=== PATIENT | female | born 1950 | race Caucasian/White ===

== ENCOUNTER 2019-11-23 17:08 | Outpatient (REF) | payer MEDICARE, OTHER, SELFPAY | END 2019-11-23 17:09 | disposition home or self-care (01) | LOC: HO.LAB 17:08 | PROVIDERS: PCP Internal Medicine; Visit Provider Internal Medicine | DX: Z20.828 Contact with and (suspected) exposure to other viral communicable diseases (principal) | CPT/HCPCS: 36415; 87635 ==

== ENCOUNTER 2019-11-26 14:35 | Outpatient (REF) | payer MEDICARE, OTHER, SELFPAY ==
--- NOTE | 2019-11-26 14:42 | XR_ITS ---
EXAMINATION: XR CHEST CLINICAL INFORMATION: Chest pain. COMPARISON: Chest radiograph from 11/26/2019. TECHNIQUE: Chest radiograph from 06/18/2019. FINDINGS: The lungs are well expanded. Chronically increased irregular reticular markings. No new focal consolidative process. Chronic moderate peribronchial wall thickening. No evidence of pleural effusion, pulmonary edema, or pneumothorax. The cardiomediastinal silhouette is within normal limits. No acute osseous abnormalities. IMPRESSION: 1. No acute pulmonary abnormalities. No focal dense lobar consolidation. 2. Chronically increased pulmonary markings and peribronchial wall thickening suggestive of small airways inflammation.
== END 2019-11-26 14:36 | disposition home or self-care (01) ==
LOC: HO.HMGCX 14:35
PROVIDERS: PCP Internal Medicine; Visit Provider Internal Medicine
DX: R07.89 Other chest pain (principal); R05 Cough
CPT/HCPCS: 71046

== ENCOUNTER 2019-12-02 10:59 | Outpatient (REF) | payer MEDICARE, OTHER, SELFPAY ==
--- NOTE | 2019-12-02 10:56 | CT_ITS ---
EXAMINATION: CT HEAD WITHOUT CONTRAST CLINICAL INFORMATION: Headache. Head injury. COMPARISON: None available. TECHNIQUE: Contiguous axial imaging was performed from the skull base to vertex without intravenous administration of contrast. This CT examination was performed using dose optimization techniques as appropriate, variously including the following: *Automated exposure control *Adjustment of mA and/or kV according to patient size (this includes techniques or standardized protocols for targeted exams where dose is matched to indication/reason for exam; i.e. extremities or head) *Use of iterative reconstruction technique FINDINGS: There is no intracranial hemorrhage, hydrocephalus, extra-axial surface collection, midline shift, or other herniation pattern. Trejo to white matter differentiation is diffusely maintained without evidence of an evolved acute territorial infarct. The basilar cisterns are preserved. No significant soft tissue abnormality. No acute osseous abnormality. The paranasal sinuses and the mastoid air cells are well aerated. IMPRESSION: No acute intracranial abnormality.
== END 2019-12-02 11:00 | disposition home or self-care (01) ==
LOC: HO.CT 10:59
PROVIDERS: PCP Internal Medicine; Visit Provider Psychiatry & Neurology Neurology
DX: R51.9 Headache, unspecified (principal); S09.90XA Unspecified injury of head, initial encounter
CPT/HCPCS: 70450

== ENCOUNTER 2019-12-24 11:31 | Outpatient (REF) | payer MEDICARE, OTHER, SELFPAY ==
--- NOTE | 2019-12-24 11:34 | US_ITS ---
EXAMINATION: US RETROPERITONEAL LIMITED (RENAL ONLY) CLINICAL INFORMATION: Disorder of kidney and ureter, unspecified. COMPARISON: None TECHNIQUE: Real-time imaging of the kidneys. FINDINGS: RIGHT KIDNEY: 12.5 x 5.5 x 5.1 cm (SAG x AP x TRV). The kidney is normal in size, contour, and echogenicity. Renal cortical thickness is normal. No renal calculi or hydronephrosis. There is an anechoic cyst partially exophytic in upper pole measuring 0.9 x 1.0 x 1.0 cm. LEFT KIDNEY: 12.7 x 5.5 x 5.6 cm (SAG x AP x TRV). The kidney is normal in size, contour, and echogenicity. Renal cortical thickness is normal. No calculi or focal parenchymal lesions. No hydronephrosis. US/US renal BI IMPRESSION: 1. Partially exophytic cyst midpole right kidney. 2. There are no echogenic stones or hydronephrosis seen.
== END 2019-12-24 11:32 | disposition home or self-care (01) ==
LOC: HO.HMGCX 11:31
PROVIDERS: PCP Internal Medicine; Visit Provider Internal Medicine
DX: N28.9 Disorder of kidney and ureter, unspecified (principal)
CPT/HCPCS: 76775

== ENCOUNTER → 2020-01-21 11:01 | Outpatient (BNVA) | payer MEDICARE, OTHER, SELFPAY | PROVIDERS: PCP Internal Medicine; Visit Provider Internal Medicine Pulmonary Disease | DX: J43.9 Emphysema, unspecified (principal); R91.8 Other nonspecific abnormal finding of lung field | CPT/HCPCS: 99202 ==

== ENCOUNTER 2020-01-29 11:00 | Outpatient (REF) | payer MEDICARE, OTHER, SELFPAY ==
--- NOTE | 2020-01-29 11:03 | CT_ITS ---
EXAMINATION: CT CHEST WITHOUT CONTRAST CLINICAL INFORMATION: Other nonspecific abnormal finding on lung field COMPARISON: Previous chest x-rays most recent 11/26/2019 TECHNIQUE: Multidetector volumetric CT imaging of the chest was done. Axial MIP volume rendering provided. Sagittal and coronal reformatted images were obtained. This CT examination was performed using dose optimization techniques as appropriate, variously including the following: *Automated exposure control *Adjustment of mA and/or kV according to patient size (this includes techniques or standardized protocols for targeted exams where dose is matched to indication/reason for exam; i.e. 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 The lungs are otherwise clear. No bronchial wall thickening or bronchiectasis or endobronchial lesion is seen. No evidence of emphysema or interstitial lung disease is seen. MEDIASTINUM: The mediastinum is normal. PLEURA: There is no pleural effusion. No pleural mass or thickening. AXILLA: No lymphadenopathy. UPPER ABDOMEN: The gallbladder has been removed. OSSEOUS STRUCTURES: There are degenerative changes of the spine and mild scoliosis. CT/CT chest wo con IMPRESSION: Probable compressive atelectasis in the peripheral paravertebral right lower lobe adjacent to bony osteophyte. Otherwise unremarkable exam. No evidence of airways disease.
== END 2020-01-29 11:01 | disposition home or self-care (01) ==
LOC: HO.CT 11:00
PROVIDERS: PCP Internal Medicine; Visit Provider Internal Medicine Pulmonary Disease
DX: R91.8 Other nonspecific abnormal finding of lung field (principal)
CPT/HCPCS: 71250

== ENCOUNTER → 2020-02-09 11:45 | Outpatient (BNVA) | payer MEDICARE, OTHER, SELFPAY | PROVIDERS: PCP Internal Medicine; Visit Provider Internal Medicine Pulmonary Disease | DX: R93.89 Abnormal findings on diagnostic imaging of other specified body structures (principal); I10 Essential (primary) hypertension; R05 Cough; K21.9 Gastro-esophageal reflux disease without esophagitis; J43.9 Emphysema, unspecified; Z87.891 Personal history of nicotine dependence | CPT/HCPCS: 99212 ==

== ENCOUNTER 2020-02-26 | Outpatient (REF) | payer MEDICARE, OTHER, SELFPAY ==
[2020-02-26 14:28] LABS: Glucose Urine UA NEG (NEG); Leukocyte Esterase Urine NEG (NEG); Nitrite Urine NEG (NEG); PH 5.5 (5.0-8.0); Specific Gravity - Urine >= 1.030 (1.005-1.025); Urine Blood NEG (NEG); Urine Ketones NEG (NEG); Urine Protein NEG (NEG-TRACE)
[2020-02-26 14:30] LABS: Appearance Urine HAZY; Color Urine YELLOW
== END 2020-02-26 00:01 | disposition home or self-care (01) ==
LOC: HO.HMGCLNP
PROVIDERS: Visit Provider Internal Medicine Cardiovascular Disease
DX: E78.9 Disorder of lipoprotein metabolism, unspecified (principal); I10 Essential (primary) hypertension; N28.9 Disorder of kidney and ureter, unspecified
CPT/HCPCS: 81003

== ENCOUNTER → 2020-03-09 11:45 | Outpatient (BNVA) | payer MEDICARE, OTHER, SELFPAY | PROVIDERS: PCP Internal Medicine; Visit Provider Internal Medicine Pulmonary Disease | DX: R05 Cough (principal); R91.8 Other nonspecific abnormal finding of lung field | CPT/HCPCS: 99212 ==

== ENCOUNTER → 2020-03-24 11:24 | Outpatient (BNVA) | payer MEDICARE, OTHER, SELFPAY | PROVIDERS: PCP Internal Medicine; Visit Provider Internal Medicine Pulmonary Disease | DX: Z13.89 Encounter for screening for other disorder (principal) | CPT/HCPCS: Q3014 ==

== ENCOUNTER → 2020-04-12 13:44 | Outpatient (BNVA) | payer MEDICARE, OTHER, SELFPAY | PROVIDERS: PCP Internal Medicine; Visit Provider Internal Medicine Pulmonary Disease | DX: Z76.89 Persons encountering health services in other specified circumstances (principal) | CPT/HCPCS: Q3014 ==

== ENCOUNTER 2020-04-22 17:03 | Outpatient (REF) | payer MEDICARE, OTHER, SELFPAY ==
[2020-04-22 17:41] LABS: MANUAL DIFF FLAG NO
[2020-04-22 17:54] LABS: Basophils Percent Auto 0.5 % (0-2); Eosinophils Absolute Auto 0.1 X10*3/uL (0.0-0.4); Eosinophils Percent Auto 1.7 % (0-4); Hematocrit 42.7 % (37-47); Hemoglobin 14.2 g/dl (12.0-16.0); Imm Gran Abs Auto 0.04 X10*3/uL (0.00-0.03); Imm Gran Pct Auto 0.5 % (0.0-0.4); Lymphocytes Absolute Auto 2.2 X10*3/uL (1.2-4.9); Lymphocytes Percent Auto 29.6 % (20-40); Mean Corpuscular HGB Conc 33.3 g/dl (31.0-35.0); Mean Corpuscular Hemoglobin 29.2 pg (27.0-33.0); Mean Corpuscular Volume 87.7 fL (80-98); Mean Platelet Volume 9.7 fL (9.4-12.3); Monocytes Absolute Auto 0.6 X10*3/uL (0.1-1.2); Monocytes Percent Auto 7.6 % (2-11); Neutrophils Absolute Auto 4.5 X10*3/uL (2.0-8.3); Neutrophils Percent Auto 60.1 % (45-73); Platelet Count 272 X10*3/uL (160-400); Red Blood Count 4.87 X10*6/uL (4.20-5.50); Red Cell Distribution Width 12.6 % (11.0-16.0); White Blood Count 7.5 X10*3/uL (4.8-10.8)
[2020-04-22 18:22] LABS: Anion Gap 13 (12-20); Carbon Dioxide 27 mmol/L (22-29); Chloride 105 mmol/L (96-108); Potassium 4.6 mmol/L (3.3-5.1); Sodium 140 mmol/L (135-145)
[2020-04-22 18:24] LABS: Alanine Aminotransferase 27 U/L (0-31); Albumin Level 4.3 g/dL (3.5-5.0); Alkaline Phosphatase 134 U/L (39-117); Aspartate Amino Transferase 19 U/L (5-31); Bilirubin Direct 0.2 mg/dL (0.0-0.5); Bilirubin Total 0.5 mg/dL (0.0-1.0); Blood Urea Nitrogen 14 mg/dL (9-16); Calcium 9.2 mg/dL (8.4-10.2); Cholesterol 292 mg/dL; Estimated Glomerular Filt Rate 53; Glucose Fasting 115 mg/dL (60-99); HDL Cholesterol 55 mg/dL; Total Protein 7.4 g/dL (6.5-8.0); Triglycerides 490 mg/dL
== END 2020-04-22 17:04 | disposition home or self-care (01) ==
LOC: HO.LAB 17:03
PROVIDERS: PCP Internal Medicine; Visit Provider Internal Medicine Pulmonary Disease
DX: E78.9 Disorder of lipoprotein metabolism, unspecified (principal); I10 Essential (primary) hypertension; N28.9 Disorder of kidney and ureter, unspecified; Z91.09 Other allergy status, other than to drugs and biological substances
CPT/HCPCS: 36415; 80048; 80061; 80076; 82785; 85025; 86003

== ENCOUNTER → 2020-05-26 14:51 | Outpatient (BNVA) | payer MEDICARE, OTHER, SELFPAY | PROVIDERS: PCP Internal Medicine; Visit Provider Internal Medicine Pulmonary Disease | DX: J45.909 Unspecified asthma, uncomplicated (principal); Z91.09 Other allergy status, other than to drugs and biological substances | CPT/HCPCS: 99212 ==

== ENCOUNTER 2020-07-07 13:46 | Outpatient (REF) | payer MEDICARE, OTHER, SELFPAY ==
--- NOTE | ~2020-07-07 | CT_ITS ---
EXAMINATION: CT SOFT TISSUE NECK WITHOUT CONTRAST CLINICAL INFORMATION: Cough. COMPARISON: CT scan of the sinuses 05/23/2018. TECHNIQUE: Helical imaging was performed in the axial plane with generation of coronal and sagittal reformatted images. Evaluation is slightly limited by lack of intravenous contrast. This CT examination was performed using dose optimization techniques as appropriate, variously including the following: *Automated exposure control *Adjustment of mA and/or kV according to patient size (this includes techniques or standardized protocols for targeted exams where dose is matched to indication/reason for exam; i.e. extremities or head) *Use of iterative reconstruction technique DLP: 436 mGy-cm FINDINGS: No cervical adenopathy is identified. The parotid glands are homogeneous in attenuation. The submandibular glands are normal. No contour abnormality or pathologic enhancement is seen within the oral cavity or pharyngeal mucosal space. The laryngeal structures are normal. The parapharyngeal fat is preserved. There is no cervical lymphadenopathy. There are small lymph nodes at multiple levels in the neck bilaterally. There are mild atheromatous calcifications of the aortic arch and right subclavian artery. No extra mucosal soft tissue mass or fluid collection is seen. No retropharyngeal fluid collection is seen. The thyroid gland is normal. The superior mediastinum is unremarkable. The lung apices and visualized airways are clear. The mastoid air cells and visualized portions of the paranasal sinuses are well-aerated. There are mild degenerative changes of the right temporomandibular joint. No periapical disease is identified. No osseous abnormalities are seen. The imaged portions of the brain parenchyma are unremarkable. CT/CT soft tissue neck wo con IMPRESSION: 1. There are no cervical masses and there is no cervical lymphadenopathy. The visualized lung peace and airways appear well-aerated.
== END 2020-07-07 13:47 | disposition home or self-care (01) ==
LOC: HO.CT 13:46
PROVIDERS: PCP Internal Medicine; Visit Provider Internal Medicine Pulmonary Disease
DX: R05 Cough (principal); J39.8 Other specified diseases of upper respiratory tract
CPT/HCPCS: 70490

== ENCOUNTER 2020-07-20 11:13 | Outpatient (REF) | payer MEDICARE, OTHER, SELFPAY | END 2020-07-20 11:14 | disposition home or self-care (01) | LOC: HO.MDS 11:13 | PROVIDERS: PCP Internal Medicine; Visit Provider Internal Medicine Pulmonary Disease | DX: J45.50 Severe persistent asthma, uncomplicated (principal) | CPT/HCPCS: 96372; J2357 ==

== ENCOUNTER → 2020-07-27 09:48 | Outpatient (BNVA) | payer MEDICARE, OTHER, SELFPAY | PROVIDERS: PCP Internal Medicine; Visit Provider Internal Medicine Pulmonary Disease | DX: J45.909 Unspecified asthma, uncomplicated (principal); Z91.09 Other allergy status, other than to drugs and biological substances | CPT/HCPCS: 99212 ==

== ENCOUNTER 2020-08-03 11:57 | Outpatient (REF) | payer MEDICARE, OTHER, SELFPAY | END 2020-08-03 11:58 | disposition home or self-care (01) | LOC: HO.MDS 11:57 | PROVIDERS: PCP Internal Medicine; Visit Provider Internal Medicine Pulmonary Disease | DX: J45.50 Severe persistent asthma, uncomplicated (principal) | CPT/HCPCS: 96372; J2357 ==

== ENCOUNTER 2020-08-17 10:06 | Outpatient (REF) | payer MEDICARE, OTHER, SELFPAY | END 2020-08-17 10:07 | disposition home or self-care (01) | LOC: HO.MDS 10:06 | PROVIDERS: PCP Internal Medicine; Visit Provider Internal Medicine Pulmonary Disease | DX: J45.50 Severe persistent asthma, uncomplicated (principal) | CPT/HCPCS: 96372; J2357 ==

== ENCOUNTER 2020-08-31 10:54 | Outpatient (REF) | payer MEDICARE, OTHER, SELFPAY | END 2020-08-31 10:55 | disposition home or self-care (01) | LOC: HO.MDS 10:54 | PROVIDERS: PCP Internal Medicine; Visit Provider Internal Medicine Pulmonary Disease | DX: J45.50 Severe persistent asthma, uncomplicated (principal) | CPT/HCPCS: 96372; J2357 ==

== ENCOUNTER 2020-09-14 11:06 | Outpatient (REF) | payer MEDICARE, OTHER, SELFPAY | END 2020-09-14 11:07 | disposition home or self-care (01) | LOC: HO.MDS 11:06 | PROVIDERS: PCP Internal Medicine; Visit Provider Internal Medicine Pulmonary Disease | DX: J45.50 Severe persistent asthma, uncomplicated (principal) | CPT/HCPCS: 96372; J2357 ==

== ENCOUNTER 2020-09-28 11:23 | Outpatient (REF) | payer MEDICARE, OTHER, SELFPAY | END 2020-09-28 11:24 | disposition home or self-care (01) | LOC: HO.MDS 11:23 | PROVIDERS: PCP Internal Medicine; Visit Provider Internal Medicine Pulmonary Disease | DX: J45.50 Severe persistent asthma, uncomplicated (principal) | CPT/HCPCS: 96372; J2357 ==

== ENCOUNTER 2020-10-12 10:29 | Outpatient (REF) | payer MEDICARE, OTHER, SELFPAY | END 2020-10-12 10:30 | disposition home or self-care (01) | LOC: HO.MDS 10:29 | PROVIDERS: PCP Internal Medicine; Visit Provider Internal Medicine Pulmonary Disease | DX: J45.50 Severe persistent asthma, uncomplicated (principal) | CPT/HCPCS: 96372; J2357 ==

== ENCOUNTER 2020-10-26 14:52 | Outpatient (REF) | payer MEDICARE, OTHER, SELFPAY | END 2020-10-26 14:53 | disposition home or self-care (01) | LOC: HO.MDS 14:52 | PROVIDERS: PCP Internal Medicine; Visit Provider Internal Medicine Pulmonary Disease | DX: J45.50 Severe persistent asthma, uncomplicated (principal) | CPT/HCPCS: 96372; J2357 ==

== ENCOUNTER → 2020-10-27 11:27 | Outpatient (BNVA) | payer MEDICARE, OTHER, SELFPAY | PROVIDERS: PCP Internal Medicine; Visit Provider Internal Medicine Pulmonary Disease | DX: J45.909 Unspecified asthma, uncomplicated (principal); Z91.09 Other allergy status, other than to drugs and biological substances | CPT/HCPCS: 99212 ==

== ENCOUNTER 2020-11-09 11:53 | Outpatient (REF) | payer MEDICARE, OTHER, SELFPAY | END 2020-11-09 11:54 | disposition home or self-care (01) | LOC: HO.MDS 11:53 | PROVIDERS: PCP Internal Medicine; Visit Provider Internal Medicine Pulmonary Disease | DX: J45.50 Severe persistent asthma, uncomplicated (principal) | CPT/HCPCS: 96372; J2357 ==

== ENCOUNTER 2020-11-23 11:14 | Outpatient (REF) | payer MEDICARE, OTHER, SELFPAY | END 2020-11-23 11:15 | disposition home or self-care (01) | LOC: HO.MDS 11:14 | PROVIDERS: PCP Internal Medicine; Visit Provider Internal Medicine Pulmonary Disease | DX: J45.50 Severe persistent asthma, uncomplicated (principal) | CPT/HCPCS: 96372; J2357 ==

== ENCOUNTER 2020-12-07 11:04 | Outpatient (REF) | payer MEDICARE, OTHER, SELFPAY | END 2020-12-07 11:05 | disposition home or self-care (01) | LOC: HO.MDS 11:04 | PROVIDERS: PCP Internal Medicine; Visit Provider Internal Medicine Pulmonary Disease | DX: J45.50 Severe persistent asthma, uncomplicated (principal) | CPT/HCPCS: 96372; J2357 ==

== ENCOUNTER 2020-12-21 10:50 | Outpatient (REF) | payer MEDICARE, OTHER, SELFPAY | END 2020-12-21 10:51 | disposition home or self-care (01) | LOC: HO.MDS 10:50 | PROVIDERS: PCP Internal Medicine; Visit Provider Internal Medicine Pulmonary Disease | DX: J45.50 Severe persistent asthma, uncomplicated (principal) | CPT/HCPCS: 96372; J2357 ==

== ENCOUNTER 2020-12-21 15:16 | Outpatient (REF) | payer MEDICARE, OTHER, SELFPAY ==
--- NOTE | ~2020-12-21 | XR_ITS ---
EXAMINATION: XR CHEST CLINICAL INFORMATION: Chest pain COMPARISON: Previous chest x-ray November [address] January 2020 TECHNIQUE: 2 views of the chest were obtained. FINDINGS: The cardiac and mediastinal contours are stable. There is a 4 x 5 cm density in the left upper lobe. Differential would include pneumonia and mass. The lungs are otherwise clear. There is no pleural effusion or pneumothorax. There are degenerative changes of the spine. XR/XR chest 2V IMPRESSION: New 4 x 5 cm density in the left upper lobe. Differential would include pneumonia and mass. If there is clinical suspicion of pneumonia, short-term follow-up chest x-ray following treatment would be recommended. If there are no symptoms to suggest infection or chest x-ray finding does not resolve, chest CT scan with IV contrast would be recommended.
[2020-12-21 15:56] LABS: MANUAL DIFF FLAG NO
[2020-12-21 16:04] LABS: Basophils Percent Auto 0.2 % (0-2); Eosinophils Percent Auto 0.1 % (0-4); Hematocrit 39.4 % (37.0-47.0); Hemoglobin 13.6 g/dl (12.0-16.0); Imm Gran Abs Auto 0.15 X10*3/uL (0.00-0.03); Imm Gran Pct Auto 0.9 % (0.0-0.4); Lymphocytes Absolute Auto 1.6 X10*3/uL (1.2-4.9); Lymphocytes Percent Auto 9.5 % (20-40); Mean Corpuscular HGB Conc 34.5 g/dl (31.0-35.0); Mean Platelet Volume 9.3 fL (9.4-12.3); Monocytes Absolute Auto 1.3 X10*3/uL (0.1-1.2); Monocytes Percent Auto 7.8 % (2-11); Neutrophils Absolute Auto 13.54 x10*3/uL (2.0-8.3); Neutrophils Percent Auto 81.5 % (45-73); Platelet Count 236 X10*3/uL (160-400); Red Blood Count 4.53 X10*6/uL (4.20-5.50); Red Cell Distribution Width 12.4 % (11.0-16.0); White Blood Count 16.6 X10*3/uL (4.8-10.8)
[2020-12-21 16:17] LABS: D Dimer 424 NG/ML
[2020-12-21 16:29] LABS: Anion Gap 15 (12-20); Blood Urea Nitrogen 12 mg/dL (9-16); Calcium 9.5 mg/dL (8.4-10.2); Carbon Dioxide 25 mmol/L (22-29); Chloride 102 mmol/L (96-108); Estimated Glomerular Filt Rate 58; Glucose Random 122 mg/dL (60-115); Potassium 4.3 mmol/L (3.3-5.1); Sodium 138 mmol/L (135-145)
[2020-12-21 16:36] LABS: B Type Natriuretic Peptide 104 pg/mL (<100)
== END 2020-12-21 15:17 | disposition home or self-care (01) ==
LOC: HO.XRAY 15:16
PROVIDERS: PCP Internal Medicine; Visit Provider Nurse Practitioner Family
DX: R07.9 Chest pain, unspecified (principal); E78.5 Hyperlipidemia, unspecified
CPT/HCPCS: 36415; 71046; 80048; 83880; 85025; 85379

== ENCOUNTER 2020-12-23 16:00 | Outpatient (REF) | payer MEDICARE, OTHER, SELFPAY ==
--- NOTE | ~2020-12-23 | CT_ITS ---
EXAMINATION: CT CHEST WITH CONTRAST CLINICAL INFORMATION: Normal finding of the lungs. COMPARISON: Chest radiograph 12/21/2020. CT 01/29/2020. TECHNIQUE: Multidetector volumetric CT imaging of the chest was obtained after the administration of 65 mL of Omnipaque 350 intravenous contrast without immediate adverse reactions. Axial MIP volume rendering provided. Sagittal and coronal reformatted images were obtained. This CT examination was performed using dose optimization techniques as appropriate, variously including the following: *Automated exposure control *Adjustment of mA and/or kV according to patient size (this includes techniques or standardized protocols for targeted exams where dose is matched to indication/reason for exam; i.e. 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 LUNGS: The central airways are patent. There is a dense consolidation of the left upper lobe peripherally extending into the lingula with air bronchograms. This most likely has the appearance of pneumonia. No additional consolidation. No pulmonary nodule. No pneumothorax. MEDIASTINUM: Normal heart size. No pericardial effusion. No mediastinal lymphadenopathy. PLEURA: There is no pleural effusion. No pleural mass or thickening. AXILLA: No lymphadenopathy. UPPER ABDOMEN: Cholecystectomy. No acute abnormality in the visualized upper abdomen. OSSEOUS STRUCTURES: No acute or suspicious osseous abnormality. Degenerative changes throughout the spine. Scoliotic curvature. CT/CT chest w con IMPRESSION: Left upper lobe consolidation with air bronchograms most consistent with pneumonia. Follow-up to resolution.
[2020-12-23] MEDS: iohexoL 350 MG/ML 100 ML INFUS..BTL IV (16:33)
== END 2020-12-23 16:01 | disposition home or self-care (01) ==
LOC: HO.CT 16:00
PROVIDERS: PCP Internal Medicine; Visit Provider Internal Medicine
DX: R91.8 Other nonspecific abnormal finding of lung field (principal)
CPT/HCPCS: 71260; Q9967

== ENCOUNTER → 2020-12-28 11:26 | Outpatient (BNVA) | payer MEDICARE, OTHER, SELFPAY | PROVIDERS: PCP Internal Medicine; Visit Provider Internal Medicine Pulmonary Disease | DX: J45.909 Unspecified asthma, uncomplicated (principal); J18.9 Pneumonia, unspecified organism | CPT/HCPCS: 99212 ==

== ENCOUNTER 2021-02-14 11:04 | Outpatient (REF) | payer MEDICARE, OTHER, SELFPAY ==
--- NOTE | ~2021-02-14 | XR_ITS ---
EXAMINATION: XR CHEST CLINICAL INFORMATION: Follow up pneumonia. COMPARISON: CT chest dated from 12/23/2020. Chest radiograph dated from 12/21/2020. TECHNIQUE: 2 views of the chest were obtained. FINDINGS: Normal appearance of the cardiomediastinal silhouette. Very minimal residual ill-defined haziness in the area of the previously seen large consolidation within the left upper lobe. Otherwise, clear lungs. No pleural effusions or pneumothorax. No acute osseous abnormalities. XR/XR chest 2V IMPRESSION: Nearly entirely resolved left upper lobe consolidation with very minimal residual haziness of the lung parenchyma. An additional follow-up examination could be obtained to ensure complete resolution of these findings.
[2021-02-14 13:49] LABS: MANUAL DIFF FLAG NO
[2021-02-14 14:02] LABS: Basophils Absolute Auto 0.1 X10*3/uL (0.0-0.2); Basophils Percent Auto 0.8 % (0-2); Eosinophils Absolute Auto 0.2 X10*3/uL (0.0-0.4); Eosinophils Percent Auto 2.5 % (0-4); Hematocrit 45.6 % (37.0-47.0); Hemoglobin 14.9 g/dl (12.0-16.0); Imm Gran Abs Auto 0.02 X10*3/uL (0.00-0.03); Imm Gran Pct Auto 0.3 % (0.0-0.4); Lymphocytes Absolute Auto 2.2 X10*3/uL (1.2-4.9); Lymphocytes Percent Auto 33.6 % (20-40); Mean Corpuscular HGB Conc 32.7 g/dl (31.0-35.0); Mean Corpuscular Volume 88.9 fL (80.0-98.0); Mean Platelet Volume 9.7 fL (9.4-12.3); Monocytes Absolute Auto 0.4 X10*3/uL (0.1-1.2); Monocytes Percent Auto 6.4 % (2-11); Neutrophils Absolute Auto 3.6 x10*3/uL (2.0-8.3); Neutrophils Percent Auto 56.4 % (45-73); Platelet Count 280 X10*3/uL (160-400); Red Blood Count 5.13 X10*6/uL (4.20-5.50); Red Cell Distribution Width 12.7 % (11.0-16.0); White Blood Count 6.4 X10*3/uL (4.8-10.8)
[2021-02-14 14:13] LABS: Alanine Aminotransferase 28 U/L (0-31); Albumin Level 4.3 g/dL (3.5-5.0); Alkaline Phosphatase 111 U/L (39-117); Anion Gap 11 (12-20); Aspartate Amino Transferase 24 U/L (5-31); Bilirubin Total 0.9 mg/dL (0.0-1.0); Blood Urea Nitrogen 16 mg/dL (9-16); Calcium 9.7 mg/dL (8.4-10.2); Carbon Dioxide 30 mmol/L (22-29); Chloride 106 mmol/L (96-108); Estimated Glomerular Filt Rate 54; Glucose Random 112 mg/dL (60-115); Potassium 4.7 mmol/L (3.3-5.1); Sodium 142 mmol/L (135-145); Total Protein 7.2 g/dL (6.5-8.0)
[2021-02-14 14:37] LABS: TSH reflex Free T4 3.26 uIU/mL (0.32-4.0)
[2021-02-15 19:27] LABS: LDL Cholesterol Direct 217 mg/dL (<100)
== END 2021-02-14 11:05 | disposition home or self-care (01) ==
LOC: HO.HMGCLDS 11:04
PROVIDERS: PCP Internal Medicine; Visit Provider Internal Medicine
DX: J18.9 Pneumonia, unspecified organism (principal); E03.8 Other specified hypothyroidism; E78.9 Disorder of lipoprotein metabolism, unspecified; I10 Essential (primary) hypertension; N28.9 Disorder of kidney and ureter, unspecified
CPT/HCPCS: 36415; 71046; 80053; 83721; 84443; 85025

== ENCOUNTER → 2021-05-05 14:59 | Outpatient (BNVA) | payer MEDICARE, OTHER, SELFPAY | PROVIDERS: PCP Internal Medicine; Visit Provider Internal Medicine Pulmonary Disease | DX: J45.909 Unspecified asthma, uncomplicated (principal); Z91.09 Other allergy status, other than to drugs and biological substances | CPT/HCPCS: 99212 ==

== ENCOUNTER 2021-05-12 16:50 | Outpatient (REF) | payer MEDICARE, OTHER, SELFPAY ==
--- NOTE | ~2021-05-12 | XR_ITS ---
EXAMINATION: XR LUMBOSACRAL SPINE CLINICAL INFORMATION: Low back pain. COMPARISON: None TECHNIQUE: Three views of the lumbosacral spine. FINDINGS: There is mild dextroscoliosis of the lumbar spine. Lumbar lordosis is maintained normal. There is grade 1 anterolisthesis of L4 over L5. The rest of the vertebral alignment is normal. The vertebral heights and alignment are normal. No acute fracture or lytic process seen. The paravertebral soft tissues are normal. XR/XR lumbar spine 2-3V IMPRESSION: Grade 1 anterolisthesis of L4 over L5 with degenerative disc changes of the L4-L5 and L5-S1 disc levels. No visible acute fracture or dislocation seen.
== END 2021-05-12 16:51 | disposition home or self-care (01) ==
LOC: HO.HMGCX 16:50
PROVIDERS: PCP Internal Medicine; Visit Provider Internal Medicine
DX: M54.50 Low back pain, unspecified (principal)
CPT/HCPCS: 72100

== ENCOUNTER → 2021-05-16 10:08 | Outpatient (BNVA) | payer MEDICARE, OTHER, SELFPAY | PROVIDERS: PCP Internal Medicine; Visit Provider Internal Medicine Pulmonary Disease | DX: J45.909 Unspecified asthma, uncomplicated (principal); Z91.09 Other allergy status, other than to drugs and biological substances; Z87.891 Personal history of nicotine dependence | CPT/HCPCS: 94640; 99212 ==

== ENCOUNTER → 2021-06-06 13:46 | Outpatient (BNVA) | payer MEDICARE, OTHER, SELFPAY | PROVIDERS: PCP Internal Medicine; Visit Provider Internal Medicine Pulmonary Disease | DX: J45.909 Unspecified asthma, uncomplicated (principal); Z91.09 Other allergy status, other than to drugs and biological substances | CPT/HCPCS: 99212 ==

== ENCOUNTER → 2021-07-07 13:52 | Outpatient (BNVA) | payer MEDICARE, OTHER, SELFPAY | PROVIDERS: PCP Internal Medicine; Visit Provider Internal Medicine Pulmonary Disease | DX: J45.909 Unspecified asthma, uncomplicated (principal); R06.00 Dyspnea, unspecified; Z91.09 Other allergy status, other than to drugs and biological substances | CPT/HCPCS: 99212 ==

== ENCOUNTER → 2021-07-11 07:41 | Outpatient (REF) | payer MEDICARE, OTHER, SELFPAY ==
--- NOTE | ~2021-07-11 | NM_ITS ---
EXAMINATION: AL LUNG IMAGE PERFUSION CLINICAL INFORMATION: Dyspnea. History of lung cancer. COMPARISON: Chest x-ray 05/11/2021 TECHNIQUE: Following intravenous administration of 4 mCi of 90 9M technetium MAA, imaging of both lungs were obtained multiple projections. Ventilation imaging was not performed. FINDINGS: On perfusion scan there is normal flow seen to all segments of the lungs without any subsegmental or segmental defect. No ventilation study was performed. NM/AL pul perfusion IMPRESSION: Normal perfusion scan. No perfusion defects seen.
--- NOTE | ~2021-07-11 | XR_ITS ---
EXAMINATION: XR CHEST CLINICAL INFORMATION: R06.00 - Dyspnea, unspecified COMPARISON: Chest radiographs 02/14/2021, 12/21/2020, 11/26/2019 TECHNIQUE: 2 views of the chest were obtained. FINDINGS: There is mild underpenetration x-ray beam, possibly related to body habitus. Heart size normal. Vascularity normal. There is no residual airspace opacity or groundglass opacity. Compared with prior exams. Left upper lobe infiltrate has resolved. There is no pleural reaction or effusion. The hilar and mediastinal contours and bony structures are stable. XR/XR chest 2V IMPRESSION: Lungs clear. No residual airspace opacity left upper lobe. No effusion.
== END ==
LOC: HO.NUCMED 07:41
PROVIDERS: PCP Internal Medicine; Visit Provider Internal Medicine Pulmonary Disease
DX: R06.00 Dyspnea, unspecified (principal)
CPT/HCPCS: 71046; 78580; A9540

== ENCOUNTER → 2021-07-19 13:57 | Outpatient (BNVA) | payer MEDICARE, OTHER, SELFPAY | PROVIDERS: PCP Internal Medicine; Visit Provider Internal Medicine Pulmonary Disease | DX: G47.33 Obstructive sleep apnea (adult) (pediatric) (principal); R06.00 Dyspnea, unspecified | CPT/HCPCS: 99212 ==

== ENCOUNTER → 2021-08-07 13:54 | Outpatient (REF) | payer MEDICARE, OTHER, SELFPAY | LOC: HO.SL 13:54 | PROVIDERS: PCP Internal Medicine; Visit Provider Internal Medicine Pulmonary Disease | DX: G47.33 Obstructive sleep apnea (adult) (pediatric) (principal) | CPT/HCPCS: 95806 ==

== ENCOUNTER 2021-08-12 11:36 | Outpatient (REF) | payer MEDICARE, OTHER, SELFPAY ==
--- NOTE | ~2021-08-12 | XR_ITS ---
EXAMINATION: XR CHEST CLINICAL INFORMATION: Pneumonia COMPARISON: 07/11/2021 TECHNIQUE: 2 views of the chest were obtained. FINDINGS: Lungs are clear. No focal consolidation or mass. Normal pulmonary vascularity. No pleural effusion or pneumothorax. Normal heart size. Mild convex left lumbar scoliosis and multilevel degenerative changes. XR/XR chest 2V IMPRESSION: No acute pulmonary disease. No significant change.
== END 2021-08-12 11:37 | disposition home or self-care (01) ==
LOC: HO.HMGCX 11:36
PROVIDERS: PCP Internal Medicine; Visit Provider Internal Medicine
DX: J18.9 Pneumonia, unspecified organism (principal)
CPT/HCPCS: 71046

== ENCOUNTER 2021-08-14 11:24 | Outpatient (REF) | payer MEDICARE, OTHER, SELFPAY ==
[2021-08-14 15:45] LABS: Alanine Aminotransferase 26 U/L (0-31); Albumin Level 4.2 g/dL (3.5-5.0); Alkaline Phosphatase 96 U/L (39-117); Anion Gap 14 (12-20); Aspartate Amino Transferase 22 U/L (5-31); Bilirubin Total 0.9 mg/dL (0.0-1.0); Blood Urea Nitrogen 17 mg/dL (9-16); Calcium 9.3 mg/dL (8.4-10.2); Carbon Dioxide 23 mmol/L (22-29); Chloride 110 mmol/L (96-108); Cholesterol 127 mg/dL; Estimated Glomerular Filt Rate 58; Glucose Fasting 102 mg/dL (60-99); HDL Cholesterol 52 mg/dL; LDL Cholesterol Calculated 53 mg/dl; Potassium 4.3 mmol/L (3.3-5.1); Sodium 143 mmol/L (135-145); Total Protein 6.9 g/dL (6.5-8.0); Triglycerides 111 mg/dL
== END 2021-08-14 11:25 | disposition home or self-care (01) ==
LOC: HO.HMGCLDS 11:24
PROVIDERS: PCP Internal Medicine; Visit Provider Internal Medicine
DX: Z13.89 Encounter for screening for other disorder (principal)
CPT/HCPCS: 36415; 80053; 80061; 84443

== ENCOUNTER 2021-08-14 20:19 | Emergency (ER) | payer MEDICARE, OTHER, SELFPAY ==
[2021-08-14 21:10] VITALS: BP 141/93; PULSE 80; RESP 16; TEMP 36.4; O2SAT 96; BMI 43.8
--- NOTE | 2021-08-14 21:26 | ED.EAR ---
HPI - Ear Problem General Chief complaint: Ear Problems Stated complaint: left Ear infection Source: patient Mode of arrival: ambulatory Limitations: no limitations History of Present Illness HPI Narrative: 71-year-old female presents with left ear pain that radiates to her forehead left eye and left cheek bone and down her neck. States that she was treated for an ear infection at urgent care yesterday and given ciprofloxacin drops and prednisone. She reports that she has been cleaning her ears for months with a pair of scissors. she does not recall cutting open her ear or any prior bleeding from the site. She did not report any decreased hearing or drainage from the auditory canal MD Complaint: ear pain Location: left ear Duration: constant Severity: severe Relieving factors: nothing Exacerbating factors: chewing, position of head and palpation Context: trauma Discharge from ear: no Associated symptoms ear: headache and ear swelling Treatment prior to arrival: eardrops and other (Prednisone) Related Data Home Medications Medication Instructions Recorded Confirmed sertraline 100 mg tablet 25 mg PO DAILY 07/19/21 07/19/21 Previous Rx's Medication Instructions Recorded lisinopril 30 mg tablet 30 mg PO DAILY 90 days #90 tabs 12/23/20 levothyroxine 125 mcg tablet 125 mcg PO QAM #90 tabs 05/16/21 (Levoxyl) amoxicillin 875 mg-potassium 1 tab PO Q12H 7 days #14 tabs 08/14/21 clavulanate 125 mg tablet Allergies Allergy/AdvReac Type Severity Reaction Status Date / Time heparin [HEPARIN] Allergy Unknown ITCH Verified 07/19/21 14:00 Tetanus Vaccines and Toxoid Allergy Unknown SWELLING Verified 07/19/21 14:00 [TETANUS VACCINES AND TOXOID] SOB Review of Systems Review of Systems: Constitutional: No Fever, No Chills ENT/Mouth: Positive left Ear Pain and swelling, No sore throat Eyes: No Eye Pain, No Swelling, No Redness, No Foreign Body Cardiovascular: No Chest Pain, No SOB Respiratory: No Cough, No Dyspnea Gastrointestinal: No Nausea, No Vomiting, No Diarrhea, No abdominal Pain Genitourinary: No Dysuria, No Hematuria Musculoskeletal: no joint pain, No Myalgias, No Joint Swelling Skin: No Skin lacerations, No rash Neuro: No Weakness, No Numbness, No Paresthesias, No Loss of Consciousness, No Dizziness, No Headache Psych: No Anxiety/Panic, No Depression Heme/Lymph: no easy bruising, no Lymphadenopathy Endocrine: No Polyuria, No Polydipsia Yes all other systems are reviewed and are negative [facility] Past Medical History Attestation statement: The following information was validated with the patient. Source: old records reviewed Medical History Other specified hypothyroidism Surgical History H/O oophorectomy History of appendectomy History of hysterectomy Hx of cholecystectomy Family History Family History Father HTN (hypertension) Lung cancer Myocardial infarction Mother HTN (hypertension) Brother No problems noted. Social History Social History Housing: House Patient Tobacco Use Status: Former Tobacco user Years Smoked: 30 yrs e-Cigarette/Vaping Use: Never Used Advance Directives: Yes Advance Directives on File: Yes Advance Directives Date on File: 12/02/19 service: Yes (retired) Current occupational status: retired Current occupational exposures/hazards: No Cognitive needs: No Hearing needs: No Vision needs: No Physical Exam Vital Signs: Vital Signs: Last Vital Signs Temp 97.5 F 08/14/21 21:10 Pulse 80 08/14/21 21:10 Resp 16 08/14/21 21:10 BP 141/93 H 08/14/21 21:10 Pulse Ox 96 08/14/21 21:10 O2 Del Method 08/14/21 21:10 BMI result Body Mass Index 43.8 Appearance: Alert. Oriented X3. No acute distress. Eyes: Pupils equal, round and reactive to light. ENT: Pharynx normal. Bilateral tympanic membranes intact. Auditory canals intact. Left otitis externa. No mastoid tenderness. Neck: Normal inspection. Neck supple. CVS: Normal heart rate and rhythm. Pulses normal. Respiratory: No respiratory distress. Breath sounds normal. Abdomen: Soft and nontender. Skin: Skin warm and dry. Normal skin color. Normal skin turgor. Extremities: No lower extremity edema. Gait well balanced with chordee. Neuro: No motor deficit. No sensory deficit. Cranial nerves 2-12 intact. Course Course Course Narrative: 71-year-old female presents with left otitis externa. Was treated at Urgent Care with Cipro drops and prednisone. States that the pain and swelling has increased. She does report using a pair of scissors to remove earwax and clean her ears. She does not report any recent cuts lacerations or decrease in hearing. She is allergic to Tdap vaccine. She does describe pain consistent with trigeminal neurology most likely due to the otitis externa. No tragus pain to palpation. Has full range of motion to her neck, no nuchal rigidity. No vertebral tenderness or step-offs. No cervical lymphadenopathy Will treat with Augmentin 875 mg b.i.d. for the next 7 days. Resource utilize up-to-date. Patient verbalized understanding of and agrees plan of care discharge home. Verbalized understanding of signs and symptoms indicating need for emergent intervention. I did discuss proper ear cleaning technique with her. MDM - Ear Differential Diagnosis Differential diagnosis: Likely otitis externa, otitis media, foreign body in ear and ruptured TM Medical Records Attestation: I reviewed the patient's medical records. Discharge Plan Discharge Clinical Impression: Otitis externa Patient Disposition: Home, Self-Care Instructions: Otitis Externa (ED) Additional Instructions: You were evaluated for left outer ear swelling consistent with otitis externa. Please stop using the ear drops. Please take Augmentin 875 mg every 12 hours for the next 7 days. Continue to use the prednisone. Please stop using metal objects to clean your ears. Follow-up with primary care physician. Alternate Tylenol 650 mg every 6 hours and Motrin 600 mg every 6 hours as needed for pain management Thank you for choosing this emergency department for evaluation. Please follow-up with primary care physician as needed. Return to the emergency department for any new, concerning, or worsening symptoms. Prescriptions: New amoxicillin-pot clavulanate 875-125 mg tablet 1 tab PO Q12H 7 Days Qty: 14 0RF No Action levothyroxine [Levoxyl] 125 mcg tablet 125 mcg PO QAM Qty: 90 3RF lisinopril 30 mg tablet 30 mg PO DAILY 90 Days Qty: 90 0RF sertraline 100 mg tablet 25 mg PO DAILY Referrals: Max Mercedes MD [Primary Care Provider] -
[2021-08-14] MEDS: Amoxicillin/Potassium Clav 875 MG TABLET PO (22:08)
== END 2021-08-14 23:00 | disposition home or self-care (01) ==
PROVIDERS: Emergency Provider Internal Medicine; PCP Internal Medicine
DX: H60.502 Unspecified acute noninfective otitis externa, left ear (principal); H92.02 Otalgia, left ear; Z79.899 Other long term (current) drug therapy; Z87.891 Personal history of nicotine dependence
CPT/HCPCS: 36415; 80053; 80061; 84443; 99283

== ENCOUNTER → 2021-08-17 10:18 | Outpatient (BNVA) | payer MEDICARE, OTHER, SELFPAY | PROVIDERS: PCP Internal Medicine; Visit Provider Internal Medicine Pulmonary Disease | DX: G47.33 Obstructive sleep apnea (adult) (pediatric) (principal); R06.00 Dyspnea, unspecified | CPT/HCPCS: Q3014 ==

== ENCOUNTER 2021-08-24 08:34 | Outpatient (REF) | payer MEDICARE, OTHER, SELFPAY ==
[2021-08-24 11:27] LABS: MANUAL DIFF FLAG NO
[2021-08-24 11:29] LABS: Basophils Absolute Auto 0.1 X10*3/uL (0.0-0.2); Basophils Percent Auto 0.6 % (0-2); Eosinophils Absolute Auto 0.2 X10*3/uL (0.0-0.4); Eosinophils Percent Auto 2.5 % (0-4); Hematocrit 44.8 % (37.0-47.0); Hemoglobin 15.1 g/dl (12.0-16.0); Imm Gran Abs Auto 0.04 X10*3/uL (0.00-0.03); Imm Gran Pct Auto 0.5 % (0.0-0.4); Lymphocytes Absolute Auto 2.8 X10*3/uL (1.2-4.9); Lymphocytes Percent Auto 35.8 % (20-40); Mean Corpuscular HGB Conc 33.7 g/dl (31.0-35.0); Mean Corpuscular Volume 88.9 fL (80.0-98.0); Mean Platelet Volume 10.5 fL (9.4-12.3); Monocytes Absolute Auto 0.7 X10*3/uL (0.1-1.2); Monocytes Percent Auto 8.7 % (2-11); Neutrophils Absolute Auto 4.1 x10*3/uL (2.0-8.3); Neutrophils Percent Auto 51.9 % (45-73); Platelet Count 247 X10*3/uL (160-400); Red Blood Count 5.04 X10*6/uL (4.20-5.50); Red Cell Distribution Width 12.5 % (11.0-16.0); White Blood Count 7.9 X10*3/uL (4.8-10.8)
== END 2021-08-24 08:35 | disposition home or self-care (01) ==
LOC: HO.HMGCLDS 08:34
PROVIDERS: Visit Provider Internal Medicine
DX: R06.02 Shortness of breath (principal)
CPT/HCPCS: 36415; 85025

== ENCOUNTER → 2021-09-21 10:22 | Outpatient (BNVA) | payer MEDICARE, OTHER, SELFPAY | PROVIDERS: PCP Internal Medicine; Visit Provider Internal Medicine Pulmonary Disease | DX: R06.00 Dyspnea, unspecified (principal); G47.33 Obstructive sleep apnea (adult) (pediatric) | CPT/HCPCS: 99212 ==

== ENCOUNTER → 2022-05-17 09:36 | Outpatient (BNVA) | payer MEDICARE, OTHER, SELFPAY | PROVIDERS: PCP Internal Medicine; Visit Provider Internal Medicine Pulmonary Disease | DX: G47.33 Obstructive sleep apnea (adult) (pediatric) (principal); R06.00 Dyspnea, unspecified | CPT/HCPCS: 99212 ==

== ENCOUNTER 2022-05-24 10:44 | Outpatient (REF) | payer MEDICARE, OTHER, SELFPAY ==
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
[2022-05-24 14:34] LABS: Estimated Average Glucose 103 mg/dL; Hemoglobin A1c % 5.2 %
[2022-05-24 14:50] LABS: Alanine Aminotransferase 16 U/L (0-31); Albumin Level 4.1 g/dL (3.5-5.0); Alkaline Phosphatase 110 U/L (39-117); Anion Gap 14 (12-20); Aspartate Amino Transferase 17 U/L (5-31); Blood Urea Nitrogen 18 mg/dL (9-16); Calcium 9.2 mg/dL (8.4-10.2); Carbon Dioxide 26 mmol/L (22-29); Chloride 109 mmol/L (96-108); Estimated Glomerular Filt Rate > 60; Glucose Random 102 mg/dL (60-115); Potassium 4.9 mmol/L (3.3-5.1); Sodium 144 mmol/L (135-145); Total Protein 6.7 g/dL (6.5-8.0)
[2022-05-24 15:08] LABS: TSH reflex Free T4 3.18 uIU/mL (0.32-4.0)
[2022-05-26 08:18] LABS: LDL Cholesterol Direct 74 mg/dL (<100)
== END 2022-05-24 10:45 | disposition home or self-care (01) ==
LOC: HO.HMGCX 10:44
PROVIDERS: PCP Internal Medicine; Visit Provider Internal Medicine
DX: M54.2 Cervicalgia (principal); M25.512 Pain in left shoulder; S29.9XXA Unspecified injury of thorax, initial encounter; E03.8 Other specified hypothyroidism; E66.01 Morbid (severe) obesity due to excess calories; E78.9 Disorder of lipoprotein metabolism, unspecified; F33.9 Major depressive disorder, recurrent, unspecified; I10 Essential (primary) hypertension; L30.9 Dermatitis, unspecified; R73.01 Impaired fasting glucose; Z91.09 Other allergy status, other than to drugs and biological substances; V89.2XXA Person injured in unspecified motor-vehicle accident, traffic, initial encounter
CPT/HCPCS: 36415; 71046; 71100; 72040; 73030; 80053; 83036; 83721; 84443

== ENCOUNTER 2022-06-12 11:17 | Outpatient (REF) | payer MEDICARE, OTHER, SELFPAY ==
[2022-06-12 13:56] LABS: MANUAL DIFF FLAG NO
[2022-06-12 14:06] LABS: Basophils Percent Auto 0.7 % (0-2); Eosinophils Absolute Auto 0.1 X10*3/uL (0.0-0.4); Eosinophils Percent Auto 2.2 % (0-4); Hematocrit 41.2 % (37.0-47.0); Hemoglobin 13.6 g/dl (12.0-16.0); Imm Gran Abs Auto 0.02 X10*3/uL (0.00-0.03); Imm Gran Pct Auto 0.3 % (0.0-0.4); Lymphocytes Absolute Auto 1.5 X10*3/uL (1.2-4.9); Lymphocytes Percent Auto 25.3 % (20-40); Mean Corpuscular Hemoglobin 29.4 pg (27.0-33.0); Mean Corpuscular Volume 89.2 fL (80.0-98.0); Monocytes Absolute Auto 0.3 X10*3/uL (0.1-1.2); Monocytes Percent Auto 5.3 % (2-11); Neutrophils Absolute Auto 3.9 x10*3/uL (2.0-8.3); Neutrophils Percent Auto 66.2 % (45-73); Platelet Count 223 X10*3/uL (160-400); Red Blood Count 4.62 X10*6/uL (4.20-5.50); Red Cell Distribution Width 12.9 % (11.0-16.0); White Blood Count 5.9 X10*3/uL (4.8-10.8)
[2022-06-12 14:17] LABS: Alanine Aminotransferase 21 U/L (0-31); Albumin Level 4.2 g/dL (3.5-5.0); Alkaline Phosphatase 117 U/L (39-117); Aspartate Amino Transferase 19 U/L (5-31); Bilirubin Direct 0.3 mg/dL (0.0-0.5); Bilirubin Total 1.6 mg/dL (0.0-1.0); Cholesterol 194 mg/dL; HDL Cholesterol 56 mg/dL; LDL Cholesterol Calculated 108 mg/dl; Total Protein 6.7 g/dL (6.5-8.0); Triglycerides 151 mg/dL
[2022-06-13 04:08] LABS: HBsAGNum1 0.46 S/CO (0.00-0.99); Hepatitis B Surface Antigen Negative (Negative); ~HepC Num1 0.09 S/CO (0.00-0.79); ~Hepatitis C Antibody Nonreactive (Nonreactive)
[2022-06-14 05:53] LABS: LDL Cholesterol Direct 101 mg/dL (<100)
[2022-06-14 20:43] LABS: TS Negative Control Passed; TS Panel A 1; TS Panel B 1; TS Positive Control Passed; TSpotTB Negative (Negative)
== END 2022-06-12 11:18 | disposition home or self-care (01) ==
LOC: HO.HMGCLDS 11:17
PROVIDERS: PCP Internal Medicine; Visit Provider Dermatology
DX: L30.9 Dermatitis, unspecified (principal)
CPT/HCPCS: 36415; 80061; 80076; 83721; 85025; 86481; 86803; 87340

== ENCOUNTER → 2022-07-20 14:40 | Outpatient (BNVA) | payer MEDICARE, OTHER, SELFPAY | PROVIDERS: PCP Internal Medicine; Visit Provider Internal Medicine Pulmonary Disease | DX: G47.33 Obstructive sleep apnea (adult) (pediatric) (principal); R06.00 Dyspnea, unspecified | CPT/HCPCS: 99212 ==

== ENCOUNTER 2022-11-28 12:09 | Outpatient (AMB) | payer MEDICARE, OTHER, SELFPAY ==
--- NOTE | 2022-11-28 12:13 | A.OFFVIS_ITS ---
Intake Vital Signs 11/28/22 12:17 Height 5 ft 2 in Weight 276 lb 2 oz BMI 50.5 BP 126/78 Blood Pressure Location Rt brachial Position Sitting Pulse 67 Pulse Source Pulse Oximeter Pulse Oximetry (%) 97 Intake Visit Reasons: SWV [id number] Allergies heparin [HEPARIN] Allergy (Unknown, Verified 11/28/22 12:18) ITCH Tetanus Vaccines and Toxoid [TETANUS VACCINES AND TOXOID] Allergy (Unknown, Junior ified 11/28/22 12:18) SWELLING SOB Medication List - Last Reconciled 11/28/22 by Max Mercedes MD levothyroxine (Levoxyl) 125 mcg PO QAM lisinopril 30 mg PO DAILY 30 days [Non-childproof prescription bottles Please send all existing and future m edications in bottles that are not childproof and without safety locking tops.] rosuvastatin 5 mg PO BEDTIME sertraline 25 mg PO DAILY 90 days HPI SWV [id number] HPI Details Patient is 72-year-old female came in today for her regular follow-up appointment at Medicare wellness visit Due for labs She is taking levothyroxine 125 mcg TSH is within normal limit Blood pressure is stable with lisinopril 30 mg once a day patient is tolerating medication Patient is also on rosuvastatin 5 mg LDL is well controlled. Anxiety stable with sertraline 25 mg. Depression is stable Breathing has improved, she is still seeing Dr Edmondson administrative specialist and was diagnosed with allergic asthma BMI is elevated at 50.5 patient is having difficulty losing weight She offers no new complaints today. Follow-up 4 months HPI Comments History of Present Illness Details AWV Medical/social history reviewed Past medical history reviewed Anderson of care / care team list updated Surgical/ hospitalization history reviewed Current medications including OTC and supplements reviewed Family history reviewed Tobacco controlled form updated Alcohol use form updated Illicit drug use in social history reviewed Current diagnosis of depression ?screening updated Appropriate PHQ 2/PHQ-9 completed . Vital signs reviewed Alcohol tobacco drug use reviewed and discussed . MMSE completed . ? Fall risk: ?Assessed Fall history: ?None Have you had any falls with injury in the past year?? No Have you had 2 or more falls in the past year?? No Fall risk assessment completed Home safety discussed with the patient Functional ability assessed and discussed and documented Activities of daily living reviewed and appropriate actions taken . HRA filled out by the patient and reviewed by provider and scanned . Appropriate written screening schedule established . Any health advise needed provided . Advance care planning discussed with the patient , necessary paperwork filled Examination IPPE/AWE: Balance intact Romberg intact Tandem walk intact walk-in turn intact rise from sit to stand intact . ?Hearing ?whisper test pass . Medication list reviewed, patient is stable on medications All other providers patient is seeing discussed and noted . [facility] Medical History Other specified hypothyroidism Ex-smoker Small airways disease Hypertension, essential Nephropathy Surgical History H/O oophorectomy Hx of cholecystectomy History of appendectomy History of hysterectomy Family History Father HTN (hypertension) Lung cancer Myocardial infarction Mother HTN (hypertension) Brother No problems noted. Social History Housing: House Patient Tobacco Use Status: Former Tobacco user Years Smoked: 30 yrs e-Cigarette/Vaping Use: Never Used Advance Directives Date on File: 12/02/19 service: Yes (retired) Current occupational status: retired Current occupational exposures/hazards: No Cognitive needs: No Hearing needs: No Vision needs: No Questionnaire Medicare Wellness Checkup [age] What gender do you identify with?: female During the past 4 weeks, how much have you been bothered by emotional problems such as feeling anxious, depressed, irritable, sad or downhearted, and blue?: slightly During the past 4 weeks, has your physical & emotional health limited your social activities with family, friends, neighbors, or groups?: not at all During the past 4 weeks, how much bodily pain have you generally had?: moderate pain During the past 4 weeks, was someone available to help you if you needed & wanted help?: no, not at all During the past 4 weeks, what was the hardest physical activity you could do for at least 2 minutes?: moderate Can you get to places out of walking distance without help? (For eg., can you travel alone on buses, taxis or drive your car?): Yes Can you go shopping for groceries or clothes without someone's help?: Yes Can you prepare your own meals?: Yes Can you do your housework without help?: Yes Because of any health problems, do you need the help of another person with your personal care needs such as eating, bathing, dressing or getting around the house?: No Can you handle your own money without help?: Yes During the past 4 weeks, how would you rate your health in general?: fair During the past 4 weeks how have things been going for you?: pretty well Are you having difficulties driving your car?: no Do you always fasten your seat belt when you are in a car?: yes, usually During past 4 weeks, have you been bothered by the following: never: Falling or dizzy when standing up, Sexual problems?, Teeth or denture problems?, Problems using the telephone? and Tiredness or fatigue? and seldom: Trouble eating well? Have you fallen 2 or more times in the past year?: No Are you afraid of falling?: Yes Are you a smoker?: no During the past 4 weeks, how many drinks of wine, beer, or other alcoholic beverages did you have?: no alcohol at all Do you exercise for about 20 minutes 3 or more times a week?: no, I usually do not exercise this much Have you been given information to help with the following?: no: Hazards in your house that might hurt you? and no: Keeping track of your medications? How often do you have trouble taking medicines the way you have been told to take them?: I always take medicine as prescribed How confident are you that you can control & manage most of your health problems?: very confident What is your race?: White Mini Mental State Exam (MMSE) Orientation What is the (year) (season) (date) (day) (month)?: year, season, date, day and month Where are we (state) (county) (town or city) (hospital) (floor)?: state, county, town or city, hospital/clinic and floor Score Score: 10 Activity of Daily Living Bathing - sponge bath, tub bath or shower: receives no assistance (gets in/out by self, if usual bathing means Dressing - getting clothes from closets & drawers, including inner/outer gar ments & fasteners.: gets clothes & gets completely dressed without help Toileting - going to the 'toilet room' for urine/bowel elimination & cleaning self/arranging clothes: goes to toilet room, cleans self, arranges clothes without help Transfer: moves in & out of bed and chair without help (may use support object) Continence: controls urination/bowel movements completely by self Feeding: feeds self without help Total Score: 0 Information obtained from: patient Using telephone: independent Traveling: independent Shopping: independent Preparing meals: independent Housework: independent Taking medicine: independent Managing money: independent PHQ-9 Over the last 2 weeks, how often have you been bothered by any of the following problems? 1. Little interest or pleasure in doing things: not at all 2. Feeling down, depressed, or hopeless: not at all 3. Trouble falling or staying asleep, or sleeping too much: not at all 4. Feeling tired or having little energy: not at all 5. Poor appetite or overeating: several days 6. Feeling bad about yourself - or that you are a failure or have let yourself or your family down: not at all 7. Trouble concentrating on things, such as reading the newspaper or watching television: not at all 8. Moving or speaking so slowly that other people could have noticed. Or the opposite - being so fidgety or restless that you have been moving around a lot more than usual: not at all 9. Thoughts that you would be better off or of hurting yourself in some way: not at all Total score: 1 Depression Screening Interpretation: Negative Depression Screening Done: Yes 81864 - PHQ-9 Billing: Yes Source: Developed by Drs. Erik Jara, Kinjal Shipman, Addy Rodgers and colleagues, with an educational elva from [employer]. Review of Systems Const Denies chills and Denies fever(s) ENT Denies epistaxis and Denies nasal discharge Card Denies chest pain Resp Denies chest congestion, Denies cough and Denies hemoptysis GI Denies diarrhea and Denies nausea Skin/Breast Denies rash Neuro Reports no additional complaints Psych Reports no additional complaints Endo Reports no additional complaints Physical Exam Vital Signs: Last Vital Signs Pulse 67 11/28/22 12:17 BP 126/78 11/28/22 12:17 Pulse Ox 97 11/28/22 12:17 BMI result Body Mass Index 50.5 Const General: cooperative, comfortable and no acute distress Orientation/consciousness: patient oriented x3 HEENT Head: Yes normocephalic Eyes General: appearance normal, both eyes and all related structures Neck Other: Supple Neck: Yes supple Resp Effort & Inspection: normal respiratory effort, no cough and no stridor Cardio Rhythm: regular rhythm Heart sounds: S1 normal heart sound present and S2 normal heart sound present Skin General skin exam: turgor normal Neuro Other: Motor sensory intact General: patient oriented x3, tone normal and moves all extremities Extrem Other: No lower extremity swelling. Right lower extremity: no edema Left lower extremity: no edema Psych Other: Normal effect, speech clear Assessment & Plan Assessment & Plan (1) Medicare annual wellness visit, subsequent: Code(s): Z00.00 - Encounter for general adult medical examination without abnormal findings (2) Hypertension, essential: Code(s): I10 - Essential (primary) hypertension (3) Pulmonary emphysema: Code(s): J43.9 - Emphysema, unspecified Qualifiers: Emphysema type: unspecified (4) Environmental allergies: Code(s): Z91.09 - Other allergy status, other than to drugs and biological substances (5) Lipid disorder: Code(s): E78.9 - Disorder of lipoprotein metabolism, unspecified (6) Major depression, recurrent: Code(s): F33.9 - Major depressive disorder, recurrent, unspecified Qualifiers: Active/Remission status: in full remission (7) Morbid obesity due to excess calories: Code(s): E66.01 - Morbid (severe) obesity due to excess calories (8) Colon cancer screening: Code(s): Z12.11 - Encounter for screening for malignant neoplasm of colon Plan Patient is 72-year-old female came in today for her regular follow-up appointment at Medicare wellness visit Due for labs She is taking levothyroxine 125 mcg TSH is within normal limit Blood pressure is stable with lisinopril 30 mg once a day patient is tolerating medication Patient is also on rosuvastatin 5 mg LDL is well controlled. Anxiety stable with sertraline 25 mg. Depression is stable Breathing has improved, she is still seeing Dr Edmondson administrative specialist and was diagnosed with allergic asthma BMI is elevated at 50.5 patient is having difficulty losing weight She offers no new complaints today. Follow-up 4 months Orders: Orders Comprehensive Met. Panel Today E66.01 - Morbid (severe) obesity due to excess calories, E78.9 - Disorder of lipoprotein metabolism, unspecified, F33.9 - Major depressive disorder, recurrent, unspecified, I10 - Essential (primary) hypertension, J43.9 - Emphysema, unspecified, Z91.09 - Other allergy status, other than to drugs and biological substances Complete Blood Count Auto Diff Today E66.01 - Morbid (severe) obesity due to excess calories, E78.9 - Disorder of lipoprotein metabolism, unspecified, F33.9 - Major depressive disorder, recurrent, unspecified, I10 - Essential (primary) hypertension, J43.9 - Emphysema, unspecified, Z91.09 - Other allergy status, other than to drugs and biological substances TSH reflex Free T4 Today E66.01 - Morbid (severe) obesity due to excess calories, E78.9 - Disorder of lipoprotein metabolism, unspecified, F33.9 - Major depressive disorder, recurrent, unspecified, I10 - Essential (primary) hypertension, J43.9 - Emphysema, unspecified, Z91.09 - Other allergy status, other than to drugs and biological substances LDL Cholesterol Direct Today E66.01 - Morbid (severe) obesity due to excess calories, E78.9 - Disorder of lipoprotein metabolism, unspecified, F33.9 - Major depressive disorder, recurrent, unspecified, I10 - Essential (primary) hypertension, J43.9 - Emphysema, unspecified, Z91.09 - Other allergy status, other than to drugs and biological substances Referrals Gastroenterology Referral Z12.11 - Encounter for screening for malignant neoplasm of colon Quality Reporting (2019) Depression/Bipolar (159/160/161/177) PHQ-9: Total score: 1 Coding Level of Care Code Medicare Subsequent (G0439) Est Pt Level 4 (60450) Diagnoses Medicare annual wellness visit, subsequent Z00.00 Hypertension, essential I10 Pulmonary emphysema J43.9 Emphysema type: unspecified Environmental allergies Z91.09 Lipid disorder E78.9 Major depression, recurrent F33.9 Active/Remission status: in full remission Morbid obesity due to excess calories E66.01 Colon cancer screening Z12.11
[2022-11-28 12:17] VITALS: BP 126/78; PULSE 67; O2SAT 97; BMI 50.5
== END 2022-11-28 12:38 | disposition home or self-care (01) ==
PROVIDERS: PCP Internal Medicine; Visit Provider Internal Medicine
DX: Z00.00 Encounter for general adult medical examination without abnormal findings (principal); J43.9 Emphysema, unspecified; E66.01 Morbid (severe) obesity due to excess calories; Z68.43 Body mass index [BMI] 50.0-59.9, adult; F33.9 Major depressive disorder, recurrent, unspecified; I10 Essential (primary) hypertension; Z91.09 Other allergy status, other than to drugs and biological substances; E78.9 Disorder of lipoprotein metabolism, unspecified
CPT/HCPCS: G0439

== ENCOUNTER 2022-11-28 12:41 | Outpatient (REF) | payer MEDICARE, OTHER, SELFPAY ==
[2022-11-28 15:59] LABS: MANUAL DIFF FLAG NO
[2022-11-28 16:15] LABS: Basophils Percent Auto 0.5 % (0-2); Eosinophils Absolute Auto 0.1 X10*3/uL (0.0-0.4); Eosinophils Percent Auto 1.9 % (0-4); Hematocrit 42.4 % (37.0-47.0); Imm Gran Abs Auto 0.02 X10*3/uL (0.00-0.03); Imm Gran Pct Auto 0.3 % (0.0-0.4); Lymphocytes Absolute Auto 1.8 X10*3/uL (1.2-4.9); Lymphocytes Percent Auto 24.3 % (20-40); Mean Corpuscular Hemoglobin 29.7 pg (27.0-33.0); Mean Platelet Volume 10.8 fL (9.4-12.3); Monocytes Absolute Auto 0.5 X10*3/uL (0.1-1.2); Monocytes Percent Auto 7.3 % (2-11); Neutrophils Absolute Auto 4.8 x10*3/uL (2.0-8.3); Neutrophils Percent Auto 65.7 % (45-73); Platelet Count 218 X10*3/uL (160-400); Red Blood Count 4.71 X10*6/uL (4.20-5.50); Red Cell Distribution Width 12.6 % (11.0-16.0); White Blood Count 7.4 X10*3/uL (4.8-10.8)
[2022-11-28 17:35] LABS: Alanine Aminotransferase 18 U/L (0-31); Albumin Level 4.1 g/dL (3.5-5.0); Alkaline Phosphatase 92 U/L (39-117); Anion Gap 15 (12-20); Aspartate Amino Transferase 23 U/L (5-31); Bilirubin Total 1.1 mg/dL (0.0-1.0); Blood Urea Nitrogen 20 mg/dL (9-16); Calcium 9.7 mg/dL (8.4-10.2); Carbon Dioxide 22 mmol/L (22-29); Chloride 109 mmol/L (96-108); Estimated Glomerular Filt Rate > 60; Glucose Random 93 mg/dL (60-115); Potassium 4.4 mmol/L (3.3-5.1); Sodium 142 mmol/L (135-145); Total Protein 7.2 g/dL (6.5-8.0)
[2022-11-28 17:37] LABS: TSH reflex Free T4 1.22 uIU/mL (0.32-4.0)
[2022-11-29 18:18] LABS: LDL Cholesterol Direct 88 mg/dL (<100)
== END 2022-11-28 12:42 | disposition home or self-care (01) ==
LOC: HO.HMGCLDS 12:41
PROVIDERS: PCP Internal Medicine; Visit Provider Internal Medicine
DX: I10 Essential (primary) hypertension (principal); J43.9 Emphysema, unspecified; E78.9 Disorder of lipoprotein metabolism, unspecified; F33.9 Major depressive disorder, recurrent, unspecified; E66.01 Morbid (severe) obesity due to excess calories; Z91.09 Other allergy status, other than to drugs and biological substances
CPT/HCPCS: 36415; 80053; 83721; 84443; 85025

== ENCOUNTER 2023-03-08 10:52 | Outpatient (AMB) | payer MEDICARE, OTHER, SELFPAY ==
[2023-03-08 10:56] VITALS: BP 122/74; PULSE 72; O2SAT 97; BMI 48.6
--- NOTE | 2023-03-08 10:56 | MHC.PC.OV ---
Vital Signs 03/08/23 10:56 Height 5 ft 2 in Weight 266 lb BMI 48.6 BP 122/74 Blood Pressure Location Rt brachial Position Sitting Pulse 72 Pulse Source Pulse Oximeter Pulse Oximetry (%) 97 Oxygen Delivery Method Room Air Intake Visit Reasons: Medication follow up/right side pain Allergies heparin [HEPARIN] Allergy (Unknown, Verified 03/08/23 10:56) ITCH Tetanus Vaccines and Toxoid [TETANUS VACCINES AND TOXOID] Allergy (Unknown, Verified 03/08/23 10:56) SWELLING SOB Medication List - Last Reconciled 03/08/23 by Max Mercedes MD dupilumab (Dupixent) mg subcut levothyroxine (Levoxyl) 125 mcg PO QAM lisinopril 40 mg PO DAILY [Non-childproof prescription bottles Please send all existing and future medications in bottles that are not childproof and without safety locking tops.] rosuvastatin 5 mg PO BEDTIME sertraline 50 mg PO DAILY Tobacco use date assessed: 03/08/23 Fall risk assessment: No Falls in past year Last assessed Fall Risk: 03/08/23 Dental Screening Dental Screen Date: 03/08/23 Did you have a dental visit in the last 12 months?: Yes Did you have a dental problem in the last 6 months where you did not have access to dental care?: No Was dental information given to patient?: Patient has dentist HPI Medication follow up/right side pain HPI Details Patient is 72-year-old female with a history of hypertension, hypothyroidism, major depression, environmental allergies, lipid disorder, impaired fasting sugar, morbid obesity, obstructive sleep apnea, chronic GERD, pulmonary emphysema, Patient says that February 22 she was in [facility] emergency room when she presented with right-sided chest pain Patient says that she was evaluated and then discharged with a diagnosis of stress 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 Follow-up May Medical History Other specified hypothyroidism Ex-smoker Small airways disease Hypertension, essential Nephropathy Surgical History H/O oophorectomy Hx of cholecystectomy History of appendectomy History of hysterectomy Family History Father HTN (hypertension) Lung cancer Myocardial infarction Mother HTN (hypertension) Brother No problems noted. Social History Housing: House Patient Tobacco Use Status: Former Tobacco user Years Smoked: 30 yrs e-Cigarette/Vaping Use: Never Used Advance Directives Date on File: 12/02/19 service: Yes (retired) Current occupational status: retired Current occupational exposures/hazards: No Cognitive needs: No Hearing needs: No Vision needs: No Questionnaire PHQ-9 Over the last 2 weeks, how often have you been bothered by any of the following problems? 1. Little interest or pleasure in doing things: several days 2. Feeling down, depressed, or hopeless: several days 3. Trouble falling or staying asleep, or sleeping too much: nearly every day 4. Feeling tired or having little energy: not at all 5. Poor appetite or overeating: not at all 6. Feeling bad about yourself - or that you are a failure or have let yourself or your family down: not at all 7. Trouble concentrating on things, such as reading the newspaper or watching television: not at all 8. Moving or speaking so slowly that other people could have noticed. Or the opposite - being so fidgety or restless that you have been moving around a lot more than usual: not at all 9. Thoughts that you would be better off or of hurting yourself in some way: not at all Total score: 5 Depression Screening Interpretation: Negative Depression Screening Done: Yes 41351 - PHQ-9 Billing: Yes Source: Developed by Drs. Erik Jara, Kinjal Shipman, Addy Rodgers and colleagues, with an educational elva from [employer]. Thrive Questionnaire Date Thrive assessed: 03/08/23 I am a: Patient What is your living situation today?: I have a steady place to live Within the past 12 months, did the food you bought not last and you didn't have the money to get more?: Never true Within the past 12 months, did you worry whether your food would run out before you got money to buy more?: Never true Do you have trouble paying for medicines?: No Do you have trouble getting transportation to medical appointments?: No Do you have trouble paying your heating and electricity bill?: No Do you have trouble taking care of your child, family member or friend?: No Do you have trouble with day-to-day activities such as bathing, preparing meals, shopping, managing finances, etc.?: No Are you currently unemployed and looking for a job?: No Are you interested in more education?: No Please select the resources that you would like help with: None Currently or been in a relationship where the following occur: no concerns reported THRIVE Score: 0 TALON-7 AMB Questionnaire TALON-7 Date TALON - 7 assessed: 03/08/23 Feeling nervous, anxious, or on edge: 1 = Several days Not being able to stop or control worryin = Not at all Worrying too much about different things: 1 = Several days Trouble relaxin = Not at all Being so restless that it is hard to sit still: 0 = Not at all Becoming easily annoyed or irritable: 0 = Not at all Feeling afraid as if something awful might happen: 0 = Not at all Total TALON-7 score (0-4 normal; 5-9 mild; 10-14 moderate; 15-21 severe): 2 Source: Developed by Drs. Erik Jara, Kinjal Shipman, Addy Rodgers and colleagues, with an educational elva from [employer]. TALON-7 Assessment Billing TALON-7 Assessment Tool: TALON-7 Assessment 90533 Review of Systems Const Denies chills and Denies fever(s) ENT Denies epistaxis and Denies nasal discharge Card Denies chest pain Resp Denies chest congestion, Denies cough and Denies hemoptysis GI Denies diarrhea and Denies nausea Skin/Breast Denies rash Neuro Reports no additional complaints Psych Reports no additional complaints Endo Reports no additional complaints Physical exam (Primary Care) Vital Signs: Last Vital Signs Pulse 72 03/08/23 10:56 BP 122/74 03/08/23 10:56 Pulse Ox 97 03/08/23 10:56 Oxygen Delivery Method Room Air 03/08/23 10:56 BMI result Body Mass Index 48.6 Tobacco/Smoking Status: Tobacco use Status Tobacco use date assessed 03/08/23 03/08/23 10:59 Patient Tobacco Use Status Former Tobacco user 03/08/23 10:59 e-Cigarette/Vaping Use Never Used 03/08/23 10:59 PHQ-9: PHQ-9 Score PHQ-9: Total score 5 03/08/23 11:37 Depression Screening Interpretation: Negative Thrive Assessment: Date of Thrive Assessment Date Thrive assessed 03/08/23 03/08/23 11:37 Currently or been in a relationship where the following occur: no concerns reported Const General: cooperative, comfortable and no acute distress Orientation/consciousness: patient oriented x3 HENMT Head: Yes normocephalic Eyes General: appearance normal, both eyes and all related structures Neck Neck: Yes supple Resp Effort & Inspection: normal respiratory effort, no cough and no stridor Cardio Rhythm: regular rhythm Heart sounds: S1 normal heart sound present and S2 normal heart sound present Skin General skin exam: turgor normal Neuro General: patient oriented x3, tone normal and moves all extremities Extrem Right lower extremity: no edema Left lower extremity: no edema Assessment and Plan Assessment & Plan (1) Hypertension, essential: Code(s): I10 - Essential (primary) hypertension (2) Other specified hypothyroidism: Code(s): E03.8 - Other specified hypothyroidism (3) Major depression, recurrent: Code(s): F33.9 - Major depressive disorder, recurrent, unspecified Qualifiers: Active/Remission status: in full remission Qualified Code(s): F33.42 - Major depressive disorder, recurrent, in full remission (4) Environmental allergies: Code(s): Z91.09 - Other allergy status, other than to drugs and biological substances (5) Lipid disorder: Code(s): E78.9 - Disorder of lipoprotein metabolism, unspecified (6) Impaired fasting blood sugar: Code(s): R73.01 - Impaired fasting glucose (7) Morbid obesity due to excess calories: Code(s): E66.01 - Morbid (severe) obesity due to excess calories (8) CORTEZ (obstructive sleep apnea): Code(s): G47.33 - Obstructive sleep apnea (adult) (pediatric) (9) GERD (gastroesophageal reflux disease): Code(s): K21.9 - Gastro-esophageal reflux disease without esophagitis Qualifiers: Esophagitis presence: without esophagitis Qualified Code(s): K21.9 - Gastro-esophageal reflux disease without esophagitis (10) Pulmonary emphysema: Code(s): J43.9 - Emphysema, unspecified Qualifiers: Emphysema type: unspecified Qualified Code(s): J43.9 - Emphysema, unspecified Plan Patient says that February 22 she was in [facility] emergency room when she presented with right-sided chest pain Patient says that she was evaluated and then discharged with a diagnosis of stress 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, 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 scheduled next She will also have a cardiac CTA in May Obstructive sleep apnea and pulmonary emphysema treated by respiratory specialist Patient says that that was because of holiday stress that she felt like that she is aware of that She has increased her sertraline 25 mg to 50 mg and she would like to go up to 75 mg She had labs done on in emergency room recently, we will have another set of lab May before her next visit She is on Dupixent for eczema now by dermatology talked to [facility] She is taking it every other month Lipid disorder: Continue rosuvastatin 5 mg Patient is trying to lose weight BMI is elevated. Follow-up May Orders: Orders LDL Cholesterol Direct Today E03.8 - Other specified hypothyroidism, E66.01 - Morbid (severe) obesity due to excess calories, E78.9 - Disorder of lipoprotein metabolism, unspecified, F33.9 - Major depressive disorder, recurrent, unspecified, I10 - Essential (primary) hypertension, R73.01 - Impaired fasting glucose TSH reflex Free T4 Today E03.8 - Other specified hypothyroidism, E66.01 - Morbid (severe) obesity due to excess calories, E78.9 - Disorder of lipoprotein metabolism, unspecified, F33.9 - Major depressive disorder, recurrent, unspecified, I10 - Essential (primary) hypertension, R73.01 - Impaired fasting glucose Complete Blood Count Auto Diff Today E03.8 - Other specified hypothyroidism, E66.01 - Morbid (severe) obesity due to excess calories, E78.9 - Disorder of lipoprotein metabolism, unspecified, F33.9 - Major depressive disorder, recurrent, unspecified, I10 - Essential (primary) hypertension, R73.01 - Impaired fasting glucose Comprehensive Met. Panel Today E03.8 - Other specified hypothyroidism, E66.01 - Morbid (severe) obesity due to excess calories, E78.9 - Disorder of lipoprotein metabolism, unspecified, F33.9 - Major depressive disorder, recurrent, unspecified, I10 - Essential (primary) hypertension, R73.01 - Impaired fasting glucose Hemoglobin A1c Today E03.8 - Other specified hypothyroidism, E66.01 - Morbid (severe) obesity due to excess calories, E78.9 - Disorder of lipoprotein metabolism, unspecified, F33.9 - Major depressive disorder, recurrent, unspecified, I10 - Essential (primary) hypertension, R73.01 - Impaired fasting glucose Medications: Changed From sertraline 50 mg PO DAILY To sertraline 75 mg (1.5 x 50 mg) PO DAILY 135 tabs 0RF 90 days Refilled rosuvastatin 5 mg PO BEDTIME 90 tabs 1RF Coding Level of Care Code Est Pt Level 4 (00326) Diagnoses Hypertension, essential I10 Other specified hypothyroidism E03.8 Recurrent major depressive disorder, in full remission F33.42 Active/Remission status: in full remission Environmental allergies Z91.09 Lipid disorder E78.9 Impaired fasting blood sugar R73.01 Morbid obesity due to excess calories E66.01 CORTEZ (obstructive sleep apnea) G47.33 Gastroesophageal reflux disease without esophagitis K21.9 Esophagitis presence: without esophagitis Pulmonary emphysema, unspecified emphysema type J43.9 Emphysema type: unspecified Additional Codes TALON-7 Assessment Billing - TALON-7 Assessment Tool: TALON-7 Assessment [id number] ([id number])
== END 2023-03-08 11:37 | disposition home or self-care (01) ==
PROVIDERS: PCP Internal Medicine; Visit Provider Internal Medicine
DX: J43.9 Emphysema, unspecified (principal); F33.42 Major depressive disorder, recurrent, in full remission; E66.01 Morbid (severe) obesity due to excess calories; Z68.42 Body mass index [BMI] 45.0-49.9, adult; I10 Essential (primary) hypertension; E03.8 Other specified hypothyroidism; Z91.09 Other allergy status, other than to drugs and biological substances; E78.9 Disorder of lipoprotein metabolism, unspecified; R73.01 Impaired fasting glucose; G47.33 Obstructive sleep apnea (adult) (pediatric); K21.9 Gastro-esophageal reflux disease without esophagitis
CPT/HCPCS: 99214

== ENCOUNTER 2023-03-25 14:00 | Outpatient (AMB) | payer MEDICARE, OTHER, SELFPAY ==
--- NOTE | 2023-03-25 14:02 | AM.OFFWIN_ITS ---
Intake Vital Signs 03/25/23 14:03 Height 5 ft 2 in Weight 122.924 kg BMI 49.6 BP 170/90 H Blood Pressure Location Lt brachial Position Sitting Pulse 81 Pulse Source Pulse Oximeter Temp 97.1 F Temp Source Temporal Artery Scan Pulse Oximetry (%) 96 Oxygen Delivery Method Room Air Intake Visit Reasons: EP RT Hip/shoulder pain after fall Intake Note: pt is here today for hip shoulder pain after fall started yesterday Patient Tobacco Use Status: Former Tobacco user Allergies heparin [HEPARIN] Allergy (Unknown, Verified 03/25/23 14:03) ITCH Tetanus Vaccines and Toxoid [TETANUS VACCINES AND TOXOID] Allergy (Unknown, Verified 03/25/23 14:03) SWELLING SOB Do you need a note to return to daycare/school/sports/work: No HPI HPI Comments History of Present Illness Details 72-year-old female presents with complai nts of right-sided hip pain and right shoulder pain status post slip and fall on ice yesterday while walking her dog. Patient reports she fell right onto her right hip. She reports she has a bruise to the right hip region. Her hip is bothering her more than her shoulder. Patient reports she is able to move her arm without difficulty however some discomfort. Patient reports intermittent tingling down right lower extremity. Not on blood thinners. Did not her head or lose consciousness. Denies chest pain, shortness of breath, nausea, vomiting, abdominal pain, headache, vision changes, dizziness and weakness. No head strike or loss of consciousness On exam there is ecchymosis overlying the lateral aspect of right buttocks. No step-offs or deformities. Patient ambulatory without difficulty. 2+ popliteal pulses equal and bilateral. Bilateral shoulders with full range of motion slight discomfort with range of motion of right upper extremity/shoulder. 2+ radial pulses. Normal sensation distally to bilateral upper and lower extremities. Normal capillary refill to bilateral upper extremities, no wrist drop. No foot drop. History and physical exam concerning for contusion of right hip region. Unlikely fracture dislocation. Also right shoulder contusion. Unlikely fracture, dislocation, neurovascular compromise, threat to limb. No signs of traumatic injury to head, neck, chest, abdomen or pelvis. Plan imaging. [facility] Medical History Other specified hypothyroidism Ex-smoker Small airways disease Hypertension, essential Nephropathy Surgical History H/O oophorectomy Hx of cholecystectomy History of appendectomy History of hysterectomy Family History Father HTN (hypertension) Lung cancer Myocardial infarction Mother HTN (hypertension) Brother No problems noted. Social History Housing: House Patient Tobacco Use Status: Former Tobacco user Years Smoked: 30 yrs e-Cigarette/Vaping Use: Never Used Advance Directives Date on File: 12/02/19 service: Yes (retired) Current occupational status: retired Current occupational exposures/hazards: No Cognitive needs: No Hearing needs: No Vision needs: No Review of Systems Const All systems reviewed & are unremarkable except as noted in HPI and below Physical Exam Vital Signs: Last Vital Signs Temp 97.1 F 03/25/23 14:03 Pulse 81 03/25/23 14:03 BP 170/90 H 03/25/23 14:03 Pulse Ox 96 03/25/23 14:03 Oxygen Delivery Method Room Air 03/25/23 14:03 BMI result Body Mass Index 49.6 vss Appearance: Alert.? Oriented X3.? No acute distress.? Head: Normocephalic, atraumatic, no step-offs or deformities Eyes: Pupils equal, round and reactive to light.? CVS: Normal heart rate and rhythm.? Pulses normal.? Respiratory: No respiratory distress.? Breath sounds normal.? Abdomen: Soft and nontender.? Skin: Skin warm and dry.? Normal skin color.? Normal skin turgor.? Extremities: No lower extremity edema.? No calf ttp. 5/5 strength to bilateral upper and lower extremities ecchymosis overlying the lateral aspect of right buttocks. No step-offs or deformities. Patient ambulatory without difficulty. 2+ popliteal pulses equal and bilateral. Bilateral shoulders with full range of motion slight discomfort with range of motion of right upper extremity/shoulder. 2+ radial pulses. Normal sensation distally to bilateral upper and lower extremities. Normal capillary refill to bilateral upper extremities, no wrist drop. No foot drop. Back: No midline tenderness, no C-spine tenderness, full range of motion, no CVA tenderness bilaterally Neuro: Oriented X 3.? No motor deficit.? No sensory deficit. CN 2-12 intact Assessment & Plan Assessment & Plan (1) Right hip pain: Code(s): M25.551 - Pain in right hip (2) Right shoulder pain: Code(s): M25.511 - Pain in right shoulder (3) Fall due to ice or snow: Code(s): W00.9XXA - Unspecified fall due to ice and snow, initial encounter Plan Take your medications as prescribed. If you were prescribed antibiotics today, it is important that you take your medication to their entirety, do not skip any doses, do not finish them early. Follow-up with your primary care provider this week. Return to the emergency department with new or worsening symptoms. Such as fevers, chills, chest pain, shortness of breath, nausea, vomiting, dizziness, headache, vision changes, lethargy In case of emergency call 911 Orders: Orders XR shoulder RT min 2V Today M25.511 - Pain in right shoulder XR pelvis min 3V Today M25.551 - Pain in right hip Coding Level of Care Code Est Pt Level 3 (36263) Diagnoses Right hip pain M25.551 Right shoulder pain M25.511 Fall due to ice or snow W00.9XXA
[2023-03-25 14:03] VITALS: BP 170/90; PULSE 81; TEMP 36.2; O2SAT 96; BMI 49.6
== END 2023-03-25 15:14 | disposition home or self-care (01) ==
PROVIDERS: PCP Internal Medicine; Visit Provider Physician Assistant
DX: M25.551 Pain in right hip (principal); M25.511 Pain in right shoulder; W00.9XXA Unspecified fall due to ice and snow, initial encounter
CPT/HCPCS: 99213

== ENCOUNTER 2023-03-25 14:31 | Outpatient (REF) | payer MEDICARE, OTHER, SELFPAY ==
--- NOTE | ~2023-03-25 | XR_ITS ---
EXAMINATION: XR SHOULDER, RIGHT CLINICAL INFORMATION: Pain. COMPARISON: None available. TECHNIQUE: AP neutral, scapular Y, and axillary views of the right shoulder are similar. FINDINGS: Bony alignment and mineralization are normal. The glenohumeral joint is intact. There is marked osteoarthritic change of the glenohumeral joint. The acromioclavicular and coracoclavicular intervals are normal. There is marked osteoarthritic change of the right acromioclavicular joint. There is a distal acromial undersurface osteophyte. There is cortical irregularity of the greater tuberosity of the proximal right humerus. There is mild calcific tendinitis of the rotator cuff insertion. No fracture or dislocation is seen. No foreign body is seen. There is no right pneumothorax. XR/XR shoulder RT min 2V IMPRESSION: 1. There is marked osteoarthritic change of the right glenohumeral and acromioclavicular joints. 2. There is mild calcific tendinitis of the right rotator cuff insertion.
--- NOTE | ~2023-03-25 | XR_ITS ---
EXAMINATION: XR HIP, RIGHT CLINICAL INFORMATION: Pain. COMPARISON: None available. TECHNIQUE: AP and frog-leg lateral views of the right hip are submitted, together with a frontal view of the pelvis. FINDINGS: Bony alignment and mineralization are normal. The right glenohumeral joint is intact. There is very mild subchondral sclerosis of the right acetabular roof. There is mild cortical thickening of the femoral neck. The right femoral head is smooth. No fracture or dislocation is seen. There is no foreign body. There are pelvic surgical jens. XR/XR hip RT w [id number] IMPRESSION: Very mild osteoarthritic change is seen of the right hip. No fracture or dislocation is seen.
== END 2023-03-25 14:32 | disposition home or self-care (01) ==
LOC: HO.HMGCX 14:31
PROVIDERS: PCP Internal Medicine; Visit Provider Physician Assistant
DX: M25.551 Pain in right hip (principal)
CPT/HCPCS: 73030; 73502

== ENCOUNTER 2023-05-29 13:45 | Outpatient (AMB) | payer MEDICARE, OTHER, SELFPAY ==
[2023-05-29 13:46] VITALS: BP 168/92; PULSE 83; O2SAT 93; BMI 47.5
--- NOTE | 2023-05-29 13:46 | A.OFFPC_ITS ---
Vital Signs 05/29/23 13:46 Height 5 ft 2 in Weight 259 lb 8 oz BMI 47.5 BP 168/92 H Blood Pressure Location Rt brachial Position Sitting Pulse 83 Pulse Source Pulse Oximeter Pulse Oximetry (%) 93 Oxygen Delivery Method Room Air Intake Visit Reasons: Medication follow up/right side pain Allergies heparin [HEPARIN] Allergy (Unknown, Verified 05/29/23 13:47) ITCH Tetanus Vaccines and Toxoid [TETANUS VACCINES AND TOXOID] Allergy (Unknown, Verified 05/29/23 13:47) SWELLING SOB Medication List - Last Reconciled 05/29/23 by Max Mercedes MD dupilumab (Dupixent) mg subcut levothyroxine (Levoxyl) 125 mcg PO QAM lisinopril 40 mg PO DAILY [Non-childproof prescription bottles Please send all existing and future medications in bottles that are not childproof and without safety locking tops.] rosuvastatin 5 mg PO BEDTIME sertraline 75 mg (1.5 x 50 mg) PO DAILY 90 days Tobacco use date assessed: 05/29/23 Fall risk assessment: No Falls in past year Last assessed Fall Risk: 05/29/23 Dental Screening Dental Screen Date: 05/29/23 Did you have a dental visit in the last 12 months?: Yes Did you have a dental problem in the last 6 months where you did not have access to dental care?: No Was dental information given to patient?: Patient has dentist HPI Medication follow up/right side pain HPI Details Patient is 72-year-old female came in today for her follow-up appointment She had labs done at [facility] laboratory I do not have the report we will call Her blood pressure is 168/92, currently she is on lisinopril 40 mg, I am adding atenolol 25 mg as well She will book appointment with her slag dumper and discuss it further. Meanwhile she is to monitor her blood pressure at home Patient will return in a week for blood pressure check by nurse in our office Obstructive sleep apnea and pulmonary emphysema treated by respiratory specialist Depression anxiety stable with sertraline 75 mg She is on Dupixent for eczema now by dermatology talked to [place] She is taking it every other month Lipid disorder: Continue rosuvastatin 5 mg Patient is trying to lose weight BMI is elevated. Hypothyroidism: Continue levothyroxine 125 mcg Patient says she is thinking of starting swimming at the [employer] to lose some weight Follow-up 4 months [facility] Medical History Other specified hypothyroidism Ex-smoker Small airways disease Hypertension, essential Nephropathy Surgical History H/O oophorectomy Hx of cholecystectomy History of appendectomy History of hysterectomy Family History Father HTN (hypertension) Lung cancer Myocardial infarction Mother HTN (hypertension) Brother No problems noted. Social History Housing: House Patient Tobacco Use Status: Former Tobacco user Years Smoked: 30 yrs e-Cigarette/Vaping Use: Never Used Advance Directives Date on File: 12/02/19 service: Yes (retired) Current occupational status: retired Current occupational exposures/hazards: No Cognitive needs: No Hearing needs: No Vision needs: No Questionnaire PHQ-9 Over the last 2 weeks, how often have you been bothered by any of the following problems? 1. Little interest or pleasure in doing things: several days 2. Feeling down, depressed, or hopeless: several days 3. Trouble falling or staying asleep, or sleeping too much: several days 4. Feeling tired or having little energy: not at all 5. Poor appetite or overeating: not at all 6. Feeling bad about yourself - or that you are a failure or have let yourself or your family down: not at all 7. Trouble concentrating on things, such as reading the newspaper or watching television: not at all 8. Moving or speaking so slowly that other people could have noticed. Or the opposite - being so fidgety or restless that you have been moving around a lot more than usual: not at all 9. Thoughts that you would be better off or of hurting yourself in some way: not at all Total score: 3 Depression Screening Interpretation: Negative Depression Screening Done: Yes 85394 - PHQ-9 Billing: Yes Source: Developed by Drs. Erik Jara, Kinjal Shipman, Addy Rodgers and colleagues, with an educational elva from [employer]. Thrive Questionnaire Date Thrive assessed: 05/29/23 I am a: Patient What is your living situation today?: I have a steady place to live Within the past 12 months, did the food you bought not last and you didn't have the money to get more?: Never true Within the past 12 months, did you worry whether your food would run out before you got money to buy more?: Never true Do you have trouble paying for medicines?: No Do you have trouble getting transportation to medical appointments?: No Do you have trouble paying your heating and electricity bill?: No Do you have trouble taking care of your child, family member or friend?: No Do you have trouble with day-to-day activities such as bathing, preparing meals, shopping, managing finances, etc.?: No Are you currently unemployed and looking for a job?: No Are you interested in more education?: No Please select the resources that you would like help with: None Currently or been in a relationship where the following occur: no concerns reported THRIVE Score: 0 AUDIT C Alcohol Use Questionnaire (AUDIT-C) 1. How often do you have a drink containing alcohol?: Never 3. How often do you have six or more drinks on one occasion?: Never Total Score: 0 Score Reviewed/Action Taken: Yes TALON-7 AMB Questionnaire TALON-7 Date TALON - 7 assessed: 05/29/23 Feeling nervous, anxious, or on edge: 1 = Several days Not being able to stop or control worryin = Not at all Worrying too much about different things: 1 = Several days Trouble relaxin = Not at all Being so restless that it is hard to sit still: 0 = Not at all Becoming easily annoyed or irritable: 0 = Not at all Feeling afraid as if something awful might happen: 0 = Not at all Total TALON-7 score (0-4 normal; 5-9 mild; 10-14 moderate; 15-21 severe): 2 Source: Developed by Drs. Erik Jara, Kinjal Shipman, Addy Rodgers and colleagues, with an educational elva from [employer]. TALON-7 Assessment Billing TALON-7 Assessment Tool: TALON-7 Assessment 21684 Review of Systems Const Denies chills and Denies fever(s) ENT Denies epistaxis and Denies nasal discharge Card Denies chest pain Resp Denies chest congestion, Denies cough and Denies hemoptysis GI Denies diarrhea and Denies nausea Skin/Breast Denies rash Neuro Reports no additional complaints Psych Reports no additional complaints Endo Reports no additional complaints Physical exam (Primary Care) Vital Signs: Last Vital Signs Pulse 83 05/29/23 13:46 BP 168/92 H 05/29/23 13:46 Pulse Ox 93 05/29/23 13:46 Oxygen Delivery Method Room Air 05/29/23 13:46 BMI result Body Mass Index 47.5 Tobacco/Smoking Status: Tobacco use Status Tobacco use date assessed 05/29/23 05/29/23 13:52 Patient Tobacco Use Status Former Tobacco user 05/29/23 13:46 e-Cigarette/Vaping Use Never Used 05/29/23 13:46 PHQ-9: PHQ-9 Score PHQ-9: Total score 3 05/29/23 14:37 Depression Screening Interpretation: Negative Thrive Assessment: Date of Thrive Assessment Date Thrive assessed 05/29/23 05/29/23 14:37 Currently or been in a relationship where the following occur: no concerns reported Const General: cooperative, comfortable and no acute distress Orientation/consciousness: patient oriented x3 HENMT Head: Yes normocephalic Eyes General: appearance normal, both eyes and all related structures Neck Neck: Yes supple Resp Effort & Inspection: normal respiratory effort, no cough and no stridor Cardio Rhythm: regular rhythm Heart sounds: S1 normal heart sound present and S2 normal heart sound present Skin General skin exam: turgor normal Neuro General: patient oriented x3, tone normal and moves all extremities Extrem Right lower extremity: no edema Left lower extremity: no edema Assessment and Plan Assessment & Plan (1) Hypertension, essential: Code(s): I10 - Essential (primary) hypertension (2) Other specified hypothyroidism: Code(s): E03.8 - Other specified hypothyroidism (3) Major depression, recurrent: Code(s): F33.9 - Major depressive disorder, recurrent, unspecified Qualifiers: Active/Remission status: in full remission Qualified Code(s): F33.42 - Major depressive disorder, recurrent, in full remission (4) Environmental allergies: Code(s): Z91.09 - Other allergy status, other than to drugs and biological substances (5) Lipid disorder: Code(s): E78.9 - Disorder of lipoprotein metabolism, unspecified (6) Impaired fasting blood sugar: Code(s): R73.01 - Impaired fasting glucose (7) Morbid obesity due to excess calories: Code(s): E66.01 - Morbid (severe) obesity due to excess calories (8) CORTEZ (obstructive sleep apnea): Code(s): G47.33 - Obstructive sleep apnea (adult) (pediatric) (9) GERD (gastroesophageal reflux disease): Code(s): K21.9 - Gastro-esophageal reflux disease without esophagitis Qualifiers: Esophagitis presence: without esophagitis Qualified Code(s): K21.9 - Gastro-esophageal reflux disease without esophagitis (10) Pulmonary emphysema: Code(s): J43.9 - Emphysema, unspecified Qualifiers: Emphysema type: unspecified Qualified Code(s): J43.9 - Emphysema, unspecified Plan Patient is 72-year-old female came in today for her follow-up appointment She had labs done at [facility] laboratory I do not have the report we will call Her blood pressure is 168/92, currently she is on lisinopril 40 mg, I am adding atenolol 25 mg as well She will book appointment with her slag dumper and discuss it further. Meanwhile she is to monitor her blood pressure at home Patient will return in a week for blood pressure check by nurse in our office Obstructive sleep apnea and pulmonary emphysema treated by respiratory specialist Depression anxiety stable with sertraline 75 mg She is on Dupixent for eczema now by dermatology talked to [facility] She is taking it every other month Lipid disorder: Continue rosuvastatin 5 mg Patient is trying to lose weight BMI is elevated. Hypothyroidism: Continue levothyroxine 125 mcg Impaired fasting sugar: Controlled diet Patient says she is thinking of starting swimming at the [employer] to lose some weight Follow-up 4 months Medications: New atenolol 25 mg PO DAILY 30 tabs 0RF Coding Level of Care Code Est Pt Level 4 (48929) Diagnoses Hypertension, essential I10 Other specified hypothyroidism E03.8 Recurrent major depressive disorder, in full remission F33.42 Active/Remission status: in full remission Environmental allergies Z91.09 Lipid disorder E78.9 Impaired fasting blood sugar R73.01 Morbid obesity due to excess calories E66.01 CORTEZ (obstructive sleep apnea) G47.33 Gastroesophageal reflux disease without esophagitis K21.9 Esophagitis presence: without esophagitis Pulmonary emphysema, unspecified emphysema type J43.9 Emphysema type: unspecified Additional Codes TALON-7 Assessment Billing - TALON-7 Assessment Tool: TALON-7 Assessment 49141 ([id number])
== END 2023-05-29 14:12 | disposition home or self-care (01) ==
PROVIDERS: PCP Internal Medicine; Visit Provider Internal Medicine
DX: J43.9 Emphysema, unspecified (principal); F33.42 Major depressive disorder, recurrent, in full remission; E66.01 Morbid (severe) obesity due to excess calories; Z68.42 Body mass index [BMI] 45.0-49.9, adult; I10 Essential (primary) hypertension; E03.8 Other specified hypothyroidism; Z91.09 Other allergy status, other than to drugs and biological substances; E78.9 Disorder of lipoprotein metabolism, unspecified; R73.01 Impaired fasting glucose; G47.33 Obstructive sleep apnea (adult) (pediatric); K21.9 Gastro-esophageal reflux disease without esophagitis
CPT/HCPCS: 99214

== ENCOUNTER 2023-10-25 08:51 | Outpatient (AMB) | payer MEDICARE, OTHER, SELFPAY ==
--- NOTE | 2023-10-25 09:06 | MHC.OFFWIV ---
Intake Vital Signs 10/25/23 09:10 Height 5 ft 2 in Weight 288 lb BMI 52.7 BP 132/88 Blood Pressure Location Rt radial Position Sitting Pulse 67 Pulse Source Pulse Oximeter Temp 98.6 F Temp Source Oral Pulse Oximetry (%) 96 Oxygen Delivery Method Room Air Intake Visit Reasons: EP headaches (bubba) Intake Note: pt c/o headaches. Started a few months ago. Patient Tobacco Use Status: Former Tobacco user Allergies heparin [HEPARIN] Allergy (Unknown, Verified 10/25/23 09:10) ITCH Tetanus Vaccines and Toxoid [TETANUS VACCINES AND TOXOID] Allergy (Unknown, Verified 10/25/23 09:10) SWELLING SOB Do you need a note to return to daycare/school/sports/work: No HPI EP headaches (bubba) HPI Details Alessia is a 73-year-old female patient who presents to the walk-in clinic today with a recent onset of mild headaches over the last 2-3 months. She reports that these are mild in nature, however are occurring almost daily, in different locations in her head. She denies any inciting event or trauma to head. Denies any new medications. Of note, she does spend a significant amount of time on her laptop playing games, about 2-3 hours per night. She does notice that this causes her eyes to hurt, which may exacerbate headache. She otherwise denies any exacerbating or alleviating factors to these headaches. She has been without proper eyeglasses for several weeks (awaiting trifocal rx from road freight conductor), and has instead just been wearing reading glasses. She also notes an increase in stress over the last year, and worsening dietary habits. She denies any associated: Vision changes, aura, nausea or vomiting, photophobia, illnesses, fevers, temporal artery tenderness, neurological symptoms or weakness. She has not taken any medication for these headaches. [facility] Medical History Other specified hypothyroidism Ex-smoker Small airways disease Hypertension, essential Nephropathy Surgical History H/O oophorectomy Hx of cholecystectomy History of appendectomy History of hysterectomy Family History Father HTN (hypertension) Lung cancer Myocardial infarction Mother HTN (hypertension) Brother No problems noted. Social History Housing: House Patient Tobacco Use Status: Former Tobacco user Years Smoked: 30 yrs e-Cigarette/Vaping Use: Never Used Advance Directives Date on File: 12/02/19 service: Yes (retired) Current occupational status: retired Current occupational exposures/hazards: No Cognitive needs: No Hearing needs: No Vision needs: No Review of Systems Const All systems reviewed & are unremarkable except as noted in HPI and below Physical Exam Vital Signs: Last Vital Signs Temp 98.6 F 10/25/23 09:10 Pulse 67 10/25/23 09:10 BP 132/88 10/25/23 09:10 Pulse Ox 96 10/25/23 09:10 Oxygen Delivery Method Room Air 10/25/23 09:10 BMI result Body Mass Index 52.7 Const General: cooperative and no acute distress Nutritional Appearance: obese Orientation/consciousness: patient oriented x3 HEENT Other: No temporal artery tenderness Head: Yes normal to inspection, Yes normocephalic and Yes atraumatic Ears: hearing grossly normal bilaterally, external ears normal and TM's normal bilaterally General nose exam: Normal external nose present Face and sinus: Yes normal facial exam, Yes sinuses nontender and Yes face symmetric Mouth: Normal oral and palatal mucosa present Eyes General: appearance normal, both eyes and all related structures Alignment and Position: alignment normal Periorbital: periorbital findings normal Eyelids: Yes eyelids normal Conjunctivae: conjunctivae normal Sclerae: sclerae normal Pupils: Equal, round and reactive pupils present and Pupil accommodation reflex normal EOM: EOMs intact bilaterally Direct Ophthalmoscopy: normal light reflex and no photophobia Neck Neck: Yes no lymphadenopathy Resp Effort & Inspection: normal respiratory effort Skin General skin exam: no rashes or lesions noted Neuro General: patient oriented x3, gait normal, tone normal and moves all extremities Cranial nerves: Yes Equal, round and reactive pupils present, Yes Normal accommodation reflex present and Yes Nystagmus not present Cognition (Neuro): normal cognition Motor exam (neuro): 5/5 motor strength present throughout Extrem General: Yes no clubbing, cyanosis or edema Psych Appearance: grossly normal Mental Status: mental status grossly normal Speech and movement: Normal speech and movement present Assessment & Plan Assessment & Plan (1) Daily headache: Code(s): R51.9 - Headache, unspecified Plan: Alessia has had mild daily headaches over the last 2-3 months. On history and exam, there are no red flag symptoms present and no neurological changes or abnormal findings. Possible contributing factors would include excessive screentime, lack of proper eyeglasses rx, poor diet/hydration. We discussed some conservative measures at this time for her headaches, and starting a log of headaches for more accurate tracking, including onset, location, exacerbating/alleviating factors, any possible associated symptoms etc. She is going to do this and will also try some Tylenol at the onset of a headache. She is going to cut down on screentime for several days and also call her road freight conductor to see if her new eyeglasses have come in. We discussed healthy food/vitamin/water intake. I will have her see PCP Dr. Mercedes to follow up on this. We reviewed red flag symptoms for more prompt evaluation, which patient verbalizes understanding of. All questions were answered and patient agrees with plan discussed today. Coding Level of Care Code Est Pt Level 4 (72009) Diagnoses Daily headache R51.9
[2023-10-25 09:10] VITALS: BP 132/88; PULSE 67; TEMP 37; O2SAT 96; BMI 52.7
== END 2023-10-25 09:55 | disposition home or self-care (01) ==
PROVIDERS: PCP Internal Medicine; Visit Provider Nurse Practitioner Family
DX: R51.9 Headache, unspecified (principal)
CPT/HCPCS: 99214

== ENCOUNTER 2023-11-13 09:49 | Outpatient (AMB) | payer MEDICARE, OTHER, SELFPAY ==
--- NOTE | 2023-11-13 09:53 | A.OFFPC_ITS ---
Vital Signs 11/13/23 09:56 Height 5 ft 2 in Weight 279 lb BMI 51.0 BP 122/74 Blood Pressure Location Lt brachial Position Sitting Pulse 66 Pulse Oximetry (%) 94 Oxygen Delivery Method Room Air Intake Visit Reasons: appt 10/25/23 Allergies heparin [HEPARIN] Allergy (Unknown, Verified 11/13/23 09:58) ITCH Tetanus Vaccines and Toxoid [TETANUS VACCINES AND TOXOID] Allergy (Unknown, Verified 11/13/23 09:58) SWELLING SOB Medication List - Last Reconciled 11/13/23 by Max Mercedes MD atenolol 25 mg PO DAILY dupilumab (Dupixent) mg subcut Q8W levothyroxine (Levoxyl) 125 mcg PO QAM lisinopril 40 mg PO DAILY [Non-childproof prescription bottles Please send all existing and future medications in bottles that are not childproof and without safety locking tops.] rosuvastatin 5 mg PO BEDTIME sertraline 75 mg (1.5 x 50 mg) PO DAILY 90 days Tobacco use date assessed: 11/13/23 Fall risk assessment: No Falls in past year Last assessed Fall Risk: 11/13/23 Dental Screening Dental Screen Date: 11/13/23 Did you have a dental visit in the last 12 months?: Yes Did you have a dental problem in the last 6 months where you did not have access to dental care?: No Was dental information given to patient?: Patient has dentist HPI appt 10/25/23 HPI Details Patient is a 73-year-old female came in today to talk about depression and PTSD Patient has been seeing therapist for the past few months And is taking sertraline 75 mg daily Patient says that her therapist has ask her to see a psychiatrist As she feels patient is going through a PTSD I have placed a referral for her to see our Psychiatric Clinic Meanwhile I am increasing her sertraline to 100 mg She is also due for labs, reminded to do that today. [facility] Medical History Other specified hypothyroidism Ex-smoker Small airways disease Hypertension, essential Nephropathy Surgical History H/O oophorectomy Hx of cholecystectomy History of appendectomy History of hysterectomy Family History Father HTN (hypertension) Lung cancer Myocardial infarction Mother HTN (hypertension) Brother No problems noted. Social History Housing: House Patient Tobacco Use Status: Former Tobacco user Years Smoked: 30 yrs e-Cigarette/Vaping Use: Never Used Advance Directives Date on File: 12/02/19 service: Yes (retired) Current occupational status: retired Current occupational exposures/hazards: No Cognitive needs: No Hearing needs: No Vision needs: No Questionnaire PHQ-9 Over the last 2 weeks, how often have you been bothered by any of the following problems? 1. Little interest or pleasure in doing things: nearly every day 2. Feeling down, depressed, or hopeless: nearly every day 3. Trouble falling or staying asleep, or sleeping too much: nearly every day 4. Feeling tired or having little energy: more than half the days 5. Poor appetite or overeating: not at all 6. Feeling bad about yourself - or that you are a failure or have let yourself or your family down: more than half the days 7. Trouble concentrating on things, such as reading the newspaper or watching television: not at all 8. Moving or speaking so slowly that other people could have noticed. Or the opposite - being so fidgety or restless that you have been moving around a lot more than usual: not at all 9. Thoughts that you would be better off or of hurting yourself in some way: not at all Total score: 13 Depression Screening Interpretation: Positive Depression Screening Follow-up: Existing condition and In treatment Depression Screening Done: Yes 89578 - PHQ-9 Billing: Yes Source: Developed by Drs. Erik Jara, Kinjal Shipman, Addy Rodgers and colleagues, with an educational elva from [employer]. Thrive Questionnaire Date Thrive assessed: 11/13/23 I am a: Patient What is your living situation today?: I have a steady place to live Within the past 12 months, did the food you bought not last and you didn't have the money to get more?: Never true Within the past 12 months, did you worry whether your food would run out before you got money to buy more?: Never true Do you have trouble paying for medicines?: No Do you have trouble getting transportation to medical appointments?: No Do you have trouble paying your heating and electricity bill?: No Do you have trouble taking care of your child, family member or friend?: No Do you have trouble with day-to-day activities such as bathing, preparing meals, shopping, managing finances, etc.?: No Are you currently unemployed and looking for a job?: No Are you interested in more education?: No Please select the resources that you would like help with: None Currently or been in a relationship where the following occur: No concerns reported THRIVE Score: 0 AUDIT C Alcohol Use Questionnaire (AUDIT-C) 1. How often do you have a drink containing alcohol?: Never 3. How often do you have six or more drinks on one occasion?: Never Total Score: 0 Score Reviewed/Action Taken: Yes TALON-7 AMB Questionnaire TALON-7 Date TALON - 7 assessed: 11/13/23 Feeling nervous, anxious, or on edge: 2 = More than half the days Not being able to stop or control worryin = More than half the days Worrying too much about different things: 1 = Several days Trouble relaxin = Not at all Being so restless that it is hard to sit still: 0 = Not at all Becoming easily annoyed or irritable: 0 = Not at all Feeling afraid as if something awful might happen: 0 = Not at all Total TALON-7 score (0-4 normal; 5-9 mild; 10-14 moderate; 15-21 severe): 5 Source: Developed by Drs. Erik Jara, Kinjal Shipman, Addy Rodgers and colleagues, with an educational elva from [employer]. TALON-7 Assessment Billing TALON-7 Assessment Tool: TALON-7 Assessment 15010 Review of Systems Const Denies chills and Denies fever(s) ENT Denies epistaxis and Denies nasal discharge Card Denies chest pain Resp Denies chest congestion, Denies cough and Denies hemoptysis GI Denies diarrhea and Denies nausea Skin/Breast Denies rash Neuro Reports no additional complaints Psych Reports no additional complaints Endo Reports no additional complaints Physical exam (Primary Care) Vital Signs: Last Vital Signs Pulse 66 11/13/23 09:56 BP 122/74 11/13/23 09:56 Pulse Ox 94 11/13/23 09:56 Oxygen Delivery Method Room Air 11/13/23 09:56 BMI result Body Mass Index 51.0 Tobacco/Smoking Status: Tobacco use Status Tobacco use date assessed 11/13/23 11/13/23 09:59 Patient Tobacco Use Status Former Tobacco user 11/13/23 09:53 e-Cigarette/Vaping Use Never Used 11/13/23 09:53 PHQ-9: PHQ-9 Score PHQ-9: Total score 13 11/13/23 10:19 Depression Screening Interpretation: Positive Depression Screening Follow-up: Existing condition and In treatment Thrive Assessment: Date of Thrive Assessment Date Thrive assessed 11/13/23 11/13/23 10:00 Currently or been in a relationship where the following occur: No concerns reported Const General: cooperative, comfortable and no acute distress Orientation/consciousness: patient oriented x3 HENMT Head: Yes normocephalic Eyes General: appearance normal, both eyes and all related structures Neck Neck: Yes supple Resp Effort & Inspection: normal respiratory effort, no cough and no stridor Cardio Rhythm: regular rhythm Heart sounds: S1 normal heart sound present and S2 normal heart sound present Skin General skin exam: turgor normal Neuro General: patient oriented x3, tone normal and moves all extremities Extrem Right lower extremity: no edema Left lower extremity: no edema Assessment and Plan Assessment & Plan (1) Major depression, recurrent: Code(s): F33.9 - Major depressive disorder, recurrent, unspecified Qualifiers: Active/Remission status: in full remission Qualified Code(s): F33.42 - Major depressive disorder, recurrent, in full remission Plan Patient is a 73-year-old female came in today to talk about depression and PTSD Patient has been seeing therapist for the past few months And is taking sertraline 75 mg daily Patient says that her therapist has ask her to see a psychiatrist As she feels patient is going through a PTSD I have placed a referral for her to see our Psychiatric Clinic Meanwhile I am increasing her sertraline to 100 mg She is also due for labs, reminded to do that today. Orders: Referrals Psychiatry Referral F33.42 - Major depressive disorder, recurrent, in full remission, F43.10 - Post-traumatic stress disorder, unspecified Medications: Changed From sertraline 75 mg (1.5 x 50 mg) PO DAILY 90 days 135 tabs 0RF To sertraline 100 mg PO DAILY 90 days 90 tabs 0RF Coding Level of Care Code Est Pt Level 3 (26588) Diagnoses Recurrent major depressive disorder, in full remission F33.42 Active/Remission status: in full remission Additional Codes TALON-7 Assessment Billing - TALON-7 Assessment Tool: TALON-7 Assessment 13692 ([id number])
[2023-11-13 09:56] VITALS: BP 122/74; PULSE 66; O2SAT 94; BMI 51.0
== END 2023-11-13 11:02 | disposition home or self-care (01) ==
PROVIDERS: PCP Internal Medicine; Visit Provider Internal Medicine
DX: F33.42 Major depressive disorder, recurrent, in full remission (principal)

== ENCOUNTER → 2023-11-13 09:49 | Outpatient (BNVA) | payer MEDICARE, OTHER, SELFPAY | PROVIDERS: PCP Internal Medicine; Visit Provider Internal Medicine ==

== ENCOUNTER 2023-11-13 10:24 | Outpatient (REF) | payer MEDICARE, OTHER, SELFPAY ==
[2023-11-13 13:37] LABS: MANUAL DIFF FLAG NO
[2023-11-13 13:43] LABS: Basophils Percent Auto 0.5 % (0-2); Eosinophils Absolute Auto 0.1 X10*3/uL (0.0-0.4); Eosinophils Percent Auto 1.6 % (0-4); Hemoglobin 15.4 g/dl (12.0-16.0); Imm Gran Abs Auto 0.02 X10*3/uL (0.00-0.03); Imm Gran Pct Auto 0.3 % (0.0-0.4); Lymphocytes Absolute Auto 2.4 X10*3/uL (1.2-4.9); Lymphocytes Percent Auto 32.6 % (20-40); Mean Corpuscular HGB Conc 33.5 g/dl (31.0-35.0); Mean Corpuscular Hemoglobin 29.8 pg (27.0-33.0); Mean Corpuscular Volume 89.1 fL (80.0-98.0); Monocytes Absolute Auto 0.5 X10*3/uL (0.1-1.2); Monocytes Percent Auto 6.7 % (2-11); Neutrophils Absolute Auto 4.3 x10*3/uL (2.0-8.3); Neutrophils Percent Auto 58.3 % (45-73); Platelet Count 299 X10*3/uL (160-400); Red Blood Count 5.16 X10*6/uL (4.20-5.50); Red Cell Distribution Width 12.9 % (11.0-16.0); White Blood Count 7.3 X10*3/uL (4.8-10.8)
[2023-11-13 14:21] LABS: Alanine Aminotransferase 22 U/L (0-31); Albumin Level 4.5 g/dL (3.5-5.0); Alkaline Phosphatase 78 U/L (39-117); Anion Gap 18 (12-20); Aspartate Amino Transferase 24 U/L (5-31); Bilirubin Total 1.1 mg/dL (0.0-1.0); Blood Urea Nitrogen 18 mg/dL (9-16); Calcium 10.3 mg/dL (8.4-10.2); Carbon Dioxide 27 mmol/L (22-29); Chloride 106 mmol/L (96-108); Estimated Glomerular Filt Rate 43; Glucose Random 103 mg/dL (60-115); Potassium 4.6 mmol/L (3.3-5.1); Sodium 146 mmol/L (135-145); TSH reflex Free T4 2.36 uIU/mL (0.32-4.0); Total Protein 7.5 g/dL (6.5-8.0)
[2023-11-13 15:40] LABS: Estimated Average Glucose 108 mg/dL; Hemoglobin A1c % 5.4 % (<6.0)
[2023-11-14 17:08] LABS: LDL Cholesterol Direct 51 mg/dL (<100)
== END 2023-11-13 10:25 | disposition home or self-care (01) ==
LOC: HO.HMGCLDS 10:24
PROVIDERS: PCP Internal Medicine; Visit Provider Internal Medicine
DX: F33.42 Major depressive disorder, recurrent, in full remission (principal); F43.10 Post-traumatic stress disorder, unspecified; Z79.899 Other long term (current) drug therapy; I10 Essential (primary) hypertension; E03.8 Other specified hypothyroidism; E66.01 Morbid (severe) obesity due to excess calories; E78.9 Disorder of lipoprotein metabolism, unspecified; R73.01 Impaired fasting glucose
CPT/HCPCS: 36415; 80053; 83036; 83721; 84443; 85025; 96127; 99212

== ENCOUNTER 2023-12-25 15:14 | Outpatient (AMB) | payer MEDICARE, OTHER, SELFPAY ==
[2023-12-25 15:20] VITALS: BP 136/86; PULSE 57; O2SAT 95; BMI 49.8
--- NOTE | 2023-12-25 15:20 | A.OFFPC_ITS ---
Vital Signs 12/25/23 15:20 Height 5 ft 2 in Weight 272 lb 3 oz BMI 49.8 BP 136/86 Blood Pressure Location Rt brachial Position Sitting Pulse 57 Pulse Source Pulse Oximeter Pulse Oximetry (%) 95 Oxygen Delivery Method Room Air Intake Visit Reasons: Dizziness Allergies heparin [HEPARIN] Allergy (Unknown, Verified 11/13/23 09:58) ITCH Tetanus Vaccines and Toxoid [TETANUS VACCINES AND TOXOID] Allergy (Unknown, Verified 11/13/23 09:58) SWELLING SOB Medication List - Last Reconciled 12/25/23 by Max Mercedes MD atenolol 25 mg PO DAILY dupilumab (Dupixent) mg subcut Q8W levothyroxine (Levoxyl) 125 mcg PO QAM lisinopril 40 mg PO DAILY [Non-childproof prescription bottles Please send all existing and future medications in bottles that are not childproof and without safety locking tops.] rosuvastatin 5 mg PO BEDTIME sertraline 100 mg PO DAILY 90 days Tobacco use date assessed: 11/13/23 Dental Screening Dental Screen Date: 11/13/23 HPI Dizziness HPI Details Patient is 73-year-old female came in today to talk about dizziness Labs done few weeks ago reviewed with the patient Patient was seen in October secondary to severe depression and PTSD She was referred to psychiatrist Patient have allergies however she is not taking any medication for that Tells me that her right ear feels as if there is fluid in it I would recommend to start taking the allergy medication daily I am prescribing meclizine for the patient she may take that every 8 hour as needed for couple of weeks Still having dizziness we will order vestibular physical therapy Obstructive sleep apnea and pulmonary emphysema treated by respiratory specialist Depression anxiety stable with sertraline 75 mg She is on Dupixent for eczema now by dermatology talked to Lucero She is taking it every other month Lipid disorder: Continue rosuvastatin 5 mg Patient is trying to lose weight BMI is elevated. Hypothyroidism: Continue levothyroxine 125 mcg PFSH Medical History Other specified hypothyroidism Ex-smoker Small airways disease Hypertension, essential Nephropathy Surgical History H/O oophorectomy Hx of cholecystectomy History of appendectomy History of hysterectomy Family History Father HTN (hypertension) Lung cancer Myocardial infarction Mother HTN (hypertension) Brother No problems noted. Social History Housing: House Patient Tobacco Use Status: Former Tobacco user Years Smoked: 30 yrs e-Cigarette/Vaping Use: Never Used Advance Directives Date on File: 12/02/19 service: Yes (retired) Current occupational status: retired Current occupational exposures/hazards: No Cognitive needs: No Hearing needs: No Vision needs: No Questionnaire Thrive Questionnaire Date Thrive assessed: 11/13/23 I am a: Patient What is your living situation today?: I have a steady place to live Within the past 12 months, did the food you bought not last and you didn't have the money to get more?: Never true Within the past 12 months, did you worry whether your food would run out before you got money to buy more?: Never true Do you have trouble paying for medicines?: No Do you have trouble getting transportation to medical appointments?: No Do you have trouble paying your heating and electricity bill?: No Do you have trouble taking care of your child, family member or friend?: No Do you have trouble with day-to-day activities such as bathing, preparing meals, shopping, managing finances, etc.?: No Are you currently unemployed and looking for a job?: No Are you interested in more education?: No Please select the resources that you would like help with: None Currently or been in a relationship where the following occur: No concerns reported THRIVE Score: 0 TALON-7 AMB Questionnaire TALON-7 Date TALON - 7 assessed: 11/13/23 Source: Developed by Drs. Erik Jara, Kinjal Shipman, Addy Rodgers and colleagues, with an educational elva from [employer]. Review of Systems Const Denies chills and Denies fever(s) ENT Denies epistaxis and Denies nasal discharge Card Denies chest pain Resp Denies chest congestion, Denies cough and Denies hemoptysis GI Denies diarrhea and Denies nausea Skin/Breast Denies rash Neuro Reports no additional complaints Psych Reports no additional complaints Endo Reports no additional complaints Physical exam (Primary Care) Vital Signs: Last Vital Signs Pulse 57 12/25/23 15:20 BP 136/86 12/25/23 15:20 Pulse Ox 95 12/25/23 15:20 Oxygen Delivery Method Room Air 12/25/23 15:20 BMI result Body Mass Index 49.8 Tobacco/Smoking Status: Tobacco use Status Tobacco use date assessed 11/13/23 12/25/23 15:24 Patient Tobacco Use Status Former Tobacco user 12/25/23 15:24 e-Cigarette/Vaping Use Never Used 12/25/23 15:24 Thrive Assessment: Date of Thrive Assessment Date Thrive assessed 11/13/23 12/25/23 15:24 Currently or been in a relationship where the following occur: No concerns reported Const General: cooperative, comfortable and no acute distress Orientation/consciousness: patient oriented x3 HENMT Head: Yes normocephalic Eyes General: appearance normal, both eyes and all related structures Neck Neck: Yes supple Resp Effort & Inspection: normal respiratory effort, no cough and no stridor Cardio Rhythm: regular rhythm Heart sounds: S1 normal heart sound present and S2 normal heart sound present Skin General skin exam: turgor normal Neuro General: patient oriented x3, tone normal and moves all extremities Extrem Right lower extremity: no edema Left lower extremity: no edema Coding Level of Care Code Est Pt Level 4 (08203) Complex EM visit Add On G2211 Diagnoses Benign paroxysmal positional vertigo, unspecified laterality H81.10 Laterality: unspecified laterality Hypertension, essential I10 Lipid disorder E78.9 Gastroesophageal reflux disease without esophagitis K21.9 Esophagitis presence: without esophagitis Environmental allergies Z91.09 Morbid obesity due to excess calories E66.01 Other specified hypothyroidism E03.8 CORTEZ (obstructive sleep apnea) G47.33 Impaired fasting blood sugar R73.01 PTSD (post-traumatic stress disorder) F43.10 Assessment & Plan Assessment & Plan (1) Benign positional vertigo: Code(s): H81.10 - Benign paroxysmal vertigo, unspecified ear Category: Medical Qualifiers: Laterality: unspecified laterality Qualified Code(s): H81.10 - Benign paroxysmal vertigo, unspecified ear (2) Hypertension, essential: Code(s): I10 - Essential (primary) hypertension Category: Medical (3) Lipid disorder: Code(s): E78.9 - Disorder of lipoprotein metabolism, unspecified Category: Medical (4) GERD (gastroesophageal reflux disease): Code(s): K21.9 - Gastro-esophageal reflux disease without esophagitis Category: Medical Qualifiers: Esophagitis presence: without esophagitis Qualified Code(s): K21.9 - Gastro-esophageal reflux disease without esophagitis (5) Environmental allergies: Code(s): Z91.09 - Other allergy status, other than to drugs and biological substances Category: Medical (6) Morbid obesity due to excess calories: Code(s): E66.01 - Morbid (severe) obesity due to excess calories Category: Medical (7) Other specified hypothyroidism: Code(s): E03.8 - Other specified hypothyroidism Category: Medical (8) CORTEZ (obstructive sleep apnea): Code(s): G47.33 - Obstructive sleep apnea (adult) (pediatric) Category: Medical (9) Impaired fasting blood sugar: Code(s): R73.01 - Impaired fasting glucose Category: Medical (10) PTSD (post-traumatic stress disorder): Code(s): F43.10 - Post-traumatic stress disorder, unspecified Category: Medical Plan Patient is 73-year-old female came in today to talk about dizziness She has a history of obstructive sleep apnea, hypothyroidism, lipid disorder, hypertension, impaired fasting sugar, depression, anxiety, PTSD Labs done few weeks ago reviewed with the patient Patient was seen in October secondary to severe depression and PTSD She was referred to psychiatrist Patient have allergies however she is not taking any medication for that Tells me that her right ear feels as if there is fluid in it I would recommend to start taking the allergy medication daily I am prescribing meclizine for the patient she may take that every 8 hour as needed for couple of weeks Still having dizziness we will order vestibular physical therapy Obstructive sleep apnea and pulmonary emphysema treated by respiratory specialist Depression anxiety stable with sertraline 75 mg She is on Dupixent for eczema now by dermatology talked to Lucero She is taking it every other month Lipid disorder: Continue rosuvastatin 5 mg Patient is trying to lose weight BMI is elevated. Hypothyroidism: Continue levothyroxine 125 mcg Medications: New meclizine (Antivert) 25 mg PO TID 15 days PRN 45 tabs 0RF dizziness
== END 2023-12-25 15:56 | disposition home or self-care (01) ==
LOC: HO.HMCC 15:15
PROVIDERS: PCP Internal Medicine; Visit Provider Internal Medicine
DX: H81.11 Benign paroxysmal vertigo, right ear (principal); I10 Essential (primary) hypertension; E66.01 Morbid (severe) obesity due to excess calories; Z68.42 Body mass index [BMI] 45.0-49.9, adult; E78.9 Disorder of lipoprotein metabolism, unspecified; K21.9 Gastro-esophageal reflux disease without esophagitis; Z91.09 Other allergy status, other than to drugs and biological substances; E03.8 Other specified hypothyroidism; G47.33 Obstructive sleep apnea (adult) (pediatric); R73.01 Impaired fasting glucose; F43.10 Post-traumatic stress disorder, unspecified

== ENCOUNTER → 2023-12-25 15:14 | Outpatient (BNVA) | payer MEDICARE, OTHER, SELFPAY | PROVIDERS: PCP Internal Medicine; Visit Provider Internal Medicine | DX: H81.10 Benign paroxysmal vertigo, unspecified ear (principal); I10 Essential (primary) hypertension; E78.9 Disorder of lipoprotein metabolism, unspecified; K21.9 Gastro-esophageal reflux disease without esophagitis; E66.01 Morbid (severe) obesity due to excess calories; E03.8 Other specified hypothyroidism; G47.33 Obstructive sleep apnea (adult) (pediatric); R73.01 Impaired fasting glucose; F43.10 Post-traumatic stress disorder, unspecified; Z91.09 Other allergy status, other than to drugs and biological substances | CPT/HCPCS: 99212 ==

== ENCOUNTER 2024-01-31 14:34 | Outpatient (AMB) | payer MEDICARE, OTHER, SELFPAY ==
[2024-01-31 14:37] VITALS: BP 142/82; PULSE 69; O2SAT 95; BMI 49.4
--- NOTE | 2024-01-31 14:37 | MHC.OFFVIS ---
Vital Signs 01/31/24 14:37 Height 5 ft 2 in Weight 270 lb BMI 49.4 BP 142/82 H Blood Pressure Location Rt brachial Position Sitting Pulse 69 Pulse Source Doppler Pulse Oximetry (%) 95 Oxygen Delivery Method Room Air Intake Visit Reasons: Dr. Aneesh FLORES MD, DOS 02/10/24 Allergies heparin [HEPARIN] Allergy (Unknown, Verified 01/31/24 14:41) ITCH Tetanus Vaccines and Toxoid [TETANUS VACCINES AND TOXOID] Allergy (Unknown, Verified 01/31/24 14:41) SWELLING SOB HPI HPI Dr. Aneesh FLORES MD, DOS 02/10/24: Details: 73-year-old lady, former 30 pack-year smoker, quit over 20 years prior, previously followed for cough/GERD, CORTEZ, and mild asymptomatic emphysema.? Patient has intermittent dyspnea symptoms that are not consistent. [facility] Medical History Other specified hypothyroidism Ex-smoker Small airways disease Hypertension, essential Nephropathy Surgical History H/O oophorectomy Hx of cholecystectomy History of appendectomy History of hysterectomy Family History Father HTN (hypertension) Lung cancer Myocardial infarction Mother HTN (hypertension) Brother No problems noted. Social History Housing: House Patient Tobacco Use Status: Former Tobacco user Years Smoked: 30 yrs e-Cigarette/Vaping Use: Never Used Advance Directives Date on File: 12/02/19 service: Yes (retired) Current occupational status: retired Current occupational exposures/hazards: No Cognitive needs: No Hearing needs: No Vision needs: No Review of Systems Const Denies daytime sleepiness, Denies excessive sweating, Denies fatigue, Denies fever(s), Denies lethargy, Denies malaise, Denies night sweats, Denies snoring and Denies weight loss Eyes Denies blurry vision and Denies itchy eyes ENT Denies nasal congestion, Denies post nasal drip, Denies sinus pain, Denies sinus pressure and Denies other ( Thrush) Card Denies chest pain, Denies pedal edema, Denies dyspnea, Denies orthopnea and Denies paroxysmal nocturnal dyspnea Resp Denies cough, Denies hemoptysis, Denies excessive phlegm production, Denies dyspnea, Denies snoring and Denies wheezing GI Denies abdominal pain and Denies heartburn Musc Denies myalgias, Denies arthralgias and Denies joint swelling Skin/Breast Denies rash Neuro Denies memory loss and Denies seizure-like activity Psych Denies abnormal sleep pattern, Denies anxiety and Denies memory loss Endo Denies excessive sweating, Denies fatigue and Denies heat intolerance Anatoly/Lymph Denies easy bruising Aller/Immun Denies itchy eyes, Denies seasonal rhinorrhea and Denies wheezing Physical Exam Vital Signs: Last Vital Signs Pulse 69 01/31/24 14:37 BP 142/82 H 01/31/24 14:37 Pulse Ox 95 01/31/24 14:37 Oxygen Delivery Method Room Air 01/31/24 14:37 BMI result Body Mass Index 49.4 Const General: no acute distress and alert Nutritional Appearance: obese Orientation/consciousness: Other orientation findings ( oriented) HEENT Head: Yes atraumatic Eyes General: appearance normal, both eyes and all related structures Sclerae: sclerae normal EOM: EOMs intact bilaterally Neck Neck: Yes supple Lymphatic: no lymphadenopathy noted Resp Effort & Inspection: normal respiratory effort and no use of accessory muscles Auscultation: clear to auscultation bilaterally Cardio Rate: regular rate Rhythm: regular rhythm Heart sounds: no gallops, no murmurs and no rubs Skin General skin exam: other ( warm) Extrem General: No clubbing, No cyanosis and No edema Assessment & Plan Assessment & Plan (1) CORTEZ (obstructive sleep apnea): Code(s): G47.33 - Obstructive sleep apnea (adult) (pediatric) Category: Medical Plan: Unable to tolerate CPAP or jaw advancement device. (2) Pulmonary emphysema: Code(s): J43.9 - Emphysema, unspecified Category: Medical Qualifiers: Emphysema type: unspecified Qualified Code(s): J43.9 - Emphysema, unspecified Plan: Essentially asymptomatic. (3) Preop pulmonary/respiratory exam: Code(s): Z01.811 - Encounter for preprocedural respiratory examination Category: Medical Plan: At this time patient is at low risk for pulmonary perioperative complications for the proposed total knee replacement under general anesthesia. She does have underlying obstructive sleep apnea, consider possible extubation to BiPAP. Coding Level of Care Code Est Pt Level 4 (32194) Diagnoses CORTEZ (obstructive sleep apnea) G47.33 Pulmonary emphysema, unspecified emphysema type J43.9 Emphysema type: unspecified Preop pulmonary/respiratory exam Z01.811
--- OUTSIDE RECORDS SUMMARY | 2024-01-31 14:37 | XMS_ITS ---
Author Name [facility] Organization Unknown Results Test Name/Text Value Interpretation Date Range Source AST SerPl-cCnc 22unit/L Normal [id number] 5 - 40 [facility] ALT SerPl-cCnc 20unit/L Normal [id number] 7 - 52 [facility] Creat SerPl-mCnc 1mg/dL Normal [id number] 0.5 - 1 [facility] CO2 SerPl-sCnc 29mmol/L Normal [id number] 24 - 32 [facility] eGFRcr SerPlBld CKD-EPI 2020 60mL/min/1.7 3m2 Normal [id number] - [facility] Potassium SerPl-sCnc 4.6mmol/L Normal [id number] 3.5 - 5.1 [facility] Bilirub SerPl-mCnc 1.2mg/dL Above high normal [id number] 0.3 - 1 [facility] Calcium SerPl-mCnc 9.6mg/dL Normal [id number] 8.4 - 10 [address] [facility] BUN SerPl-mCnc 14mg/dL Normal [id number] 7 - 17 [facility] ALP SerPl-cCnc 87unit/L Normal [id number] 34 - 104 [facility] Chloride SerPl-sCnc 106mmol/L Normal [id number] 98 - 10 7 [facility] BUN/Creat SerPl 14 Normal [id number] 12 - 20 C [facility] Albumin SerPl-mCnc 4.3g/dL Normal [id number] 3.5 - 5 [facility] Prot SerPl-mCnc 6.9g/dL Normal [id number] 6.4 - 8.5 C [facility] Sodium SerPl-sCnc 143mmol/L Normal [id number] 135 - 145 [facility] Anion Gap SerPl-sCnc 8 Normal [id number] 5 - 14 [facility] Glucose SerPl-mCnc 102mg/dL Above high normal [id number] 70 - 99 [facility] Prealb SerPl-mCnc 31mg/dL Normal [id number] 17 - 34 [facility] Monocytes # Bld Auto 0.4K/mcL Normal [id number] 0 - 0.8 [facility] Neutrophils # Bld Auto 3.6K/mcL Normal [id number] 1.8 - 7.8 [facility] Eosinophil # Bld Auto 0.1K/mcL Normal [id number] 0 - 0.5 [facility] MCHC RBC Auto-mCnc 33.9g/dL Normal [id number] 32 - 36 [facility] Monocytes/leuk NFr Bld Auto 7.6% Normal [id number] 2 - 12 [facility] Basophils # Bld Auto 0K/mcL Normal [id number] 0 - 0.2 [facility] WBC # Bld Auto 5.9K/mcL Normal [id number] 4 - 10.5 CT [facility] Hct VFr Bld Auto 43% Normal [id number] 37 - 47 [facility] RDW RBC Auto-Rto 13.6% Normal [id number] 12.1 - 16. 2 [facility] PMV Bld Auto 8.7FL Normal [id number] 7.4 - 11.4 [facility] Eosinophil/leuk NFr Bld Auto 2.5% Normal [id number] 0 - 6 [facility] MCH RBC Qn Auto 30.2pcg Normal [id number] 25 - 33 C [facility] Basophils/leuk NFr Bld Auto 0.8% Normal [id number] 0 - 2 [facility] Lymphocytes # Bld Auto 1.6K/mcL Normal [id number] 1 - 3.2 [facility] RBC # Bld Auto 4.83M/mcL Normal [id number] 4.2 - 5.4 CT [facility] Neutrophils/leuk NFr Bld Auto 62% Normal 44 - 74 [facility] Platelet # Bld Auto 223K/mcL Normal [id number] 150 - 4 50 [facility] MCV RBC Auto 89.2FL Normal [id number] 78 - 100 [facility] Lymphocytes/leuk NFr Bld Auto 27.1% Normal [id number] 20 - 48 [facility] Hgb Bld-mCnc 14.6g/dL Normal 12.5 - 16 [facility] History of Medication Use Medication Directions Dispensed Refills Start Date End Date [facility] fluocinonide 0.05 % topical solution APPLY 1-2 TIMES DAILY TO EARS TWICE DAILY FOR UP TO 2 WEEKS NEEDED FOR FLAKING 11/07/2023 completed Dupixent 300 mg/2 mL subcutaneous pen injector INJECT 1 PEN UNDER THE SKIN EVERY OTHER WEEK 11/07/2023 completed doxycycline hyclate 100 mg capsule 11/07/2023 completed sertraline 25 mg tablet 11/07/2023 active rosuvastatin 5 mg tablet 11/07/2023 active levothyroxine 125 mcg tablet 11/07/2023 active sertraline 50 mg tablet TAKE 1 AND 1/2 TABLETS BY MOUTH DAILY 11/07/2023 active lisinopril 30 mg tablet TAKE 1 TABLET BY MOUTH DAILY 11/07/2023 active atenolol 25 mg tablet TAKE 1 TABLET BY MOUTH DAILY 11/07/2023 active lisinopril 40 mg tablet 11/07/2023 active GaviLyte-G 236 gram-22.74 gram-6.74 gram-5.86 gram oral solution MIX AND DRINK DIRECTED 11/07/2023 completed lisinopril 40 mg tablet 10/27/2023 active GaviLyte-G 236 gram-22.74 gram-6.74 gram-5.86 gram oral solution MIX AND DRINK DIRECTED 10/27/2023 active levothyroxine 125 mcg tablet 10/27/2023 active fluocinonide 0.05 % topical solution APPLY 1-2 TIMES DAILY TO EARS TWICE DAILY FOR UP TO 2 WEEKS NEEDED FOR FLAKING 10/27/2023 active lisinopril 30 mg tablet TAKE 1 TABLET BY MOUTH DAILY 10/27/2023 active doxycycline hyclate 100 mg capsule 10/27/2023 active Dupixent 300 mg/2 mL subcutaneous pen injector INJECT 1 PEN UNDER THE SKIN EVERY OTHER WEEK 10/27/2023 active sertraline 50 mg tablet TAKE 1 AND 1/2 TABLETS BY MOUTH DAILY 10/27/2023 active atenolol 25 mg tablet TAKE 1 TABLET BY MOUTH DAILY 10/27/2023 active rosuvastatin 5 mg tablet 10/27/2023 active sertraline 25 mg tablet 10/27/2023 active No known medications No known medications 08/15/2023 active Allergies Allergen Reaction Severity Comment Documented Date Source Statu s TETANUS VACCINES AND TOXOID [facility] HEPARIN [facility] Problems Problem Status Onset Date Problem Type Date of Resolution Source Degeneration of lumbar intervertebral disc active 2023-11-04 ProblemAct [facility] Osteoarthritis of right knee joint active 2023-10-25 ProblemAct [facility] Chronic low back pain active 2023-11-04 ProblemAct [facility] Arthritis of knee active 2023-10-25 ProblemAct [facility] Lumbar spondylosis active 2023-11-04 ProblemAct [facility] Bilateral primary osteoarthritis of knee [facility]
--- OUTSIDE RECORDS SUMMARY | 2024-01-31 14:37 | XMS_ITS | Continuity of Care Document ---
Author Organization [place] [facility] Jeronimo Huerta [place] Address [address] [facility] [address] [place] [phone] Assessment Encounter Date Assessment Date Assessment LastModified by Organization Details LastModified Time 11/04/2023 11/04/2023 HPI 73-year-old female presents to the office today for evaluation of chronic low back pain. She reports insidious onset a couple of years ago but has noticed worsening over the last 3 to 4 months. She also notices worsening of her bad knees and is considering knee replacements. Her biggest complaint is that she cannot walk for more than a couple of minutes at a time without increased low back pain. She denies leg pain or radicular symptoms. She reports she goes to her local [employer] and floats and does exercises in the pool which provides great relief of both her back and knee pain. Other treatment to date includes Tylenol and lidocaine patches. Radiographs of the lumbar spine obtained 06/18/2023 revealed multilevel degenerative changes. Diffuse facet arthrosis, loss of disc height L2-S1, most significant L4-S1. Well-maintained vertebral body height. Slight anterolisthesis L4-L5. EXAM Constitutional: appears well developed, in no acute distress. BMI 43 Respiratory: no respiratory distress Cardiovascular: Palpable pedal pulses bilaterally. Musculoskeletal: Normal gait Back: Inspection of the thoracolumbar spine is unremarkable. No deformity noted. Nontender to palpation over midline thoracolumbar spine or paraspinal musculature. Nontender to palpation over b/l SI joints. Neurologic: Sensation grossly intact to light touch in bilateral lower extremities. 5/5 strength with hip flexion, knee flexion/extension, dorsi/plantar flexion, and EHL bilaterally. Non-tender, no palpable masses bilaterally. Negative straight leg raise bilaterally. Able to toe raise and heel walk bilaterally. Normal tone in all 4 extremities. Negative Soler? s bilaterally. Negative Clonus bilaterally. Skin: skin intact PLAN 73-year-old female with chronic low back pain without radiculopathy. She has moderate to advanced degenerative changes of the lumbar spine.I reviewed the natural history of this with her. We discussed the treatment options at length including continued conservative care, injection therapy and surgical intervention. Currently, given her elevated BMI and centralized obesity she is not an ideal surgical candidate. She is referred to physical therapy. She would like to consider injections. Aware will likely need to order MRI prior to this, she will call the office to let us know if she would like to proceed. We discussed the importance of avoiding noxious spine activities, avoiding repetitive bending, lifting, twisting. The patient may use thermal modalities as needed. Patient was seen and evaluated by Ac Woo PA-C in indirect conjunction with Documenting Provider: Franklyn Moffett MD He/She agrees with history, physical examination, tests/diagnostic imaging, and treatment plan. [email or web address] Not available 11/04/2023 16:07:24 Plan of Treatment Reminders Order Date Submit Date Provider Last Modified By Organization Details Last Modified Time Details Appointments [facility] 2023 01:15P M LIGIA MCCARTNEY PA-C Not available Not available Not available SURGERY 120 2023 07:00A M Aneesh Taylor MD Not available Not available Not available [facility] 2024 11:00A M LIGIA MCCARTNEY PA-C Not available Not available Not available Lab None recorded . Referral orthoped ic physical therapis t referral - Addition al Comments : Chronic low back pain without radiculo veronika 2023 024 [email or web address] Not available 11/04/2023 16:36:24 Procedures None recorded . Surgeries None recorded . Imaging None recorded . Medication Orders None recorded . Patient TargetsNo targets recorded. Patient InstructionsNo instructions recorded. Reason for Referral Additional Comments: Chronic low back pain without radiculopathy Referring Physician: Ac Woo, Orthopedic Surgery, Encounter Date: 11/04/2023 Results Created Date Observation Date Name Description Value Unit Range Abnormal Flag Note LastModifiedBy Organization Detail LastModifiedTime 10/31/19 24 imagi ng/di daros tic resul t No observ ation record ed. [email or web address] Not Available 10/30 09:17:08 11/04/19 24 imagi ng/di agnos tic resul t No observ ation record ed. [email or web address] Not Available 11/03 15:00:33 Result Notes None recorded. Problems Name Problem SNOMED Code Status Onset Date Resolution Date Notes Provider Name and Address Organization Details Recorded Time Osteoarthri tis of right knee joint 7661114958980 00 Active 2023 Aneesh Taylor MD [address], [place], [address], [place] [facility] [place] 4 15:35:53 Arthritis of knee 214394392 Active 2023 Aneesh Taylor MD [address], [place], [address], [place] [facility], [facility] 4 15:36:00 Degeneratio n of lumbar interverteb ral disc 85445860 Active 2023 AC WOO PA-C [address], [place], [address], [place] [facility], [facility] 4 15:36:32 Low back pain 058168883 Active 2023 AC WOO PA-C [address], [place], [address], [place] [facility], P 4 15:36:43 Chronic low back pain 635579825 Active 2023 AC WOO PA-C [address], [place], [address], [place] [facility], [facility] 4 16:02:05 Lumbar spondylosis 151328605 Active 2023 AC WOO PA-C [address], [place], [address], [place] [facility], [facility] 4 16:02:11 Problem Notes None recorded. Procedures Surgical History Date Name Laterality Status Provider Name and Address Organization Details Recorded Time 02/18/19 03 cholecystectomy completed Rema Mack [facility] 10/25/2023 15:46:59 02/18/19 02 hysterectomy completed Rema Mack [facility], P 10/25/2023 15:47:13 02/18/18 57 Appendectomy completed Rema Mack [facility], P 10/25/2023 15:46:42 Imaging Results None recorded. Procedure Notes None recorded. Medical Equipment None Reported. Allergies Allergen ID Allergen Name Allergen Category Reaction Reaction Severity Criticality Documentation Date Start Date Code Code System Note Provider Name and Address Organization Details Recorded Time 95189 heparin medicatio n Not available Not available Not available 10/25/2023 5224 RxNorm Rema Mack [facility], [facility], P 15:48:10 63843 Vaccine product containin g only Clostridi um tetani antigen (medicina l product) medicatio n Not available Not available Not available 10/25/2023 21274 2002 SNOMED Rema Mack [facility], [facility], P 15:48:30 Medications Name Sig Start Date Stop Date Status Note LastModified by Organization Details LastModified Time doxycycline hyclate 100 mg capsule 10/24 completed Not Available Not Available Not Available atenolol 25 mg tablet TAKE 1 TABLET BY MOUTH DAILY active Not Available Not Available No t Available levothyroxi ne 125 mcg tablet active Not Available Not Available Not Available lisinopril 30 mg tablet TAKE 1 TABLET BY MOUTH DAILY active Not Available Not Available No t Available sertraline 25 mg tablet active Not Available Not Available Not Available fluocinonid e 0.05 % topical solution APPLY 1-2 TIMES DAILY TO EARS TWICE DAILY FOR UP TO 2 WEEKS NEEDED FOR FLAKING 10/24 completed Not Available Not Available Not Available lisinopril 40 mg tablet active Not Available Not Available Not Available sertraline 50 mg tablet TAKE 1 AND 1/2 TABLETS BY MOUTH DAILY active Not Available Not Available No t Available rosuvastati n 5 mg tablet active Not Available Not Available Not Available GaviLyte-G 236 gram-22.74 gram-6.74 gram-5.86 gram oral solution MIX AND DRINK DIRECTED 10/24 completed Not Available Not Available Not Available Dupixent 300 mg/2 mL subcutaneou s pen injector INJECT 1 PEN UNDER THE SKIN EVERY OTHER WEEK 10/24 completed Not Available Not Available Not Available Vitals Date Recorded Body weight Provider Name an d Address Organization Details Last Updated DateTime 11/04/2023 797674.94 g Hanane Bailey [facility] 11/04/2023 15:26:00 Date Recorded Body mass index (BMI) Body height Provider Name and Address Organization Details Last Updated DateTime 11/04/2023 43.6 kg/m2 167.64 cm AC WOO PA-C [address], [place], [address], [facility], P 11/04/2023 16:04:58 Social History Question Answer Notes LastModified by Organizat ion Details LastModified Time Tobacco Smoking Status Former Smoker Rema cifuentes, [facility] 10/25/2023 15:56:25 What Is Your Level Of Alcohol Consumption? None [email or web address] Information not available 10/25/2023 When Did You Quit Smoking? 18+yearssin celastcigar ette 25 Yrs Ago [email or web address] Information not available 10/25/2023 How Much Tobacco Do You Smoke? 1 PPD [email or web address] Information not available 10/25/2023 How Many Years Have You Smoked Tobacco? 30 [email or web address] Information not available 10/25/2023 Do You Or Have You Ever Used Any Other Forms Of Tobacco Or Nicotine? No [email or web address] Information not available 10/25/2023 Sex: Unknown Functional Status None recorded. Mental Status None recorded. Family History Nothing Reported. Medical History Condition Response Hypertension Y Hypothyroidism Y Gynecological HistoryNo gynecological history recorded. Obstetrics History GPAL:G 0 P 0 0 0 0 Past Encounters Encounter ID Performer Location Encounter Start Date Encounter Closed Date Diagnosis/Indication Diagnosis SNOMED-CT Code Diagnosis ICD10 Code [id number] MD [place]ABELLA [place] [address] [place] [address] 10/25/2023 14:53:34 10/25/2023 15:44:57 Pain of right knee region 8138523237 06921 M25.561 Osteoarthr itis of right knee joint 1897268396 26524 M17.11 Arthritis of knee 730550 002 M13.869 [id number] Franklyn Moffett MD [facility] [address] [facility] [address] [place] [address] 11/04/2023 14:54:10 11/04/2023 16:36:24 Low back pain 750142974 M54.50 Chronic low back pain 27 9566877 M54.50 G89.29 Lumbar spondylosis 60737 0009 M47.816 Body mass index 40+ - severely obese 436707893 Z68.41 Health Concerns Section Related Observation LastModified by Organization Detai ls LastModified Time None Recorded Concern Status LastModified by Organization Details LastModified Time None Recorded Payers Encounter Date Sequence Insurance Name Policy Number Policy Villarreal Covered Member ID Villarreal Member ID Guarantor Name 11/04/2023 2 [employer] - FOR LIFE (MEDICARE SUPPLEMENT) Alessia Decker [id number] Alessia Decker 11/04/2023 1 MEDICARE B-CT: NGS Alessia Decker [id number] Alessia Decker OBGyn Episode No OBEpisode recorded.
--- OUTSIDE RECORDS SUMMARY | 2024-01-31 14:37 | XMS_ITS | Data Portability ---
Author Organization [place] [facility]on[facility] Hu[facility] [place] [place] Address [address] [place] [phone] Assessment Encounter Date Assessment Date Assessment LastModified by Organization Details LastModified Time 10/25/2023 10/25/2023 HPI : ? Thank you for the pleasure of requesting a consultation on this patient. Patient comes in complaining of right knee pain. She has bilateral knee pain, but she states the right knee pain is the original knee pain and more worse than the left knee. She has been dealing with the pain for years. She has done all treatments including physical therapy and cortisone injections. This patient is experiencing right knee pain for a period lasting greater than the last three months, which is severe (VAS score greater than or equal to 6 on a 0-10 scale) in intensity and the restriction of function (appropriate for a patient of this age) are intolerable. The pain substantially limits activities of daily living. In particular, walking tolerance and ability to stair climb is reduced. Conservative management such as non-steroidal anti-inflammatory medications available by prescription, physician directed therapy, ice and/or heat and activity modification have been minimally effective or deemed insufficient by the patient for a period lasting greater than 3-6 months in duration. Assistive devices and external support were not deemed by the patient to be helpful in improving their function. The patient is unable to tolerate further conservative measures, including physical therapy, due to the severity of arthritis and level of pain. Review of systems is negative for rapidly progressive neurological disorder, chest pain, shortness of breath, fevers, chills, or any signs of active or persistent local or systemic infection. Physical Exam : Patient is well nourished, well-developed, in no acute distress, with appropriate mood and affect. The patient is oriented to time, place, and person. Respirations are even and unlabored. Gait evaluation does reveal a limp. There is no inguinal adenopathy. Examination of the left knee shows pain with range of motion. Medial joint line tenderness. The affected right limb is well-perfused, without skin lesions, shows a grossly normal motor and sensory examination. Right knee motion is significantly reduced and does cause significant pain. The knee moves from 5-115 degrees. The knee is stable within that [id number] to AP and ML stress. The alignment of the knee is varus. Muscle strength is normal. Pedal pulses are palpable. Hip examination, including flexion and internal rotation, was negative in that groin pain was not produced. Assessment/Plan : The patient is an appropriate candidate for consideration of right total knee replacement. An extensive discussion was conducted of the natural history of the disease and the variety of surgical and non-surgical treatment options available to the patient. A risk/benefit analysis was discussed with the patient reviewing the advantages and disadvantages of surgical intervention at this time. A full explanation was given of the nature and the purpose of the procedure and anesthesia, its benefits, possible alternative methods of diagnosis of treatment, the risks involved, the possibility of complications, the foreseeable consequences of the procedure and the possible results of the non-treatment. No guarantee or assurance was made as to the results that may be obtained. Specifically, the risks were identified to include, but are not limited, to the following: Infection, phlebitis, pulmonary embolism, , paralysis, dislocation, pain, stiffness, instability, limp, weakness, breakage, leg-length inequality, uncontrolled bleeding, nerve injury, blood vessel injury, pressure sores, anesthetic risks, delayed healing of wound and bone, and wear and loosening. Additional risks of robotic knee replacement were discussed (if used) including but not limited to pin site infection, draining, longer incision, longer OR time, and fracture near the pin sites. Further discussion was undertaken with the patient about the details of surgical preparation, treatment and postoperative rehabilitation including medical clearance, autotransfusion, the hospital course and the postoperative rehabilitation involved. As a part of routine preoperative counseling, if the patient is a smoker, the patient recognizes the increased risk of complications in patients who utilize tobacco products. The patient has also been counseled regarding the elevated risk of surgical complications in patients with an elevated BMI. The patient demonstrates understanding of the increased risk in such patients. The patient was encouraged to participate in physical activity and diet modification under the direction of their primary care physician. We will plan on proceeding with right total knee arthroplasty using the [place] total knee replacement system. However, it is possible during the preoperative planning process or due to intraoperative findings that a different implant system may be utilized in order to optimize the patient's outcome. We had a discussion regarding implant and bearing options. We had a detailed discussion of the advantages and limitations of the specific implant designs, materials and bearing surfaces. All questions were answered to the patient's satisfaction, and the patient was asked to call the office with any further concerns. All in all, I feel that this patient is a good candidate for surgical reconstruction.? An in-depth discussion of the risks and benefits of surgery as noted above were had with patient, including any reasonable alternatives and the risks and benefits of the alternatives. The patient was given time to understand and ask questions, and the surgical consent was signed and dated today. If surgery is >1 month from today, this discussion will be repeated on the day of surgery, prior to anesthesia administration. The patient is also aware that questions can be asked at any time before the surgical date to me or my team. She is going to see our spine team for her back issues. She would like to see them first before deciding on a surgical date for her knee replacement. Plan will be for right total knee replacement, robotic assisted, at [facility]. Not available 10/25/2023 15:38:41 11/04/2023 11/04/2023 HPI 73-year-old female presents to [...] She reports she goes to her local [place] and floats and does exercises in the [...] Organization Details Last Modified Time Details Appointments [facility] 2023 01:15P M LIGIA MCCARTNEY PA-C [...] 11/04/2023 16:36:24 Procedures None recorded . Surgeries total knee arthropl asty (SURG) 2023 024 [id number] [facility] [address], [place], [address], 01/20/2024 15:36:28 Imaging XR, knee, 1 or 2 view 2023 024 [id number] [facility], [address], [facility], [place], [address], 10/25/2023 15:44:57 Medication Orders None recorded . Patient TargetsNo targets recorded. Patient Instructions Encounter Date Encounter Id Patient Instructions Last Modified By Organization Details Last Modified Time 10/25/2023 [id number] Larson and patellar views of the bilateral knees taken today along with prior AP and lateral views, for the right knee show degenerative joint disease with joint space narrowing, osteophyte formation, and subchondral sclerosis. There is [id number]-im-[id number] articulation in the medial compartment. For the left knee demonstrate joint space narrowing, osteophyte formation, and subchondral sclerosis. There is bvyt-py-wawm articulation in the medial compartment. Not available 10/25/2023 15:37:26 Reason for Referral Additional Comments: Chronic low back pain without radiculopathy Referring Physician: Ac Woo, Orthopedic Surgery, Encounter Date: 11/04/2023 Results Created Date Observation Date Name Description Value Unit Range Abnormal Flag Note LastModifiedBy Organization Detail LastModifiedTime 10/31/19 24 imagi ng/di agnos tic resul t [...] Time Osteoarthri tis of right knee joint 1957661742657 00 Active 2023 Aneesh Taylor MD [address] [facility],[address], [place], [place], [address], [place] [facility], P 4 15:35:53 Arthritis of knee 286909945 Active 2023 Aneesh Taylor MD [address] [facility],[address], [place], [place], [address], [place] [facility], P 4 15:36:00 Degeneratio n of lumbar interverteb ral disc 65672381 Active 2023 AC WOO PA-C [address], [place], [address], [place] [facility], P 4 15:36:32 Low back pain 456516680 Active 2023 AC WOO PA-C [address], [place], [address], [place] [facility], P 4 15:36:43 Chronic low back pain 372046394 Active 2023 AC WOO PA-C [address], [place], [address], [place] [facility], P 4 16:02:05 Lumbar spondylosis 657198572 Active 2023 AC WOO PA-C [address], [place], [address], [place] [facility], P 4 16:02:11 Problem Notes None recorded. Procedures Surgical History Date Name Laterality Status Provider Name and Address Organization Details Recorded Time 02/18/19 03 cholecystectomy completed Rema Mack [facility] - [facility], P 10/25/2023 15:46:59 02/18/19 02 hysterectomy completed Rema Mack [facility] - [facility], P 10/25/2023 15:47:13 02/18/18 57 Appendectomy completed Rema Mack [facility], P 10/25/2023 15:46:42 Imaging Results Imaging Date Name Status LastModified by Organiz ation Details LastModified Time 10/31/2023 imaging/diag nostic result completed Information not available 10/31/2023 09:17:08 11/04/2023 imaging/diag nostic result completed Information not available 11/04/2023 15:00:33 Procedure Notes None recorded. Medical Equipment None Reported. Allergies Allergen ID Allergen Name Allergen Category Reaction Reaction Severity Criticality Documentation Date Start Date Code Code System Note Provider Name and Address Organization Details Recorded Time 72336 heparin medicatio n Not available Not available Not available 10/25/2023 5224 RxNorm Rema Frederick cifuentes, [facility], P 4 15:48:10 65907 Vaccine product containin g only Clostridi um tetani antigen (medicina l product) medicatio n Not available Not available Not available 10/25/2023 [id number] 2002 SNOMED Remamarlen Mack [facility], [facility], P 4 15:48:30 Medications Name Sig Start Date Stop [...] d Address Organization Details Last Updated DateTime 10/25/2023 265185.94 g Elaina Conde [facility] 10/25/2023 15:06:54 Date Recorded Body weight Provider Name an d Address Organization Details Last Updated DateTime 11/04/2023 608724.94 g Hanane Bailey [facility] P 11/04/2023 15:26:00 Date Recorded Body mass index (BMI) Body height Provider Name and Address Organization Details Last Updated DateTime 11/04/2023 43.6 kg/m2 167.64 cm AC WOO PA-C [address], [place], [address], [facility], P 11/04/2023 16:04:58 Social History Question Answer Notes LastModified by Organizat ion Details LastModified Time Tobacco Smoking Status Former Smoker Rema cifuentes, [facility], [facility] 10/25/2023 15:56:25 What Is Your Level Of Alcohol Consumption? None [email or web address] Information not available 10/25/2023 When Did You Quit Smoking? 16+yearssin celastcigar ette 25 Yrs Ago Information not available 10/25/2023 How Much Tobacco Do You Smoke? 1 PPD [email or web address] Information not available 10/25/2023 How Many Years Have You Smoked Tobacco? 30 [email or web address] Information not available 10/25/2023 Do You Or Have You Ever Used Any Other Forms Of Tobacco Or Nicotine? No Information not available 10/25/2023 Sex: Unknown Functional Status None recorded. Mental Status None recorded. Family History Nothing Reported. Medical History Condition Response Hypertension Y Hypothyroidism Y Gynecological HistoryNo gynecological history recorded. Obstetrics History GPAL:G 0 P 0 0 0 0 Past Encounters Encounter ID Performer Location Encounter Start Date Encounter Closed Date Diagnosis/Indication Diagnosis SNOMED-CT Code Diagnosis ICD10 Code [id number] MD ARABELLA Baltazar ld [address] [facility] [address] [place] [address] 10/25/2023 14:53:34 10/25/2023 15:44:57 Pain of right knee region 4339623330 72478 M25.561 Osteoarthr itis of right knee joint 2067167412 60594 M17.11 Arthritis of knee 062219 002 M13.869 [id number] MD ARABELLA [place] [address] [facility] [address] [place] [address] 11/04/2023 14:54:10 11/04/2023 16:36:24 Low back pain 218948037 M54.50 Chronic low back pain 27 2563167 M54.50 G89.29 Lumbar spondylosis 80553 0009 M47.816 Body mass index 40+ - severely obese 657277503 Z68.41 Health Concerns Section Related Observation LastModified by Organization Detai ls LastModified Time None Recorded Concern Status LastModified by Organization Details LastModified Time None Recorded Advance Directives Directive None Recorded Payers Encounter Date Sequence Insurance Name Policy Number Policy Villarreal Covered Member ID Villarreal Member ID Guarantor Name 10/25/2023 1 MEDICARE B-[place]: [employer] Alessia Mozgala [id number] Alessia Mozgala 10/25/2023 2 WPS - FOR LIFE (MEDICARE SUPPLEMENT) Alessia Mozgala [id number] Alessia Mozgala 11/04/2023 2 WPS - FOR LIFE (MEDICARE SUPPLEMENT) Alessia Mozgala [id number] Alessia Mozgala 11/04/2023 1 MEDICARE B-CT: NGS Alessia Mozgala [id number] Alessia Mozgala OBGyn Episode No OBEpisode recorded.
== END 2024-01-31 14:48 | disposition home or self-care (01) ==
PROVIDERS: PCP Internal Medicine; Visit Provider Internal Medicine Pulmonary Disease
DX: G47.33 Obstructive sleep apnea (adult) (pediatric) (principal); J43.9 Emphysema, unspecified; Z01.811 Encounter for preprocedural respiratory examination
CPT/HCPCS: 99214

== ENCOUNTER → 2024-01-31 14:34 | Outpatient (BNVA) | payer MEDICARE, OTHER, SELFPAY | PROVIDERS: PCP Internal Medicine; Visit Provider Internal Medicine Pulmonary Disease | DX: Z01.811 Encounter for preprocedural respiratory examination (principal); G47.33 Obstructive sleep apnea (adult) (pediatric); J43.9 Emphysema, unspecified | CPT/HCPCS: 99212 ==

== ENCOUNTER 2024-03-10 10:03 | Outpatient (REF) | payer MEDICARE, OTHER, SELFPAY ==
--- NOTE | ~2024-03-10 | XR_ITS ---
CLINICAL HISTORY: Upper back pain. 2 views thoracic spine Comparison: None Findings: Mild left-sided curvature of the mid/lower thoracic spine. Normal alignment without acute fracture. Multilevel ossification of the anterior longitudinal ligament may be seen with diffuse idiopathic skeletal hyperostosis. Right upper quadrant surgical clips. IMPRESSION: No acute findings. This document has been electronically signed by: Yessenia Guerra MD on 03/11/2024 09:53:58
--- OUTSIDE RECORDS SUMMARY | 2024-03-10 11:44 | XMS_ITS | Clinical Summary ---
Author Organization [facility] Address [address] [place] [address] Phone Care Team Providers Care Interactive Project Manager Name Role Phone Max Mercedes MD Primary Care Provider [phone] Allergies Active Allergy Reactions Criticality Noted Date Comments Heparin Shortness of breath,Swelling High 01/09/2024 Other Medium 01/09/2024 ENVIRONMENTAL-MULES, CATS TREES,WEEDS,GRASS,MO LD, MICE Tetanus Vaccines And Toxoid Medium 01/09/2024 Swelling at site;high fevers and chills Medications Medication Sig Dispensed Refills Start Date End Date Status atenoloL (TENORMIN) 25 mg tablet Take by mouth 1 (one) time each day. Active levothyroxine (SYNTHROID, LEVOTHROID) 125 mcg tablet Take by mouth 1 (one) time each day before breakfast. Active lisinopril (PRINIVIL,ZESTRIL ) 40 mg tablet Take 1 tablet (40 mg total) by mouth 1 (one) time each day. Active rosuvastatin (CRESTOR) 5 mg tablet Take 1 tablet (5 mg total) by mouth 1 (one) time each day. Active sertraline (ZOLOFT) 100 mg tablet Take by mouth 1 (one) time each day. Active MULTIVITAMIN ORAL Take by mouth. Act henrique UNABLE TO FIND Take 1 tablet by mouth 1 (one) time each day. Med Name: VEGGIE AND FRUITS balance of Nature Active acetaminophen (TYLENOL) 500 mg tabletIndications :arthritic pain Take 1 tablet (500 mg total) by mouth every 6 (six) hours if needed for mild pain (using infrequently). Active Dupixent Pen 300 mg/2 mL pen Inject 2 mL (300 mg total) under the skin every 14 (fourteen) days. Patient takes for eczema on hands every 2 months last dose 06/18/2023 Active diclofenac (VOLTAREN) 1 % topical gelIndications:os teoarthritis of the knee Apply 2 g topically 2 (two) times a day. Active lidocaine (LIDODERM) 5 % patch Apply 1 patch topically 1 (one) time each day. Remove & discard patch within 12 hours or as directed by MD. Active multivitamin with minerals liquid Take 30 mL by mouth 1 (one) time each day. 02/10/2024 Discontinued (Entered in Error) Active Problems Problem Noted Date Diagnosed Date CKD (chronic kidney disease) 02/19/2020 Overview (02/10/2024): Noted in chart; has seen Nephrology. PT does not recall. Assessment & Plan (02/17/2024 4:25 PM EST): eGFR=60. Suggest careful attention to fluid status during perioperative course. Avoid NSAIDs. Continue outpatient follow up and management. Hypertension Assessment & Plan (02/17/2024 12:50 PM EST): BP in office 152/80, currently managed with lisinopril and atenolol and clinically appears stable. Continue current treatment and outpatient management. Hold lisinopril 24 hours prior to surgery. Assessment & Plan (01/13/2024 4:23 PM EST): Blood pressure in clinic today is 157/69; managed on lisinopril and atenolol. Continue outpatient management Hyperlipidemia Assessment & Plan (02/17/2024 12:19 PM EST): Treated with rosuvastatin, low-cholesterol diet and lifestyle modification. Suggest continued outpatient follow up. Assessment & Plan (01/11/2024 8:06 PM EST): Patient compliant with rosuvastatin; continue outpatient management Sleep apnea Overview (01/09/2024): was told mild and has no machine Assessment & Plan (02/17/2024 12:50 PM EST): Stop Bang score= 5, with known CORTEZ; NOT USING CPAP. Sleep apnea is associated with increase in postoperative adverse events, thus it is suggested that the patient be monitored postoperatively with continuous pulse oximetry. In addition, the patient would benefit from further follow-up and outpatient evaluation postop. Assessment & Plan (02/04/2024 10:10 AM EST): Known hx/o mild CORTEZ, not on CPAP. Sleep apnea is associated with increase in postoperative adverse events, thus it is suggested that the patient be monitored postoperatively with continuous pulse oximetry. Hypothyroidism Assessment & Plan (02/17/2024 12:50 PM EST): Taking levothyroxine. No signs or symptoms of thyroid dysfunction. Normal exam, appears euthyroid. Continue current treatment and outpatient follow up. Assessment & Plan (01/11/2024 8:06 PM EST): Patient is euthyroid on levothyroxine. Continue outpatient management. Anxiety Assessment & Plan (01/13/2024 4:23 PM EST): Seeing behavioral health therapist; recently increased dose of sertraline. Continue outpatient management. Very anxious regarding anesthesia concerns. Depression Assessment & Plan (02/17/2024 12:50 PM EST): Stable on sertraline 100 mg daily. Patient does carry diagnosis of PTSD associated with previous anesthesia experience. Advise anesthesia consult. Adverse effect of anesthesia Overview (02/10/2024): Concernes over anesthesia has troble waking up with hysterectomy an ended up in ICU x 24 hours. Had issues with her wrist surgery and is very nervous about it. Encounters Date Type Department Care Team Description 02/17/2024 11:30 AM EST Consult Periop Testing - [facility] [address] [place] [address] Adore Blanco PA Preoperative examination (Primary Dx); Primary osteoarthritis of right knee; Primary hypertension; Hyperlipidemia, unspecified hyperlipidemia type; Hypothyroidism, unspecified type; Obstructive sleep apnea syndrome; Depression with anxiety; Stage 1 chronic kidney disease; Class 3 severe obesity due to excess calories with serious comorbidity and body mass index (BMI) of 40.0 to 44.9 in adult ([facility]) 01/13/2024 1:00 PM EST Consult Periop Testing - [facility] [address] [place] [address] Adore Blanco PA Preoperative examination (Primary Dx); Primary osteoarthritis of right knee; Primary hypertension; Chronic kidney disease (CKD), stage II (mild); Hyperlipidemia, unspecified hyperlipidemia type; Hypothyroidism, unspecified type; Anxiety with depression; Class 2 severe obesity due to excess calories with serious comorbidity and body mass index (BMI) of 38.0 to 38.9 in adult ([facility]); Obstructive sleep apnea syndrome; Serum total bilirubin elevated from Last 3 Months Surgical History Surgery Date Site/Laterality Comments APPENDECTOMY HYSTERECTOMY COLONOSCOPY BREAST BIOPSY cyst removed non cancerous per patinet CHOLECYSTECTOMY ORIF WRIST FRACTURE 2 plates FRACTURE SURGERY 2021 Medical History Medical History Date Comments Adverse effect of anesthesia Con cernes over anesthesia has troble waking up with hysterectomy an ended up in ICU x 24 hours. Had issues with her wrist surgery and is very nervous about it. Hypertension Hyperlipidemia Sleep apnea was told mild an d has no machine Hypothyroidism Anxiety Depression Arthritis Delayed emergence from general anesthesia 2001 In ICU for 24 hrs CKD (chronic kidney disease) 2020 Not ed in chart; has seen Nephrology. PT does not recall. Ankylosing spondylitis lumba r region ([facility]) Family History Medical History Relation Name Comments Autoimmune disease Brother ANCA Arthritis Father Teofil Mozgala CHF Cancer Father Teofil Mozgala CHF Heart disease Father Teofil Mozgala CHF Heart failure Father Teofil Mozgala CHF Lung cancer Father Teofil Mozgala CHF Rheum arthritis Father Teofil Mozgala CHF Anesthesia problems Mother Nicky Decker Arthritis Mother Nicky Decker Cancer Mother Nicky Decker Hypertension Mother Nicky Decker Liver cancer Mother Nicky Decker Osteoarthritis Mother Nicky Decker Relation Name Status Comments Brother Alive Father Teofil Mozgala CHF Mother Nicky Decker Social History Tobacco Use Types Packs/Day Years Used Date Smoking Tobacco: Former Cigarettes 1 30 0 07/19/1964 - 07/19/1994 Smokeless Tobacco: Never Tobacco Cessation:Counseling Given: Not Answered Alcohol Use Standard Drinks/Week Comments Not Currently 0 (1 standard drink = 0.6 oz pur e alcohol) rarely Sex and Gender Information Value Date Recorded Sex Assigned at Not on file Gender Identity Not on file Sexual Orientation Not on file Job Start Date Occupation Industry Not on file Not on file Not on file Obstetrics History Last Filed Vital Signs Vital Sign Reading Time Taken Comments Blood Pressure 152/80 02/17/2024 11:50 AM EST Pulse 70 02/17/2024 11:50 AM EST Temperature 36.3 ??C (97.3 ??F) 02/17/2024 11:[address] Respiratory Rate 18 02/17/2024 11:50 AM EST Oxygen Saturation 96% 02/17/2024 11:50 AM EST Inhaled Oxygen Concentration - - Weight 122 kg (268 lb) 02/17/2024 11:50 AM EST Height 166 cm (5' 5.35 ) 02/17/2024 11:50 AM EST Body Mass Index 44.12 02/17/2024 11:50 AM EST Plan of Treatment Health Maintenance Due Date Last Done Comments Breast Cancer Screening 1950 COVID-19 Vaccine (#1) 1957 DTaP,Tdap,and Td Vaccines (1 - Tdap) 06/27/1971 Zoster Vaccines (1 of 2) 2002 RSV Immunization Patients 60 + Years Old (1 - Risk 60-74 years 1-dose series) 2012 Pneumococcal Vaccine: 65+ Years (1 of 1 - PCV) 2017 Influenza Vaccine (#1) 2023 Cholesterol Screening (Lipid Panel) 12/31/2023 Colorectal Cancer Screening: Colonoscopy 12/31/2023 Depression Screening 12/31/2023 Falls Risk Assessment 12/31/2023 Hepatitis C Screening 12/31/2023 Medicare Annual Wellness Visit 12/31/2023 Osteoporosis Screening (Bone Density Screening) 12/31/2023 Social Influencers of Health Screening 12/31/2023 Hypertension/CHF/CAD Annual BMP Blood Test 02/16/2025 02/17/2024, 01/13/2024 HIB Vaccines Aged Out No longer eligi ble based on patient's age to complete this topic HPV Vaccines Aged Out No longer eligi ble based on patient's age to complete this topic Hepatitis A Vaccines Aged Out No long er eligible based on patient's age to complete this topic Hepatitis B Vaccines Aged Out No long er eligible based on patient's age to complete this topic IPV Vaccines Aged Out No longer eligi ble based on patient's age to complete this topic MMR Vaccines Aged Out No longer eligi ble based on patient's age to complete this topic Meningococcal ACWY Vaccine Aged Out N o longer eligible based on patient's age to complete this topic RSV Immunization Patients Under 20 months Aged Out No longer eligible b ased on patient's age to complete this topic Varicella Vaccines Aged Out No longer eligible based on patient's age to complete this topic Procedures Procedure Name Priority Date/Time Associated Diagnosis Comments CBC WITH AUTO DIFFERENTIAL Routine 02/17/2024 10:51 AM EST Preoperative examination Primary osteoarthritis of left knee Primary hypertension Hyperlipidemia, unspecified hyperlipidemia type Hypothyroidism, unspecified type Stage 1 chronic kidney disease Depression, unspecified depression type Obstructive sleep apnea syndrome COMPREHENSIVE METABOLIC PANEL Routine 02/17/2024 10:51 AM EST Preoperative examination Primary osteoarthritis of left knee Primary hypertension Hyperlipidemia, unspecified hyperlipidemia type Hypothyroidism, unspecified type Stage 1 chronic kidney disease Depression, unspecified depression type Obstructive sleep apnea syndrome CBC AND DIFFERENTIAL Routine 02/17/2024 10:51 AM EST Preoperative examination Primary osteoarthritis of left knee Primary hypertension Hyperlipidemia, unspecified hyperlipidemia type Hypothyroidism, unspecified type Stage 1 chronic kidney disease Depression, unspecified depression type Obstructive sleep apnea syndrome CBC WITH AUTO DIFFERENTIAL Routine 01/13/2024 10:59 AM EST Preoperative examination CBC AND DIFFERENTIAL Routine 01/13/2024 10:59 AM EST Preoperative examination COMPREHENSIVE METABOLIC PANEL Routine 01/13/2024 10:59 AM EST Preoperative examination PREALBUMIN Routine 01/13/2024 10:59 AM EST Preoperative examination from Last 3 Months Results * CBC auto differential (02/17/2024 10:51 AM EST) Only the most recent of2 resultswithin the time period is included. [facility] Signature WBC 6.5 4.0 - 10.5 K/mcL LAB HEMETOLOGY METHOD 02/17/2024 12:21 PM [facility] RBC 4.75 4.20 - 5.40 M/mcL LAB HEMETOLOGY METHOD 02/17/2024 12:21 PM [facility] Hemoglobin 14.5 12.5 - 16.0 g/dL LAB HEMETOLOGY METHOD 02/17/2024 12:21 PM [facility] Hematocrit 41.8 37.0 - 47.0 % LAB HEMETOLOGY METHOD 02/17/2024 12:21 PM [facility] MCV 87.9 78.0 - 100.0 FL LAB HEMETOLOGY METHOD 02/17/2024 12:21 PM [facility] MCH 30.5 25.0 - 33.0 pcg LAB HEMETOLOGY METHOD 02/17/2024 12:21 PM [facility] MCHC 34.7 32.0 - 36.0 g/dL LAB HEMETOLOGY METHOD 02/17/2024 12:21 PM [facility] RDW 12.9 12.1 - 16.2 % LAB HEMETOLOGY METHOD 02/17/2024 12:21 PM [facility] Platelets 215 150 - 450 K/mcL LAB HEMETOLOGY METHOD 02/17/2024 12:21 PM [facility] MPV 7.9 7.4 - 11.4 FL LAB HEMETOLOGY METHOD 02/17/2024 12:21 PM [facility] Neutrophils Relative 66.8 44.0 - 74.0 % LAB HEMETOLOGY METHOD 02/17/2024 12:21 PM [facility] Lymphocytes Relative 22.1 20.0 - 48.0 % LAB HEMETOLOGY METHOD 02/17/2024 12:21 PM [facility] Monocytes Relative 8.0 2.0 - 12.0 % LAB HEMETOLOGY METHOD 02/17/2024 12:21 PM EST [facility] Eosinophils Relative 2.1 0.0 - 6.0 % LAB HEMETOLOGY METHOD 02/17/2024 12:21 PM EST [facility] Basophils Relative 1.0 0.0 - 2.0 % LAB HEMETOLOGY METHOD 02/17/2024 12:21 PM EST [facility] Neutrophils Absolute 4.40 1.80 - 7.80 K/mcL LAB HEMETOLOGY METHOD 02/17/2024 12:21 PM EST [facility] Lymphocytes Absolute 1.40 1.00 - 3.20 K/mcL LAB HEMETOLOGY METHOD 02/17/2024 12:21 PM EST [facility] Monocytes Absolute 0.50 0.00 - 0.80 K/mcL LAB HEMETOLOGY METHOD 02/17/2024 12:21 PM EST [facility] Eosinophils Absolute 0.10 0.00 - 0.50 K/mcL LAB HEMETOLOGY METHOD 02/17/2024 12:21 PM EST [facility] Basophils Absolute 0.10 0.00 - 0.20 K/mcL LAB HEMETOLOGY METHOD 02/17/2024 12:21 PM EST [facility] Blood Venous blood specimen / Unknown Venipuncture / Unknown 02/17/2024 10:51 AM EST 02/17/2024 12:09 PM EST [facility] BLOOD ORDERABLE S [facility] [address] [place] [address], * (ABNORMAL) Comprehensive metabolic panel (02/17/2024 10:51 AM EST) Only the most recent of2 resultswithin the time period is included. Sodium 144 135 - 145 mmol/L LAB CHEMISTRY METHOD 02/17/2024 4:10 PM [facility] Potassium 4.5 3.5 - 5.1 mmol/L LAB CHEMISTRY METHOD 02/17/2024 4:10 PM [facility] Chloride 105 98 - 107 mmol/L LAB CHEMISTRY METHOD 02/17/2024 4:10 PM [facility] CO2 28 24 - 32 mmol/L LAB CHEMISTRY METHOD 02/17/2024 4:10 PM [facility] Anion Gap 11 5 - 14 LAB CHEMISTRY METHOD 02/17/2024 4:10 PM [facility] Glucose 102(H) 70 - 99 mg/dL LAB CHEMISTRY METHOD 02/17/2024 4:10 PM [facility] BUN 18(H) 7 - 17 mg/dL LAB CHEMISTRY METHOD 02/17/2024 4:10 PM [facility] Creatinine 1.00 0.50 - 1.00 mg/dL LAB CHEMISTRY METHOD 02/17/2024 4:10 PM [facility] eGFR 60 >=60 mL/min/1. 73m2 LAB CHEMISTRY METHOD 02/17/2024 4:10 PM [facility] Comment:Calculation based on the??Chronic Kidney Disease Epidemiology Collaboration (CKD-EPI) equation refit??without adjustment for race. BUN/Creatinine Ratio 18.0 12.0 - 20.0 LAB CHEMISTRY METHOD 02/17/2024 4:10 PM [facility] Calcium 8.7 8.4 - 10.2 mg/dL LAB CHEMISTRY METHOD 02/17/2024 4:10 PM [facility] AST (SGOT) 28 5 - 40 unit/L LAB CHEMISTRY METHOD 02/17/2024 4:10 PM [facility] ALT (SGPT) 23 7 - 52 unit/L LAB CHEMISTRY METHOD 02/17/2024 4:10 PM [facility] Alkaline Phosphatase 97 34 - 104 unit/L LAB CHEMISTRY METHOD 02/17/2024 4:10 PM EST [facility] Total Protein 6.4 6.4 - 8.5 g/dL LAB CHEMISTRY METHOD 02/17/2024 4:10 PM EST [facility] Albumin 4.3 3.5 - 5.0 g/dL LAB CHEMISTRY METHOD 02/17/2024 4:10 PM EST [facility] Total Bilirubin 1.2(H) 0.3 - 1.0 mg/dL LAB CHEMISTRY METHOD 02/17/2024 4:10 PM EST [facility] Blood Venous blood specimen / Unknown Venipuncture / Unknown 02/17/2024 10:51 AM EST 02/17/2024 3:41 PM EST [facility] RODRIGE[facility] LAB BLOOD ORDERABLE S [facility] [address] [place] [address], [place] [phone] * Prealbumin (01/13/2024 10:59 AM EST) Prealbumin 31 17 - 34 mg/dL LAB CHEMISTRY METHOD 01/13/2024 12:30 PM EST [facility] Blood Venous blood specimen / Unknown Venipuncture / Unknown 01/13/2024 10:59 AM EST 01/13/2024 11:53 AM EST [facility] RODRIGEZ LAB BLOOD ORDERABLE S [facility] [address] [place] [address], [place] [phone] from Last 3 Months Care Teams Interactive Project Manager Relationship Specialty Start Date End Date Max Mercedes MD [address] [place] [id number] PCP - General Internal Medicine 01/08/24
--- OUTSIDE RECORDS SUMMARY | 2024-03-10 11:44 | XMS_ITS | Clinical Summary ---
Author Organization [facility] Address [address] [place] [address] Care Team Providers Care Box Gluer Name Role Phone Max Mercedes MD Primary Care Provider Medications No known medications Active Problems No known active problems Social History Tobacco Use Types Packs/Day Years Used Date Smoking Tobacco: Never Assessed Sex and Gender Information Value Date Recorded Sex Assigned at Female 08/13/2023 10:41 AM EDT Gender Identity Female 08/13/2023 10:41 AM EDT Sexual Orientation Choose not to disclose 2023 10:41 AM EDT Plan of Treatment Health Maintenance Due Date Last Done Comments Hepatitis C Virus Screening 1950 DTaP/Tdap/Td Vaccines (1 - Tdap) 06/27/1971 Mammogram 1992 Colonoscopy 1997 Pneumococcal Vaccines 50+ (1 of 1 - PCV) 2002 Zoster (Shingles) Vaccine (1 of 2) 2002 DXA Bone Density (Females,Ag es 65 and older) 2017 Influenza Vaccine 09/19/2023 COVID-19 Vaccine ( - 2023-2 5 season) 2023 RSV Vaccine 60 years and old er and Patients (1 - 1-dose 75+ series) 06/27/2027 Hepatitis B Vaccines Aged Out No long er eligible based on patient's age to complete this topic Care Teams Box Gluer Relationship Specialty Start Date End Date Max Mercedes MD 1959 [facility] [place] [id number] PCP - General Internal Medicine 08/13/23
--- OUTSIDE RECORDS SUMMARY | 2024-03-10 11:44 | XMS_ITS | Clinical Summary ---
Author Organization [facility], Address [address] [place] [address] [place] [address] Phone Care Team Providers Care Frame Operator Name Role Phone Max Mercedes MD Primary Care Provider [phone] Allergies Active Allergy Reactions Criticality Noted Date Comments Heparin 01/08/2020 Tetanus Toxoids 01/08/2020 Medications rosuvastatin (CRESTOR) 10 MG tablet 12/10/2019 Active lisinopril (PRINIVIL,ZESTRIL) 20 MG tablet 12/10/2019 Active Active Problems Problem Noted Date Diagnosed Date Stage 3a chronic kidney disease 01/08/2020 Overview (02/22/2020): Update for Diagnosis Load Hypertension 01/08/2020 Social History Tobacco Use Types Packs/Day Years Used Date Smoking Tobacco: Former Comments Unknown Sex and Gender Information Value Date Recorded Sex Assigned at Not on file Legal Sex Female 9:22 AM EST Gender Identity Not on file Sexual Orientation Not on file Plan of Treatment Health Maintenance Due Date Last Done Comments Breast Cancer Screening 1950 Pneumococcal Vaccine: 65+ Ye ars (1 of 2 - PCV) 1958 Colorectal Cancer Screening: Annual FOBT 2001 Colorectal Cancer Screening: Colonoscopy 2001 Colorectal Cancer Screening: Sigmoidoscopy 2001 Influenza Vaccine (#1) 2023 Hepatitis B Vaccine Aged Out No longe r eligible based on patient's age to complete this topic Insurance MEDICARE [facility] Care Teams Frame Operator Relationship Specialty Start Date End Date Max Mercedes MD 1959 [place], [place] [phone] PCP - General Internal Medicine 12/23/19
--- OUTSIDE RECORDS SUMMARY | 2024-03-10 11:44 | XMS_ITS | Encounter Summary ---
Author Organization [facility] Address [address] [place] [address] Care Team Providers Care Biology Specimen Technician Name Role Phone Max Mercedes MD Primary Care Provider [phone] Reason for Visit * Reason Comments Pre-op Exam Left total knee arth roplasty Encounter Details Date Type Department Care Team (Late st Contact Info) Description 02/17/2024 11:30 AM EST Consult Periop Testing - [facility] [address] [place] [address] Adore Blanco PA [address] [place], [place] [id number] Preoperative examination (Primary Dx); Primary osteoarthritis of right knee; Primary hypertension; Hyperlipidemia, unspecified hyperlipidemia type; Hypothyroidism, unspecified type; Obstructive sleep apnea syndrome; Depression with anxiety; Stage 1 chronic kidney disease; Class 3 severe obesity due to excess calories with serious comorbidity and body mass index (BMI) of 40.0 to 44.9 in adult (CMS/HCC) Social History Tobacco Use Types Packs/Day Years Used Date Smoking Tobacco: Former Cigarettes 1 30 0 07/19/1964 - 07/19/1994 Smokeless Tobacco: Never Alcohol Use Standard Drinks/Week Comments Not Currently 0 (1 standard drink = 0.6 oz pur e alcohol) rarely Sex and Gender Information Value Date Recorded Sex Assigned at Not on file Gender Identity Not on file Sexual Orientation Not on file Job Start Date Occupation Industry Not on file Not on file Not on file documented as of this encounter Last Filed Vital Signs Vital Sign Reading [...] Mass Index 44.12 02/17/2024 11:50 AM EST documented in this encounter Progress Notes * ELIA Canada - 02/17/2024 11:30 AM ESTAssociated Problem(s): Hyperlipidemia Treated with rosuvastatin, low-cholesterol diet and lifestyle modification. Suggest continued outpatient follow up. * ELIA Canada - 02/17/2024 11:30 AM ESTAssociated Problem(s): Hypertension BP in office 152/80, currently managed with lisinopril and atenolol and clinically appears stable. Continue current treatment and outpatient management. Hold lisinopril 24 hours prior to surgery. * ELIA Canada - 02/17/2024 11:30 AM ESTAssociated Problem(s): Hypothyroidism Taking levothyroxine. No signs or symptoms of thyroid dysfunction. Normal exam, appears euthyroid. Continue current treatment and outpatient follow up. * ELIA Canada - 02/17/2024 11:30 AM ESTAssociated Problem(s): Sleep apnea Stop Bang score= 5, with known CORTEZ; NOT USING CPAP. Sleep apnea is associated with increase in postoperative adverse events, thus it is suggested that the patient be monitored postoperatively with continuous pulse oximetry. In addition, the patient would benefit from further follow-up and outpatient evaluation postop. * ELIA Canada - 02/17/2024 11:30 AM ESTAssociated Problem(s): Depression Stable on sertraline 100 mg daily. Patient does carry diagnosis of PTSD associated with previous anesthesia experience. Advise anesthesia consult. * ELIA Canada - 02/17/2024 11:30 AM ESTAssociated Problem(s): CKD (chronic kidney disease) eGFR=60. Suggest careful attention to fluid status during perioperative course. Avoid NSAIDs. Continue outpatient follow up and management. * ELIA Canada - 02/17/2024 11:30 AM EST You saw Nai Blanco PA-C for your preoperative medical evaluation at the [facility] ([facility] at [facility] today. Important Phone Numbers: [facility] [phone]; Nai Blanco PA-C extension [phone]. MEDICATION INSTRUCTIONS: You have been instructed about which medications to take on the day of surgery and which medications to hold, if any, as directed by me today and listed below. If you have any questions, please call the [facility] at [phone]. If there any changes to the medications instructions listed below, between now and your surgical date, you will be contacted with additional recommendations. Medications to take on the day of surgery: Atenolol Levothyroxine Sertraline Special medication instructions: HOLD LISINOPRIL 24 hours before surgery: LAST DOSE February 29, 2024. STOP 7 days before surgery: Ibuprofen, Advil, Aleve, Naproxen, Motrin, Diclofenac, and all vitaminsand supplements. If you are taking Celebrex or Meloxicam, these medications DO NOT need to stop before surgery. You may continue them through the day before surgery, but not on the day of surgery. Tylenol (acetaminophen) is acceptable to continue for pain up until surgery but not on the day of surgery. The dose is two 500mg tablets (2 tablets) up to three times per day. EATING AND DRINKING POLICY: NIGHT BEFORE SURGERY - eat a regular diet and stay hydrated AFTER MIDNIGHT going into the surgery day - No solid foods, dairy products or pulp based juices (like orange or grapefruit juice). No tea. No alcohol. Patients may drink 10 ounces of APPROVED FLUIDS prior to leaving home consumed no later than three hours before your surgery. Examples include water, Gatorade or other clear sports drinks, apple or cranberry juice. ONE cup of black coffee is acceptable WITHOUT milk, cream or dairy substitute. NO tea. Once you get in the car to come to the hospital, there is no more fluid intake. Alcohol is not considered an approved fluid. Fluids other than those noted above are not acceptable and will result in the surgery being CANCELED. No gum or hard candy on the morning of surgery. You will receive a call the day before surgery between 10am-2pm regarding the time to come in for surgery. If the surgery is Saturday, you will be called on the Saturday before. If you do not receive a call about your surgery time by 2pm call [phone]. PARKING OPTIONS ON THE DAY OF SURGERY: Parking Garage: There are two entrances to the parking garage. Patients and visitors should enter at [address] [place] [address], the hospital???s Main Entrance, and follow the signs to the garage entrance. There is also an entrance to the garage at [address] [place] [address]. Mobile Mechanic Parking: is available at the Main Entrance from 5:00AM to 7:30PM, seven days a week. Mobile Mechanic parking tickets are validated on the day of surgery and the day of discharge. Patient drop-off and pick-up, including admissions and discharges, is on the first floor of the [facility] Parking Garage. Enter the building and tell the staff that you need to go to the [facility] ([facility]), and they can contact a minicab to drive you there. [facility] is on the 4th floor, using theRED elevator. Other: No dentist for routine cleanings for 3 months after surgery. If you have a dental emergency, pleasego to the dentist but notify your orthopedic surgeon. If you come down with a sore throat, cough, fever, chills, open sores on skin, vomiting, or any other changes in your health, between today and the day of your surgery, please call the [facility] immediately at [phone]. We are here in the office Saturday - Saturday 7am-5pm. If you get a voicemail, please leave a message and we will return your call as soon as possible. Please call with any questions! GOOD LUCK WITH YOUR SURGERY! * ELIA Canada - 02/17/2024 11:30 AM EST Images from the original note were not included. Chief Complaint: RIGHT KNEE PAIN HPI Alessia Decker is a 73 y.o. female who was evaluated at the perioperative medicine clinic at the request of Dr. Taylor. The patient has failed conservative management for osteoarthritis right knee (NSAIDS, tylenol, Physical therapy, Assistive device use, Activity modification, Corticosteroid injection, Hyaluronic acid injection & PRP injection) and was scheduled to undergo a right total knee arthroplasty on February 10, 2024 at the [facility]. However, she developed an upper respiratory illness the week of her planned surgery, which was therefore postponed. Surgery is now scheduled for March 02, 2024. Returns today for an updated history, physical and labs. Past medical history is significant for hypertension, CKD Class IIIa, hyperlipidemia, hypothyroidism, anxiety with depression, class III obesity, ankylosing spondylitis lumbar spine, and obstructive sleep apnea (but not using CPAP). The patient has been experiencing progressively worsening intermittent aching pain to right knee for 10 years. Pain escalates to 8/10. Physical activity, prolonged standing, climbing stairs, makes itworse. Rest helps with pain, along with taking acetaminophen, & Voltaren gel or lidocaine patches occasionally. Ambulates with a cane occasionally. Lives alone. Leans heavily on shopping cart at the grocery store. Estimates being sedentary approximately 75% of the day. Physical activity previously included walking the dog. (Dog .) Has not been able to go for walk due to knee pain. Able to perform own ADLs, housework and shopping. Able to walk two city blocks and climb a flight of stairs without HALL. Denies chest pain, palpitations, dizziness, lightheadedness or near syncope. Continues to have some shortness of breath, attributed to mild emphysema. No orthopnea, PND or lower extremity edema. No recent hospitalizations. Recent URI with scratchy throat, nasal congestion and cough lasting just a few days. Symptoms resolved by [place] (February 11). Did not require a visit to Urgent Care. No prior joint replacements. No prior postoperative complications or delayed wound healing. Delayed emergence with anesthesia 30 years ago during hysterectomy. Patient expresses extreme anxiety regarding anesthesia for this procedure. [facility] Patient Care Team: Max Mercedes MD as PCP - General (Internal Medicine) Darrel Nieves NP as Referring Physician (Family Medicine) Андрей Edmondson MD as Referring Physician (Internal Medicine) Insole Buffer: Darrel Paula NP [[place] [facility] Spiral Winding Machine Helper: Андрей Edmondson MD ([place]) Dentist: November cleaning & x-rays. No bridges or implants. Has another appointment 02/18/2024 for possible filling. REVIEW OF SYSTEMS: Review of Systems Constitutional: Positive for activity change (Pain in both knees, R>L. Sedentary 75% of the day.). Negative for appetite change, chills, diaphoresis and fever. HENT: Negative for congestion, dental problem, ear pain and hearing loss (Normal hearing bilaterally.). Eyes: Positive for visual disturbance (wears corrective lenses). Respiratory: Positive for apnea (Not using CPAP. Saw Spiral Winding Machine Helper 01/31/2024) and shortness of breath (intermittent-per patient seems allergy related.). Negative for cough and wheezing. Upper respiratory illness completely resolved x 1 week. Cardiovascular: Negative for chest pain, palpitations and leg swelling. Gastrointestinal: Positive for constipation (Reports bowel movements only every few days. Denies constipation.). Negative for abdominal distention, abdominal pain, blood in stool, diarrhea and nausea. Endocrine: Negative for cold intolerance, heat intolerance, polydipsia, polyphagia and polyuria. Genitourinary: Negative for difficulty urinating, dysuria, frequency, hematuria and urgency. Recent urge incontinence-waiting too long-some leaking. No incontinence with cough or sneeze. Musculoskeletal: Positive for arthralgias and gait problem. Does have a history of chronic low backpain with lumbar spondylosis. Allergic/Immunologic: Positive for environmental allergies (Trees, grass, mold, mice, cats and mules.). Negative for food allergies and immunocompromised state. Neurological: Negative for dizziness, tremors, seizures, syncope, speech difficulty, weakness, light-headedness and headaches. Hematological: Does not bruise/bleed easily. Psychiatric/Behavioral: Negative for agitation, behavioral problems, confusion and dysphoric mood. The patient is less nervous/anxious today as compared to last visit. Patient acknowledges she was not in a good place at her last visit and was feeling overwhelmed. Feels she is in a much better place at this time and better prepared for surgery. (Patient has longstanding anxiety. Recently exacerbated by life events. Seeing a therapist. Recently given working diagnosis of PTSD. Sertraline dose increased at that time.) PAST MEDICAL HISTORY: Past Medical History: Diagnosis Date Adverse effect of anesthesia Concernes over anesthesia has troble waking up with hysterectomy an ended up in ICU x 24 hours. Hadissues with her wrist surgery and is very nervous about it. Ankylosing spondylitis lumbar region ([facility]/HCC) Anxiety Arthritis CKD (chronic kidney disease) 2020 Noted in chart; has seen Nephrology. PT does not recall. Delayed emergence from general anesthesia 2001 In ICU for 24 hrs Depression Hyperlipidemia Hypertension Hypothyroidism Sleep apnea was told mild and has no machine SURGICAL HISTORY: Past Surgical History: Procedure Laterality Date APPENDECTOMY BREAST BIOPSY cyst removed non cancerous per patinet CHOLECYSTECTOMY COLONOSCOPY FRACTURE SURGERY 2021 HYSTERECTOMY ORIF WRIST FRACTURE 2 plates SOCIAL HISTORY: Social History Tobacco Use Smoking status: Former Current packs/day: 0.00 Average packs/day: 1 pack/day for 30.0 years (30.0 ttl pk-yrs) Types: Cigarettes Start date: 07/19/1964 Quit date: 07/19/1994 Years since quittin.6 Smokeless tobacco: Never Substance Use Topics Alcohol use: Not Currently Comment: rarely FAMILY HISTORY: Family History Problem Relation Name Age of Onset Anesthesia problems Mother Nicky Decker Osteoarthritis Mother Nicky Decker Liver cancer Mother Nicky Decker Arthritis Mother Nicky Decker Cancer Mother Nicky Decker Hypertension Mother Nicky Decker Heart disease Father Petty Decker CHF Heart failure Father Petty Decker CHF Rheum arthritis Father Petty Decker CHF Lung cancer Father Petty Broussarda CHF Arthritis Father Petty Broussarda CHF Cancer Father Petty Decker CHF Autoimmune disease Brother ANCA CURRENT MEDICATIONS: Current Outpatient Medications Medication Sig Dispense Refill acetaminophen (TYLENOL) 500 mg tablet Take 1 tablet (500 mg total) by mouth every 6 (six) hours if needed for mild pain (using infrequently). atenoloL (TENORMIN) 25 mg tablet Take by mouth 1 (one) time each day. Dupixent Pen 300 mg/2 mL pen Inject 2 mL (300 mg total) under the skin every 14 (fourteen) days. Patient takes for eczema on hands every 2 months last dose levothyroxine (SYNTHROID, LEVOTHROID) 125 mcg tablet Take by mouth 1 (one) time each day before breakfast. lisinopril (PRINIVIL,ZESTRIL) 40 mg tablet Take 1 tablet (40 mg total) by mouth 1 (one) time each day. MULTIVITAMIN ORAL Take by mouth. rosuvastatin (CRESTOR) 5 mg tablet Take 1 tablet (5 mg total) by mouth 1 (one) time each day. sertraline (ZOLOFT) 100 mg tablet Take by mouth 1 (one) time each day. UNABLE TO FIND Take 1 tablet by mouth 1 (one) time each day. Med Name: VEGGIE AND FRUITS balance ofNature diclofenac (VOLTAREN) 1 % topical gel Apply 2 g topically 2 (two) times a day. lidocaine (LIDODERM) 5 % patch Apply 1 patch topically 1 (one) time each day. Remove & discard patch within 12 hours or as directed by MD. No current facility-administered medications for this visit. ALLERGIES: Allergies Allergen Reactions Heparin Shortness of breath and Swelling Other ENVIRONMENTAL-MULES,CATS TREES,WEEDS,GRASS,MOLD, MICE Tetanus Vaccines And Toxoid Swelling at site;high fevers and chills VITAL SIGNS: Vitals: 02/17/24 1150 BP: (!) 152/80 Pulse: 70 Resp: 18 Temp: 36.3 ??C (97.3 ??F) SpO2: 96% Body mass index is 44.12 kg/m??. Body surface area is 2.25 meters squared. Physical Exam Vitals (BP 152/80: BMI 44.12) reviewed. Constitutional: General: She is awake. Appearance: Normal appearance. She is well-developed and well-groomed. She is obese. HENT: Head: Normocephalic and atraumatic. Jaw: No trismus, tenderness or pain on movement. Right Ear: Hearing, tympanic membrane, ear canal and external ear normal. Left Ear: Hearing, tympanic membrane, ear canal and external ear normal. Nose: Nose normal. No nasal deformity or septal deviation. Mouth/Throat: Lips: [place]. Mouth: Mucous membranes are moist. No oral lesions. Dentition: No dental tenderness, gingival swelling or dental caries. Tongue: No lesions. Palate: No mass and lesions. Pharynx: Oropharynx is clear. Uvula midline. No oropharyngeal exudate, posterior oropharyngeal erythema or uvula swelling. Tonsils: No tonsillar exudate or tonsillar abscesses. Eyes: General: Lids are normal. Vision grossly intact. Extraocular Movements: Extraocular movements intact. Right eye: No nystagmus. Left eye: No nystagmus. Conjunctiva/sclera: Conjunctivae normal. Right eye: Right conjunctiva is not injected. Left eye: Left conjunctiva is not injected. Pupils: Pupils are equal, round, and reactive to light. Neck: Thyroid: No thyroid mass, thyromegaly or thyroid tenderness. Vascular: No carotid bruit. Trachea: No tracheal deviation. Cardiovascular: Rate and Rhythm: Normal rate and regular rhythm. Pulses: Radial pulses are 2+ on the right side and 2+ on the left side. Dorsalis pedis pulses are 2+ on the right side and 2+ on the left side. Heart sounds: S1 normal and S2 normal. No murmur heard. Pulmonary: Effort: Pulmonary effort is normal. Breath sounds: Normal breath sounds. No decreased breath sounds, wheezing, rhonchi or rales. Abdominal: General: Abdomen is protuberant. Bowel sounds are normal. There is no abdominal bruit. Palpations: Abdomen is soft. There is no hepatomegaly or splenomegaly. Tenderness: There is no abdominal tenderness. There is no right CVA tenderness or left CVA tenderness. Musculoskeletal: Cervical back: Full passive range of motion without pain and normal range of motion. No bony tenderness. Thoracic back: No bony tenderness. Lumbar back: No bony tenderness. Right knee: Crepitus present. Decreased range of motion. No tenderness. Left knee: Crepitus present. Decreased range of motion. No tenderness. Right lower leg: Normal. No edema. Left lower leg: Normal. No edema. Feet: Right foot: Skin integrity: Skin integrity normal. No skin breakdown. Toenail Condition: Right toenails are normal. Left foot: Skin integrity: Skin integrity normal. No skin breakdown. Toenail Condition: Left toenails are normal. Comments: +EHL/FHL 5/5 Excellent straight leg raise bilaterally Lymphadenopathy: Cervical: No cervical adenopathy. Upper Body: Right upper body: No supraclavicular adenopathy. Left upper body: No supraclavicular adenopathy. Skin: General: Skin is warm and dry. Capillary Refill: Capillary refill takes less than 2 seconds. Coloration: Skin is not jaundiced. Findings: No rash or wound. Neurological: Mental Status: She is alert and oriented to person, place, and time. Mental status is at baseline. Cranial Nerves: Cranial nerves 2-12 are intact. Motor: Motor function is intact. Coordination: Coordination is intact. Psychiatric: Attention and Perception: Attention and perception normal. Mood and Affect: Mood is calm. Patient is not anxious. Still has concerns about anesthesia. Speech: Speech normal. Behavior: Behavior normal. Behavior is cooperative. Thought Content: Thought content normal. Cognition and Memory: Cognition and memory normal. Judgment: Judgment normal. PAST LABS/DIAGNOSTICS/SCREENINGS: Appointment on 02/17/2024 Component Date Value Ref Range Status Sodium 02/17/2024 144 135 - 145 mmol/L Final Potassium 02/17/2024 4.5 3.5 - 5.1 mmol/L Final Chloride 02/17/2024 105 98 - 107 mmol/L Final CO2 02/17/2024 28 24 - 32 mmol/L Final Anion Gap 02/17/2024 11 5 - 14 Final Glucose 02/17/2024 102 (H) 70 - 99 mg/dL Final BUN 02/17/2024 18 (H) 7 - 17 mg/dL Final Creatinine 02/17/2024 1.00 0.50 - 1.00 mg/dL Final eGFR 02/17/2024 60 >=60 mL/min/1.73m2 Final Calculation based on the Chronic Kidney Disease Epidemiology Collaboration (CKD- EPI) equation refitwithout adjustment for race. BUN/Creatinine Ratio 02/17/2024 18.0 12.0 - 20.0 Final Calcium 02/17/2024 8.7 8.4 - 10.2 mg/dL Final AST (SGOT) 02/17/2024 28 5 - 40 unit/L Final ALT (SGPT) 02/17/2024 23 7 - 52 unit/L Final Alkaline Phosphatase 02/17/2024 97 34 - 104 unit/L Final Total Protein 02/17/2024 6.4 6.4 - 8.5 g/dL Final Albumin 02/17/2024 4.3 3.5 - 5.0 g/dL Final Total Bilirubin 02/17/2024 1.2 (H) 0.3 - 1.0 mg/dL Final WBC 02/17/2024 6.5 4.0 - 10.5 K/mcL Final RBC 02/17/2024 4.75 4.20 - 5.40 M/mcL Final Hemoglobin 02/17/2024 14.5 12.5 - 16.0 g/dL Final Hematocrit 02/17/2024 41.8 37.0 - 47.0 % Final MCV 02/17/2024 87.9 78.0 - 100.0 FL Final MCH 02/17/2024 30.5 25.0 - 33.0 pcg Final MCHC 02/17/2024 34.7 32.0 - 36.0 g/dL Final RDW 02/17/2024 12.9 12.1 - 16.2 % Final Platelets 02/17/2024 215 150 - 450 K/mcL Final MPV 02/17/2024 7.9 7.4 - 11.4 FL Final Neutrophils Relative 02/17/2024 66.8 44.0 - 74.0 % Final Lymphocytes Relative 02/17/2024 22.1 20.0 - 48.0 % Final Monocytes Relative 02/17/2024 8.0 2.0 - 12.0 % Final Eosinophils Relative 02/17/2024 2.1 0.0 - 6.0 % Final Basophils Relative 02/17/2024 1.0 0.0 - 2.0 % Final Neutrophils Absolute 02/17/2024 4.40 1.80 - 7.80 K/mcL Final Lymphocytes Absolute 02/17/2024 1.40 1.00 - 3.20 K/mcL Final Monocytes Absolute 02/17/2024 0.50 0.00 - 0.80 K/mcL Final Eosinophils Absolute 02/17/2024 0.10 0.00 - 0.50 K/mcL Final Basophils Absolute 02/17/2024 0.10 0.00 - 0.20 K/mcL Final EKG: ([employer] [facility] 01/10/2024 Cardiology) Sinus, RBBB, nonspecific ST-T abnormalities. Cardiac stress test: ([facility] 12/10/2018) Normal study. There is no evidence of myocardial infarction or ischemia. Normal LV size and function with no regional wall motion abnormalities. Very low likelihood of hemodynamically significant coronary artery disease. Low risk study for myocardial events or cardiac in the next two years. Compared to prior study from March, no change. Patient exercised for 4:34 minutes on a standard Fred protocol achieving 7.0 METs and 86% MPHR (133 BPM). The test was terminated due to hypertensive blood pressure response. Stress Function Comments Left ventricular function post-stress was normal. Post-stress ejection fraction was 69%. Stress enddiastolic index: 81 mL/m2. Stress end systolic index: 25 mL/m2. SUMMARY: 1. RESTING ECG: sinus rhythm HR 70 bpm with RBBB. 2. EXERCISE ECG: no ischemic ECG changes. 3. SYMPTOMS: no chest pain. 4. PHYSIOLOGY: Resting hypertension with hypertensive blood pressure response, appropriate chronotropic response, and oxygen desaturation with exercise. Resting heart rate of 70 bpm mike to a max heart rate of 133 bpm, this represents 86% MPHR. Resting BP of 128/96 mike to a max BP of 204/74. Resting oxygen saturation 97% on room air, dropped to 90% at peak stress. Vital signs stable and returnedto baseline prior to discharge from the lab. Achieved 7.0 METs consistent with average functional capacity for age. 5. ARRHYTHMIA: occasional sinus arrhythmia. CONCLUSION: Normal ECG portion of exercise nuclear stress test without ECG changes suggestive of ischemia and without symptoms concerning for angina, HOWEVER oxygen saturation dropped from 97% to 90%with exercise. Appropriate exercise physiology. Average functional capacity. ASSESSMENT & PLAN: Alessia Decker is scheduled to undergo a right total knee arthroplasty on March 02, [address] Taylor at the [facility]. Assessment & Plan Preoperative examination Cardiac Risk Factors: advanced age (older than 55 for men, 65 for women), dyslipidemia, hypertension, and obesity (BMI >= 30 kg/m2) (comorbids associated with CAD: CVA, PVD, CKD, COPD, CORTEZ) MET level: 4.4 per DASI criteria RCRI: 0 points, 3.9% 30-day risk of major cardiac event EKG indicated given cardiac risk factors identified above: Sinus, RBBB, nonspecific ST-T abnormalities No CV symptoms. Stable from a cardiovascular standpoint. ARISCAT: 3 points, low risk, 1.6% risk of in-hospital post-op pulmonary complications STOP-BAN AUDIT-C: 0 No DVT/PE or bleeding disorder history Anticoagulants/antiplatelets: No Previous history of delayed emergence from anesthesia with an ICU admission after surgery. Labs are reviewed and are without critical abnormalities. eGFR=60, Total bili Slightly elevated: UNCHANGED from previous. Evaluated by Cardiology and Pulmonology for preoperative risk stratification and optimization for surgery. (Notes below.) All other medical issues are stable at this time. Upper respiratory illness has resolved: Patient asymptomatic since February 12, 2024. O2 sat on room air 96%. Primary osteoarthritis of right knee Defer to orthopedic surgeon and perioperative management team regarding the planned procedure. Primary hypertension BP in office 152/80, currently managed with lisinopril and atenolol and clinically appears stable. Continue current treatment and outpatient management. Hold lisinopril 24 hours prior to surgery. Hyperlipidemia, unspecified hyperlipidemia type Treated with rosuvastatin, low-cholesterol diet and lifestyle modification. Suggest continued outpatient follow up. Hypothyroidism, unspecified type Taking levothyroxine. No signs or symptoms of thyroid dysfunction. Normal exam, appears euthyroid. Continue current treatment and outpatient follow up. Obstructive sleep apnea syndrome Stop Bang score= 5, with known CORTEZ; NOT USING CPAP. Sleep apnea is associated with increase in postoperative adverse events, thus it is suggested that the patient be monitored postoperatively with continuous pulse oximetry. In addition, the patient would benefit from further follow-up and outpatient evaluation postop. Depression with anxiety Stable on sertraline 100 mg daily. Patient does carry diagnosis of PTSD associated with previous anesthesia experience. Advise anesthesia consult. Stage 1 chronic kidney disease eGFR=60. Suggest careful attention to fluid status during perioperative course. Avoid NSAIDs. Continue outpatient follow up and management. Class 3 severe obesity due to excess calories with serious comorbidity and body mass index (BMI) of40.0 to 44.9 in adult ([facility]) Obesity Class 23(BMI 40-44.9). The patient???s BMI of 44.12 is in the obese range which increases the risk for obesity related diseases, some of which are in the patient???s history. The patient would likely benefit from an assessment of environmental factors to include dietary instructions/strategies and activity modification which can be further addressed as an outpatient. SPECIALIST CONSULTATIONS/RECOMMENDATIONS: CARDIOLOGY: (Scanned Media 01/10/2024) 1. Perioperative risk stratification Patient has no prior history of established CAD, any hospitalizations for heart failure or any atrial or ventricular tachyarrhythmias. Prior echocardiogram with normal LV function. Recent coronary CTA with normal coronary arteries. Does have history of needing ICU stay due to issues getting extubated after anesthesia Patient is at low risk for any cardiovascular issues perioperatively for moderate risk procedure. No additional cardiac testing is indicated. Given her prior history of difficulty extubating, morbid obesity, and emphysema she would likely need spinal anesthesia with light moderate sedation. 2. Atypical chest pain Coronary CTA normal. Continue working on controlling blood pressure, cholesterol, and weight. Hopefully after she gets her knee surgery she is able to get more active. 3. Hypertension Blood pressure controlled on atenolol and lisinopril 4. Chronic shortness of breath Patient does have history of 20 pack years and quit smoking in the based on her last note from pulmonology she does have mild emphysema. Her chronic shortness of breath is multifactorial, likely due to deconditioning, morbid obesity, untreated CORTEZ, and a component of diastolic dysfunction. On exam she is euvolemic and there is no need for diuretics. Goal is to continue working on weight loss and managing blood pressure and cholesterol. PULMONOLOGY: Андрей Edmondson MD(Scanned appt 01/31/2024) [place] PERIOPERATIVE RECOMMENDATIONS: NPO protocol explained. No solid food, dairy or pulp based juices after midnight going into surgeryday. Advised to maintain hydration night before surgery. Advised to drink ???approved fluids?? (per protocol) approximately three hours before surgery, prior to leaving home. Instructed to stop NSAID and vitamins seven days prior to surgery, with the exception of Meloxicam or Celebrex, which the patient may continue up through the day before surgery if taking. Medications to take on the day of surgery: Atenolol Levothyroxine Sertraline Special medication instructions: HOLD LISINOPRIL 24 hours before surgery: LAST DOSE February 29, 2024. Post-op CORTEZ Protocol Thank you for this perioperative request for evaluation. Patient is at intermediate risk for planned procedure. Some of the above information is being carried forward from prior medical records for informationalpurposes only, and is being cited so that efficiency, safety and quality of patient's care is not being compromised. I have spent 40 minutes obtaining history and physical, reviewing chart, reviewing and interpretinglabs and EKG, and providing patient instruction. Some of this report was generated using [employer] dictation software. Although every attempt has been made by the provider to proofread this document, occasional misspellings, typographical errors or misstatements may still be present. Nai Blanco PA-C documented in this encounter Plan of Treatment Not on file documented as of this encounter Visit Diagnoses Diagnosis Preoperative examination- Primary Unspecified pre-operative examination Primary osteoarthritis of right knee Primary hypertension Unspecified essential hypertension Hyperlipidemia, unspecified hyperlipidemia type Hypothyroidism, unspecified type Obstructive sleep apnea syndrome Obstructive sleep apnea (adult) (pediatric) Depression with anxiety Dysthymic disorder Stage 1 chronic kidney disease Class 3 severe obesity due to excess calories with serious comorbidity and body mass index (BMI) of 40.0 to 44.9 in adult ([facility]) documented in this encounter Discontinued Medications Medication Sig Discontinue Reason Start Date End Da te multivitamin with minerals liquid Take 30 mL by mouth 1 (one) time each day. Entered in Error 02/10/2024 documented as of this encounter Care Teams Biology Specimen Technician Relationship Specialty Start Date End Date Max Mercedes MD [address] [place] [address] PCP - General Internal Medicine 01/08/24 documented as of this encounter
[2024-03-10 13:10] LABS: MANUAL DIFF FLAG NO
[2024-03-10 13:17] LABS: Basophils Absolute Auto 0.1 X10*3/uL (0.0-0.2); Basophils Percent Auto 0.8 % (0-2); Eosinophils Absolute Auto 0.2 X10*3/uL (0.0-0.4); Eosinophils Percent Auto 2.5 % (0-4); Hematocrit 46.3 % (37.0-47.0); Hemoglobin 14.8 g/dl (12.0-16.0); Imm Gran Abs Auto 0.03 X10*3/uL (0.00-0.03); Imm Gran Pct Auto 0.4 % (0.0-0.4); Lymphocytes Percent Auto 28.9 % (20-40); Mean Corpuscular Volume 90.6 fL (80.0-98.0); Mean Platelet Volume 9.8 fL (9.4-12.3); Monocytes Absolute Auto 0.6 X10*3/uL (0.1-1.2); Monocytes Percent Auto 8.2 % (2-11); Neutrophils Absolute Auto 4.2 x10*3/uL (2.0-8.3); Neutrophils Percent Auto 59.2 % (45-73); Platelet Count 262 X10*3/uL (160-400); Red Blood Count 5.11 X10*6/uL (4.20-5.50); Red Cell Distribution Width 12.4 % (11.0-16.0); White Blood Count 7.1 X10*3/uL (4.8-10.8)
[2024-03-10 13:30] LABS: Appearance Urine Turbid; Color Urine Dark Yellow; Glucose Urine UA Negative (Negative); Leukocyte Esterase Urine Moderate (2+) (Negative); Nitrite Urine Negative (Negative); Specific Gravity - Urine 1.025 (1.005-1.025); UMIC TRIGGER UACC YES; Urine Blood Negative (Negative); Urine Ketones Trace mg/dL (Negative); Urine Protein Trace mg/dL (Neg-Trace)
[2024-03-10 13:31] LABS: Alanine Aminotransferase 28 U/L (0-31); Albumin Level 4.2 g/dL (3.5-5.0); Alkaline Phosphatase 100 U/L (39-117); Anion Gap 11 (12-20); Aspartate Amino Transferase 26 U/L (5-31); Bilirubin Total 1.1 mg/dL (0.0-1.0); Blood Urea Nitrogen 15 mg/dL (9-16); Calcium 9.3 mg/dL (8.4-10.2); Carbon Dioxide 29 mmol/L (22-29); Chloride 107 mmol/L (96-108); Estimated Glomerular Filt Rate 57; Glucose Random 101 mg/dL (60-115); Potassium 5.1 mmol/L (3.3-5.1); Sodium 142 mmol/L (135-145); Total Protein 7.6 g/dL (6.5-8.0)
[2024-03-10 13:38] LABS: Bacteria Urine 4+ (None Seen); Hyaline Casts Urine 0-2 /LPF (0-2); RBC Urine 0-2 /HPF (0-2); Squamous Epithelial Cell Urine >20 /HPF (0-2); UACC Culture Trigger YES; WBC Urine >50 /HPF (0-5)
[2024-03-10 13:49] LABS: TSH reflex Free T4 2.69 uIU/mL (0.32-4.0)
[2024-03-11 17:34] LABS: LDL Cholesterol Direct 107 mg/dL (<100)
== END 2024-03-10 10:04 | disposition home or self-care (01) ==
LOC: HO.HMGCX 10:03
PROVIDERS: PCP Internal Medicine; Visit Provider Internal Medicine
DX: M54.50 Low back pain, unspecified (principal); I10 Essential (primary) hypertension; N28.9 Disorder of kidney and ureter, unspecified; J43.9 Emphysema, unspecified; E78.9 Disorder of lipoprotein metabolism, unspecified; K21.9 Gastro-esophageal reflux disease without esophagitis; E03.8 Other specified hypothyroidism; E66.01 Morbid (severe) obesity due to excess calories; Z68.43 Body mass index [BMI] 50.0-59.9, adult; F33.42 Major depressive disorder, recurrent, in full remission; G47.33 Obstructive sleep apnea (adult) (pediatric); R10.9 Unspecified abdominal pain; Z91.09 Other allergy status, other than to drugs and biological substances
CPT/HCPCS: 36415; 72070; 80053; 81001; 83721; 84443; 85025; 87086; 96127; 99212

== ENCOUNTER 2024-03-10 10:03 | Outpatient (AMB) | payer MEDICARE, OTHER, SELFPAY ==
[2024-03-10 10:05] VITALS: BP 134/82; PULSE 67; O2SAT 96; BMI 50.9
--- NOTE | 2024-03-10 10:05 | A.OFFPC_ITS ---
Vital Signs 03/10/24 10:05 Height 5 ft 2 in Weight 278 lb 4 oz BMI 50.9 BP 134/82 Blood Pressure Location Rt brachial Position Sitting Pulse 67 Pulse Source Pulse Oximeter Pulse Oximetry (%) 96 Oxygen Delivery Method Room Air Intake Visit Reasons: Lower Back Pain Allergies heparin [HEPARIN] Allergy (Unknown, Verified 03/10/24 10:06) ITCH Tetanus Vaccines and Toxoid [TETANUS VACCINES AND TOXOID] Allergy (Unknown, Verified 03/10/24 10:06) SWELLING SOB Medication List - Last Reconciled 03/10/24 by Max Mercedes MD atenolol 25 mg PO DAILY dupilumab (Dupixent) mg subcut Q8W levothyroxine (Levoxyl) 125 mcg PO QAM lisinopril 40 mg PO DAILY meclizine (Antivert) 25 mg PO TID PRN 15 days [Non-childproof prescription bottles Please send all existing and future medications in bottles that are not childproof and without safety locking tops.] rosuvastatin 5 mg PO BEDTIME sertraline 100 mg PO DAILY 90 days Tobacco use date assessed: 03/10/24 Fall risk assessment: No Falls in past year Last assessed Fall Risk: 03/10/24 Dental Screening Dental Screen Date: 03/10/24 Did you have a dental visit in the last 12 months?: Yes Did you have a dental problem in the last 6 months where you did not have access to dental care?: No Was dental information given to patient?: Patient has dentist HPI Lower Back Pain HPI Details - The patient is a 73-year-old female pr esenting with back pain. - Onset approximately two weeks ago. - Described as located in the middle and right side of thoracic spine very sore. - Constant pain, aggravated by movement. - Denies cough or urinary symptoms assoc iated with pain. - Reports nocturia but no dysuria or hem aturia; urinalysis was ordered. - No history of kidney stones. - Obstructive Sleep Apnea. Unable to us e CPAP machine has tried several - Previously evaluated by Dr. Edmondson. - Peripheral Vascular Disease (suspected ). - Reports cold sensation in toes at nigh t during cold months despite use of warm garments. - Non-specific Upper Respiratory Symptom s. - Experienced loss of taste and congesti on around February 25. - Negative COVID-19 tests; symptoms pers isted. - No recent COVID-19 vaccination. - Symptomatic treatment aligned with [facility] mon cold recommendations. - Depression and PTSD. - Currently seeing a licensed clinical s ocial worker, Aarti Beebe, once or twice a week. - Reports slight improvement in depressi ve symptoms. - Dizziness and Allergies. - No recent exacerbation of allergies. Medication list reviewed with the patient Problem List - Dizziness - Depression - Post-Traumatic Stress Disorder (PTSD) - Obstructive Sleep Apnea - Eczema - Hyperlipidemia - Hypothyroidism - Back Pain - Non-specific Upper Respiratory Symptom s - Peripheral Vascular Disease (suspected ) - morbid obesity with BMI of 50.9 Diagnostic results - Labs: Kidney function tests from [facility] show slight compromise; repeat labs ordered. - Tests and diagnostics: COVID-19 tests (two recent tests, both negative). At home [place] of Care: Psychiatrist and Dr. Edmondson Patient Instructions - Use saline nasal spray for congestion. - Use Tylenol for body aches and pains. - Increase fluid intake and vitamin C co nsumption. - Continue to warm feet using socks or a n electric device to manage cold sensation due to suspected peripheral vascular disease. - Undergo lab work and thoracic spine X- ray as ordered. - Abstain from ibuprofen due to compromi sed kidney function. - continue all other medications - monitor back pain if worsen get back t o me Review of Systems - General: Denies any fever. - Musculoskeletal: Reports back pain, de nies spasm. - Neurological: Denies dizziness current ly. - Genitourinary: Reports increased noctu rnal urination; denies dysuria or hematuria. - Respiratory: Reports loss of taste, co ngestion, no recent cough. - Vascular: Reports cold sensation in to es at night. - Psychological: Reports mild improvemen t in depression; actively managing PTSD with therapy. Physical Exam general: No acute distress HEENT: No acute findings neck: Supple respiratory system: Able to talk in full sentences, no audible wheeze no stridor cardiovascular: S1-S2 Back: No CVAT right side no pain with percussion over thoracic spine gastrointestinal: No pain extremities: Cold toes, possible mild peripheral vascular disease LIMB DRIVER: Alert awake oriented x3 motor sensory intact skin: Normal turgor [facility] Medical History Other specified hypothyroidism Ex-smoker Small airways disease Hypertension, essential Nephropathy Surgical History H/O oophorectomy Hx of cholecystectomy History of appendectomy History of hysterectomy Family History Father HTN (hypertension) Lung cancer Myocardial infarction Mother HTN (hypertension) Brother No problems noted. Social History Housing: House Patient Tobacco Use Status: Former Tobacco user Years Smoked: 30 yrs e-Cigarette/Vaping Use: Never Used Advance Directives Date on File: 12/02/19 service: Yes (retired) Current occupational status: retired Current occupational exposures/hazards: No Cognitive needs: No Hearing needs: No Vision needs: No Questionnaire PHQ-9 Over the last 2 weeks, how often have you been bothered by any of the following problems? 1. Little interest or pleasure in doing things: not at all 2. Feeling down, depressed, or hopeless: not at all 3. Trouble falling or staying asleep, or sleeping too much: not at all 4. Feeling tired or having little energy: several days 5. Poor appetite or overeating: several days 6. Feeling bad about yourself - or that you are a failure or have let yourself or your family down: not at all 7. Trouble concentrating on things, such as reading the newspaper or watching television: not at all 8. Moving or speaking so slowly that other people could have noticed. Or the opposite - being so fidgety or restless that you have been moving around a lot more than usual: not at all 9. Thoughts that you would be better off or of hurting yourself in some way: not at all Total score: 2 Depression Screening Interpretation: Negative Depression Screening Done: Yes [id number] - PHQ-9 Billing: Yes Source: Developed by Drs. Erik Jara, Kinjal Shipman, Addy Rodgers and colleagues, with an educational elva from [employer]. Thrive Questionnaire Date Thrive assessed: 03/10/24 I am a: Patient What is your living situation today?: I have a steady place to live Within the past 12 months, did the food you bought not last and you didn't have the money to get more?: Never true Within the past 12 months, did you worry whether your food would run out before you got money to buy more?: Never true Do you have trouble paying for medicines?: No Do you have trouble getting transportation to medical appointments?: No Do you have trouble paying your heating and electricity bill?: No Do you have trouble taking care of your child, family member or friend?: No Do you have trouble with day-to-day activities such as bathing, preparing meals, shopping, managing finances, etc.?: No Are you currently unemployed and looking for a job?: No Are you interested in more education?: No Please select the resources that you would like help with: None Currently or been in a relationship where the following occur: No concerns reported THRIVE Score: 0 AUDIT C Alcohol Use Questionnaire (AUDIT-C) 1. How often do you have a drink containing alcohol?: Never 3. How often do you have six or more drinks on one occasion?: Never Total Score: 0 Score Reviewed/Action Taken: Yes TALON-7 AMB Questionnaire TALON-7 Date TALON - 7 assessed: 03/10/24 Feeling nervous, anxious, or on edge: 0 = Not at all Not being able to stop or control worryin = Several days Worrying too much about different things: 1 = Several days Trouble relaxin = Not at all Being so restless that it is hard to sit still: 0 = Not at all Becoming easily annoyed or irritable: 0 = Not at all Feeling afraid as if something awful might happen: 0 = Not at all Total TALON-7 score (0-4 normal; 5-9 mild; 10-14 moderate; 15-21 severe): 2 Source: Developed by Drs. Erik Jara, Kinjal Shipman, Addy Rodgers and colleagues, with an educational elva from [employer]. TALON-7 Assessment Billing TALON-7 Assessment Tool: TALON-7 Assessment 48460 Physical exam (Primary Care) Vital Signs: Last Vital Signs Pulse 67 03/10/24 10:05 BP 134/82 03/10/24 10:05 Pulse Ox 96 03/10/24 10:05 Oxygen Delivery Method Room Air 03/10/24 10:05 BMI result Body Mass Index 50.9 Tobacco/Smoking Status: Tobacco use Status Tobacco use date assessed 03/10/24 03/10/24 10:09 Patient Tobacco Use Status Former Tobacco user 03/10/24 10:09 e-Cigarette/Vaping Use Never Used 03/10/24 10:09 PHQ-9: PHQ-9 Score PHQ-9: Total score 2 03/10/24 10:12 Depression Screening Interpretation: Negative Thrive Assessment: Date of Thrive Assessment Date Thrive assessed 03/10/24 03/10/24 10:12 Currently or been in a relationship where the following occur: No concerns reported Coding Level of Care Code Est Pt Level 4 (41649) Complex EM visit Add On G2211 Diagnoses Hypertension, essential I10 Nephropathy N28.9 Pulmonary emphysema, unspecified emphysema type J43.9 Emphysema type: unspecified Lipid disorder E78.9 Gastroesophageal reflux disease without esophagitis K21.9 Esophagitis presence: without esophagitis Environmental allergies Z91.09 Other specified hypothyroidism E03.8 Morbid obesity due to excess calories E66.01 Recurrent major depressive disorder, in full remission F33.42 Active/Remission status: in full remission CORTEZ (obstructive sleep apnea) G47.33 Right flank pain R10.9 Additional Codes TALON-7 Assessment Billing - TALON-7 Assessment Tool: TALON-7 Assessment 19779 ([id number]) PHQ-9 - 44042 - PHQ-9 Billing: Yes ([id number]) Assessment & Plan Assessment & Plan (1) Hypertension, essential: Code(s): I10 - Essential (primary) hypertension Category: Medical (2) Nephropathy: Code(s): N28.9 - Disorder of kidney and ureter, unspecified Category: Medical (3) Pulmonary emphysema: Code(s): J43.9 - Emphysema, unspecified Category: Medical Qualifiers: Emphysema type: unspecified Qualified Code(s): J43.9 - Emphysema, unspecified (4) Lipid disorder: Code(s): E78.9 - Disorder of lipoprotein metabolism, unspecified Category: Medical (5) GERD (gastroesophageal reflux disease): Code(s): K21.9 - Gastro-esophageal reflux disease without esophagitis Category: Medical Qualifiers: Esophagitis presence: without esophagitis Qualified Code(s): K21.9 - G hannah-esophageal reflux disease without esophagitis (6) Environmental allergies: Code(s): Z91.09 - Other allergy status, other than to drugs and biological substances Category: Medical (7) Other specified hypothyroidism: Code(s): E03.8 - Other specified hypothyroidism Category: Medical (8) Morbid obesity due to excess calories: Code(s): E66.01 - Morbid (severe) obesity due to excess calories Category: Medical (9) Major depression, recurrent: Code(s): F33.9 - Major depressive disorder, recurrent, unspecified Category: Medical Qualifiers: Active/Remission status: in full remission Qualified Code(s): F33.42 - Major depressive disorder, recurrent, in full remission (10) CORTEZ (obstructive sleep apnea): Code(s): G47.33 - Obstructive sleep apnea (adult) (pediatric) Category: Medical (11) Right flank pain: Code(s): R10.9 - Unspecified abdominal pain Category: Medical Plan - The patient is a 73-year-old female presenting with back pain. - Onset approximately two weeks ago. - Described as located in the middle and right side of thoracic spine very sore. - Constant pain, aggravated by movement. - Denies cough or urinary symptoms associated with pain. - Reports nocturia but no dysuria or hematuria; urinalysis was ordered. - No history of kidney stones. - Obstructive Sleep Apnea. Unable to use CPAP machine has tried several - Previously evaluated by Dr. Edmondson. - Peripheral Vascular Disease (suspected). - Reports cold sensation in toes at night during cold months despite use of warm garments. - Non-specific Upper Respiratory Symptoms. - Experienced loss of taste and congestion around February 25. - Negative COVID-19 tests; symptoms persisted. - No recent COVID-19 vaccination. - Symptomatic treatment aligned with common cold recommendations. - Depression and PTSD. - Currently seeing a licensed clinical social work instructor, Aarti Beebe, once or twice a week. - Reports slight improvement in depressive symptoms. - Dizziness and Allergies. - No recent exacerbation of allergies. - blood pressure is stable Medication list reviewed with the patient Problem List - Dizziness - Depression - Post-Traumatic Stress Disorder (PTSD) - Obstructive Sleep Apnea - Eczema - Hyperlipidemia - Hypothyroidism - Back Pain - Non-specific Upper Respiratory Symptoms - Peripheral Vascular Disease (suspected) - morbid obesity with BMI of 50.9 - hypertension Diagnostic results - Labs: Kidney function tests from October show slight compromise; repeat labs ordered. - Tests and diagnostics: COVID-19 tests (two recent tests, both negative). At home [place] of Care: Psychiatrist and Dr. Edmondson Patient Instructions - Use saline nasal spray for congestion. - Use Tylenol for body aches and pains. - Increase fluid intake and vitamin C consumption. - Continue to warm feet using socks or an electric device to manage cold sensation due to suspected peripheral vascular disease. - Undergo lab work and thoracic spine X-ray as ordered. - Abstain from ibuprofen due to compromised kidney function. - continue all other medications - monitor back pain if worsen get back to me Orders: Orders Complete Blood Count Auto Diff Today E03.8 - Other specified hypothyroidism, E66.01 - Morbid (severe) obesity due to excess calories, E78.9 - Disorder of lipoprotein metabolism, unspecified, F33.42 - Major depressive disorder, recurrent, in full remission, G47.33 - Obstructive sleep apnea (adult) (pediatric), I10 - Essential (primary) hypertension, J43.9 - Emphysema, unspecified, K21.9 - Gastro-esophageal reflux disease without esophagitis, N28.9 - Disorder of kidney and ureter, unspecified, Z91.09 - Other allergy status, other than to drugs and biological substances Comprehensive Met. Panel Today E03.8 - Other specified hypothyroidism, E66.01 - Morbid (severe) obesity due to excess calories, E78.9 - Disorder of lipoprotein metabolism, unspecified, F33.42 - Major depressive disorder, recurrent, in full remission, G47.33 - Obstructive sleep apnea (adult) (pediatric), I10 - Essential (primary) hypertension, J43.9 - Emphysema, unspecified, K21.9 - Gastro- esophageal reflux disease without esophagitis, N28.9 - Disorder of kidney and ureter, unspecified, Z91.09 - Other allergy status, other than to drugs and biological substances TSH reflex Free T4 Today E03.8 - Other specified hypothyroidism, E66.01 - Morbid (severe) obesity due to excess calories, E78.9 - Disorder of lipoprotein metabolism, unspecified, F33.42 - Major depressive disorder, recurrent, in full remission, G47.33 - Obstructive sleep apnea (adult) (pediatric), I10 - Essential (primary) hypertension, J43.9 - Emphysema, unspecified, K21.9 - Gastro- esophageal reflux disease without esophagitis, N28.9 - Disorder of kidney and ureter, unspecified, Z91.09 - Other allergy status, other than to drugs and biological substances LDL Cholesterol Direct Today E03.8 - Other specified hypothyroidism, E66.01 - Morbid (severe) obesity due to excess calories, E78.9 - Disorder of lipoprotein metabolism, unspecified, F33.42 - Major depressive disorder, recurrent, in full remission, G47.33 - Obstructive sleep apnea (adult) (pediatric), I10 - Essential (primary) hypertension, J43.9 - Emphysema, unspecified, K21.9 - Gastro- esophageal reflux disease without esophagitis, N28.9 - Disorder of kidney and ureter, unspecified, Z91.09 - Other allergy status, other than to drugs and biological substances XR thoracic spine 2V Today R10.9 - Unspecified abdominal pain UA CC w/rflx Micro + Cult Today E03.8 - Other specified hypothyroidism, E66.01 - Morbid (severe) obesity due to excess calories, E78.9 - Disorder of lipoprotein metabolism, unspecified, F33.42 - Major depressive disorder, recurrent, in full remission, G47.33 - Obstructive sleep apnea (adult) (pediatric), I10 - Essential (primary) hypertension, J43.9 - Emphysema, unspecified, K21.9 - Gastro-esophageal reflux disease without esophagitis, N28.9 - Disorder of kidney and ureter, unspecified, Z91.09 - Other allergy status, other than to drugs and biological substances
--- OUTSIDE RECORDS SUMMARY | 2024-03-10 11:19 | XMS_ITS | Data Portability ---
Author Organization [place] [facility] Jeronimo Huerta AONE [place] Address [address] [place] [id number] Assessment Encounter Date Assessment Date Assessment LastModified [...] degrees. The knee is stable within that [id number] to AP and ML stress. The alignment [...] with right total knee arthroplasty using the [place] total knee replacement system. However, it is [...] right total knee replacement, robotic assisted, at [facility]. Not available 10/25/2023 15:38:41 11/04/2023 11/04/2023 HPI [...] Organization Details Last Modified Time Details Appointments None recorded. Lab None recorded. Referral orthopedi c physical therapist referral - Brannon sahu Comments: Chronic low back pain without radiculop athy 2023 024 [email or web address] Not available 16:36:24 Procedures None recorded. Surgeries total knee arthropla sty (SURG) 2023 024 [facility] [address], [place], [address], 5 15:56:31 Imaging XR, knee, 1 or 2 view 2023 024 [email or web address] [facility], [address], [place], [address], 4 15:44:57 Medication Orders None recorded. Patient TargetsNo targets recorded. Patient Instructions Encounter Date Encounter Id Patient Instructions Last Modified By Organization Details Last Modified Time 10/25/2023 [id number] Larson and patellar views of the bilateral knees taken today along with prior AP and lateral views, for the right knee show degenerative joint disease with joint space narrowing, osteophyte formation, and subchondral sclerosis. There is olqb-hr-iutl articulation in the medial compartment. For the left knee demonstrate joint space narrowing, osteophyte formation, and subchondral sclerosis. There is szdi-br-tbny articulation in the medial compartment. Not available [...] record ed. [email or web address] Not Available 11/03 15:00:33 02/03/20 24 02/03/2024 CT, knee, w/o contr ast No observ ation record ed. [email or web address] Not Available 2023 06:51:26 02/03/20 24 02/03/2024 CT, knee, w/o contr ast No observ ation record ed. [email or web address] Not Available 2023 06:51:26 Result Notes None recorded. Problems Name Problem SNOMED Code Status Onset Date Resolution Date Notes Provider Name and Address Organization Details Recorded Time Osteoarthri tis of right knee joint 8305930935931 00 Active 2023 Aneesh Taylor MD [address] [facility],[address], [place], [address], [place] [facility] 4 15:35:53 Arthritis of knee 971989919 Active 2023 Aneesh Taylor MD [address] [facility],[address], [place], [place], [address], [place] [facility] 4 15:36:00 Degeneratio n of lumbar interverteb ral disc 61674489 Active 2023 AC WOO PA-C [address], [place], [address], [place] [facility] 4 15:36:32 Low back pain 770602019 Active 2023 AC WOO PA-C [address], [place], [address], [place] [facility] 4 15:36:43 Chronic low back pain 055308359 Active 2023 AC WOO PA-C [address], [place], [address], [place] [facility] 4 16:02:05 Lumbar spondylosis 782990579 Active [address], [place], [address], [place] [facility] 4 16:02:11 Problem Notes None recorded. Procedures Surgical History Date Name Laterality Status Provider Name and Address Organization Details Recorded Time 02/18/19 03 cholecystectomy completed Rema Mack [place] [facility] P 10/25/2023 15:46:59 02/18/19 02 hysterectomy completed Rema Mack [place] [facility] 10/25/2023 15:47:13 02/18/18 57 Appendectomy completed Remacarola Mack [place] - [facility] 10/25/2023 15:46:42 Imaging Results Imaging Date Name Status LastModified by Organiz ation Details LastModified Time 10/31/2023 imaging/diagn ostic result completed Information not available 10/31/2023 09:17:08 11/04/2023 imaging/diagn ostic result completed Information not available 11/04/2023 15:00:33 02/03/2024 CT, knee, w/o contrast completed Information not available 02/04/2024 06:51:26 02/03/2024 CT, knee, w/o contrast completed Information not available 02/04/2024 06:51:26 Procedure Notes None recorded. Medical Equipment None Reported. Allergies Allergen ID Allergen Name Allergen Category Reaction Reaction Severity Criticality Documentation Date Start Date Code Code System Note Provider Name and Address Organization Details Recorded Time 91869 heparin medicatio n Not available Not available Not available 10/25/2023 5224 RxNorm Rema Mack [facility], [place] [facility] 4 15:48:10 00531 Vaccine product containin g only Clostridi um tetani antigen (medicina l product) medicatio n Not available Not available Not available 10/25/2023 17779 2003 SNOMED Remamarlen Mack [facility], [place] [facility] 4 15:48:30 Medications Name Sig Start Date Stop Date Status Note LastModified by Organization Details LastModified Time doxycycline hyclate 100 mg capsule 10/24 completed Not Available Not Available Not Available sertraline 100 mg tablet TAKE 1 TABLET BY MOUTH DAILY active Not Available Not Available No t Available atenolol 25 mg tablet TAKE 1 [...] Not Available Not Available No t Available meclizine 25 mg chewable tablet CHEW 1 TABLET BY MOUTH THREE TIMES DAILY NEEDED FOR DIZZINESS active Not Available Not Available No t [...] Address Organization Details Last Updated DateTime 10/25/2023 639088.94 g Elaina Conde [facility] 10/25/2023 15:06:54 Date Recorded Body weight Provider Name an d Address Organization Details Last Updated DateTime 11/04/2023 736984.94 g Hanane [facility] 11/04/2023 15:26:00 Date Recorded Body mass index (BMI) Body height Provider Name and Address Organization Details Last Updated DateTime 11/04/2023 43.6 kg/m2 167.64 cm AC WOO PA-C [address], [place], [address], [facility] 11/04/2023 16:04:58 Social History Question Answer Notes LastModified by Organizat ion Details LastModified Time Tobacco Smoking Status Former Smoker Rema Mack null, [facility] 10/25/2023 15:56:25 What Is Your Level Of Alcohol Consumption? None [email or web address] Information not available 10/25/2023 When Did You Quit Smoking? 18+yearssin celastcigar ette 25 Yrs Ago [email or web address] Information not available 10/25/2023 How Much Tobacco Do You Smoke? 1 PPD [email or web address] Information not available 10/25/2023 How Many Years Have You Smoked Tobacco? 30 [email or web address] Information not available 10/25/2023 Do You Or Have You Ever Used Any Other Forms Of Tobacco Or Nicotine? No [email or web address] Information not available 10/25/2023 Sex: Unknown Functional Status None recorded. Mental Status None recorded. Family History Nothing Reported. Medical History Condition Response Hypertension Y Hypothyroidism Y Gynecological HistoryNo gynecological history recorded. Obstetrics History GPAL:G 0 P 0 0 0 0 Past Encounters Encounter ID Performer Location Encounter Start Date Encounter Closed Date Diagnosis/Indication Diagnosis SNOMED-CT Code Diagnosis ICD10 Code Diagnosis Note [id number] MD ARABELLA Baltazar [facility] [address] [facility] [address] [place] [address] 10/25/2023 14:53:34 10/25/2023 15:44:57 Pain of right knee region 7506476922 41466 M25.561 Osteoarthr itis of right knee joint 2218724789 46648 M17.11 Arthritis of knee 778855 002 M13.869 [id number] MD ARABELLA [place] [address] [facility] [address] [place] [address] 11/04/2023 14:54:10 11/04/2023 16:36:24 Low back pain 448944546 M54.50 Chronic low back pain 27 3466461 M54.50 G89.29 Lumbar spondylosis 14014 0009 M47.816 Body mass index 40+ - severely obese 166954053 Z68.41 Health Concerns Section Related Observation LastModified by Organization Detai ls LastModified Time None Recorded Concern Status LastModified by Organization Details LastModified Time None Recorded Advance Directives Directive None Recorded Payers Encounter Date Sequence Insurance Name Policy Number Policy Villarreal Covered Member ID Villarreal Member ID Guarantor Name 10/25/2023 1 [place]: [employer] Alessia Wolfgala [id number] Alessia Wolfgala 10/25/2023 2 WPS - FOR LIFE (MEDICARE SUPPLEMENT) Alessia Mozgala [id number] Alessia Mozgala 11/04/2023 2 WPS - FOR LIFE (MEDICARE SUPPLEMENT) Alessia Lucianogala [id number] Al[place]ia [facility] 11/04/2023 1 [place]ICARE [place]: [facility] Alessiashanna Decker [id number] Alessia Decker OBGyn Episode No OBEpisode recorded.
== END 2024-03-10 11:21 | disposition home or self-care (01) ==
PROVIDERS: PCP Internal Medicine; Visit Provider Internal Medicine
DX: I10 Essential (primary) hypertension (principal); N28.9 Disorder of kidney and ureter, unspecified; J43.9 Emphysema, unspecified; E78.9 Disorder of lipoprotein metabolism, unspecified; K21.9 Gastro-esophageal reflux disease without esophagitis; Z91.09 Other allergy status, other than to drugs and biological substances; E03.8 Other specified hypothyroidism; E66.01 Morbid (severe) obesity due to excess calories; F33.42 Major depressive disorder, recurrent, in full remission; G47.33 Obstructive sleep apnea (adult) (pediatric); R10.9 Unspecified abdominal pain; Z68.43 Body mass index [BMI] 50.0-59.9, adult

== ENCOUNTER → 2024-03-10 10:38 | Outpatient (BNV) | payer MEDICARE, OTHER, SELFPAY | PROVIDERS: PCP Internal Medicine; Visit Provider Radiology Diagnostic Radiology | DX: M54.6 Pain in thoracic spine (principal) | CPT/HCPCS: 72070 ==

== ENCOUNTER 2024-03-12 09:12 | Outpatient (AMB) | payer MEDICARE, OTHER, SELFPAY ==
--- NOTE | 2024-03-12 09:25 | MHC.PC.OV ---
Intake Visit Reasons: lab review Allergies heparin [HEPARIN] Allergy (Unknown, Verified 03/12/24 09:25) ITCH Tetanus Vaccines and Toxoid [TETANUS VACCINES AND TOXOID] Allergy (Unknown, Verified 03/12/24 09:25) SWELLING SOB Medication List - Last Reconciled 03/12/24 by Max Mercedes MD atenolol 25 mg PO DAILY dupilumab (Dupixent) mg subcut Q8W levothyroxine (Levoxyl) 125 mcg PO QAM lisinopril 40 mg PO DAILY meclizine (Antivert) 25 mg PO TID PRN 15 days nitrofurantoin macrocrystal 100 mg PO BID 5 days [Non-childproof prescription bottles Please send all existing and future medications in bottles that are not childproof and without safety locking tops.] rosuvastatin 5 mg PO BEDTIME sertraline 100 mg PO DAILY 90 days Tobacco use date assessed: 03/12/24 Fall risk assessment: No Falls in past year Last assessed Fall Risk: 03/12/24 Dental Screening Dental Screen Date: 03/12/24 Did you have a dental visit in the last 12 months?: Yes Did you have a dental problem in the last 6 months where you did not have access to dental care?: No Was dental information given to patient?: Patient has dentist HPI lab review HPI Details Patient was seen on 21 of this month when she c/0 right flank pain we did thoracic x ray which came back WNL her UA shows + LE macrobid sent to pharm for 5 days patient to notified of reports repeat UA after finishing the Abx [facility] Medical History Other specified hypothyroidism Ex-smoker Small airways disease Hypertension, essential Nephropathy Surgical History H/O oophorectomy Hx of cholecystectomy History of appendectomy History of hysterectomy Family History Father HTN (hypertension) Lung cancer Myocardial infarction Mother HTN (hypertension) Brother No problems noted. Social History Housing: House Patient Tobacco Use Status: Former Tobacco user Years Smoked: 30 yrs e-Cigarette/Vaping Use: Never Used Advance Directives Date on File: 12/02/19 service: Yes (retired) Current occupational status: retired Current occupational exposures/hazards: No Cognitive needs: No Hearing needs: No Vision needs: No Questionnaire Thrive Questionnaire Date Thrive assessed: 03/10/24 TALON-7 AMB Questionnaire TALON-7 Date TALON - 7 assessed: 03/10/24 Source: Developed by Drs. Erik Jara, Kinjal Shipman, Addy Rodgers and colleagues, with an educational elva from [employer] (formerly [employer]). Review of Systems Const Details: Negative except as listed in HPI Physical exam (Primary Care) Tobacco/Smoking Status: Tobacco use Status Tobacco use date assessed 03/12/24 03/12/24 09:26 Patient Tobacco Use Status Former Tobacco user 03/12/24 09:26 e-Cigarette/Vaping Use Never Used 03/12/24 09:26 Thrive Assessment: Date of Thrive Assessment Date Thrive assessed 03/10/24 03/12/24 09:26 Telehealth Telehealth Telehealth Platform: [facility] Location of provider rendering services: practice address Location of patient: address on file Patient Identification confirmed using: Name, : Yes Telehealth method: voice only Patient verbally consented to treatment: Yes Patient verbally consented to billing insurance company: Yes Patient informed of any privacy concerns related to visit: Yes Minutes spent on Phone/Video with Pt.: 12 Coding Level of Care Code Tele Est Pt Level 3 (43280) Diagnoses Right flank pain R10.9 Assessment & Plan Assessment & Plan (1) Right flank pain: Code(s): R10.9 - Unspecified abdominal pain Category: Medical Plan Patient was seen on 21 of this month when she c/0 right flank pain we did thoracic x ray which came back WNL her UA shows + LE macrobid sent to pharm for 5 days patient to notified of reports repeat UA after finishing the Abx Orders: Orders UA CC w/rflx Micro + Cult Today R10.9 - Unspecified abdominal pain
--- OUTSIDE RECORDS SUMMARY | 2024-03-12 10:10 | XMS_ITS | Clinical Summary ---
Author Organization [facility] Address [address] [place] [address] Care Team Providers Care Community Development Director Name Role Phone Max Mercedes MD Primary Care Provider [phone] Medications No known medications Active Problems No [...] age to complete this topic Care Teams Community Development Director Relationship Specialty Start Date End Date Max Mercedes MD 1959 [facility] [place] [id number] PCP - General Internal Medicine 08/13/23
--- OUTSIDE RECORDS SUMMARY | 2024-03-12 10:10 | XMS_ITS | Clinical Summary ---
Author Organization [facility] Address [address] [place] [address] Phone Care Team Providers Care Surveillance Officer Name Role Phone Max Mercedes MD Primary Care Provider [phone] Allergies Active Allergy Reactions Criticality Noted Date [...] time each day before breakfast. Active lisinopril (PRINIVIL,ZESTRIL) 40 mg tablet Take 1 [...] of Nature Active acetaminophen (TYLENOL) 500 mg tabletIndications:art hritic pain Take 1 tablet (500 mg total) by mouth every 6 (six) hours if needed for mild pain (using infrequently). Active Dupixent Pen 300 mg/2 mL pen Inject 2 mL (300 mg total) under the skin every 14 (fourteen) days. Patient takes for eczema on hands every 2 months last dose 06/18/2023 Active diclofenac (VOLTAREN) 1 % topical gelIndications:osteoa rthritis of the knee Apply 2 g topically 2 (two) times a day. Active lidocaine (LIDODERM) 5 % patch Apply 1 patch topically 1 (one) time each day. Remove & discard patch within 12 hours or as directed by MD. Active Active Problems Problem Noted Date Diagnosed [...] 11:30 AM EST Consult Periop Testing - [place] [address] [place] [address] Adore Blanco PA Preoperative examination (Primary Dx); Primary osteoarthritis of right knee; Primary hypertension; Hyperlipidemia, unspecified hyperlipidemia type; Hypothyroidism, unspecified type; Obstructive sleep apnea syndrome; Depression with anxiety; Stage 1 chronic kidney disease; Class 3 severe obesity due to excess calories with serious comorbidity and body mass index (BMI) of 40.0 to 44.9 in adult ([facility]) 01/13/2024 1:00 PM EST Consult Periop Testing - [place] [address] [place] [address] Adore Blanco PA Preoperative examination (Primary Dx); Primary osteoarthritis of right knee; Primary hypertension; Chronic kidney disease (CKD), stage II (mild); Hyperlipidemia, unspecified hyperlipidemia type; Hypothyroidism, unspecified type; Anxiety with depression; Class 2 severe obesity due to excess calories with serious comorbidity and body mass index (BMI) of 38.0 to 38.9 in adult ([facility]); Obstructive sleep apnea syndrome; Serum total bilirubin [...] not recall. Ankylosing spondylitis lumba r region ([facility]) Family History Medical History Relation Name Comments Autoimmune disease Brother ANCA Arthritis Father Teshruthi Wolfgala CHF Cancer Father Teshruthi Wolfgala CHF Heart disease Father Teofil Mozgala CHF Heart failure Father Teofil Mozgala CHF Lung cancer Father Teofil Mozgala CHF Rheum arthritis Father Teofil Mozgala CHF Anesthesia problems Mother Nicky Dekcer Arthritis Mother Nicky Decker Cancer Mother Nicky Decker Hypertension Mother Nicky Decker Liver cancer Mother Nicky Decker Osteoarthritis Mother Nicky Decker Relation Name Status Comments Brother Alive Father Teshruthi Mozgala CHF Mother Nicky Decker Social History [...] of2 resultswithin the time period is included. WBC 6.5 4.0 - 10.5 K/mcL LAB HEMETOLOGY METHOD 02/17/2024 12:21 PM [facility] RBC 4.75 4.20 - 5.40 M/mcL LAB HEMETOLOGY METHOD 02/17/2024 12:21 PM [facility] Hemoglobin 14.5 12.5 - 16.0 g/dL LAB HEMETOLOGY METHOD 02/17/2024 12:21 PM [facility] Hematocrit 41.8 37.0 - 47.0 % LAB HEMETOLOGY METHOD 02/17/2024 12:21 PM [facility] MCV 87.9 78.0 - 100.0 FL LAB HEMETOLOGY METHOD 02/17/2024 12:21 PM [facility] MCH 30.5 25.0 - 33.0 pcg LAB HEMETOLOGY METHOD 02/17/2024 12:21 PM [facility] MCHC 34.7 32.0 - 36.0 g/dL LAB HEMETOLOGY METHOD 02/17/2024 12:21 PM [facility] RDW 12.9 12.1 - 16.2 % LAB HEMETOLOGY METHOD 02/17/2024 12:21 PM [facility] Platelets 215 150 - 450 K/mcL LAB HEMETOLOGY METHOD 02/17/2024 12:21 PM [facility] MPV 7.9 7.4 - 11.4 FL LAB HEMETOLOGY METHOD 02/17/2024 12:21 PM [facility] Neutrophils Relative 66.8 44.0 - 74.0 % LAB HEMETOLOGY METHOD 02/17/2024 12:21 PM [facility] Lymphocytes Relative 22.1 20.0 - 48.0 % LAB HEMETOLOGY METHOD 02/17/2024 12:21 PM [facility] Monocytes Relative 8.0 2.0 - 12.0 % LAB HEMETOLOGY METHOD 02/17/2024 12:21 PM EST [facility] Eosinophils Relative 2.1 0.0 - 6.0 % LAB HEMETOLOGY METHOD 02/17/2024 12:21 PM EST [facility] Basophils Relative 1.0 0.0 - 2.0 % LAB HEMETOLOGY METHOD 02/17/2024 12:21 PM EST [facility] Neutrophils Absolute 4.40 1.80 - 7.80 K/mcL LAB HEMETOLOGY METHOD 02/17/2024 12:21 PM EST [facility] Lymphocytes Absolute 1.40 1.00 - 3.20 K/mcL LAB HEMETOLOGY METHOD 02/17/2024 12:21 PM EST [facility] Monocytes Absolute 0.50 0.00 - 0.80 K/mcL LAB HEMETOLOGY METHOD 02/17/2024 12:21 PM EST [facility] Eosinophils Absolute 0.10 0.00 - 0.50 K/mcL LAB HEMETOLOGY METHOD 02/17/2024 12:21 PM EST [facility] Basophils Absolute 0.10 0.00 - 0.20 K/mcL LAB HEMETOLOGY METHOD 02/17/2024 12:21 PM [facility] Blood Venous blood specimen / Unknown Venipuncture / Unknown 02/17/2024 10:51 AM EST 02/17/2024 12:09 PM EST Ad[facility] RODRIGEZ LAB BLOOD ORDERABLE S [facility] [address] [place] [address], * (ABNORMAL) Comprehensive metabolic panel (02/17/2024 10:51 AM EST) Only the most recent of2 resultswithin the time period is included. Sodium 144 135 - 145 mmol/L LAB CHEMISTRY METHOD 02/17/2024 4:10 PM EST [facility] Potassium 4.5 3.5 - 5.1 mmol/L LAB CHEMISTRY METHOD 02/17/2024 4:10 PM [facility] Chloride 105 98 - 107 mmol/L LAB CHEMISTRY METHOD 02/17/2024 4:10 PM [facility] CO2 28 24 - 32 mmol/L LAB CHEMISTRY METHOD 02/17/2024 4:10 PM [facility] Anion Gap 11 5 - 14 LAB CHEMISTRY METHOD 02/17/2024 4:10 PM [facility] Glucose 102(H) 70 - 99 mg/dL LAB CHEMISTRY METHOD 02/17/2024 4:10 PM [facility] BUN 18(H) 7 - 17 mg/dL LAB CHEMISTRY METHOD 02/17/2024 4:10 PM [facility] Creatinine 1.00 0.50 - 1.00 mg/dL LAB CHEMISTRY METHOD 02/17/2024 4:10 PM [facility] eGFR 60 >=60 mL/min/1. 73m2 LAB CHEMISTRY METHOD 02/17/2024 4:10 PM [facility] Comment:Calculation based on the??Chronic Kidney Disease Epidemiology Collaboration (CKD-EPI) equation refit??without adjustment for race. BUN/Creatinine Ratio 18.0 12.0 - 20.0 LAB CHEMISTRY METHOD 02/17/2024 4:10 PM [facility] Calcium 8.7 8.4 - 10.2 mg/dL LAB CHEMISTRY METHOD 02/17/2024 4:10 PM [facility] AST (SGOT) 28 5 - 40 unit/L LAB CHEMISTRY METHOD 02/17/2024 4:10 PM [facility] ALT (SGPT) 23 7 - 52 unit/L LAB CHEMISTRY METHOD 02/17/2024 4:10 PM [facility] Alkaline Phosphatase 97 34 - 104 unit/L LAB CHEMISTRY METHOD 02/17/2024 4:10 PM [facility] Total Protein 6.4 6.4 - 8.5 g/dL LAB CHEMISTRY METHOD 02/17/2024 4:10 PM EST [facility] Albumin 4.3 3.5 - 5.0 g/dL LAB CHEMISTRY METHOD 02/17/2024 4:10 PM EST [facility] Total Bilirubin 1.2(H) 0.3 - 1.0 mg/dL LAB CHEMISTRY METHOD 02/17/2024 4:10 PM EST [facility] Blood Venous blood specimen / Unknown Venipuncture / Unknown 02/17/2024 10:51 AM EST 02/17/2024 3:41 PM EST Adore RODRIGEZ LAB BLOOD ORDERABLE S Performing Organization Address City/[facility]/ZIP Co de Phone Number [facility] [address] [place] [address], [place] [phone] * Prealbumin (01/13/2024 10:59 AM EST) Prealbumin 31 17 - 34 mg/dL LAB CHEMISTRY METHOD 01/13/2024 12:30 PM EST [facility] Blood Venous blood specimen / Unknown Venipuncture / Unknown 01/13/2024 10:59 AM EST 01/13/2024 11:53 AM EST Adore RODRIGEZ LAB BLOOD ORDERABLE S [facility] [address] [place] [address], [place] [phone] from Last 3 Months Care Teams Surveillance Officer Relationship Specialty Start Date End Date Max Mercedes MD [address] [facility] [place] [id number] PCP - General Internal Medicine 01/08/24
--- OUTSIDE RECORDS SUMMARY | 2024-03-12 10:10 | XMS_ITS | Encounter Summary ---
Author Organization [facility] Address [address] [place] [address] Care Team Providers Care Print Press Operator Name Role Phone Max Mercedes MD Primary Care Provider [phone] Reason for Visit * Reason Comments Pre-op Exam Left total knee arth roplasty Encounter Details Date Type Department Care Team (Late st Contact Info) Description 02/17/2024 11:30 AM EST Consult Periop Testing - [place] [address] [place] [address] Adore Blanco PA [address] [place], [place] [id number] Preoperative examination (Primary Dx); Primary osteoarthritis of [...] evaluation at the [facility] [place]. Important Phone Numbers: [facility] [phone]; Nai Blanco PA-C extension [phone]. MEDICATION INSTRUCTIONS: You have been instructed about which medications to take on the day of surgery and which medications to hold, if any, as directed by me today and listed below. If you have any questions, please call the [facility] at [phone]. If there any changes to the medications [...] about your surgery time by 2pm call [phone]. PARKING OPTIONS ON THE DAY OF SURGERY: Parking Garage: There are two entrances to the parking garage. Patients and visitors should enter at [address] [place] [address], the hospital???s Main Entrance, and follow the signs to the garage entrance. There is also an entrance to the garage at [address] [place] [address]. Quantometer Operator Parking: is available at the Main Entrance from 5:00AM to 7:30PM, seven days a week. Quantometer Operator parking tickets are validated on the day of surgery and the day of discharge. Patient drop-off and pick-up, including admissions and discharges, is on the first floor of the [facility] Parking Garage. Enter the building and tell the staff that you need to go to the [facility]), and they can contact a minicab [...] please call the [facility] immediately at [phone]. We are here in the office Saturday [...] arthroplasty on February 10, 2024 at the [facility]. However, she developed an upper respiratory illness [...] just a few days. Symptoms resolved by [place] (February 11). Did not require a visit to Urgent Care. No prior joint replacements. No prior postoperative complications or delayed wound healing. Delayed emergence with anesthesia 30 years ago during hysterectomy. Patient expresses extreme anxiety regarding anesthesia for this procedure. [facility] Patient Care Team: Max Mercedes MD as PCP - General (Internal Medicine) Darrel Nieves NP as Referring Physician (Family Medicine) Андрей Edmondson MD as Referring Physician (Internal Medicine) Airline Flight Attendant: Darrel Paula NP [facility] Sugar Trucker: Андрей Edmondson MD ([place]) Dentist: November cleaning & x-rays. No bridges [...] Positive for apnea (Not using CPAP. Saw Sugar Trucker 01/31/2024) and shortness of breath (intermittent-per patient [...] nervous about it. Ankylosing spondylitis lumbar region ([facility]) Anxiety Arthritis CKD (chronic kidney disease) 2020 [...] nasal deformity or septal deviation. Mouth/Throat: Lips: [place]. Mouth: Mucous membranes are moist. No oral [...] RBBB, nonspecific ST-T abnormalities. Cardiac stress test: ([facility] 12/10/2018) Normal study. There is no [...] 02, [address] Taylor at the [facility]. Assessment & Plan Preoperative examination Cardiac Risk [...] index (BMI) of40.0 to 44.9 in adult ([facility]) Obesity Class 23(BMI 40-44.9). The [...] Some of this report was generated using [employer] dictation software. Although every attempt has been [...] (BMI) of 40.0 to 44.9 in adult ([facility]) documented in this encounter Discontinued Medications Medication Sig Discontinue Reason Start Date End Da te multivitamin with minerals liquid Take 30 mL by mouth 1 (one) time each day. Entered in Error 02/10/2024 documented as of this encounter Care Teams Print Press Operator Relationship Specialty Start Date End Date Max Mercedes MD [address] [place] [address] PCP - General Internal Medicine 01/08/24 documented as of this encounter
--- OUTSIDE RECORDS SUMMARY | 2024-03-12 10:10 | XMS_ITS | Data Portability ---
Author Organization [place] [facility] Jeronimo Huerta [facility] [place] Address [address] [place] [id number] Assessment Encounter Date Assessment Date Assessment LastModified [...] degrees. The knee is stable within that [id number] to AP and ML stress. The alignment [...] with right total knee arthroplasty using the [place] total knee replacement system. However, it is [...] right total knee replacement, robotic assisted, at [facility]. Not available 10/25/2023 15:38:41 11/04/2023 11/04/2023 HPI [...] total knee arthropla sty (SURG) 2023 024 [facility] [address], [place], [address], 5 15:56:31 Imaging XR, knee, 1 or 2 view 2023 024 [email or web address] [facility], [address], [place], [address], 4 15:44:57 Medication Orders None recorded. Patient TargetsNo targets recorded. Patient Instructions Encounter Date Encounter Id Patient Instructions Last Modified By Organization Details Last Modified Time 10/25/2023 [id number] Larson and patellar views of the bilateral knees taken today along with prior AP and lateral views, for the right knee show degenerative joint disease with joint space narrowing, osteophyte formation, and subchondral sclerosis. There is krdh-ua-qzlt articulation in the medial compartment. For the left knee demonstrate joint space narrowing, osteophyte formation, and subchondral sclerosis. There is eaxu-to-lfuy articulation in the medial compartment. Not available [...] Time Osteoarthri tis of right knee joint 1320141677839 00 Active 2023 Aneesh Taylor MD [address] [facility],[address], [place], [address], [place] [facility], [facility] 4 15:35:53 Arthritis of knee 222470746 Active 2023 Aneesh Taylor MD [address] [facility], [place], [place], [address], [place] [facility], [facility] 4 15:36:00 Degeneratio n of lumbar interverteb ral disc 31667727 Active 2023 AC WOO PA-C [address], [place], [address], [place] [facility], [facility] 4 15:36:32 Low back pain 477878720 Active 2023 AC WOO PA-C [address], [place], [address], [place] [facility], [facility] 4 15:36:43 Chronic low back pain 263297089 Active 2023 AC WOO PA-C [address], [place], [address], [place] [facility], P 4 16:02:05 Lumbar spondylosis 010075241 Active [address], [place], [address], [place] [facility], [facility] 4 16:02:11 Problem Notes None recorded. Procedures Surgical History Date Name Laterality Status Provider Name and Address Organization Details Recorded Time 02/18/19 03 cholecystectomy completed Rema Mack [facility] 10/25/2023 15:46:59 02/18/19 02 hysterectomy completed Rema Mack [facility] 10/25/2023 15:47:13 02/18/18 57 Appendectomy completed Remacarola Mack [facility] - [facility] 10/25/2023 15:46:42 Imaging Results Imaging Date [...] Name and Address Organization Details Recorded Time 69067 heparin medicatio n Not available Not available Not available 10/25/[address] [facility], [place] [facility], [facility] 4 15:48:10 71371 Vaccine product containin g only Clostridi um tetani antigen (medicina l product) medicatio n Not available Not available Not available 10/25/2023 76692 [address] [facility], [place] [facility] 4 15:48:30 Medications Name Sig Start [...] Address Organization Details Last Updated DateTime 10/25/2023 662005.94 g Elaina Conde [facility] 10/25/2023 15:06:54 Date Recorded Body weight Provider Name an d Address Organization Details Last Updated DateTime 11/04/2023 363418.94 g Hanane [facility] 11/04/2023 15:26:00 Date Recorded Body mass index (BMI) Body height Provider Name and Address Organization Details Last Updated DateTime 11/04/2023 43.6 kg/m2 167.64 cm AC WOO PA-C [address], [place], [address], [facility] 11/04/2023 16:04:58 Social History Question Answer Notes LastModified by Organizat ion Details LastModified Time Tobacco Smoking Status Former Smoker Rema Mack null, [facility] 10/25/2023 15:56:25 What Is Your Level Of Alcohol Consumption? None [email or web address] Information not available 10/25/2023 When Did You Quit Smoking? 18+yearssin celastcigar ette 25 Yrs Ago [email or web address] Information not available 10/25/2023 How Much Tobacco Do You Smoke? 1 PPD [email or web address] Information not available 10/25/2023 How Many Years Have You Smoked Tobacco? 30 [email or web address] Information not available 10/25/2023 Do You Or Have You Ever Used Any Other Forms Of Tobacco Or Nicotine? No [email or web address] Information not available 10/25/2023 Sex: Unknown Functional Status None recorded. Mental Status None recorded. Family History Nothing Reported. Medical History Condition Response Hypertension Y Hypothyroidism Y Gynecological HistoryNo gynecological history recorded. Obstetrics History GPAL:G 0 P 0 0 0 0 Past Encounters Encounter ID Performer Location Encounter Start Date Encounter Closed Date Diagnosis/Indication Diagnosis SNOMED-CT Code Diagnosis ICD10 Code Diagnosis Note [id number] MD ARABELLA Baltazar [facility] [address] [facility] [address] [place] [address] 10/25/2023 14:53:34 10/25/2023 15:44:57 Pain of right knee region 5692466559 70224 M25.561 Osteoarthr itis of right knee joint 7326630237 52987 M17.11 Arthritis of knee 492022 002 M13.869 [id number] MD ARABELLA Newsome [place] [address] [facility] [address] [place] [address] 11/04/2023 14:54:10 11/04/2023 16:36:24 Low back pain 475289322 M54.50 Chronic low back pain 27 6890476 M54.50 G89.29 Lumbar spondylosis [address]11 0009 M47.816 Body mass index 40+ - severely obese 946698953 Z68.41 Health Concerns Section Related Observation LastModified by Organization Detai ls LastModified Time None Recorded Concern Status LastModified by Organization Details LastModified Time None Recorded Advance Directives Directive None Recorded Payers Encounter Date Sequence Insurance Name Policy Number Policy Villarreal Covered Member ID Villarreal Member ID Guarantor Name 10/25/2023 1 [place]: [employer] Alessia Wolfgala [id number] Alessia Wolfgala 10/25/2023 2 WPS - FOR LIFE (MEDICARE SUPPLEMENT) Alessia Mozgala [id number] Alessia Mozgala 11/04/2023 2 WPS - FOR LIFE (MEDICARE SUPPLEMENT) Alessia Lucianogala [id number] Alessia [facility] 11/04/2023 1 MEDICARE B-[place]: [facility] Alessiashanna Decker [id number] Alessia Decker OBGyn Episode No OBEpisode recorded.
--- OUTSIDE RECORDS SUMMARY | 2024-03-12 10:11 | XMS_ITS | Clinical Summary ---
Author Organization [facility], Address [address] [place] [address] [place] [address] Phone Care Team Providers Care Critical Care Transport Nurse Name Role Phone Max Mercedes MD Primary Care Provider Allergies Active Allergy Reactions Criticality Noted Date [...] age to complete this topic Insurance MEDICARE [facility] Care Teams Critical Care Transport Nurse Relationship Specialty Start Date End Date Max Mercedes MD 1959 [place], [place] [phone] PCP - General Internal Medicine 12/23/19
== END 2024-03-12 09:53 | disposition home or self-care (01) ==
LOC: HO.HMCC 09:12
PROVIDERS: PCP Internal Medicine; Visit Provider Internal Medicine
DX: R10.9 Unspecified abdominal pain (principal)

== ENCOUNTER 2024-05-22 14:06 | Outpatient (AMB) | payer MEDICARE, OTHER, SELFPAY ==
[2024-05-22 14:12] VITALS: BP 128/76; PULSE 68; O2SAT 97; BMI 35.3
--- NOTE | 2024-05-22 14:12 | MHC.PC.OV ---
Vital Signs 05/22/24 14:12 Height 5 ft 2 in Weight 193 lb 2 oz BMI 35.3 BP 128/76 Blood Pressure Location Rt brachial Position Sitting Pulse 68 Pulse Source Pulse Oximeter Pulse Oximetry (%) 97 Oxygen Delivery Method Room Air Intake Visit Reasons: 4M F/U Allergies heparin [HEPARIN] Allergy (Unknown, Verified 05/22/24 14:14) ITCH Tetanus Vaccines and Toxoid [TETANUS VACCINES AND TOXOID] Allergy (Unknown, Verified 05/22/24 14:14) SWELLING SOB Medication List - Last Reconciled 05/22/24 by Max Mercedes MD atenolol 25 mg PO DAILY dupilumab (Dupixent) mg subcut Q8W levothyroxine (Levoxyl) 125 mcg PO QAM lisinopril 40 mg PO DAILY meclizine (Antivert) 25 mg PO TID PRN 15 days [Non-childproof prescription bottles Please send all existing and future medications in bottles that are not childproof and without safety locking tops.] rosuvastatin 5 mg PO BEDTIME sertraline 100 mg PO DAILY 90 days Tobacco use date assessed: 05/22/24 Fall risk assessment: No Falls in past year Last assessed Fall Risk: 05/22/24 Dental Screening Dental Screen Date: 05/22/24 Did you have a dental visit in the last 12 months?: No Did you have a dental problem in the last 6 months where you did not have access to dental care?: No Was dental information given to patient?: Patient declined HPI 4M F/U HPI Details History - The patient is a 73-year-old female presenting with a follow-up visit to review lab results and discuss medication management. - Notable for recent basal cell carcinoma excision on the forehead. - Dyspnea on exertion assessed by cardiology as due to deconditioning. Attempting to improve fitness levels through limited exercise, hindered by knee osteoarthritis and postponed knee replacement surgery. Plans to reschedule the procedure for June. - Anxiety issues managed with sertraline but seeking evaluation for efficacy, contact with psychiatry scheduled. - Laboratory evaluations from February highlighted normal electrolytes with improving kidney function. Efforts to hydrate noted as beneficial. LDL cholesterol has risen but remains under medication threshold. - Experiences eczema, treated with intermittent Dupixent injections. - blood pressure is stable - continue levothyroxine and lipid medication Problem List - Basal Cell Carcinoma (post-surgical removal) - Dyspnea on Exertion - Osteoarthritis leading to Knee Replacement (postponed) - Anxiety Disorder - Chronic Kidney Disease (improved function as of February) - Eczema - Dyslipidemia with increased LDL - hypertension - hypothyroidism Patient Instructions - Schedule and complete blood tests as ordered. - Continue hydrating adequately. - Avoid the use of NSAIDs such as ibuprofen, naproxen, and Aleve. Use Tylenol as needed for pain relief. - Continue regular exercise, consider swimming or recommended alternative forms of exercise to improve cardiovascular health. - Attend upcoming psychiatrist appointment to assess the appropriateness of sertraline. - Consider rescheduling knee replacement surgery, coordinating with the orthopedic surgeon. - Monitor for any new or worsening symptoms and follow up as advised. Review of Systems - General: No fever no chills - Neurological: No headaches no dizziness - Ear nose throat: No sore throat no hearing difficulty no ear pain - Cardiovascular: No syncope, no chest pain, no palpitations - Gastrointestinal: No nausea vomiting or diarrhea - Endocrine: No polyuria polydipsia no heat intolerance - Genitourinary: No dysuria , no blood in urine Physical Exam General: No acute distress HEENT: No acute findings Neck: Supple Respiratory system: Short of breath Cardiovascular: S1-S2 regular in rate and rhythm Gastrointestinal: No pain Extremities: No new findings SALES SUPPORT ADVISOR: Alert awake oriented x3 motor sensory intact Skin: Normal turgor, basal cell removed from forehead PFSH Medical History Other specified hypothyroidism Ex-smoker Small airways disease Hypertension, essential Nephropathy Surgical History H/O oophorectomy Hx of cholecystectomy History of appendectomy History of hysterectomy Family History Father HTN (hypertension) Lung cancer Myocardial infarction Mother HTN (hypertension) Brother No problems noted. Social History Housing: House Patient Tobacco Use Status: Former Tobacco user Years Smoked: 30 yrs e-Cigarette/Vaping Use: Never Used Advance Directives Date on File: 12/02/19 service: Yes (retired) Current occupational status: retired Current occupational exposures/hazards: No Cognitive needs: No Hearing needs: No Vision needs: No Questionnaire PHQ-9 Over the last 2 weeks, how often have you been bothered by any of the following problems? 80561 - PHQ-9 Billing: Patient declined-do not bill Source: Developed by Drs. Erik Jara, Kinjal Shipman, Addy Rodgers and colleagues, with an educational elva from [employer]. Thrive Questionnaire Date Thrive assessed: 05/22/24 I am a: Patient What is your living situation today?: I have a steady place to live Within the past 12 months, did the food you bought not last and you didn't have the money to get more?: Never true Within the past 12 months, did you worry whether your food would run out before you got money to buy more?: Never true Do you have trouble paying for medicines?: No Do you have trouble getting transportation to medical appointments?: No Do you have trouble paying your heating and electricity bill?: No Do you have trouble taking care of your child, family member or friend?: No Do you have trouble with day-to-day activities such as bathing, preparing meals, shopping, managing finances, etc.?: No Are you currently unemployed and looking for a job?: No Are you interested in more education?: No Please select the resources that you would like help with: None Currently or been in a relationship where the following occur: No concerns reported THRIVE Score: 0 AUDIT C Alcohol Use Questionnaire (AUDIT-C) 1. How often do you have a drink containing alcohol?: Never 3. How often do you have six or more drinks on one occasion?: Never Total Score: 0 Score Reviewed/Action Taken: Yes TALON-7 AMB Questionnaire TALON-7 Date TALON - 7 assessed: 05/22/24 Feeling nervous, anxious, or on edge: 0 = Not at all Not being able to stop or control worryin = Not at all Worrying too much about different things: 0 = Not at all Trouble relaxin = Not at all Being so restless that it is hard to sit still: 0 = Not at all Becoming easily annoyed or irritable: 0 = Not at all Feeling afraid as if something awful might happen: 0 = Not at all Total TALON-7 score (0-4 normal; 5-9 mild; 10-14 moderate; 15-21 severe): 0 Source: Developed by Drs. Erik Jara, Kinjal Shipman, Addy Rodgers and colleagues, with an educational elva from [employer]. TALON-7 Assessment Billing TALON-7 Assessment Tool: TALNO-7 Assessment 71075 Physical exam (Primary Care) Vital Signs: Last Vital Signs Pulse 68 05/22/24 14:12 BP 128/76 05/22/24 14:12 Pulse Ox 97 05/22/24 14:12 Oxygen Delivery Method Room Air 05/22/24 14:12 BMI result Body Mass Index 35.3 Tobacco/Smoking Status: Tobacco use Status Tobacco use date assessed 05/22/24 05/22/24 14:14 Patient Tobacco Use Status Former Tobacco user 05/22/24 14:14 e-Cigarette/Vaping Use Never Used 05/22/24 14:14 Thrive Assessment: Date of Thrive Assessment Date Thrive assessed 05/22/24 05/22/24 14:14 Currently or been in a relationship where the following occur: No concerns reported Coding Level of Care Code Est Pt Level 4 (90048) Complex EM visit Add On G2211 Diagnoses Hypertension, essential I10 Shortness of breath R06.02 Impaired fasting blood sugar R73.01 Nephropathy N28.9 Recurrent major depressive disorder, in full remission F33.42 Active/Remission status: in full remission Other specified hypothyroidism E03.8 Class 2 severe obesity due to excess calories with serious comorbidity and body mass index (BMI) of 35.0 to 35.9 in adult E66.812; E66.01; Z68.35 Obesity classification: adult class 2 (BMI 35 - 39.9) Serious obesity comorbidity presence: with serious comorbidity Body mass index: BMI 35.0-35.9 Lipid disorder E78.9 Environmental allergies Z91.09 Additional Codes TALON-7 Assessment Billing - TALON-7 Assessment Tool: TALON-7 Assessment 94906 ([id number]) Assessment & Plan Assessment & Plan (1) Hypertension, essential: Code(s): I10 - Essential (primary) hypertension Category: Medical (2) Shortness of breath: Code(s): R06.02 - Shortness of breath Category: Medical (3) Impaired fasting blood sugar: Code(s): R73.01 - Impaired fasting glucose Category: Medical (4) Nephropathy: Code(s): N28.9 - Disorder of kidney and ureter, unspecified Category: Medical (5) Major depression, recurrent: Code(s): F33.9 - Major depressive disorder, recurrent, unspecified Category: Medical Qualifiers: Active/Remission status: in full remission Qualified Code(s): F33.42 - Major depressive disorder, recurrent, in full remission (6) Other specified hypothyroidism: Code(s): E03.8 - Other specified hypothyroidism Category: Medical (7) Obesity due to excess calories: Code(s): E66.09 - Other obesity due to excess calories Category: Medical Qualifiers: Obesity classification: adult class 2 (BMI 35 - 39.9) Serious obesity comorbidity presence: with serious comorbidity Body mass index: BMI 35.0-35.9 Qualified Code(s): E66.812 - Obesity, class 2; E66.01 - Morbid (severe) obesity due to excess calories; Z68.35 - Body mass index [BMI] 35.0-35.9, adult (8) Lipid disorder: Code(s): E78.9 - Disorder of lipoprotein metabolism, unspecified Category: Medical (9) Environmental allergies: Code(s): Z91.09 - Other allergy status, other than to drugs and biological substances Category: Medical Plan History - The patient is a 73-year-old female presenting with a follow-up visit to review lab results and discuss medication management. - Notable for recent basal cell carcinoma excision on the forehead. - Dyspnea on exertion assessed by cardiology as due to deconditioning. Attempting to improve fitness levels through limited exercise, hindered by knee osteoarthritis and postponed knee replacement surgery. Plans to reschedule the procedure for June. - Anxiety issues managed with sertraline but seeking evaluation for efficacy, contact with psychiatry scheduled. - Laboratory evaluations from February highlighted normal electrolytes with improving kidney function. Efforts to hydrate noted as beneficial. LDL cholesterol has risen but remains under medication threshold. - Experiences eczema, treated with intermittent Dupixent injections. - blood pressure is stable - continue levothyroxine and lipid medication Problem List - Basal Cell Carcinoma (post-surgical removal) - Dyspnea on Exertion - Osteoarthritis leading to Knee Replacement (postponed) - Anxiety Disorder - Chronic Kidney Disease (improved function as of February labs) - Eczema - Dyslipidemia with increased LDL - hypertension - hypothyroidism Patient Instructions - Schedule and complete blood tests as ordered. - Continue hydrating adequately. - Avoid the use of NSAIDs such as ibuprofen, naproxen, and Aleve. Use Tylenol as needed for pain relief. - Continue regular exercise, consider swimming or recommended alternative forms of exercise to improve cardiovascular health. - Attend upcoming psychiatrist appointment to assess the appropriateness of sertraline. - Consider rescheduling knee replacement surgery, coordinating with the orthopedic surgeon. - Monitor for any new or worsening symptoms and follow up as advised. Orders: Orders Comprehensive Met. Panel Today E03.8 - Other specified hypothyroidism, F33.42 - Major depressive disorder, recurrent, in full remission, I10 - Essential (primary) hypertension, N28.9 - Disorder of kidney and ureter, unspecified, R06.02 - Shortness of breath, R73.01 - Impaired fasting glucose
--- OUTSIDE RECORDS SUMMARY | 2024-05-22 15:49 | XMS_ITS | Clinical Summary ---
Author Organization [facility] Address [address] [place] [address] Care Team Providers Care Adjunct Faculty For Medical Terminology Name Role Phone Max Mercedes MD Primary Care Provider [phone] Medications No known medications Active Problems No [...] age to complete this topic Care Teams Adjunct Faculty For Medical Terminology Relationship Specialty Start Date End Date Max Mercedes MD 1959 [facility] [place] [phone] PCP - General Internal Medicine 08/13/23
--- OUTSIDE RECORDS SUMMARY | 2024-05-22 15:49 | XMS_ITS | Clinical Summary ---
Author Organization [facility], Address [address] [place] [address] [place] [address] Phone Care Team Providers Care Mounter Hand Name Role Phone Max Mercedes MD Primary Care Provider [phone] Allergies Active Allergy Reactions Criticality Noted Date [...] age to complete this topic Insurance MEDICARE [facility] Care Teams Mounter Hand Relationship Specialty Start Date End Date Max Mercedes MD 1959 [place], [place] [id number] PCP - General Internal Medicine 12/23/19
--- OUTSIDE RECORDS SUMMARY | 2024-05-22 15:50 | XMS_ITS | Data Portability ---
Author Organization [place] [facility] Jeronimo [facility]erta [place] Address [address] [place] [id number] Assessment Encounter Date Assessment Date Assessment LastModified by Organization Details LastModified Time 10/25/2023 10/25/2023 HPI : ?Thank you for the pleasure of requesting a [...] degrees. The knee is stable within that [id number] to AP and ML stress. The alignment [...] with right total knee arthroplasty using the [place] total knee replacement system. However, it is [...] right total knee replacement, robotic assisted, at [facility]. Not available 10/25/2023 15:38:41 11/04/2023 11/04/2023 HPI [...] back pain without radiculop athy 2023 024 [email or web address] Not available 16:36:24 Procedures None recorded. Surgeries total knee arthropla sty (SURG) 2023 024 [email or web address] [facility], [address], [place], [address], 5 15:56:31 Imaging XR, knee, 1 or 2 view 2023 024 [email or web address] [facility], [address], [place], [address], 4 15:44:57 Medication Orders None recorded. Patient TargetsNo targets recorded. Patient InstructionsNo instructions [...] Time Osteoarthri tis of right knee joint [id number] 00 Active 2023 Aneesh Taylor MD [address] [facility],[address], [place], [place], [address], [place] [facility] 4 15:35:53 Arthritis of knee 739247787 Active 2023 Aneesh Taylor MD [address] [facility] [address], [place], [address], [place] [facility] 4 15:36:00 Degeneratio n of lumbar interverteb ral disc 73421183 Active 2023 AC WOO PA-C [address], [place], [address], [place] [facility] 4 15:36:32 Low back pain 674953779 Active 2023 AC WOO PA-C [address], [place], [address], [place] [facility] 4 15:36:43 Chronic low back pain 053797700 Active 2023 AC WOO PA-C [address], [place], [address], [place] [facility] 4 16:02:05 Lumbar spondylosis 649489944 Active 2023 AC WOO PA-C [address], [place], [address], [place] [facility] 4 16:02:11 Problem Notes None recorded. Procedures Surgical History Date Name Laterality Status Provider Name and Address Organization Details Recorded Time 02/18/19 03 cholecystectomy completed Rema Mack [facility] - [facility] 10/25/2023 15:46:59 02/18/19 02 hysterectomy completed Rema Mack [facility] - [facility] 10/25/2023 15:47:13 02/18/18 57 Appendectomy completed Rema Mack [facility] - [facility] 10/25/2023 15:46:42 Imaging Results Imaging Date Name Status [facility]Modified by [facility] Details LastModified Time 10/31/2023 imaging/diagn ostic result completed nadir Information not available 10/31/2023 09:17:08 11/04/2023 imaging/diagn ostic result completed [email or web address] Information not available 11/04/2023 15:00:33 02/03/2024 CT, knee, w/o contrast completed Information not available 02/04/2024 06:51:26 02/03/2024 CT, knee, w/o contrast completed Information not available 02/04/2024 06:51:26 Procedure Notes None recorded. Medical Equipment None Reported. Allergies Allergen ID Allergen Name Allergen Category Reaction Reaction Severity Criticality Documentation Date Start Date Code Code System Note Provider Name and Address Organization Details Recorded Time 05975 heparin medicatio n Not available Not available Not available 10/25/2023 5224 RxNorm Rema Mack null, [place] [facility] 4 15:48:10 87159 Vaccine product containin g only Clostridi um tetani antigen (medicina l product) medicatio n Not available Not available Not available 10/25/2023 27550 2002 SNOMED Rema cifuentes, [place] [facility] 4 15:48:30 Medications Name Sig Start [...] Address Organization Details Last Updated DateTime 10/25/2023 747889.94 g Elaina Balderascarola [facility] 10/25/2023 15:06:54 Date Recorded Body weight Provider Name an d Address Organization Details Last Updated DateTime 11/04/[address] [facility], P 11/04/2023 15:26:00 Date Recorded Body mass index (BMI) Body height Provider Name and Address Organization Details Last Updated DateTime 11/04/2023 43.6 kg/m2 167.64 cm AC WOO PA-C [address], [place], [address], [facility], P 11/04/2023 16:04:58 Social History Question Answer Notes LastModified by Organizat ion Details LastModified Time Tobacco Smoking Status Former Smoker Rema cifuentes, [facility], P 10/25/2023 15:56:25 What Is Your Level Of Alcohol Consumption? None [email or web address] Information not available 10/25/2023 When Did You Quit Smoking? 18+yearssin celastcigar ette 25 Yrs Ago [email or web address] Information not available 10/25/2023 How Much Tobacco Do You Smoke? 1 PPD [email or web address] Information not available 10/25/2023 How Many Years Have You Smoked Tobacco? 30 [email or web address] Information not available 10/25/2023 Do You Or Have You Ever Used Any Other Forms Of Tobacco Or Nicotine? No [email or web address] Information not available 10/25/2023 Sex: Unknown Functional Status None recorded. Mental Status None recorded. Family History Nothing Reported. Medical History Condition Response Hypertension Y Hypothyroidism Y Gynecological HistoryNo gynecological history recorded. Obstetrics History GPAL:G 0 P 0 0 0 0 Past Encounters Encounter ID Performer Location Encounter Start Date Encounter Closed Date Diagnosis/Indication Diagnosis SNOMED-CT Code Diagnosis ICD10 Code Diagnosis Note [id number] MD ARABELLA Baltazar [facility] [address] [facility] [address] [place] [id number] 10/25/2023 14:53:34 10/25/2023 15:44:57 Pain of right knee region 7142120595 98527 M25.561 Osteoarthr itis of right knee joint 6544990790 88676 M17.11 Arthritis of knee 051607 002 M13.869 [id number] Franklyn Moffett MD [facility] [address] [facility] [address] [place] [address] 11/04/2023 14:54:10 11/04/2023 16:36:24 Low back pain 054814677 M54.50 Chronic low back pain 27 7754263 M54.50 G89.29 Lumbar spondylosis 47946 0009 M47.816 Body mass index 40+ - severely obese 374939706 Z68.41 Health Concerns Section Related Observation LastModified by Organization Detai ls LastModified Time None Recorded Concern Status LastModified by Organization Details LastModified Time None Recorded Advance Directives Directive None Recorded Payers Encounter Date Sequence Insurance Name Policy Number Policy Villarreal Covered Member ID Villarreal Member ID Guarantor Name 10/25/2023 1 [place]ICARE [place]: [employer] Alessia Mozgala [id number] Alessia Mozgala 10/25/2023 2 WPS - FOR LIFE (MEDICARE SUPPLEMENT) Alessia Mozgala [id number] Alessia Mozgala 11/04/2023 2 WPS - FOR LIFE (MEDICARE SUPPLEMENT) Alessia Mozgala [id number] Alessia Mozgala 11/04/2023 1 [place]ICARE B-[place]: N[place] Alessia Mozgala [id number] Alessia Mozgala OBGyn Episode No OBEpisode recorded.
--- OUTSIDE RECORDS SUMMARY | 2024-05-22 15:50 | XMS_ITS | Clinical Summary ---
Author Organization [facility] Address [address] [place] [address] Phone Care Team Providers Care Director Wholesale Name Role Phone Max Mercedes MD Primary Care Provider Allergies Active Allergy Reactions Criticality Noted Date Comments Heparin Shortness of breath,Swelling High 01/09/2024 Other Medium 01/09/2024 ENVIRONMENTAL-MULES, CATS TREES,WEEDS,GRASS,MO LD, MICE Tetanus Vaccines And Toxoid Medium 01/09/2024 Swelling at site;high fevers and chills Medications atenoloL (TENORMIN) 25 mg tablet Take by mouth 1 (one) time each day. Active levothyroxine (SYNTHROID, LEVOTHROID) 125 mcg tablet Take by mouth 1 (one) time each day before breakfast. Active lisinopril (PRINIVIL,ZESTR IL) 40 mg tablet Take 1 tablet (40 mg total) by mouth 1 (one) time each day. Active rosuvastatin (CRESTOR) 5 mg tablet Take 1 tablet (5 mg total) by mouth 1 (one) time each day. Active sertraline (ZOLOFT) 100 mg tablet Take by mouth 1 (one) time each day. Active MULTIVITAMIN ORAL Take by mouth. Activ e UNABLE TO FIND Take 1 tablet by mouth 1 (one) time each day. Med Name: VEGGIE AND FRUITS balance of Nature Active acetaminophen (TYLENOL) 500 mg tabletIndicatio ns:arthritic pain Take 1 tablet (500 mg total) by mouth every 6 (six) hours if needed for mild pain (using infrequently). Active Dupixent Pen 300 mg/2 mL pen Inject 2 mL (300 mg total) under the skin every 14 (fourteen) days. Patient takes for eczema on hands every 2 months last dose Active diclofenac (VOLTAREN) 1 % topical gelIndications: osteoarthritis of the knee Apply 2 g topically [...] surgery and is very nervous about it. Surgical History Surgery Date Site/Laterality Comments APPENDECTOMY [...] not recall. Ankylosing spondylitis lumba r region ([facility]/HCC) Family History Medical History Relation Name Comments Autoimmune disease Brother ANCA Arthritis Father Petty Decker CHF Cancer Father Petty Decker CHF Heart disease Father Petty Decker CHF Heart failure Father Petty Decker CHF Lung cancer Father Petty Decker CHF Rheum arthritis Father Petty Decker CHF Anesthesia problems Mother Nicky Decker Arthritis Mother Nicky Decker Cancer Mother Nicky Decker Hypertension Mother Nicky Decker Liver cancer Mother Nicky Decker Osteoarthritis Mother Nicky Decker Relation Name Status Comments Brother Alive Father Petty Decker CHF Mother Nicky Decker Social History Tobacco Use Types Packs/Day Years Used Date Smoking Tobacco: Former Cigarettes 1 30 0 07/19/1964 - 07/19/1994 Smokeless Tobacco: Never Tobacco Cessation:Counseling Given: Not Answered Alcohol Use Standard Drinks/Week Comments Not Currently 0 (1 standard drink = 0.6 oz pur e alcohol) rarely Comments No Sex and Gender Information Value Date Recorded Sex Assigned at Not on file Legal Sex Female 6:28 AM EST Gender Identity Not on file Sexual Orientation Not on file Obstetrics History Last Filed [...] DTaP,Tdap,and Td Vaccines (1 - Tdap) 06/27/1971 Pneumococcal Vaccine: 50+ Years (1 of 1 - PCV) 2002 Zoster Vaccines (1 of 2) 2002 RSV Immunization Adult Patients (1 - Risk 60-74 years 1-dose series) 2012 Influenza Vaccine (#1) 2023 Cholesterol Screening (Lipid [...] patient's age to complete this topic Meningococcal B Vacine Aged Out No lo nger eligible based on patient's age to complete this topic RSV Immunization Patients Under 20 months Aged Out No longer eligible b ased on patient's age to complete this topic Varicella Vaccines Aged Out No longer eligible based on patient's age to complete this topic Procedures Procedure Name Priority Date/Time Associated Diagnosis Comments COMPREHENSIVE METABOLIC PANEL Routine 02/17/2024 10:51 AM EST Preoperative examination Primary osteoarthritis of left knee Primary hypertension Hyperlipidemia, unspecified hyperlipidemia type Hypothyroidism, unspecified type Stage 1 chronic kidney disease Depression, unspecified depression type Obstructive sleep apnea syndrome from Last 3 Months or Most Recently Relevant to Health Maintenance Results * (ABNORMAL) Comprehensive metabolic panel (02/17/2024 10:51 AM EST) Sodium 144 135 - 145 mmol/L LAB CHEMISTRY METHOD 02/17/2024 4:10 PM [facility] Potassium 4.5 3.5 - 5.1 mmol/L LAB CHEMISTRY METHOD 02/17/2024 4:10 PM [facility] Chloride 105 98 - 107 mmol/L LAB CHEMISTRY METHOD 02/17/2024 4:10 PM [facility] CO2 28 24 - 32 mmol/L LAB CHEMISTRY METHOD 02/17/2024 4:10 PM [facility] Anion Gap 11 5 - 14 LAB CHEMISTRY METHOD 02/17/2024 4:10 PM [facility] Glucose 102(H) 70 - 99 mg/dL LAB CHEMISTRY METHOD 02/17/2024 4:10 PM [facility] BUN 18(H) 7 - 17 mg/dL LAB CHEMISTRY METHOD 02/17/2024 4:10 PM [facility] Creatinine 1.00 0.50 - 1.00 mg/dL LAB CHEMISTRY METHOD 02/17/2024 4:10 PM [facility] eGFR 60 >=60 mL/min/1. 73m2 LAB CHEMISTRY METHOD 02/17/2024 4:10 PM [facility] Comment:Calculation based on the??Chronic Kidney Disease Epidemiology Collaboration (CKD-EPI) equation refit??without adjustment for race. BUN/Creatinine Ratio 18.0 12.0 - 20.0 LAB CHEMISTRY METHOD 02/17/2024 4:10 PM [facility] Calcium 8.7 8.4 - 10.2 mg/dL LAB CHEMISTRY METHOD 02/17/2024 4:10 PM [facility] AST (SGOT) 28 5 - 40 unit/L LAB CHEMISTRY METHOD 02/17/2024 4:10 PM [facility] ALT (SGPT) 23 7 - 52 unit/L LAB CHEMISTRY METHOD 02/17/2024 4:10 PM [facility] Alkaline Phosphatase 97 34 - 104 unit/L LAB CHEMISTRY METHOD 02/17/2024 4:10 PM EST [facility] Total Protein 6.4 6.4 - 8.5 g/dL LAB CHEMISTRY METHOD 02/17/2024 4:10 PM EST [facility] Albumin 4.3 3.5 - 5.0 g/dL LAB CHEMISTRY METHOD 02/17/2024 4:10 PM EST [facility] Total Bilirubin 1.2(H) 0.3 - 1.0 mg/dL LAB CHEMISTRY METHOD 02/17/2024 4:10 PM EST [facility] Blood Venous blood specimen / Unknown Venipuncture / Unknown 02/17/2024 10:51 AM EST 02/17/2024 3:41 PM EST [facility] RODRIGE[facility] LAB BLOOD ORDERABLES Final Result [facility] [address] [place] [address], from Last 3 Months or Most Recently Relevant to Health Maintenance Insurance MEDICARE [facility] Care Teams Director Wholesale Relationship Specialty Start Date End Date Max Mercedes MD [address] [place] [address] PCP - General Internal Medicine 01/08/24
== END 2024-05-22 14:29 | disposition home or self-care (01) ==
LOC: HO.HMCC 14:07
PROVIDERS: PCP Internal Medicine; Visit Provider Internal Medicine
DX: I10 Essential (primary) hypertension (principal); R06.02 Shortness of breath; R73.01 Impaired fasting glucose; N28.9 Disorder of kidney and ureter, unspecified; F33.42 Major depressive disorder, recurrent, in full remission; E03.8 Other specified hypothyroidism; E66.812 Obesity, class 2; E66.01 Morbid (severe) obesity due to excess calories; Z68.35 Body mass index [BMI] 35.0-35.9, adult; E78.9 Disorder of lipoprotein metabolism, unspecified; Z91.09 Other allergy status, other than to drugs and biological substances

== ENCOUNTER 2024-05-22 14:06 | Outpatient (REF) | payer MEDICARE, OTHER, SELFPAY ==
[2024-05-22 16:43] LABS: Alanine Aminotransferase 36 U/L (0-31); Albumin Level 4.4 g/dL (3.5-5.0); Alkaline Phosphatase 98 U/L (39-117); Anion Gap 11 (12-20); Aspartate Amino Transferase 29 U/L (5-31); Bilirubin Total 0.8 mg/dL (0.0-1.0); Blood Urea Nitrogen 16 mg/dL (9-16); Carbon Dioxide 28 mmol/L (22-29); Chloride 110 mmol/L (96-108); Estimated Glomerular Filt Rate 53; Glucose Random 100 mg/dL (60-115); Potassium 5.1 mmol/L (3.3-5.1); Sodium 144 mmol/L (135-145); Total Protein 7.4 g/dL (6.5-8.0)
== END 2024-05-22 14:07 | disposition home or self-care (01) ==
LOC: HO.HMGCLDS 14:06
PROVIDERS: PCP Internal Medicine; Visit Provider Internal Medicine
DX: I12.9 Hypertensive chronic kidney disease with stage 1 through stage 4 chronic kidney disease, or unspecified chronic kidney disease (principal); N18.9 Chronic kidney disease, unspecified; C44.319 Basal cell carcinoma of skin of other parts of face; R06.02 Shortness of breath; R73.01 Impaired fasting glucose; F33.42 Major depressive disorder, recurrent, in full remission; E03.8 Other specified hypothyroidism; E66.09 Other obesity due to excess calories; Z68.35 Body mass index [BMI] 35.0-35.9, adult; E78.9 Disorder of lipoprotein metabolism, unspecified; Z91.09 Other allergy status, other than to drugs and biological substances; Z79.899 Other long term (current) drug therapy
CPT/HCPCS: 36415; 80053; 96127; 99212

== ENCOUNTER 2024-07-28 09:33 | Outpatient (REF) | payer MEDICARE, OTHER, SELFPAY ==
--- NOTE | ~2024-07-28 | XR_ITS ---
EXAMINATION: XR CHEST 2 VIEWS HISTORY: J44.9 - Chronic obstructive pulmonary disease, unspecified COMPARISON: Comparison is made with the prior examination dated 05/24/2022. FINDINGS: PA and lateral views of the chest are submitted. The lungs are expanded and clear. There is no pleural effusion, pneumothorax, or pulmonary vascular congestion. The heart is normal in size. There is degenerative disc disease of the spine. XR/XR chest 2V IMPRESSION: No acute cardiopulmonary abnormality. Electronically signed by: Erik Washington MD 07/28/2024 10:26 AM EDT
== END 2024-07-28 09:34 | disposition home or self-care (01) ==
LOC: HO.HMGCX 09:33
PROVIDERS: PCP Internal Medicine; Visit Provider Internal Medicine
DX: R06.00 Dyspnea, unspecified (principal); J44.9 Chronic obstructive pulmonary disease, unspecified; J43.8 Other emphysema; Z87.891 Personal history of nicotine dependence; E66.01 Morbid (severe) obesity due to excess calories; I10 Essential (primary) hypertension; E03.8 Other specified hypothyroidism
CPT/HCPCS: 71046; 99212

== ENCOUNTER 2024-07-28 09:33 | Outpatient (AMB) | payer MEDICARE, OTHER, SELFPAY ==
--- NOTE | 2024-07-28 09:36 | A.OFFPC_ITS ---
Vital Signs 07/28/24 09:39 Height 5 ft 2 in Weight 300 lb 6 oz BMI 54.9 BP 144/82 H Blood Pressure Location Rt brachial Position Sitting Respiration 18 Pulse 70 Pulse Source Pulse Oximeter Pulse Oximetry (%) 93 Oxygen Delivery Method Room Air Intake Visit Reasons: Shortness of breath Allergies heparin [HEPARIN] Allergy (Unknown, Verified 07/28/24 09:39) ITCH Tetanus Vaccines and Toxoid [TETANUS VACCINES AND TOXOID] Allergy (Unknown, Verified 07/28/24 09:39) SWELLING SOB Medication List - Last Reconciled 07/28/24 by Max Mercedes MD atenolol 25 mg PO DAILY dupilumab (Dupixent) mg subcut Q8W levothyroxine (Levoxyl) 125 mcg PO QAM lisinopril 40 mg PO DAILY [Non-childproof prescription bottles Please send all existing and future medications in bottles that are not childproof and without safety locking tops.] rosuvastatin 5 mg PO BEDTIME sertraline 100 mg PO DAILY 90 days Tobacco use date assessed: 07/28/24 Fall risk assessment: No Falls in past year Last assessed Fall Risk: 07/28/24 Dental Screening Dental Screen Date: 07/28/24 Did you have a dental visit in the last 12 months?: No Did you have a dental problem in the last 6 months where you did not have access to dental care?: No Was dental information given to patient?: Patient declined HPI Shortness of Breath (pulm) History of Present Illness Associated symptoms Denies cough, chest congestion or chest pain Pulmonary Results: No Data to Display HPI Comments History of Present Illness Details Patient is a 74-year-old female came in today to talk about dyspnea She has been having this symptoms for a while Lately they are getting worse she tells me I do see that she has seen industrial relations specialist Dr. Phelps January of last year Note reviewed Note states that patient have mild COPD and sleep apnea However she is not able tolerate CPAP machine at night Has a history of more than 30 years smoking, quit 20 years ago She is taking no inhalers currently But tells me that she has tried inhalers in the past and they did not help her I have also noticed that she has gained 30 lb since January We talked about the weight gain and worsening dyspnea She tells me that she has already seen numerous dietitians in her life and she does not need to see 1 again Because of dyspnea she is not able to exercise We talked about the calorie intake and reducing calories to assist in weight lost Plan: I am ordering pulmonary function test with the patient Chest x-ray ordered as well She is to return after pulmonary function test for follow-up [facility] Medical History Other specified hypothyroidism Ex-smoker Small airways disease Hypertension, essential Nephropathy Surgical History H/O oophorectomy Hx of cholecystectomy History of appendectomy History of hysterectomy Family History Father HTN (hypertension) Lung cancer Myocardial infarction Mother HTN (hypertension) Brother No problems noted. Social History Housing: House Patient Tobacco Use Status: Former Tobacco user Years Smoked: 30 yrs e-Cigarette/Vaping Use: Never Used Advance Directives Date on File: 12/02/19 service: Yes (retired) Current occupational status: retired Current occupational exposures/hazards: No Cognitive needs: No Hearing needs: No Vision needs: No Questionnaire Thrive Questionnaire Date Thrive assessed: 07/28/24 I am a: Patient What is your living situation today?: I have a steady place to live Within the past 12 months, did the food you bought not last and you didn't have the money to get more?: Never true Within the past 12 months, did you worry whether your food would run out before you got money to buy more?: Never true Do you have trouble paying for medicines?: No Do you have trouble getting transportation to medical appointments?: No Do you have trouble paying your heating and electricity bill?: No Do you have trouble taking care of your child, family member or friend?: No Do you have trouble with day-to-day activities such as bathing, preparing meals, shopping, managing finances, etc.?: No Are you currently unemployed and looking for a job?: No Are you interested in more education?: No Please select the resources that you would like help with: None Currently or been in a relationship where the following occur: No concerns reported THRIVE Score: 0 AUDIT C Alcohol Use Questionnaire (AUDIT-C) 1. How often do you have a drink containing alcohol?: Never 3. How often do you have six or more drinks on one occasion?: Never Total Score: 0 Score Reviewed/Action Taken: Yes TALON-7 AMB Questionnaire TALON-7 Date TALON - 7 assessed: 05/22/24 Source: Developed by Drs. Erik Jara, Kinjal Shipman, Addy Rodgers and colleagues, with an educational elva from [employer]. Review of Systems Const Denies chills and Denies fever(s) ENT Denies epistaxis and Denies nasal discharge Card Denies chest pain Resp Denies chest congestion, Denies cough and Denies hemoptysis GI Denies diarrhea and Denies nausea Skin/Breast Denies rash Neuro Reports no additional complaints Psych Reports no additional complaints Endo Reports no additional complaints Physical exam (Primary Care) Vital Signs: Last Vital Signs Pulse 70 07/28/24 09:39 Resp 18 07/28/24 09:39 BP 144/82 H 07/28/24 09:39 Pulse Ox 93 07/28/24 09:39 Oxygen Delivery Method Room Air 07/28/24 09:39 BMI result Body Mass Index 54.9 Tobacco/Smoking Status: Tobacco use Status Tobacco use date assessed 07/28/24 07/28/24 09:43 Patient Tobacco Use Status Former Tobacco user 07/28/24 09:37 e-Cigarette/Vaping Use Never Used 07/28/24 09:37 Thrive Assessment: Date of Thrive Assessment Date Thrive assessed 07/28/24 07/28/24 09:43 Currently or been in a relationship where the following occur: No concerns reported Const General: cooperative, comfortable and no acute distress Orientation/consciousness: patient oriented x3 HENID Head: Yes normocephalic Eyes General: appearance normal, both eyes and all related structures Neck Neck: Yes supple Resp Effort & Inspection: normal respiratory effort, no cough and no stridor Cardio Rhythm: regular rhythm Heart sounds: S1 normal heart sound present and S2 normal heart sound present Skin General skin exam: turgor normal Neuro General: patient oriented x3, tone normal and moves all extremities Extrem Right lower extremity: no edema Left lower extremity: no edema Coding Level of Care Code Est Pt Level 4 (57406) Diagnoses Other emphysema J43.8 COPD type: emphysema Emphysema type: other Dyspnea on exertion R06.00 Ex-smoker Z87.891 Morbid obesity due to excess calories E66.01 Hypertension, essential I10 Other specified hypothyroidism E03.8 Assessment & Plan Assessment & Plan (1) COPD (chronic obstructive pulmonary disease): Code(s): J44.9 - Chronic obstructive pulmonary disease, unspecified Category: Medical Qualifiers: COPD type: emphysema Emphysema type: other Qualified Code(s): J43.8 - Other emphysema (2) Dyspnea on exertion: Code(s): R06.00 - Dyspnea, unspecified Category: Medical (3) Ex-smoker: Code(s): Z87.891 - Personal history of nicotine dependence Category: Social Hx (4) Morbid obesity due to excess calories: Code(s): E66.01 - Morbid (severe) obesity due to excess calories Category: Medical (5) Hypertension, essential: Code(s): I10 - Essential (primary) hypertension Category: Medical (6) Other specified hypothyroidism: Code(s): E03.8 - Other specified hypothyroidism Category: Medical Plan Patient is a 74-year-old female came in today to talk about dyspnea She has been having this symptoms for a while Lately they are getting worse she tells me I do see that she has seen industrial relations specialist Dr. Phelps January of last year Note reviewed Note states that patient have mild COPD and sleep apnea However she is not able tolerate CPAP machine at night Has a history of more than 30 years smoking, quit 20 years ago She is taking no inhalers currently But tells me that she has tried inhalers in the past and they did not help her I have also noticed that she has gained 30 lb since January We talked about the weight gain and worsening dyspnea She tells me that she has already seen numerous dietitians in her life and she does not need to see 1 again Because of dyspnea she is not able to exercise We talked about the calorie intake and reducing calories to assist in weight lost Her blood pressure is elevated, patient tells me that she has not taken her medications as yet Hypothyroidism: Patient is taking medication for that Last time TSH checked was February of this year which was within normal limit Plan: I am ordering pulmonary function test with the patient Chest x-ray ordered as well She is to return after pulmonary function test for follow-up Orders: Orders XR chest 2V Today J44.9 - Chronic obstructive pulmonary disease, unspecified, R06.00 - Dyspnea, unspecified PFT pulmonary function test Today J44.9 - Chronic obstructive pulmonary disease, unspecified, R06.00 - Dyspnea, unspecified, Z87.891 - Personal history of nicotine dependence
[2024-07-28 09:39] VITALS: BP 144/82; PULSE 70; RESP 18; O2SAT 93; BMI 54.9
--- OUTSIDE RECORDS SUMMARY | 2024-07-28 10:34 | XMS_ITS | Clinical Summary ---
Author Organization [facility], Address [address] [place] [address] [place] [address] Phone Care Team Providers Care Executive Sous Chef Name Role Phone Max Mercedes MD Primary [...] Comments Breast Cancer Screening 1950 Pneumococcal Vaccine: 50+ Ye ars (1 of 2 - PCV) 06/27/1971 Colorectal Cancer Screening: Annual FOBT 2001 Colorectal Cancer Screening: Colonoscopy 2001 Colorectal Cancer Screening: Sigmoidoscopy 2001 Influenza Vaccine (Season Ended) 2024 Hepatitis B Vaccine Aged Out No longe r eligible based on patient's age to complete this topic Insurance Medicare [facility] Care Teams Executive Sous Chef Relationship Specialty Start Date End Date Max Mercedes MD [address] [place] [address] [phone] PCP - General Internal Medicine 12/23/19
== END 2024-07-28 10:53 | disposition home or self-care (01) ==
LOC: HO.HMCC 09:34
PROVIDERS: PCP Internal Medicine; Visit Provider Internal Medicine
DX: J43.8 Other emphysema (principal); E66.01 Morbid (severe) obesity due to excess calories; Z68.43 Body mass index [BMI] 50.0-59.9, adult; R06.00 Dyspnea, unspecified; Z87.891 Personal history of nicotine dependence; I10 Essential (primary) hypertension; E03.8 Other specified hypothyroidism

== ENCOUNTER → 2024-07-28 09:58 | Outpatient (BNV) | payer MEDICARE, OTHER, SELFPAY | PROVIDERS: PCP Internal Medicine; Visit Provider Radiology Diagnostic Radiology | DX: J44.9 Chronic obstructive pulmonary disease, unspecified (principal) | CPT/HCPCS: 71046 ==

== ENCOUNTER 2024-09-11 12:53 | Outpatient (REF) | payer MEDICARE, OTHER, SELFPAY ==
[2024-09-11 07:43] VITALS: PULSE 84; O2SAT 96
--- OUTSIDE RECORDS SUMMARY | 2024-09-11 12:55 | XMS_ITS | Clinical Summary ---
Author Organization [facility], Address [address] [place] [address] [place] [address] Phone Care Team Providers Care Architecture Internship Name Role Phone Max Mercedes MD Primary Care Provider [phone] Allergies Active Allergy Reactions Criticality Noted Date [...] Cancer Screening: Sigmoidoscopy 2001 Influenza Vaccine (#1) 2024 Hepatitis B Vaccine Aged Out No longe r eligible based on patient's age to complete this topic Insurance Medicare [facility] Care Teams Architecture Internship Relationship Specialty Start Date End Date Max Mercedes MD [address] [place] [address] [phone] PCP - General Internal Medicine 12/23/19
--- OUTSIDE RECORDS SUMMARY | 2024-09-11 12:55 | XMS_ITS | Encounter Summary ---
Author Organization [facility] Address [address] [facility] [address] [place] [address] Phone Care Team Providers Care Bowl Turner Name Role Phone Max Mercedes MD Primary Care Provider [phone] Reason for Referral * MRI/CAT Scan - Closed Specialty Diagnoses / Procedures Referred By Han serna Referred To Contact Radiology Diagnoses Chest pain Procedures NC Myocardial Perfusion Stress Single NC Myocardial Perfusion Exercise Multiple Erika Duong MD Phone: tel: fax: mailto:[email or web address] Referral ID Status Reason Start Date Expiration Date Visits Re quested Visits Authorized [id number] Closed 03/20/2018 03/20/2019 1 1 Encounter Details Date Type Department Care Team (Late st Contact Info) Description 03/25/2018 Ancillary Orders [facility] [address] [place] [address] 3rd Floor, [address] [place] [address] Erika Duong MD [phone] [place] [address] [email or web address] Chest pain Social History Tobacco Use Types Packs/Day Years Used Date Smoking Tobacco: Never Assessed Comments Unknown Sex and Gender Information Value Date Recorded Sex Assigned at Not on file Legal Sex Female 2:46 PM EST Gender Identity Not on file Sexual Orientation Not on file documented as of this encounter Plan of Treatment Not on file documented as of this encounter Results * NC Myocardial Perfusion Stress Single (03/24/2018 2:28 PM EST) Nuc Stress EF 65 % LV Systolic Volume Index 29 mL/m2 LV Diastolic Volume Index 83 mL/m2 Anatomical Region Laterality Modality Heart Ultrasound Narrative 03/25/2018 4:04 PM EST Normal study. There is no evidence of myocardial infarction or ischemia. Normal LV size and function with no regional wall motion abnormalities. Very low likelihood of hemodynamically significant coronary artery disease. Low risk study for myocardial events or cardiac in the next two years. Nuclear Study Quality Overall image quality is good. TYPE OF STUDY: Myocardial Perfusion Imaging after exercise utilizing a standard Fred protocol with gated SPECT. PROTOCOL USED: One day stress protocol only in the supine and prone position. Images were obtained after 20 minutes in gated tomographic technique. Images were processed in SPECT format, reconstructed tomographically and compared [id number] in short axis, horizontal long axis and vertical long axis. DOSE: Technetium 99m Sestamibi 12.3 mCi injected intravenously during stress on 03/24/2018 with post injection scan time of 20 minutes. . Breast attenuation artifact is present. Perfusion Defect The lung to heart ratio is 0.36. Response to Stress Patient exercised for 4:15 minutes on a modified Fred protocol (held in stage I per patient request) achieving 5.1 METs and 88% MPHR (137 BPM). The test was terminated due to knee pain . SUMMARY: 1. RESTING ECG: Sinus rhythm with a R BBB 2. EXERCISE ECG: No ischemic ECG changes with exercise. 3. SYMPTOMS: No chest pain. 4. PHYSIOLOGY: Appropriate exercise physiology. Resting heart rate of bpm 87 mike to a max heart rate of 137 bpm, this represents 88% MPHR. Resting BP of 110/56 mike to a max BP of 192/72. Vital signs stable and returned to baseline prior to discharge from the lab. Achieved 5.1 METs consistent with fair functional capacity for age. 5. ARRHYTHMIA: Rare isolated PVC. CONCLUSION: Normal ECG portion of exercise stress test without ECG changes suggestive of ischemia and without symptoms concerning for angina. Appropriate exercise physiology. Fair functional capacity. Nuclear images and report to follow. See attached stress report for full details. Manuel Aguirre, YAAKOV . Stress Function Comments Post-stress ejection fraction was 65%. Stress end diastolic index: 83 mL/m2. Stress end systolic index: 29 mL/m2. Nuclear Prior Study There is no prior study available for comparison. Perfusion Scoring Stress Summed Score: 0 Percent Normal: 0.00% The left ventricular perfusion is normal. Procedure Note William Norris MD - 03/25/2018 Normal study. There is no evidence of myocardial infarction or ischemia. Normal LV size and function with no regional wall motion abnormalities. Very low likelihood of hemodynamically significant coronary arterydisease. Low risk study for myocardial events or cardiac in the next twoyears. Erika Duong MD CV NM CARDIAC Final Result documented in this encounter Visit Diagnoses Diagnosis Chest pain Unspecified chest pain Chest pain Unspecified chest pain documented in this encounter Care Teams Bowl Turner Relationship Specialty Start Date End Date Max Mercedes MD [facility] [place] [address] PCP - General Internal Medicine 03/20/18 documented as of this encounter Additional Source Comments The information contained in this document represents components of the legal health record. It is not the complete legal health record.[facility]
--- OUTSIDE RECORDS SUMMARY | 2024-09-11 12:55 | XMS_ITS ---
Author Name [facility] Organization Unknown Results Test Name/Text Value Interpretation Date Range Source Glucose SerPl-mCnc 102.0 mg/dL Above high normal 02/17/2024 70 - 99 [facility] Albumin SerPl-mCnc 4.3 g/dL Normal 02/17/2024 3.5 - 5 [facility] Potassium SerPl-sCnc 4.5 mmol/L Normal 02/17/2024 3.5 - 5 .1 [facility] Calcium SerPl-mCnc 8.7 mg/dL Normal 02/17/2024 8.4 - 10.2 [facility] BUN/Creat SerPl 18.0 Normal 02/17/2024 12 - 20 [facility] Creat SerPl-mCnc 1.0 mg/dL Normal 02/17/2024 0.5 - 1 CT [facility] BUN SerPl-mCnc 18.0 mg/dL Above high normal 02/17/2024 7 - 1 7 [facility] Prot SerPl-mCnc 6.4 g/dL Normal 02/17/2024 6.4 - 8.5 [facility] eGFRcr SerPlBld CKD-EPI 2020 60.0 mL/min/1.73m2 Normal 02/17/2024 - [facility] Anion Gap SerPl-sCnc 11.0 Normal 02/17/2024 5 - 14 [facility] Bilirub SerPl-mCnc 1.2 mg/dL Above high normal 02/17/2024 0. 3 - 1 [facility] ALT SerPl-cCnc 23.0 unit/L Normal 02/17/2024 7 - 52 [facility] ALP SerPl-cCnc 97.0 unit/L Normal 02/17/2024 34 - 104 [facility] AST SerPl-cCnc 28.0 unit/L Normal 02/17/2024 5 - 40 [facility] Sodium SerPl-sCnc 144.0 mmol/L Normal 02/17/2024 135 - 14 5 [facility] CO2 SerPl-sCnc 28.0 mmol/L Normal 02/17/2024 24 - 32 [facility] Chloride SerPl-sCnc 105.0 mmol/L Normal 02/17/2024 98 - 1 07 [facility] PMV Bld Auto 7.9 FL Normal 02/17/2024 7.4 - 11.4 [facility] Monocytes/leuk NFr Bld Auto 8.0 % Normal 02/17/2024 2 - 12 [facility] MCH RBC Qn Auto 30.5 pcg Normal 02/17/2024 25 - 33 [facility] Hct VFr Bld Auto 41.8 % Normal 02/17/2024 37 - 47 [facility] Neutrophils # Bld Auto 4.4 K/mcL Normal 02/17/2024 1.8 - 7.8 [facility] RDW RBC Auto-Rto 12.9 % Normal 02/17/2024 12.1 - 16.2 [facility] WBC # Bld Auto 6.5 K/mcL Normal 02/17/2024 4 - 10.5 [facility] Basophils/leuk NFr Bld Auto 1.0 % Normal 02/17/2024 0 - 2 [facility] Platelet # Bld Auto 215.0 K/mcL Normal 02/17/2024 150 - 4 50 [facility] Eosinophil/leuk NFr Bld Auto 2.1 % Normal 02/17/2024 0 - 6 [facility] Lymphocytes # Bld Auto 1.4 K/mcL Normal 02/17/2024 1 - 3.2 [facility] Basophils # Bld Auto 0.1 K/mcL Normal 02/17/2024 0 - 0.2 [facility] Lymphocytes/leuk NFr Bld Auto 22.1 % Normal 02/17/2024 20 - 48 [facility] Eosinophil # Bld Auto 0.1 K/mcL Normal 02/17/2024 0 - 0.5 [facility] Hgb Bld-mCnc 14.5 g/dL Normal 02/17/2024 12.5 - 16 [facility] MCHC RBC Auto-mCnc 34.7 g/dL Normal 02/17/2024 32 - 36 [facility] Monocytes # Bld Auto 0.5 K/mcL Normal 02/17/2024 0 - 0.8 [facility] Neutrophils/leuk NFr Bld Auto 66.8 % Normal 02/17/2024 44 - 74 [facility] MCV RBC Auto 87.9 FL Normal 02/17/2024 78 - 100 [facility] RBC # Bld Auto 4.75 M/mcL Normal 02/17/2024 4.2 - 5.4 [facility] eGFRcr SerPlBld CKD-EPI 2020 60.0 mL/min/1.73m2 Normal 01/13/2024 - [facility] AST SerPl-cCnc 22.0 unit/L Normal 01/13/2024 5 - 40 [facility] Bilirub SerPl-mCnc 1.2 mg/dL Above high normal 01/13/2024 0. 3 - 1 [facility] Glucose SerPl-mCnc 102.0 mg/dL Above high normal 01/13/2024 70 - 99 [facility] Creat SerPl-mCnc 1.0 mg/dL Normal 01/13/2024 0.5 - 1 [facility] Prot SerPl-mCnc 6.9 g/dL Normal 01/13/2024 6.4 - 8.5 [facility] CO2 SerPl-sCnc 29.0 mmol/L Normal 01/13/2024 24 - 32 [facility] Chloride SerPl-sCnc 106.0 mmol/L Normal 01/13/2024 98 - 1 07 [facility] BUN SerPl-mCnc 14.0 mg/dL Normal 01/13/2024 7 - 17 [facility] ALT SerPl-cCnc 20.0 unit/L Normal 01/13/2024 7 - 52 [facility] Potassium SerPl-sCnc 4.6 mmol/L Normal 01/13/2024 3.5 - 5 .1 [facility] Anion Gap SerPl-sCnc 8.0 Normal 01/13/2024 5 - 14 [facility] Calcium SerPl-mCnc 9.6 mg/dL Normal 01/13/2024 8.4 - 10.2 [facility] Sodium SerPl-sCnc 143.0 mmol/L Normal 01/13/2024 135 - 14 5 [facility] BUN/Creat SerPl 14.0 Normal 01/13/2024 12 - 20 [facility] ALP SerPl-cCnc 87.0 unit/L Normal 01/13/2024 34 - 104 CT [facility] Albumin SerPl-mCnc 4.3 g/dL Normal 01/13/2024 3.5 - 5 [facility] Prealb SerPl-mCnc 31.0 mg/dL Normal 01/13/2024 17 - 34 [facility] Platelet # Bld Auto 223.0 K/mcL Normal 01/13/2024 150 - 4 50 [facility] Basophils/leuk NFr Bld Auto 0.8 % Normal 01/13/2024 0 - 2 [facility] RBC # Bld Auto 4.83 M/mcL Normal 01/13/2024 4.2 - 5.4 [facility] Hct VFr Bld Auto 43.0 % Normal 01/13/2024 37 - 47 [facility] WBC # Bld Auto 5.9 K/mcL Normal 01/13/2024 4 - 10.5 [facility] Lymphocytes/leuk NFr Bld Auto 27.1 % Normal 01/13/2024 20 - 48 [facility] Lymphocytes # Bld Auto 1.6 K/mcL Normal 01/13/2024 1 - 3.2 [facility] Neutrophils/leuk NFr Bld Auto 62.0 % Normal 01/13/2024 44 - 74 [facility] Monocytes # Bld Auto 0.4 K/mcL Normal 01/13/2024 0 - 0.8 [facility] Basophils # Bld Auto 0.0 K/mcL Normal 01/13/2024 0 - 0.2 [facility] Monocytes/leuk NFr Bld Auto 7.6 % Normal 01/13/2024 2 - 12 [facility] MCV RBC Auto 89.2 FL Normal 01/13/2024 78 - 100 [facility] PMV Bld Auto 8.7 FL Normal 01/13/2024 7.4 - 11.4 [facility] RDW RBC Auto-Rto 13.6 % Normal 01/13/2024 12.1 - 16.2 [facility] Eosinophil/leuk NFr Bld Auto 2.5 % Normal 01/13/2024 0 - 6 [facility] Eosinophil # Bld Auto 0.1 K/mcL Normal 01/13/2024 0 - 0.5 [facility] Hgb Bld-mCnc 14.6 g/dL Normal 01/13/2024 12.5 - 16 [facility] MCH RBC Qn Auto 30.2 pcg Normal 01/13/2024 25 - 33 [facility] Neutrophils # Bld Auto 3.6 K/mcL Normal 01/13/2024 1.8 - 7.8 [facility] MCHC RBC Auto-mCnc 33.9 g/dL Normal 01/13/2024 32 - 36 [facility] History of Medication Use Medication Directions Dispensed Refills Start Date End Date Stat Dupixent 300 mg/2 mL subcutaneous pen injector INJECT 1 PEN UNDER THE SKIN EVERY OTHER WEEK 10/25/2023 completed atenolol 25 mg tablet TAKE 1 TABLET BY MOUTH DAILY active atenolol 25 mg tablet TAKE 1 TABLET BY MOUTH DAILY active levothyroxine 125 mcg tablet active rosuvastatin 5 mg tablet active acetaminophen (TYLENOL) 500 mg tablet Take by mouth every 6 (six) hours if needed for mild pain. active atenoloL (TENORMIN) 25 mg tablet Take by mouth 1 (one) time each day. active multivitamin with minerals liquid Take 30 mL by mouth 1 (one) time each day. active No known medications No known medications active sertraline (ZOLOFT) 100 mg tablet Take by mouth 1 (one) time each day. active Allergies Allergen Reaction Severity Comment Documented Date Source Statu s TETANUS VACCINES AND TOXOID Swelling at site;high fevers and chills 01/09/2024 [facility] active HEPARIN SWELLING [facility] OTHER ENVIRONMENTAL-M U LES,CATS TREES,WEEDS,GRAS S,MOLD, MICE [facility] Problems Problem Status Onset Date Problem Type Date of Resolution Source Depression with anxiety active EncounterDiagnosisAct [facility] Adverse effect of anesthesia active ProblemAct [facility] Primary osteoarthritis of right knee active EncounterDiagnosisAct [facility] Hypertension active ProblemAct [facility] CKD (chronic kidney disease) active 2020-02-19 ProblemAct [facility] Depression active ProblemAct [facility] Stage 1 chronic kidney disease active EncounterDiagnosisAct [facility] Hypothyroidism, unspecified type active EncounterDiagnosisAct CT [facility] Obstructive sleep apnea syndrome active EncounterDiagnosisAct [facility] Anxiety active ProblemAct [facility] Sleep apnea active ProblemAct [facility] Hyperlipidemia active ProblemAct [facility] Class 3 severe obesity due to excess calories with serious comorbidity and body mass index (BMI) of 40.0 to 44.9 in adult ([facility]) active EncounterDiagnosisAct [facility] Degeneration of lumbar intervertebral disc active 2023-11-[address] [address] Osteoarthritis of right knee joint active 2023-10-25 ProblemAct [facility] Chronic low back pain active 2023-11-04 ProblemAct [facility] Arthritis of knee active 2023-10-25 ProblemAct [facility] Lumbar spondylosis active 2023-11-04 ProblemAct [facility] Bilateral primary osteoarthritis of knee active EncounterDiagnosisAct [facility] Encounters Encounter Type Encounter Reason Primary Diagnosis Location Date Ambulatory Pre-op Exam Encounter for ot her preprocedural examination [facility] 02/17/2024 Ambulatory [facility] [place] 02/06/2024 Ambulatory Pre-op Exam Encounter for ot her preprocedural examination [facility] 01/13/2024 Ambulatory [facility] 11/05/2023 Ambulatory [facility] 11/04/2023 Ambulatory [facility] 11/04/2023 Ambulatory [facility] 10/28/2023 Ambulatory [facility] 10/28/2023 Ambulatory [facility] 10/25/2023 Ambulatory [facility] 10/25/2023 Ambulatory [facility] 10/22/2023 Ambulatory [facility] 10/04/2023 Ambulatory [facility] 10/04/2023 Ambulatory [facility] 08/13/2023 Ambulatory Pain in right knee Pain in right knee [facility] 08/13/2023 Care Team Organization Name Specialty Phone Email Start Date End Da te [facility] 01/16/2024 [facility] 01/13/2024 [place] [employer] [facility] 08/13/[address] [place] [facility] 08/13/2023 05/06/2024 [place] [facility] 08/05/2023
--- OUTSIDE RECORDS SUMMARY | 2024-09-11 12:55 | XMS_ITS | Clinical Summary ---
Author Organization [facility] Address [address] [place] [address] Care Team Providers Care Director Religious Education Name Role Phone Mxa Mercedes MD Primary Care Provider [phone] Medications No known medications Active Problems No known active problems Social History Tobacco Use Types Packs/Day Years Used Date Smoking Tobacco: Never Assessed Comments Unknown Sex and Gender Information Value Date Recorded Sex Assigned at Female 08/13/2023 10:41 AM EDT Legal Sex Female 1:41 PM EDT Gender Identity Female 08/13/2023 10:41 AM [...] Density (Females,Ag es 65 and older) 2017 COVID-19 Vaccine ( - 2023-2 5 season) 2023 Influenza Vaccine 09/18/2024 RSV Vaccine 60 years and old er and Patients (1 - 1-dose 75+ series) 06/27/2027 Hepatitis B Vaccines Aged Out No long er eligible based on patient's age to complete this topic Insurance MEDICARE PART A & [facility] Care Teams Director Religious Education Relationship Specialty Start Date End Date Max Mercedes MD [address] [place] [phone] PCP - General Internal Medicine 08/13/23
--- OUTSIDE RECORDS SUMMARY | 2024-09-11 12:55 | XMS_ITS | Clinical Summary ---
Author Organization [facility] Address [address] [place] [address] Phone Care Team Providers Care Retail Business Manager Name Role Phone Max Mercedes MD Primary Care Provider [phone] Allergies Active Allergy Reactions Criticality Noted Date [...] not recall. Ankylosing spondylitis lumba r region ([facility] V24, [facility] V28) Family History Medical History Relation Name Comments Autoimmune disease Brother ANCA Arthritis Father Petty Decker CHF Cancer Father Petty Broussarda CHF Heart disease Father Petty Broussarda CHF Heart failure Father Petty Broussarda CHF Lung cancer Father Petty Broussarda CHF Rheum arthritis Father Petty Decker CHF [...] 72 02/17/2024 11:50 AM EST Temperature 36.3 C (97.3 F) 02/17/2024 11:50 AM EST Respiratory Rate 18 02/17/2024 11:50 AM EST [...] Tdap) 06/27/1971 Zoster Vaccines (1 of 2) 06/27/1971 Pneumococcal Vaccine: 50+ Years (1 of 1 - PCV) 2002 RSV Immunization Adult Patients (1 - Risk 60-74 years 1-dose series) 2012 Cholesterol Screening (Lipid Panel) 12/31/2023 Colorectal Cancer Screening: Colonoscopy 12/31/2023 Falls Risk Assessment 12/31/2023 Hepatitis C Screening 12/31/2023 Medicare Annual Wellness Visit 12/31/2023 Osteoporosis Screening (Bone Density Screening) 12/31/2023 Social Influencers of Health Screening 12/31/2023 Depression Screening 02/19/2024 Influenza Vaccine (#1) 2024 Hypertension/CHF/CAD Annual BMP Blood Test 02/16/2025 02/17/2024, [...] age to complete this topic Meningococcal B Vaccine Aged Out No l onger eligible based on patient's age to complete [...] mmol/L LAB CHEMISTRY METHOD 02/17/2024 4:10 PM [facility] Potassium 4.5 3.5 - 5.1 mmol/L LAB CHEMISTRY METHOD 02/17/2024 4:10 PM [facility] Chloride 105 98 - 107 mmol/L LAB CHEMISTRY METHOD 02/17/2024 4:10 PM [facility] CO2 28 24 - 32 mmol/L LAB CHEMISTRY METHOD 02/17/2024 4:10 PM [facility] Anion Gap 11 5 - 14 LAB CHEMISTRY METHOD 02/17/2024 4:10 PM [facility] Glucose 102(H) 70 - 99 mg/dL LAB CHEMISTRY METHOD 02/17/2024 4:10 PM [facility] BUN 18(H) 7 - 17 mg/dL LAB CHEMISTRY METHOD 02/17/2024 4:10 PM [facility] Creatinine 1.00 0.50 - 1.00 mg/dL LAB CHEMISTRY METHOD 02/17/2024 4:10 PM [facility] eGFR 60 >=60 mL/min/1. 73m2 LAB CHEMISTRY METHOD 02/17/2024 4:10 PM [facility] Comment:Calculation based on the Chronic Kidney Disease Epidemiology Collaboration (CKD-EPI) equation refit without adjustment for race. BUN/Creatinine Ratio 18.0 12.0 - 20.0 LAB CHEMISTRY METHOD 02/17/2024 4:10 PM [facility] Calcium 8.7 8.4 - 10.2 mg/dL LAB CHEMISTRY METHOD 02/17/2024 4:10 PM [facility] AST (SGOT) 28 5 - 40 unit/L LAB CHEMISTRY METHOD 02/17/2024 4:10 PM [facility] ALT (SGPT) 23 7 - 52 unit/L LAB CHEMISTRY METHOD 02/17/2024 4:10 PM [facility] Alkaline Phosphatase 97 34 - 104 unit/L LAB CHEMISTRY METHOD 02/17/2024 4:10 PM EST [facility] Total Protein 6.4 6.4 - 8.5 g/dL LAB CHEMISTRY METHOD 02/17/2024 4:10 PM EST [facility] Albumin 4.3 3.5 - 5.0 g/dL LAB CHEMISTRY METHOD 02/17/2024 4:10 PM EST [facility] Total Bilirubin 1.2(H) 0.3 - 1.0 mg/dL LAB CHEMISTRY METHOD 02/17/2024 4:10 PM EST [facility] Blood Venous blood specimen / Unknown Venipuncture / Unknown 02/17/2024 10:51 AM EST 02/17/2024 3:41 PM EST [facility] BLOOD ORDERABLES Final Result [facility] [address] [place] [address], from Last 3 Months or Most Recently Relevant to Health Maintenance Insurance MEDICARE [facility] Care Teams Retail Business Manager Relationship Specialty Start Date End Date Max Mercedes MD [address] [place] [address] PCP - General Internal Medicine 01/08/24
--- OUTSIDE RECORDS SUMMARY | 2024-09-11 12:55 | XMS_ITS | Data Portability ---
Author Organization [place] [facility] Jeronimo Huerta AONE Viola Address [address] [place] [id number] Assessment Encounter Date Assessment Date Assessment LastModified by Organization Details LastModified Time 10/25/2023 10/25/2023 HPI : Thank you for the pleasure of requesting [...] degrees. The knee is stable within that [id number] to AP and ML stress. The alignment [...] with right total knee arthroplasty using the [place] total knee replacement system. However, it is [...] patient is a good candidate for surgical reconstruction. An in-depth discussion of the risks and [...] right total knee replacement, robotic assisted, at [facility]. Not available 10/25/2023 15:38:41 11/04/2023 11/04/2023 HPI [...] Normal tone in all 4 extremities. Negative Soler s bilaterally. Negative Clonus bilaterally. Skin: skin [...] back pain without radiculop athy 2023 024 [email or web address] Not available 16:36:24 Procedures None recorded. Surgeries total knee arthropla sty (SURG) 2023 024 [email or web address] [facility] At [facility], [address] [place] [address], [address], 5 15:56:31 Imaging XR, knee, 1 or 2 view 2023 024 [facility], [address], [place], [address], 4 15:44:57 Medication Orders None recorded. Patient [...] Time Osteoarthri tis of right knee joint [id number] 00 Active 2023 Aneesh Taylor MD [address], [place], [address], [place] [facility], [facility] 4 15:35:53 Arthritis of knee 190992563 Active 2023 Aneesh Taylor MD [address], [place], [address], [place] [facility], [facility] 4 15:36:00 Degeneratio n of lumbar interverteb ral disc 79104175 Active 2023 AC WOO PA-C [address], [place], [address], [place] [facility], [facility] 4 15:36:32 Low back pain 033665604 Active 2023 [place] WOO PA-C [address], [place], [address], [place] [facility], [facility] 4 15:36:43 Chronic low back pain 579859934 Active 2023 AC WOO PA-C [address], [place], [address], [place] [facility], [facility] 4 16:02:05 Lumbar spondylosis 078238438 Active 2023 AC WOO PA-C [address], [place], [address], [place] [facility], [facility] 4 16:02:11 Problem Notes None recorded. Procedures Surgical History Date Name Laterality Status Provider Name and Address Organization Details Recorded Time 02/18/19 03 cholecystectomy completed Rema Mack [facility] 10/25/2023 15:46:59 02/18/19 02 hysterectomy completed Rema Mack [facility] - [facility], [facility] 10/25/2023 15:47:13 02/18/18 57 Appendectomy completed Rema Mack [facility] - [facility], [facility] 10/25/2023 15:46:42 Imaging Results None recorded. Procedure Notes None recorded. Medical Equipment None Reported. Allergies Allergen ID Allergen Name Allergen Category Reaction Reaction Severity Criticality Documentation Date Start Date Code Code System Note Provider Name and Address Organization Details Recorded Time 83102 heparin medicatio n Not available Not available Not available 10/25/2023 5224 RxNorm Rema Mack null, [place] [facility], [facility] 4 15:48:10 89038 Vaccine product containin g only Clostridi um tetani antigen (medicina l product) medicatio n Not available Not available Not available 10/25/2023 83232 [address] [place] [facility], [facility] 15:48:30 Medications Name Sig Start Date [...] Address Organization Details Last Updated DateTime 10/25/[address] [place] [facility] 10/25/2023 15:06:54 Date Recorded Body mass index (BMI) Body height Provider Name and Address Organization Details Last Updated DateTime 11/04/2023 43.6 kg/m2 167.64 cm AC WOO PA-C [address], [place], [address], [place] [facility] 11/04/2023 16:04:58 Date Recorded Body weight Provider Name an d Address Organization Details Last Updated DateTime 11/04/[address] [place] [facility] 11/04/2023 15:26:00 Social History Question Answer Notes LastModified by Organizat ion Details LastModified Time Tobacco Smoking Status Former Smoker Rema Mack null, [place] [facility] 10/25/2023 15:56:25 When Did You Quit Smoking? 18+yearssin celastcigar ette 25 Yrs Ago [email or web address] Information not available 10/25/2023 How Much Tobacco Do You Smoke? 1 PPD [email or web address] Information not available 10/25/2023 How Many Years Have You Smoked Tobacco? 30 [email or web address] Information not available 10/25/2023 Sex: Unknown Functional Status Question Answer Note LastModified by Organization D etails LastModified Time Do you or have you ever used any other forms of tobacco or nicotine? No [email or web address] Information not available 10/25/2023 What is your level of alcohol consumption? None [email or web address] Information not available 10/25/2023 Mental Status None recorded. Family History Nothing Reported. Medical History Condition Response Hypertension Y Hypothyroidism Y Gynecological HistoryNo gynecological history recorded. Obstetrics History GPAL:G 0 P 0 0 0 0 Past Encounters Encounter ID Performer Location Encounter Start Date Encounter Closed Date Diagnosis/Indication Diagnosis SNOMED-CT Code Diagnosis ICD10 Code Diagnosis Note [id number] Aneesh Taylor MD [facility] [address] [place] [address] 10/25/2023 14:53:34 10/25/2023 15:44:57 Pain of right knee region 9815964849 46537 M25.561 Osteoarthr itis of right knee joint 0288176711 69913 M17.11 Arthritis of knee 410011 002 M13.869 [id number] CAROLE GAYLE [place] [address] [place] [address] 11/04/2023 14:54:10 11/04/2023 16:36:24 Low back pain 657569763 M54.50 Chronic low back pain 27 5562992 M54.50 G89.29 Lumbar spondylosis 97631 0009 M47.816 Body mass index 40+ - severely obese 106805980 Z68.41 Health Concerns Section Related Observation LastModified by Organization Detai ls LastModified Time None Recorded Concern Status LastModified by Organization Details LastModified Time None Recorded Advance Directives Directive None Recorded Payers Insurance Date Sequence Insurance Name Policy Number Policy Villarreal Covered Member ID Villarreal Member ID Guarantor Name 02/03/2024 2 FOR LIFE ( - MEDICARE SUPPLEMENT) Alessia Decker [id number] Alessia Decker 02/03/2024 1 MEDICARE B-CT: NGS Alessia Decker [id number] Alessia Decker OBGyn Episode No OBEpisode recorded.
--- NOTE | 2024-09-11 14:18 | PFT_ITS ---
Flows: FEV1: 102 % of predicted at 2.41 L FVC: 93 % of predicted at 2.87 L FEV1/FVC: 84 % Bronchodilator response: Present Volumes: Total lung capacity: 86 % of predicted at 4.71 L Residual volume: 70 % of predicted at 1.55 L Slow vital capacity: 99 % of predicted at 3.16 L Expiratory reserve volume: 0 % of predicted at 0 L Diffusion capacity: Normal Impression: No obstructive or restrictive ventilatory defect. Positive bronchodilator response. Decreased expiratory reserve volume suggests extrathoracic restriction likely secondary to abdominal obesity. MTDD
== END 2024-09-11 12:54 | disposition home or self-care (01) ==
LOC: HO.RESP 12:53
PROVIDERS: PCP Internal Medicine; Visit Provider Internal Medicine
DX: J44.9 Chronic obstructive pulmonary disease, unspecified (principal); R60.0 Localized edema; Z87.891 Personal history of nicotine dependence
CPT/HCPCS: 94010; 94640; 94727; 94729

== ENCOUNTER → 2024-09-11 14:18 | Outpatient (BNV) | payer MEDICARE, OTHER, SELFPAY | PROVIDERS: PCP Internal Medicine; Visit Provider Internal Medicine Pulmonary Disease | DX: J45.909 Unspecified asthma, uncomplicated (principal) | CPT/HCPCS: 94060; 94727; 94729 ==

== ENCOUNTER 2024-09-23 13:42 | Outpatient (REF) | payer MEDICARE, OTHER, SELFPAY ==
[2024-09-23 16:42] LABS: MANUAL DIFF FLAG NO
[2024-09-23 16:45] LABS: Hematocrit 47.6 % (37.0-47.0); Hemoglobin 15.8 g/dl (12.0-16.0); Imm Gran Abs Auto 0.02 X10*3/uL (0.00-0.03); Imm Gran Pct Auto 0.3 % (0.0-0.4); Lymphocytes Absolute Auto 1.9 X10*3/uL (1.2-4.9); Mean Corpuscular HGB Conc 33.2 g/dl (31.0-35.0); Mean Corpuscular Hemoglobin 28.9 pg (27.0-33.0); Mean Corpuscular Volume 87.2 fL (80.0-98.0); NRBC Abs Auto 0.000 X10*3/uL (0.0-0.012); NRBC Pct Auto 0.0 /100WBC (0.0-0.2); Platelet Count 284 X10*3/uL (160-400); Red Blood Count 5.46 X10*6/uL (4.20-5.50); White Blood Count 7.2 X10*3/uL (4.8-10.8)
[2024-09-23 17:12] LABS: Alanine Aminotransferase 40 U/L (0-31); Albumin Level 4.6 g/dL (3.5-5.0); Alkaline Phosphatase 103 U/L (39-117); Anion Gap 13 (12-20); Aspartate Amino Transferase 34 U/L (5-31); Blood Urea Nitrogen 13 mg/dL (9-16); Calcium 9.8 mg/dL (8.4-10.2); Carbon Dioxide 28 mmol/L (22-29); Chloride 110 mmol/L (96-108); Estimated Glomerular Filt Rate 53; Potassium 4.5 mmol/L (3.3-5.1); Sodium 146 mmol/L (135-145); Total Protein 7.7 g/dL (6.5-8.0); Uric Acid 6.5 mg/dL (2.4-5.7)
[2024-09-27 12:57] LABS: Vitamin D 25-OH, D2 <4 ng/mL; Vitamin D 25-OH, D3 28 ng/mL; Vitamin D 25-OH, Total 28 ng/mL (30-100)
== END 2024-09-23 13:43 | disposition home or self-care (01) ==
LOC: HO.HMGCLDS 13:42
PROVIDERS: PCP Internal Medicine; Visit Provider Internal Medicine
DX: R73.01 Impaired fasting glucose (principal); R06.02 Shortness of breath; F33.42 Major depressive disorder, recurrent, in full remission; E03.8 Other specified hypothyroidism; J45.20 Mild intermittent asthma, uncomplicated; I10 Essential (primary) hypertension; N28.9 Disorder of kidney and ureter, unspecified; K21.9 Gastro-esophageal reflux disease without esophagitis; E66.01 Morbid (severe) obesity due to excess calories; Z68.43 Body mass index [BMI] 50.0-59.9, adult; E78.9 Disorder of lipoprotein metabolism, unspecified; Z91.09 Other allergy status, other than to drugs and biological substances; Z87.891 Personal history of nicotine dependence
CPT/HCPCS: 36415; 80053; 82306; 84443; 84550; 85025; 99212

== ENCOUNTER 2024-09-23 13:42 | Outpatient (AMB) | payer MEDICARE, OTHER, SELFPAY ==
[2024-09-23 13:46] VITALS: BP 136/78; PULSE 73; O2SAT 97; BMI 52.3
--- NOTE | 2024-09-23 13:46 | A.OFFPC_ITS ---
Vital Signs 09/23/24 13:46 Height 5 ft 2 in Weight 286 lb BMI 52.3 BP 136/78 Blood Pressure Location Lt brachial Position Sitting Pulse 73 Pulse Source Pulse Oximeter Pulse Oximetry (%) 97 Intake Visit Reasons: 4M F/U Allergies heparin (HEPARIN) Allergy (Unknown, Verified 09/23/24 13:46) ITCH Tetanus Vaccines and Toxoid (TETANUS VACCINES AND TOXOID) Allergy (Unknown, Verified 09/23/24 13:46) SWELLING SOB Medication List - Last Reconciled 09/23/24 by Max Mercedes MD atenolol 25 mg PO DAILY dupilumab (Dupixent) mg subcut Q8W levothyroxine (Levoxyl) 125 mcg PO QAM lisinopril 40 mg PO DAILY [Non-childproof prescription bottles Please send all existing and future medications in bottles that are not childproof and without safety locking tops.] rosuvastatin 5 mg PO BEDTIME sertraline 100 mg PO DAILY 90 days Tobacco use date assessed: 07/28/24 Fall risk assessment: No Falls in past year Last assessed Fall Risk: 09/23/24 Dental Screening Dental Screen Date: 07/28/24 HPI 4M F/U HPI Details Long-term care follow-up Patient presents for management of hypertension, respiratory issues, and weight concerns. History The patient is a 74-year-old female presenting with follow-up for hypertension, COPD management, and weight management. Hypertension: - Reports being treated with atenolol an d lisinopril. - Home blood pressure monitoring is not consistently performed, but the last reading was high at 144/82. - Current reading at the clinic is 136/7 8. - Patient takes atenolol 25 mg. COPD: - History of diagnosis of COPD by a [facility] pulmonary physician, though recent pulmonary function test showed no emphysema or bronchial obstruction. - Improvement noted with bronchodilator use. - test shows restricted chest expansion possibly associated with excess weight. . Weight Management: - Reports significant weight gain over t he past year, reaching 300 lbs in July; currently weighs 286 lbs. - Discusses challenges with weight relat ed to past smoking habits. - Expresses concerns about weight impact on breathing and physical mobility; perceived increase in weight impacting pulmonary function. - Recently started respiratory exercises . Gout: - Period of gout-like symptoms reported several months ago with sore and purplish toes that resolved after approximately one and a half weeks. - Reports a persistent callus formation after the episode. Kidney Function: - Not previously seeing a vice president network development. By choice of patient - Reports a history of slightly impaired kidney function with fluctuating GFR values; last known creatinine and filtration rates noted as stable. Discussed with patient Medical History: - Hypertension - Chronic Obstructive Pulmonary Disease (COPD) - History of gout episodes - Slightly impaired renal function - Depression treated with sertraline Medications: - Atenolol 25 mg for hypertension - Lisinopril 40 mg for hypertension - Levothyroxine 125 mcg for thyroid func tion - Rosuvastatin 5 mg for hyperlipidemia - Sertraline 150 mg for depression Social History: - Reports past smoking habit and concern s about weight gain since cessation. - Engaged in recent weight loss and pulm onary maintenance activities. Problem List - Hypertension - restrictive lung disease secondary to obesity with positive bronchodilator response - Obesity - Gout - Impaired renal function [place] [facility] - Psych prescriber managing sertraline d shish[place]f ira. Recently increased to 150 mg, patient feeling better Patient Instructions - Increase fluid intake to avoid dehydra tion and monitor for changes in urine color. - Continue current medication regimen as prescribed. - Maintain regular physical activity foc using on pulmonary exercises. - Attend all scheduled laboratory tests for ongoing monitoring. - Follow a balanced diet and continue we ight management efforts. Review of Systems General: No fever no chills neurological: No headaches no dizziness ear nose throat: No sore throat no hearing difficulty no ear pain cardiovascular: No syncope, no chest pain, no palpitations gastrointestinal: No nausea vomiting or diarrhea endocrine: No polyuria polydipsia no heat intolerance genitourinary: No dysuria skin: No new complaints Physical Exam general: No acute distress HEENT: No acute findings neck: Supple respiratory system: Lungs are clear, no wheezing or other sounds cardiovascular: S1-S2 RRR gastrointestinal: No pain extremities: No swelling PROFESSIONAL SERVICES MANAGER: Alert awake oriented x3 motor sensory intact skin: Normal turgor PFSH Medical History Other specified hypothyroidism Ex-smoker Small airways disease Hypertension, essential Nephropathy Surgical History H/O oophorectomy Hx of cholecystectomy History of appendectomy History of hysterectomy Family History Father HTN (hypertension) Lung cancer Myocardial infarction Mother HTN (hypertension) Brother No problems noted. Social History Housing: House Patient Tobacco Use Status: Former Tobacco user Years Smoked: 30 yrs e-Cigarette/Vaping Use: Never Used Advance Directives Date on File: 12/02/19 service: Yes (retired) Current occupational status: retired Current occupational exposures/hazards: No Cognitive needs: No Hearing needs: No Vision needs: No Questionnaire Thrive Questionnaire Date Thrive assessed: 03/10/24 I am a: Patient What is your living situation today?: I have a steady place to live Within the past 12 months, did the food you bought not last and you didn't have the money to get more?: Never true Within the past 12 months, did you worry whether your food would run out before you got money to buy more?: Never true Do you have trouble paying for medicines?: No Do you have trouble getting transportation to medical appointments?: No Do you have trouble paying your heating and electricity bill?: No Do you have trouble taking care of your child, family member or friend?: No Do you have trouble with day-to-day activities such as bathing, preparing meals, shopping, managing finances, etc.?: No Are you currently unemployed and looking for a job?: No Are you interested in more education?: No Please select the resources that you would like help with: None Currently or been in a relationship where the following occur: No concerns re ported THRIVE Score: 0 TALON-7 AMB Questionnaire TALON-7 Date TALON - 7 assessed: 05/22/24 Source: Developed by Drs. Erik Jara, Kinjal Shipman, Addy Rodgers and colleagues, with an educational elva from [employer] Physical exam (Primary Care) Vital Signs: Last Vital Signs Pulse 73 09/23/24 13:46 BP 136/78 09/23/24 13:46 Pulse Ox 97 09/23/24 13:46 BMI result Body Mass Index 52.3 Tobacco/Smoking Status: Tobacco use Status Tobacco use date assessed 07/28/24 09/23/24 13:48 Patient Tobacco Use Status Former Tobacco user 09/23/24 13:48 e-Cigarette/Vaping Use Never Used 09/23/24 13:48 Thrive Assessment: Date of Thrive Assessment Date Thrive assessed 03/10/24 09/23/24 13:48 Currently or been in a relationship where the following occur: No concerns reported Coding Level of Care Code Est Pt Level 4 (55860) Complex EM visit Add On G2211 Diagnoses Mild intermittent extrinsic asthma without complication J45.20 Asthma severity: mild Asthma persistence: intermittent Asthma complication type: uncomplicated Nephropathy N28.9 Gastroesophageal reflux disease without esophagitis K21.9 Esophagitis presence: without esophagitis Morbid obesity due to excess calories E66.01 Other specified hypothyroidism E03.8 Impaired fasting blood sugar R73.01 Lipid disorder E78.9 Hypertension, essential I10 Recurrent major depressive disorder, in full remission F33.42 Active/Remission status: in full remission Environmental allergies Z91.09 Assessment & Plan Assessment & Plan (1) Allergic asthma: Code(s): J45.909 - Unspecified asthma, uncomplicated Category: Medical Qualifiers: Asthma severity: mild Asthma persistence: intermittent Asthma complication type: uncomplicated Qualified Code(s): J45.20 - Mild intermittent asthma, uncomplicated (2) Nephropathy: Code(s): N28.9 - Disorder of kidney and ureter, unspecified Category: Medical (3) GERD (gastroesophageal reflux disease): Code(s): K21.9 - Gastro-esophageal reflux disease without esophagitis Category: Medical Qualifiers: Esophagitis presence: without esophagitis Qualified Code(s): K21.9 - Gastro-esophageal reflux disease without esophagitis (4) Morbid obesity due to excess calories: Code(s): E66.01 - Morbid (severe) obesity due to excess calories Category: Medical (5) Other specified hypothyroidism: Code(s): E03.8 - Other specified hypothyroidism Category: Medical (6) Impaired fasting blood sugar: Code(s): R73.01 - Impaired fasting glucose Category: Medical (7) Lipid disorder: Code(s): E78.9 - Disorder of lipoprotein metabolism, unspecified Category: Medical (8) Hypertension, essential: Code(s): I10 - Essential (primary) hypertension Category: Medical (9) Major depression, recurrent: Code(s): F33.9 - Major depressive disorder, recurrent, unspecified Category: Medical Qualifiers: Active/Remission status: in full remission Qualified Code(s): F33.42 - Major depressive disorder, recurrent, in full remission (10) Environmental allergies: Code(s): Z91.09 - Other allergy status, other than to drugs and biological substances Category: Medical Plan Long-term care follow-up Patient presents for management of hypertension, respiratory issues, and weight concerns. History The patient is a 74-year-old female presenting with follow-up for hypertension, COPD management, and weight management. Hypertension: - Reports being treated with atenolol and lisinopril. - Home blood pressure monitoring is not consistently performed, but the last reading was high at 144/82. - Current reading at the clinic is 136/78. - Patient takes atenolol 25 mg. COPD: - History of diagnosis of COPD by a previous pulmonary physician, though recent pulmonary function test showed no emphysema or bronchial obstruction. - Improvement noted with bronchodilator use. - test shows restricted chest expansion possibly associated with excess weight. . Weight Management: - Reports significant weight gain over the past year, reaching 300 lbs in July; currently weighs 286 lbs. - Discusses challenges with weight related to past smoking habits. - Expresses concerns about weight impact on breathing and physical mobility; perceived increase in weight impacting pulmonary function. - Recently started respiratory exercises. Gout: - Period of gout-like symptoms reported several months ago with sore and purplish toes that resolved after approximately one and a half weeks. - Reports a persistent callus formation after the episode. Kidney Function: - Not previously seeing a vice president network development. By choice of patient - Reports a history of slightly impaired kidney function with fluctuating GFR values; last known creatinine and filtration rates noted as stable. Discussed with patient Medical History: - Hypertension - Chronic Obstructive Pulmonary Disease (COPD) - History of gout episodes - Slightly impaired renal function - Depression treated with sertraline Medications: - Atenolol 25 mg for hypertension - Lisinopril 40 mg for hypertension - Levothyroxine 125 mcg for thyroid function - Rosuvastatin 5 mg for hyperlipidemia - Sertraline 150 mg for depression Social History: - Reports past smoking habit and concerns about weight gain since cessation. - Engaged in recent weight loss and pulmonary maintenance activities. Problem List - Hypertension - restrictive lung disease secondary to obesity with positive bronchodilator response - Obesity - Gout - Impaired renal function [place] [facility] - Psych prescriber managing sertraline dosage. Recently increased to 150 mg, patient feeling better Patient Instructions - Increase fluid intake to avoid dehydration and monitor for changes in urine color. - Continue current medication regimen as prescribed. - Maintain regular physical activity focusing on pulmonary exercises. - Attend all scheduled laboratory tests for ongoing monitoring. - Follow a balanced diet and continue weight management efforts. Orders: Orders Complete Blood Count Auto Diff Today E03.8 - Other specified hypothyroidism, E66.01 - Morbid (severe) obesity due to excess calories, E78.9 - Disorder of lipoprotein metabolism, unspecified, F33.42 - Major depressive disorder, recurrent, in full remission, I10 - Essential (primary) hypertension, J45.909 - Unspecified asthma, uncomplicated, K21.9 - Gastro-esophageal reflux disease without esophagitis, N28.9 - Disorder of kidney and ureter, unspecified, R73.01 - Impaired fasting glucose, Z91.09 - Other allergy status, other than to drugs and biological substances Uric Acid Today E03.8 - Other specified hypothyroidism, E66.01 - Morbid (severe) obesity due to excess calories, E78.9 - Disorder of lipoprotein metabolism, unspecified, F33.42 - Major depressive disorder, recurrent, in full remission, I10 - Essential (primary) hypertension, J45.909 - Unspecified asthma, uncomplicated, K21.9 - Gastro-esophageal reflux disease without esophagitis, N28.9 - Disorder of kidney and ureter, unspecified, R73.01 - Impaired fasting glucose, Z91.09 - Other allergy status, other than to drugs and biological substances Vitamin D 25-OH (D2 and D3) Today E03.8 - Other specified hypothyroidism, E66.01 - Morbid (severe) obesity due to excess calories, E78.9 - Disorder of lipoprotein metabolism, unspecified, F33.42 - Major depressive disorder, recurrent, in full remission, I10 - Essential (primary) hypertension, J45.909 - Unspecified asthma, uncomplicated, K21.9 - Gastro-esophageal reflux disease without esophagitis, N28.9 - Disorder of kidney and ureter, unspecified, R73.01 - Impaired fasting glucose, Z91.09 - Other allergy status, other than to drugs and biological substances Comprehensive Met. Panel Today E03.8 - Other specified hypothyroidism, E66.01 - Morbid (severe) obesity due to excess calories, E78.9 - Disorder of lipoprotein metabolism, unspecified, F33.42 - Major depressive disorder, recurrent, in full remission, I10 - Essential (primary) hypertension, J45.909 - Unspecified asthma, uncomplicated, K21.9 - Gastro-esophageal reflux disease without esophagitis, N28.9 - Disorder of kidney and ureter, unspecified, R73.01 - Impaired fasting glucose, Z91.09 - Other allergy status, other than to drugs and biological substances TSH reflex Free T4 Today E03.8 - Other specified hypothyroidism, E66.01 - Morbid (severe) obesity due to excess calories, E78.9 - Disorder of lipoprotein metabolism, unspecified, F33.42 - Major depressive disorder, recurrent, in full remission, I10 - Essential (primary) hypertension, J45.909 - Unspecified asthma, uncomplicated, K21.9 - Gastro-esophageal reflux disease without esophagitis, N28.9 - Disorder of kidney and ureter, unspecified, R73.01 - Impaired fasting glucose, Z91.09 - Other allergy status, other than to drugs and biological substances UA CC w/rflx Micro + Cult Today E03.8 - Other specified hypothyroidism, E66.01 - Morbid (severe) obesity due to excess calories, E78.9 - Disorder of lipopr otein metabolism, unspecified, F33.42 - Major depressive disorder, recurrent, in full remission, I10 - Essential (primary) hypertension, J45.909 - Unspecified asthma, uncomplicated, K21.9 - Gastro-esophageal reflux disease without esophagitis, N28.9 - Disorder of kidney and ureter, unspecified, R73.01 - Impaired fasting glucose, Z91.09 - Other allergy status, other than to drugs and biological substances
--- OUTSIDE RECORDS SUMMARY | 2024-09-23 14:10 | XMS_ITS | Clinical Summary ---
Author Organization [facility] Address [address] [place] [address] Phone Care Team Providers Care Bank Messenger Name Role Phone Max Mercedes MD Primary Care Provider [phone] Allergies Active Allergy Reactions Criticality Noted Date [...] not recall. Ankylosing spondylitis lumba r region ([facility] V24, [facility] V28) Family History Medical History Relation Name [...] CHEMISTRY METHOD 02/17/2024 4:10 PM [facility] Potassium 4.5 3.5 - 5.1 mmol/L LAB CHEMISTRY METHOD 02/17/2024 4:10 PM [facility] Chloride 105 98 - 107 mmol/L LAB CHEMISTRY METHOD 02/17/2024 4:10 PM [facility] CO2 28 24 - 32 mmol/L LAB CHEMISTRY METHOD 02/17/2024 4:10 PM [facility] Anion Gap 11 5 - 14 LAB CHEMISTRY METHOD 02/17/2024 4:10 PM [facility] Glucose 102(H) 70 - 99 mg/dL LAB CHEMISTRY METHOD 02/17/2024 4:10 PM [facility] BUN 18(H) 7 - 17 mg/dL LAB CHEMISTRY METHOD 02/17/2024 4:10 PM [facility] Creatinine 1.00 0.50 - 1.00 mg/dL LAB CHEMISTRY METHOD 02/17/2024 4:10 PM [facility] eGFR 60 >=60 mL/min/1. 73m2 LAB CHEMISTRY METHOD 02/17/2024 4:10 PM [facility] Comment:Calculation based on the Chronic Kidney Disease Epidemiology Collaboration (CKD-EPI) equation refit without adjustment for race. BUN/Creatinine Ratio 18.0 12.0 - 20.0 LAB CHEMISTRY METHOD 02/17/2024 4:10 PM [facility] Calcium 8.7 8.4 - 10.2 mg/dL LAB CHEMISTRY METHOD 02/17/2024 4:10 PM [facility] AST (SGOT) 28 5 - 40 unit/L LAB CHEMISTRY METHOD 02/17/2024 4:10 PM [facility] ALT (SGPT) 23 7 - 52 unit/L LAB CHEMISTRY METHOD 02/17/2024 4:10 PM [facility] Alkaline Phosphatase 97 34 - 104 unit/L LAB CHEMISTRY METHOD 02/17/2024 4:10 PM EST [facility] Total Protein 6.4 6.4 - 8.5 g/dL LAB CHEMISTRY METHOD 02/17/2024 4:10 PM EST [facility] Albumin 4.3 3.5 - 5.0 g/dL LAB CHEMISTRY METHOD 02/17/2024 4:10 PM EST [facility] Total Bilirubin 1.2(H) 0.3 - 1.0 mg/dL LAB CHEMISTRY METHOD 02/17/2024 4:10 PM EST [facility] Blood Venous blood specimen / Unknown Venipuncture / Unknown 02/17/2024 10:51 AM EST 02/17/2024 3:41 PM EST [facility] LAB BLOOD ORDERABLES Final Result [facility] [address] [place] [address], from Last 3 Months or Most Recently Relevant to Health Maintenance Insurance MEDICARE [facility] Care Teams Bank Messenger Relationship Specialty Start Date End Date Max Mercedes MD [address] [place] [address] PCP - General Internal Medicine 01/08/24
--- OUTSIDE RECORDS SUMMARY | 2024-09-23 14:10 | XMS_ITS | Encounter Summary ---
Author Organization [facility] Address [address] [facility] [address] [place] [address] Phone Care Team Providers Care Keyboard Specialist Name Role Phone Max Mercedes MD Primary Care Provider [phone] Reason for Referral * MRI/CAT Scan - Closed Specialty Diagnoses / Procedures Referred By Han serna Referred To Contact Radiology Diagnoses Chest pain Procedures NC Myocardial Perfusion Stress Single NC Myocardial Perfusion Exercise Multiple Erika Duong MD Phone: tel: fax: mailto:[email or web address] Referral ID Status Reason Start Date Expiration Date Visits Re quested Visits Authorized [id number] Closed 03/20/2018 03/20/2019 1 1 Encounter Details Date Type Department Care Team (Late st Contact Info) Description 03/25/2018 Ancillary Orders [facility] [address] [place] [address] 3rd Floor, [address] [place] [address] Erika Duong MD [id number] [place] [address] [email or web address] Chest pain Social History Tobacco Use Types [...] in SPECT format, reconstructed tomographically and compared [id number] in short axis, horizontal long axis and [...] represents 88% MPHR. Resting BP of 110/56 miek to a max BP of 192/72. Vital [...] pain documented in this encounter Care Teams Keyboard Specialist Relationship Specialty Start Date End Date Max Mercedes MD [facility] [place] [address] PCP - General Internal Medicine 03/20/18 documented as of this encounter Additional Source Comments The information contained in this document represents components of the legal health record. It is not the complete legal health record.[facility]
--- OUTSIDE RECORDS SUMMARY | 2024-09-23 14:10 | XMS_ITS | Clinical Summary ---
Author Organization [facility], Address [address] [place] [address] [place] [address] Phone Care Team Providers Care Hyperion Developer Name Role Phone Max Mercedes MD Primary Care Provider [phone] Allergies Active Allergy Reactions Criticality Noted Date [...] age to complete this topic Insurance Medicare [facility] Care Teams Hyperion Developer Relationship Specialty Start Date End Date Max Mercedes MD [address] [place] [phone] PCP - General Internal Medicine 12/23/19
--- OUTSIDE RECORDS SUMMARY | 2024-09-23 14:10 | XMS_ITS | Clinical Summary ---
Author Organization [facility] Address [address] [place] [address] Care Team Providers Care Director Energy Name Role Phone Max Mercedes MD Primary Care Provider [phone] Medications No known medications Active Problems No [...] topic Insurance [facility] PART A [facility] Care Teams Director Energy Relationship Specialty Start Date End Date Max Mercedes MD [address] [place] [phone] PCP - General Internal Medicine 08/13/23
== END 2024-09-23 14:07 | disposition home or self-care (01) ==
LOC: HO.HMCC 13:42
PROVIDERS: PCP Internal Medicine; Visit Provider Internal Medicine
DX: J45.20 Mild intermittent asthma, uncomplicated (principal); N28.9 Disorder of kidney and ureter, unspecified; E66.01 Morbid (severe) obesity due to excess calories; Z68.43 Body mass index [BMI] 50.0-59.9, adult; K21.9 Gastro-esophageal reflux disease without esophagitis; E03.8 Other specified hypothyroidism; R73.01 Impaired fasting glucose; E78.9 Disorder of lipoprotein metabolism, unspecified; I10 Essential (primary) hypertension; F33.42 Major depressive disorder, recurrent, in full remission; Z91.09 Other allergy status, other than to drugs and biological substances

== ENCOUNTER 2024-10-01 08:28 | Outpatient (AMB) | payer MEDICARE, OTHER, SELFPAY ==
--- OUTSIDE RECORDS SUMMARY | 2024-10-01 08:36 | XMS_ITS | Encounter Summary ---
Author Organization [facility] Address [address] [facility] [address] [place] [address] Phone Care Team Providers Care Air Intelligence Specialist Name Role Phone Max Mercedes MD Primary Care Provider [phone] Reason for Referral * MRI/CAT Scan - Closed Specialty Diagnoses / Procedures Referred By Han serna Referred To Contact Radiology Diagnoses Chest pain Procedures NC Myocardial Perfusion Stress Single NC Myocardial Perfusion Exercise Multiple Erika Duong MD Phone: tel: fax: mailto:[email or web address] Referral ID Status Reason Start Date Expiration Date Visits Re quested Visits Authorized [id number] Closed 03/20/2018 03/20/2019 1 1 Encounter Details Date Type Department Care Team (Late st Contact Info) Description 03/25/2018 Ancillary Orders [facility] [address] [place] [address] [address] Floor, [address] [place] [address] Erika Duong MD [phone] [place] [address] [email or web address] Chest pain Social History Tobacco Use Types [...] in SPECT format, reconstructed tomographically and compared [id number] in short axis, horizontal long axis and [...] pain documented in this encounter Care Teams Air Intelligence Specialist Relationship Specialty Start Date End Date Max Mercedes MD [facility] [place] [address] PCP - General Internal Medicine 03/20/18 documented as of this encounter Additional Source Comments The information contained in this document represents components of the legal health record. It is not the complete legal health record.[facility]
--- OUTSIDE RECORDS SUMMARY | 2024-10-01 08:36 | XMS_ITS | Clinical Summary ---
Author Organization [facility], Address [address] [place] [address] [place] [address] Phone Care Team Providers Care Forensic Pathologist Name Role Phone Max Mercedes MD Primary Care Provider [phone] Allergies Active Allergy Reactions Criticality Noted Date [...] age to complete this topic Insurance Medicare [facility] Care Teams Forensic Pathologist Relationship Specialty Start Date End Date Max Mercedes MD [address] [place] [phone] PCP - General Internal Medicine 12/23/19
--- OUTSIDE RECORDS SUMMARY | 2024-10-01 08:36 | XMS_ITS | Clinical Summary ---
Author Organization [facility] Address [address] [place] [address] Care Team Providers Care Solderer Barrel Ribs Name Role Phone Max Mercedes MD Primary Care Provider [phone] Medications No known medications Active Problems No [...] topic Insurance MEDICARE PART A & B [facility] Care Teams Solderer Barrel Ribs Relationship Specialty Start Date End Date Max Mercedes MD [address] [place] [phone] PCP - General Internal Medicine 08/13/23
--- OUTSIDE RECORDS SUMMARY | 2024-10-01 08:37 | XMS_ITS | Clinical Summary ---
Author Organization [facility] Address [address] [place] [address] Phone Care Team Providers Care Sales Contracts Analyst Name Role Phone Max Mercedes MD Primary Care Provider [phone] Allergies Active Allergy Reactions Criticality Noted Date [...] not recall. Ankylosing spondylitis lumba r region ([facility] V24, [facility] V28) Family History Medical History [...] CHEMISTRY METHOD 02/17/2024 4:10 PM [facility] Potassium 4.5 3.5 - 5.1 mmol/L LAB CHEMISTRY METHOD 02/17/2024 4:10 PM [facility] Chloride 105 98 - 107 mmol/L LAB CHEMISTRY METHOD 02/17/2024 4:10 PM [facility] CO2 28 24 - 32 mmol/L LAB CHEMISTRY METHOD 02/17/2024 4:10 PM [facility] Anion Gap 11 5 - 14 LAB CHEMISTRY METHOD 02/17/2024 4:10 PM [facility] Glucose 102(H) 70 - 99 mg/dL LAB CHEMISTRY METHOD 02/17/2024 4:10 PM [facility] BUN 18(H) 7 - 17 mg/dL LAB CHEMISTRY METHOD 02/17/2024 4:10 PM [facility] Creatinine 1.00 0.50 - 1.00 mg/dL LAB CHEMISTRY METHOD 02/17/2024 4:10 PM [facility] eGFR 60 >=60 mL/min/1. 73m2 LAB CHEMISTRY METHOD 02/17/2024 4:10 PM [facility] Comment:Calculation based on the Chronic Kidney Disease Epidemiology Collaboration (CKD-EPI) equation refit without adjustment for race. BUN/Creatinine Ratio 18.0 12.0 - 20.0 LAB CHEMISTRY METHOD 02/17/2024 4:10 PM [facility] Calcium 8.7 8.4 - 10.2 mg/dL LAB CHEMISTRY METHOD 02/17/2024 4:10 PM [facility] AST (SGOT) 28 5 - 40 unit/L LAB CHEMISTRY METHOD 02/17/2024 4:10 PM [facility] ALT (SGPT) 23 7 - 52 unit/L LAB CHEMISTRY METHOD 02/17/2024 4:10 PM [facility] Alkaline Phosphatase 97 34 - 104 unit/L LAB CHEMISTRY METHOD 02/17/2024 4:10 PM EST [facility] Total Protein 6.4 6.4 - 8.5 g/dL LAB CHEMISTRY METHOD 02/17/2024 4:10 PM EST [facility] Albumin 4.3 3.5 - 5.0 g/dL LAB CHEMISTRY METHOD 02/17/2024 4:10 PM EST [facility] Total Bilirubin 1.2(H) 0.3 - 1.0 mg/dL LAB CHEMISTRY METHOD 02/17/2024 4:10 PM EST [facility] Blood Venous blood specimen / Unknown Venipuncture / Unknown 02/17/2024 10:51 AM EST 02/17/2024 3:41 PM EST [facility] LAB BLOOD ORDERABLES Final Result [facility] [address] [place] [address], from Last 3 Months or Most Recently Relevant to Health Maintenance Insurance MEDICARE [facility] Care Teams Sales Contracts Analyst Relationship Specialty Start Date End Date Max Mercedes MD [address] [place] [address] PCP - General Internal Medicine 01/08/24
--- NOTE | 2024-10-01 09:37 | A.OFFPC_ITS ---
Intake Visit Reasons: Telehealth visit lab results Allergies heparin (HEPARIN) Allergy (Unknown, Verified 09/23/24 13:46) ITCH Tetanus Vaccines and Toxoid (TETANUS VACCINES AND TOXOID) Allergy (Unknown, Verified 09/23/24 13:46) SWELLING SOB Medication List - Last Reconciled 10/01/24 by Max Mercedes MD atenolol 25 mg PO DAILY dupilumab (Dupixent) mg subcut Q8W levothyroxine (Levoxyl) 125 mcg PO QAM lisinopril 40 mg PO DAILY [Non-childproof prescription bottles Please send all existing and future medications in bottles that are not childproof and without safety locking tops.] rosuvastatin 5 mg PO BEDTIME sertraline 100 mg PO DAILY 90 days Tobacco use date assessed: 07/28/24 Dental Screening Dental Screen Date: 07/28/24 HPI Telehealth visit lab results HPI Details Chief Complaint The patient presents for evaluation of dehydration and elevated uric acid levels after recent lab testing. History of Present Illness The patient is a 74-year-old female presenting with dehydration and elevated uric acid levels. Dehydration: - The patient experienced concentrated u rine, which has been noted to improve after increasing water intake. - Initial lab results showed elevated so dium levels at 146, indicating dehyd ration. - The patient reports that with increase d water consumption, the urine's color has improved from dark to a very pale yellow. Elevated Uric Acid Levels: - The patient's lab results indicated an elevated uric acid level of 6.5. - She has had a prior episode of gout wh ich she attributes to the recent elevated uric acid levels. - The episode of gout pain has resolved, and she suspects dehydration may have influenced the uric acid increase. Medications: - Vitamin D supplement: the patient take s a multivitamin that contain vitamin D, Social History: - The patient prefers landline communica tion, indicating potential limitations in using digital communication devices. Diagnostic Results: - Labs: - Sodium: 146 (upper limit of no rmal is 145) - Uric acid level: 6.5 - Kidney function: filtration rate stabl e at 53, consistent with previous results Problem List - Dehydration - Hyperuricemia (Elevated Uric Acid Leve ls) - Gout - Vitamin D deficiency Patient Instructions - Continue increasing water intake to ad dress dehydration. - Check multivitamin to ensure it has 10 00 units of Vitamin D and continue intake. - Monitor for any further episodes of go ut. - Repeat lab testing in three months as planned. Review of Systems - General: No fever no chills - Neurological: No headaches no dizziness - Ear nose throat: No sore throat no hearing difficulty no ear pain - Cardiovascular: No syncope, no chest pain, no palpitations - Gastrointestinal: No nausea vomiting or diarrhea - Endocrine: No polyuria polydipsia no heat intolerance - Genitourinary: No dysuria , no blood in urine PFSH Medical History Other specified hypothyroidism Ex-smoker Small airways disease Hypertension, essential Nephropathy Surgical History H/O oophorectomy Hx of cholecystectomy History of appendectomy History of hysterectomy Family History Father HTN (hypertension) Lung cancer Myocardial infarction Mother HTN (hypertension) Brother No problems noted. Social History Housing: House Patient Tobacco Use Status: Former Tobacco user Years Smoked: 30 yrs e-Cigarette/Vaping Use: Never Used Advance Directives Date on File: 12/02/19 service: Yes (retired) Current occupational status: retired Current occupational exposures/hazards: No Cognitive needs: No Hearing needs: No Vision needs: No Questionnaire Thrive Questionnaire Date Thrive assessed: 03/10/24 TALON-7 AMB Questionnaire TALON-7 Date TALON - 7 assessed: 05/22/24 Source: Developed by Drs. Erik Jara, Kinjal Shipman, Addy Rodgers and colleagues, with an educational elva from [employer]. Physical exam (Primary Care) Tobacco/Smoking Status: Tobacco use Status Tobacco use date assessed 07/28/24 10/01/24 09:37 Patient Tobacco Use Status Former Tobacco user 10/01/24 09:37 e-Cigarette/Vaping Use Never Used 10/01/24 09:37 Thrive Assessment: Date of Thrive Assessment Date Thrive assessed 03/10/24 10/01/24 09:37 Telehealth Telehealth Telehealth Platform: [facility] Location of provider rendering services: practice address Location of patient: address on file Patient Identification confirmed using: Name, : Yes Telehealth method: voice only Patient verbally consented to treatment: Yes Patient verbally consented to billing insurance company: Yes Patient informed of any privacy concerns related to visit: Yes Minutes spent on Phone/Video with Pt.: 13 Coding Level of Care Code Tele Est Pt Level 3 (11238) Diagnoses Serum sodium elevated E87.0 Nephropathy N28.9 Elevated uric acid in blood E79.0 Assessment & Plan Assessment & Plan (1) Serum sodium elevated: Code(s): E87.0 - Hyperosmolality and hypernatremia Category: Medical (2) Nephropathy: Code(s): N28.9 - Disorder of kidney and ureter, unspecified Category: Medical (3) Elevated uric acid in blood: Code(s): E79.0 - Hyperuricemia without signs of inflammatory arthritis and tophaceous disease Category: Medical Plan Chief Complaint The patient presents for evaluation of dehydration and elevated uric acid levels after recent lab testing. History of Present Illness The patient is a 74-year-old female presenting with dehydration and elevated uric acid levels. Dehydration: - The patient experienced concentrated urine, which has been noted to improve after increasing water intake. - Initial lab results showed elevated sodium levels at 146, indicating dehydration. - The patient reports that with increased water consumption, the urine's color has improved from dark to a very pale yellow. Elevated Uric Acid Levels: - The patient's lab results indicated an elevated uric acid level of 6.5. - She has had a prior episode of gout which she attributes to the recent elevated uric acid levels. - The episode of gout pain has resolved, and she suspects dehydration may have influenced the uric acid increase. Medications: - Vitamin D supplement: the patient takes a multivitamin that contain vitamin D, Social History: - The patient prefers landline communication, indicating potential limitations in using digital communication devices. Diagnostic Results: - Labs: - Sodium: 146 (upper limit of normal is 145) - Uric acid level: 6.5 - Kidney function: filtration rate stable at 53, consistent with previous results Problem List - Dehydration - Hyperuricemia (Elevated Uric Acid Levels) - Gout - Vitamin D deficiency Patient Instructions - Continue increasing water intake to address dehydration. - Check multivitamin to ensure it has 1000 units of Vitamin D and continue intake. - Monitor for any further episodes of gout. - Repeat lab testing in three months as planned. Orders: Orders LDL Cholesterol Direct Today E78.9 - Disorder of lipoprotein metabolism, unspecified, E79.0 - Hyperuricemia without signs of inflammatory arthritis and tophaceous disease, E87.0 - Hyperosmolality and hypernatremia, I10 - Essential (primary) hypertension, R73.01 - Impaired fasting glucose Vitamin B12 Today E78.9 - Disorder of lipoprotein metabolism, unspecified, E79.0 - Hyperuricemia without signs of inflammatory arthritis and tophaceous disease, E87.0 - Hyperosmolality and hypernatremia, I10 - Essential (primary) hypertension, R73.01 - Impaired fasting glucose Comprehensive Met. Panel Today E78.9 - Disorder of lipoprotein metabolism, unspecified, E79.0 - Hyperuricemia without signs of inflammatory arthritis and tophaceous disease, E87.0 - Hyperosmolality and hypernatremia, I10 - Essential (primary) hypertension, R73.01 - Impaired fasting glucose Uric Acid Today E78.9 - Disorder of lipoprotein metabolism, unspecified, E79.0 - Hyperuricemia without signs of inflammatory arthritis and tophaceous disease, E87.0 - Hyperosmolality and hypernatremia, I10 - Essential (primary) hypertension, R73.01 - Impaired fasting glucose UA CC w/rflx Micro + Cult Today E78.9 - Disorder of lipoprotein metabolism, unspecified, E79.0 - Hyperuricemia without signs of inflammatory arthritis and tophaceous disease, E87.0 - Hyperosmolality and hypernatremia, I10 - Essential (primary) hypertension, R73.01 - Impaired fasting glucose
== END 2024-10-01 09:41 | disposition home or self-care (01) ==
LOC: HO.HMCC 08:28
PROVIDERS: PCP Internal Medicine; Visit Provider Internal Medicine
DX: E87.0 Hyperosmolality and hypernatremia (principal); N28.9 Disorder of kidney and ureter, unspecified; E79.0 Hyperuricemia without signs of inflammatory arthritis and tophaceous disease

== ENCOUNTER 2024-10-28 14:29 | Inpatient (IN) | payer MEDICARE, OTHER, SELFPAY ==
[2024-10-28] VITALS (7 sets, daily range): BP systolic 168–206; BP diastolic 79–109; PULSE 60–89; RESP 12–18; TEMP 36.8–37; O2SAT 94–96; BMI 47.9
--- NOTE | ~2024-10-28 | XR_ITS ---
CLINICAL HISTORY: shortness of breath 1 view chest x-ray Comparison: CR/SR - XR CHEST 2 VIEWS - 07/28/24 10:09 EDT Findings: The lungs are clear. Heart size is normal. No acute fracture. IMPRESSION: 1. No acute findings. This document has been electronically signed by: Ida White MD on 10/31/2024 13:31:38
--- NOTE | ~2024-10-28 | MR_ITS ---
EXAMINATION: MR BRAIN WITHOUT CONTRAST CLINICAL INFORMATION: Dizziness COMPARISON: Correlated to CT dated October 28, 2024. TECHNIQUE: MRI of the brain was obtained using routine sequences without contrast. FINDINGS: No restricted diffusion. No acute intracranial hemorrhage, mass effect, midline shift, hydrocephalus or herniation. Trejo-white matter differentiation is normal. 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 Flow-void signal within the main cerebral vessels is normal. Posterior cranial fossa contents demonstrated no signal abnormality, mass effect. Normal position of the cerebellar tonsils. Sellar/suprasellar region demonstrated no signal abnormality or masses. No signal abnormality or gross volume loss in the hippocampi. MR/MR head/brain wo con IMPRESSION: No acute stroke/nonhemorrhagic ischemia. No acute intracranial hemorrhage. No acute brain abnormality. Electronically signed by: Parveen Dasilva MD 10/29/2024 01:02 PM EDT
--- NOTE | ~2024-10-28 | CT_ITS ---
CLINICAL HISTORY: DIZZINESS CT Head Without Contrast: Comparison: None Findings: Cortical sulci and cisterns are prominent. Basal ganglia are unremarkable. No shift in midline structures. No intraparenchymal bleeding or abnormal extra-axial blood fluid collections. Normal pituitary size. Clear paranasal sinuses. Unremarkable orbital structures. No depressed fractures. Impression: Unremarkable CT of the head, no signs of acute trauma. This document has been electronically signed by: Solomon Santana MD on 10/28/2024 17:56:28
--- NOTE | 2024-10-28 07:00 | CA_ITS ---
Transthoracic Echocardiogram Patient (Last, First, Middle): Alessia Decker, Gender: F Date of : 1950 Age: 74 Procedure Date: 10/29/2024 Procedure Type: Transthoracic Echocardiogram Location: ER Height: 165.1 cm Weight: 130.18 kg BSA: 2.31 m2 Heart Rate: bpm BP: 151 / 54 mmHg Surgeon Assistant: TO/RC Referring MD: Gely Ortiz PA-C President [employer] Consulting: Binu Cerda MD Symptoms: dizziness Study Quality: Fair/Contrast ECG Rhythm: Sinus Conclusions: - 1. Normal LV ejection fraction 55-60% 2. Cardiac valvular Dopplers within normal limits 3. Upper limits of normal ascending aortic size 4. No gross pericardial effusion Findings Procedure Information Contrast agent, definity, is being given per protocol without apparent complications. Left Ventricle Normal left ventricular size, thickness, and systolic function. The visually estimated ejection fraction is between 55-60%. Spectral Doppler is indicative of a normal filling pattern. Right Ventricle Normal right ventricular cavity size. Atria The left atrium is normal in size. Interatrial shunt cannot be excluded. The right atrium was not well visualized. Aortic Valve The aortic valve was not well visualized. There is no aortic valve stenosis. There is no aortic valve regurgitation. Mitral Valve There is mild anterior and posterior mitral leaflet thickening. There is trace mitral valve regurgitation. There is no mitral valve stenosis. Pulmonic Valve The pulmonic valve was not well visualized. Tricuspid Valve Likely normal tricuspid valve structure and function. Normal right atrial pressure. Great Vessels The pulmonary artery was not well visualized. There is no dilatation of the ascending aorta measuring 3.50 cm. Venous The inferior vena cava is normal in size and collapses greater than 50% with inspiration. Pericardium/Pleural There is no evidence of pericardial effusion. Prior Study Comparison No prior study available for comparison. Measurements 2D Linear Measurements IVSd: 1.05 0.6-0.9/0.6-1.0 cm LVIDd: 4.33 3.9-5.3/4.2-5.9 cm LVIDd Index: 1.87 2.4-3.2/2.2-3.1 cm/m2 LVIDs: 3.32 2.0-3.6 cm LVPWd: 1.03 0.7-1.1 cm LA Diam: 3.50 2.7-3.8/3.0-4.0 cm LAIDs Index: 1.52 1.5-2.3 cm/m2 LV Mass: 189.48 67-162/88-224 g LV Mass Index: 82.03 43-95/49-115 g/m2 LVOT Diam: 2.10 3.0+(-)1.3 cm 2D Systolic Function EF 4C: 56.20 >55% EF 2C: 59.40 >55% EF BiP: 57.70 >55% Mitral Valve MV Pk E: 0.99 MV PK A: 0.96 MV Decel Time: 285.00 E/A: 1.00 E'Lateral: 6.42 E'Medial: 6.53 E/E' Med: 15.20 E/E' Lat: 15.50 PHT: 84.00 MVA PHT: 2.62 Decel [place]: 3.48 Aortic Valve AoV Pk Jackson: 1.35 AoV Mn Jakcson: 1.03 AoV VTI: 0.34 AoV Pk Grad: 7.00 Aov Mn Grad: 5.00 NATASHA Cont.VTI: 2.49 LVOT LVOT Pk Jackson: 0.93 LVOT Mn Jackson: 0.55 LVOT VTI: 0.25 LVOT Pk Grad: 3.00 LVOT Mn Grad: 1.00 LVOT Diam: 2.10 LVOT Area: 3.46 Diastolic Function MV Pk E: 0.99 MV Pk A: 0.96 E/A: 1.00 E'Medial: 6.53 E/E' Med: 15.20 E' Laterial: 6.42 E/E' Lat: 15.50 Right Ventricle TAPSE (mm): 29.50 TVS' Jackson: 9.90 Tricuspid Valve RA Press: 3.00 Great Vessels Aorta Sinus of Valsalva: 3.10 2.0-3.5 cm Ao Asc: 3.50 2.1-3.4 cm Pulmonary Veins Pulm Vein S/D 1.10 Pulmonary Valve PV Pk Jackson: 1.03 Peak PV Grad: 4.00 Updated in Other Vendor System with Status of Final Binu Cerda MD electronically signed on 10/29/2024 11:51:49 AM with status of Final
--- NOTE | 2024-10-28 14:35 | ED_ITS ---
HPI - Neuro Symptoms/Deficit General Chief Complaint: Neuro Symptoms/Deficit Stated Complaint: ?Stroke,R side face/ arm numbness. dizziness Time Seen by Provider: 10/28/24 15:45 Source: patient History of Present Illness ED Provider: Ирина HPI Narrative: 74-year-old female who has a history of hypertension, thyroid dysfunction and presents with a proximally 2 weeks of waking up feeling dizzy and she states that it persist despite position changes and last for a few hours and she denies any other associated symptoms but became further concerned when for the past 2 days she has been having a headache in the right apex without any visual changes as well as right cheek tingling but is not painful but denies any speech changes and also experiencing some numbness and tingling in the right upper extremity but no loss of motor function. Patient reports that she still has the cheek and right upper extremity sensation changes and still has a mild headache. Related Data Home Medications ?Medication ?Instructions ?Recorded ?Confirmed dupilumab 300 mg/2 mL subcutaneous mg subcut Q8W 10/2410/01/24 pen injector (the[employer]API) Previous Rx's ?Medication ?Instructions ?Recorded Non-childproof prescription bottles #1 ea 06/06/22 rosuvastatin 5 mg tablet 5 mg PO BEDTIME #90 tabs 02/10 sertraline 100 mg tablet 100 mg PO DAILY 90 days #90 tabs 04/08/24 levothyroxine 125 mcg tablet 125 mcg PO QAM #90 tabs 0 06/29/24 (Levoxyl) atenolol 25 mg tablet 25 mg PO DAILY #90 tabs 09/18 09/11 lisinopril 40 mg tablet 40 mg PO DAILY #90 tabs 09/19 11/12 Allergies Allergy/AdvReac Type Severity Reaction Status Date / Time heparin (HEPARIN) Allergy Unknown ITCH Verified 10/28/24 14:37 Tetanus Vaccines and Toxoid Allergy Unknown SWELLING Verified 10/28/24 14:37 (TETANUS VACCINES AND TOXOID) SOB Review of Systems 2 Review of Systems: Pertinent positives and negatives as stated in HPI [facility] Past Medical History Attestation statement: The following information was validated with the patient. Source: nursing notes reviewed Medical History Other specified hypothyroidism Ex-smoker Small airways disease Hypertension, essential Nephropathy Surgical History H/O oophorectomy Hx of cholecystectomy History of appendectomy History of hysterectomy Family History Family History Father HTN (hypertension) Lung cancer Myocardial infarction Mother HTN (hypertension) Brother No problems noted. Social History Social History Housing: House Patient Tobacco Use Status: Former Tobacco user Years Smoked: 30 yrs e-Cigarette/Vaping Use: Never Used Advance Directives: Yes Advance Directives on File: Yes Advance Directives Date on File: 12/02/19 service: Yes (retired) Current occupational status: retired Current occupational exposures/hazards: No Cognitive needs: No Hearing needs: No Vision needs: No Physical Exam 2 Exam: Exam: VITAL SIGNS: Reviewed. GENERAL: Elevated BMI, Well developed, well nourished, in no acute distress. HEAD: Normocephalic/atraumatic EYES: PERRLA, EOMI EARS: Ext canals without abnormality NOSE: Nares patent bilateral OROPHARYNX: no oral lesions noted, posterior pharynx clear NECK: Supple, no adenopathy LUNGS: Normal breath sounds. No adventitious sounds or accessory muscle use. CARDIOVASCULAR: Regular rate and rhythm without noted murmurs, no JVD or lower extremity edema. ABDOMEN: Soft, non-tender, non-distended with bowel sounds. MUSCULOSKELETAL: No tenderness, deformities, or effusions noted on gross inspection. EXTREMITIES: No cyanosis, clubbing or edema. SKIN: Inspection of the skin reveals no rashes NEUROLOGIC: Alert and oriented x 4. Strength and sensation to light touch were grossly intact x 4, no facial asymmetry, sensation difference noted to the right cheek, no pronator drift, cranial nerves 2-12 are grossly intact. Vital Signs: Vital Signs: Last Vital Signs Temp 98.5 F 10/28/24 15:23 Pulse 88 10/28/24 15:36 Resp 15 10/28/24 15:23 BP 172/79 H 10/28/24 15:36 Pulse Ox 94 10/28/24 15:23 O2 Del Method Room Air 10/28/24 15:23 BMI result Body Mass Index 47.9 Course Course Course Narrative: This is a Rapid Medical Examination (RME) performed by Anisa Schulte PA-C in triage. Full HPI, ROS, assessment and treatment plan per primary provider in the Main ED. Hx: 74 yo F here for eval of dizziness x2 weeks. reports dizziness is constant, appears to somewhat resolve at night. feels unsteady on her feet. now having decreased sensation to the right side of her face x2 days. PE/vitals: NIH 1 - decreased sensation to right side of face. exam is otherwise nonfocal. ambulating w/ unsteady gait. finger to nose intact. Plan: labs, ekg, ct head Medical Decision Making Medical Decision Making [facility] Narrative: 74-year-old female with history and clinical presentation, DD DX: Possibility of subacute stroke, possibility of blood pressure related symptoms, no clinical suspicion for herpes zoster, no clinical suspicion for viral etiology. My interpretation of the EKG: Normal sinus rhythm with RBBB at baseline, HR-62, no STEMI, VT/QTC is within normal limits, QRS and QT are at her baseline. 1641: I reviewed and interpreted all investigations and there is no leukocytosis, anemia, or thrombocytopenia. There is no demonstrate SANJEEV/electrolyte derangements and patient self endorses that she has fatty liver and is currently having this condition further evaluated and therefore liver enzymes are chronic baseline with a mildly elevated T bili and mild elevation of the transaminases. I sensitivity troponin is undetectable and not associated with ischemic changes. On initial arrival patient's blood pressure was significantly elevated, she endorses that she did take her blood pressure medication this morning. Will proceed with head CT. 1800: My interpretation is in agreement with radiology's impression that there is no evidence of acute intracranial hemorrhage or mass effect, otherwise no acute findings. 1805: Will consult with [facility] Neurology as despite the absence of findings patient still has these symptoms and went to ensure that she is a safe discharge versus further inpatient workup. To include nonurgent MRI. 1848: I spoke with Neurology, Dr. Mercedes, who agrees that patient should be admitted for better blood pressure control as well as MRI tomorrow and he will see the patient. We will now contact the inpatient hospitalist for admission. Differential Diagnosis Differential Diagnoses: The differential diagnosis associated with the presentation includes See above Admission/Observation Consideration of admission/observation: Escalation of care including admission/observation considered See above Consult Healthcare Provider Management of the patient was discussed with: Hospitalist and Truss Builder (Neurology) See above Lab Data MDM Lab Attestation statement: I reviewed the patient's lab results. See above 10/28/24 15:00 10/28/24 15:00 Labs: Lab Results 10/28/24 Range/Units 15:00 WBC 5.6 (4.8-10.8) X10*3/uL RBC 4.87 (4.20-5.50) X10*6/uL Hgb 14.4 (12.0-16.0) g/dl Hct 41.0 (37.0-47.0) % MCV 84.2 (80.0-98.0) fL MCH 29.6 (27.0-33.0) pg MCHC 35.1 H (31.0-35.0) g/dl RDW 13.6 (11.0-16.0) % Plt Count 184 D (160-400) X10*3/uL MPV 9.1 L (9.4-12.3) fL Immature Gran % (Auto) 0.4 (0.0-0.4) % Neut % (Auto) 64.1 (45-73) % Lymph % (Auto) 25.4 (20-40) % Thurston % (Auto) 7.3 (2-11) % Eos % (Auto) 2.1 (0-4) % Baso % (Auto) 0.7 (0-2) % Lymph # (Auto) 1.4 (1.2-4.9) X10*3/uL Thurston # (Auto) 0.4 (0.1-1.2) X10*3/uL Eos # (Auto) 0.1 (0.0-0.4) X10*3/uL Baso # (Auto) 0.0 (0.0-0.2) X10*3/uL Abs Immat Gran (auto) 0.02 (0.00-0.03) X10*3/uL Absolute Neuts (auto) 3.6 (2.0-8.3) x10*3/uL Absolute Nucleated RBC 0.000 (0.0-0.012) X10*3/uL Nucleated RBC % (auto) 0.0 (0.0-0.2) /100WBC Sodium 142 (135-145) mmol/L Potassium 3.5 D (3.3-5.1) mmol/L Chloride 111 H (96-108) mmol/L Carbon Dioxide 24 (22-29) mmol/L Anion Gap 11 L (12-20) BUN 13 (9-16) mg/dL Creatinine 0.83 (0.5-1.4) mg/dL Estim Creat Clear Calc 83.6 Estimated GFR > 60 Random Glucose 106 (60-115) mg/dL Calcium 8.6 D (8.4-10.2) mg/dL Magnesium 2.0 (1.6-2.6) mg/dL Total Bilirubin 1.4 H (0.0-1.0) mg/dL AST 33 H (5-31) U/L ALT 32 H (0-31) U/L Alkaline Phosphatase 86 (39-117) U/L Troponin I High Sens < 2.7 (<3.5-17.0) ng/L Total Protein 6.6 (6.5-8.0) g/dL Albumin 4.0 (3.5-5.0) g/dL Independent Interpretation I performed an independent interpretation of an: EKG and CT Scan Interpretation: See above Radiology Impression Discussion of test interpretation with radiology: I have reviewed the radiologist's reading. Radiologist Impression: See above Chronic Conditions Patient?s care impacted by: Diabetes and Hypertension Critical Care Time Critical Care Time Critical Care Time: Yes Total Critical Care Time: 30 Attestation: I personally attest to this time spent taking care of the patient. Discharge Plan Discharge Clinical Impression: Stroke, Poorly controlled blood pressure Patient Disposition: Admitted As Inpatient Print Language: Azeri
--- NOTE | 2024-10-28 14:39 | ECG_ITS ---
Test Reason : DIZINESS Blood Pressure : */* mmHG Vent. Rate : 62 BPM Atrial Rate : 62 BPM P-R Int : 170 ms QRS Dur : 150 ms QT Int : 474 ms P-R-T Axes : 29 59 12 degrees QTcB Int : 481 ms Normal sinus rhythm Right bundle branch block Possible Lateral infarct , age undetermined Abnormal ECG When compared with ECG of 22-May-2019 18:15, T wave inversion now evident in Anterior leads Referred By: Malika Schulte Electronically Signed By: CARL OLMEDO MD
[2024-10-28 15:06] LABS: MANUAL DIFF FLAG NO
[2024-10-28 15:08] LABS: Hematocrit 41.0 % (37.0-47.0); Hemoglobin 14.4 g/dl (12.0-16.0); Imm Gran Abs Auto 0.02 X10*3/uL (0.00-0.03); Imm Gran Pct Auto 0.4 % (0.0-0.4); Lymphocytes Absolute Auto 1.4 X10*3/uL (1.2-4.9); Mean Corpuscular HGB Conc 35.1 g/dl (31.0-35.0); Mean Corpuscular Hemoglobin 29.6 pg (27.0-33.0); Mean Corpuscular Volume 84.2 fL (80.0-98.0); NRBC Abs Auto 0.000 X10*3/uL (0.0-0.012); NRBC Pct Auto 0.0 /100WBC (0.0-0.2); Platelet Count 184 X10*3/uL (160-400); Red Blood Count 4.87 X10*6/uL (4.20-5.50); White Blood Count 5.6 X10*3/uL (4.8-10.8)
[2024-10-28 15:24] LABS: Alanine Aminotransferase 32 U/L (0-31); Albumin Level 4.0 g/dL (3.5-5.0); Alkaline Phosphatase 86 U/L (39-117); Anion Gap 11 (12-20); Aspartate Amino Transferase 33 U/L (5-31); Blood Urea Nitrogen 13 mg/dL (9-16); Calcium 8.6 mg/dL (8.4-10.2); Carbon Dioxide 24 mmol/L (22-29); Chloride 111 mmol/L (96-108); Creatinine Clr Calc Pharmacy 83.6; Estimated Glomerular Filt Rate > 60; Magnesium 2.0 mg/dL (1.6-2.6); Potassium 3.5 mmol/L (3.3-5.1); Sodium 142 mmol/L (135-145); Total Protein 6.6 g/dL (6.5-8.0)
[2024-10-28 15:35] LABS: Troponin-I High Sensitivity < 2.7 ng/L (<3.5-17.0)
--- OUTSIDE RECORDS SUMMARY | 2024-10-28 18:24 | XMS_ITS | Encounter Summary ---
Author Organization [facility] Address [address] [facility] [facility] [address] [place] [address] Phone Care Team Providers Care Vehicle Operator Name Role Phone Max Mercedes MD Primary Care Provider [phone] Reason for Referral * MRI/CAT Scan - Closed Specialty Diagnoses / Procedures Referred By Han serna Referred To Contact Radiology Diagnoses Chest pain Procedures NC Myocardial Perfusion Stress Single NC Myocardial Perfusion Exercise Multiple Erika Duong MD Phone: tel: fax: [email or web address] Referral ID Status Reason Start Date Expiration Date Visits Re quested Visits Authorized [id number] Closed 03/20/2018 03/20/2019 1 1 Encounter Details Date Type Department Care Team (Late st Contact Info) Description 03/25/2018 Ancillary Orders [facility] [address] [place] [address] 3rd Floor, [address] [place] [address] Erika Duong MD [phone] [place] [address] [email or web address] Chest pain Social History Tobacco Use Types [...] in SPECT format, reconstructed tomographically and compared [id number] in short axis, horizontal long axis and [...] pain documented in this encounter Care Teams Vehicle Operator Relationship Specialty Start Date End Date Max Mercedes MD [facility] [place] [address] PCP - General Internal Medicine 03/20/18 documented as of this encounter Additional Source Comments The information contained in this document represents components of the legal health record. It is not the complete legal health record.[facility]
--- OUTSIDE RECORDS SUMMARY | 2024-10-28 18:24 | XMS_ITS | Clinical Summary ---
Author Organization [facility] Address [address] [place] [address] Phone Care Team Providers Care Mobile Plant Operators Name Role Phone Max Mercedes MD Primary Care Provider [phone] Allergies Active Allergy Reactions Criticality Noted Date [...] not recall. Ankylosing spondylitis lumba r region ([facility] V24, [facility] V28) Family History Medical History Relation Name [...] mmol/L LAB CHEMISTRY METHOD 02/17/2024 4:10 PM [facility] Potassium 4.5 3.5 - 5.1 mmol/L LAB CHEMISTRY METHOD 02/17/2024 4:10 PM [facility] Chloride 105 98 - 107 mmol/L LAB CHEMISTRY METHOD 02/17/2024 4:10 PM [facility] CO2 28 24 - 32 mmol/L LAB CHEMISTRY METHOD 02/17/2024 4:10 PM [facility] Anion Gap 11 5 - 14 LAB CHEMISTRY METHOD 02/17/2024 4:10 PM [facility] Glucose 102(H) 70 - 99 mg/dL LAB CHEMISTRY METHOD 02/17/2024 4:10 PM [facility] BUN 18(H) 7 - 17 mg/dL LAB CHEMISTRY METHOD 02/17/2024 4:10 PM [facility] Creatinine 1.00 0.50 - 1.00 mg/dL LAB CHEMISTRY METHOD 02/17/2024 4:10 PM [facility] eGFR 60 >=60 mL/min/1. 73m2 LAB CHEMISTRY METHOD 02/17/2024 4:10 PM [facility] Comment:Calculation based on the Chronic Kidney Disease Epidemiology Collaboration (CKD-EPI) equation refit without adjustment for race. BUN/Creatinine Ratio 18.0 12.0 - 20.0 LAB CHEMISTRY METHOD 02/17/2024 4:10 PM [facility] Calcium 8.7 8.4 - 10.2 mg/dL LAB CHEMISTRY METHOD 02/17/2024 4:10 PM [facility] AST (SGOT) 28 5 - 40 unit/L LAB CHEMISTRY METHOD 02/17/2024 4:10 PM [facility] ALT (SGPT) 23 7 - 52 unit/L LAB CHEMISTRY METHOD 02/17/2024 4:10 PM [facility] Alkaline Phosphatase 97 34 - 104 unit/L LAB CHEMISTRY METHOD 02/17/2024 4:10 PM EST [facility] Total Protein 6.4 6.4 - 8.5 g/dL LAB CHEMISTRY METHOD 02/17/2024 4:10 PM EST [facility] Albumin 4.3 3.5 - 5.0 g/dL LAB CHEMISTRY METHOD 02/17/2024 4:10 PM EST [facility] Total Bilirubin 1.2(H) 0.3 - 1.0 mg/dL LAB CHEMISTRY METHOD 02/17/2024 4:10 PM EST [facility] Blood Venous blood specimen / Unknown Venipuncture / Unknown 02/17/2024 10:51 AM EST 02/17/2024 3:41 PM EST [facility] LAB BLOOD ORDERABLES Final Result [facility] [address] [place] [address], from Last 3 Months or Most Recently Relevant to Health Maintenance Insurance MEDICARE [facility] Care Teams Mobile Plant Operators Relationship Specialty Start Date End Date Max Mercedes MD [address] [place] [address] PCP - General Internal Medicine 01/08/24
--- OUTSIDE RECORDS SUMMARY | 2024-10-28 18:24 | XMS_ITS | Clinical Summary ---
Author Organization [facility] Address [address] [place] [address] Care Team Providers Care Underwriting Service Representative Name Role Phone Max Mercedes MD Primary [...] Health Maintenance Due Date Last Done Comments Advance Care Planning 1950 Hepatitis C Virus Screening 1950 DTaP/Tdap/Td Vaccines [...] topic Insurance MEDICARE PART A & B [facility] Care Teams Underwriting Service Representative Relationship Specialty Start Date End Date Max Mercedes MD [address] [place] [id number] PCP - General Internal Medicine 08/13/23
--- OUTSIDE RECORDS SUMMARY | 2024-10-28 18:24 | XMS_ITS | Clinical Summary ---
Author Organization [facility] Address [address] [address] Phone Care Team Providers Care Patient Care Nursing Assistant Name Role Phone Max Mercedes MD Primary Care Provider [phone] Social History Tobacco Use Types Packs/Day Years Used Date Smoking Tobacco: Never Assessed Education Answer Date Recorded Are you interested in more education? Not on pasquale e 06/15/2022 Are you concerned about learning? Not on file 06/15/2022 No 06/15/2022 No 06/15/2022 Digital Access Answer Date Recorded No 07/14/2022 No 07/14/2022 No 07/14/2022 Reliable internet access at home? Not on file 07/14/2022 Device with a working camera? Not on file Comments Unknown Sex and Gender Information Value Date Recorded Sex Assigned at Not on file Legal Sex Female 2:46 PM EST Gender Identity Not on file Sexual Orientation Not on file Last Filed Vital Signs Vital Sign Reading Time Taken Comments Blood Pressure 134/82 12/10/2018 1:57 PM EDT Pulse - - Temperature - - Respiratory Rate - - Oxygen Saturation 95% 03/24/2018 1:00 PM EST Inhaled Oxygen Concentration - - Weight - - Height - - Body Mass Index - - Plan of Treatment Health Maintenance Due Date Last Done Comments Adult Td,Tdap Booster 1950 LIPID PANEL 1950 DEPRESSION SCREENING 1964 SMOKING Hx and SMOKELESS TOBACCO SCREENING 1965 HEPATITIS C SCREENING 1970 MAMMOGRAM 1992 COLOGUARD 1997 COLONOSCOPY 1997 COLORECTAL CANCER SCREENING 1997 FIT TEST 1997 FOBT 1997 SIGMOIDOSCOPY 1997 VIRTUAL COLONOSCOPY 1997 ZOSTER VACCINES (1 of 2) 2002 OSTEOPOROSIS SCREENING INITI AL (ONE-TIME) 2017 PNEUMOCOCCAL VACCINES (50+ years) (2 of 2 - PPSV23) 01/19/2021 01/20/2020 INFLUENZA VACCINE (#1) 2024 0, 12/20/2015 COVID-19 VACCINE (2 - 2024-2 6 season) 2024 06/01/2020 RSV VACCINE (1 - 1-dose 75+ series) 06/27/2027 HEPATITIS A VACCINES Aged Out No long er eligible based on patient's age to complete this topic HIB VACCINES Aged Out No longer eligi ble based on patient's age to complete this topic MENINGOCOCCAL VACCINES (ACWY) Aged Out No longer eligible based on patient's age to complete this topic MENINGOCOCCAL VACCINES (B) Aged Out N o longer eligible based on patient's age to complete this topic Medical Devices Not on file Insurance MEDICARE PART A & B [facility] [employer] [facility] MEDICARE SUPPLEMENT [address] [place] [address] MEDICARE PART A & B [employer] MEDICARE SUPPLEMENT [facility] Address: [address] [address] [address] [place] [address] MEDICARE PART A & B [employer] MEDICARE SUPPLEMENT [address] [place] [id number] MEDICARE PART A & B [facility] [facility] 50 [employer] [facility] MEDICARE SUPPLEMENT [facility] Address: [address] [address] [address] [place] [id number] MEDICARE PART A & B Member Subscriber Plan / Payer (Ef fective 2017-Present) Name:Alessia Decker Member ID:[id number] Relation to Subscriber:Self Name:Alessia Decker Subscriber ID:[id number] Payer ID:[id number] Group ID:Not on file Type:Medicare Address: [employer] [address] [place] [id number] FOR LIFE MEDICARE SUPPLEMENT [address] [place] [address] MEDICARE PART A & B [employer] MEDICARE SUPPLEMENT [facility] Address: [address] [address] [address] [place] [address] MEDICARE PART A & B [facility] [facility] FOR LIFE MEDICARE SUPPLEMENT [facility] Address: [address] [address] [address] [place] [address] MEDICARE PART A & B [employer] MEDICARE SUPPLEMENT [facility] Address: [address] [address] [address] [place] [address] MEDICARE PART A & B Member Subscriber Plan / Payer (Ef fective 2017-Present) Name:Alessia Decker Member ID:[id number] Relation to Subscriber:Self Name:Alessia Decker Subscriber ID:[id number] Payer ID:[id number] Group ID:Not on file Type:Medicare Address: [facility] [employer] [facility] [address] [place] [address] [facility] LIFE MEDICARE SUPPLEMENT [facility] Address: [facility] [address] [place] [address] Care Teams Patient Care Nursing Assistant Relationship Specialty Start Date End Date Max Mercedes MD [facility] [place] [address] PCP - General Internal Medicine 03/20/18 Additional Source Comments The information contained in this document represents components of the legal health record. It is not the complete legal health record.[facility]
--- OUTSIDE RECORDS SUMMARY | 2024-10-28 18:24 | XMS_ITS | Clinical Summary ---
Author Organization [facility], Address [address] [place] [address] [place] [address] Phone Care Team Providers Care Machining Manager Name Role Phone Max Mercedes MD Primary Care Provider [phone] Allergies Active Allergy Reactions Criticality Noted Date [...] age to complete this topic Insurance Medicare [facility] Care Teams Machining Manager Relationship Specialty Start Date End Date Max Mercedes MD [address] [place] [phone] PCP - General Internal Medicine 12/23/19
--- NOTE | 2024-10-28 20:56 | PHA.MEDREC ---
Addendum entered by Luis Felipe Mcpherson, PharmTanya 10/28/24 21:12: med rec checked by [facility] Original Note: Pharmacy Consult ? Medication Reconciliation Pharmacy has completed the medication reconciliation. Patient was able to confirm her medications. Patient states she is not taking Chlorhexidine. Patient confirmed Dupilumab 300 mg q 8 weeks, last dose last dose was in July 2024. Patient had all his morning medications today. .
--- NOTE | 2024-10-28 20:58 | P.HPHOSP_ITS ---
History of Present Illness Date of Service: 10/28/24 Attending physician on admission: Mikhail Horn Chief Complaint: dizziness Patient is a 74-year-old female with a past medical history significant for hypertension, hypothyroid, hyperlipidemia, depression, fatty liver and morbid obesity, who presented to the ED due to disease for the past 2 weeks with associated numbness and tingling on the right side of her face for the past few days. She denies any gait abnormalities or trauma. No difficulty with swallowing, aphasia or visual changes. She also reports some mild headache and numbness and tingling in her right upper extremity but no motor deficits. Review of Systems 2 Constitutional: Constitutional: Denies body ache(s), Denies chills, Denies fatigue, Denies fever(s) and Reports headache(s) Eyes: Eyes: Denies change in vision ENT: Reports headache(s), Denies nasal congestion, Denies nasal discharge and Denies sore throat Cardiovascular: Cardiovascular: Denies chest pain, Denies rapid heart rate, Denies leg edema, Denies lightheadedness and Denies dyspnea Respiratory: Respiratory: Denies chest congestion, Denies cough, Denies dyspnea and Denies wheezing Gastrointestinal: Gastrointestinal: Denies abdominal pain, Denies nausea and Denies vomiting Genitourinary: Genitourinary: Denies difficulty voiding and Denies dysuria Musculoskeletal: Musculoskeletal: Denies myalgias Integumentary/Breasts: Skin/Breast: Denies rash Neurologic: Reports as per HPI, Denies confusion and Reports headache(s) Psychiatric: Psychiatric: Denies confusion Endocrine: Endocrine: Denies fatigue Hematologic/Lymphatic: Hematologic/Lymphatic: Denies easy bleeding and Denies easy bruising Allergic/Immunologic: Allergic/Immunologic: Denies wheezing FORMERLY [facility], 1928–1983 Medical History (Updated 10/28/24 @ 21:05 by Gely Ortiz PA-C) Fatty liver Morbid obesity Other specified hypothyroidism Ex-smoker Small airways disease Hypertension, essential Nephropathy Family History Father HTN (hypertension) Lung cancer Myocardial infarction Mother HTN (hypertension) Brother No problems noted. Surgical History H/O oophorectomy Hx of cholecystectomy History of appendectomy History of hysterectomy Social History Housing: House Patient Tobacco Use Status: Former Tobacco user Years Smoked: 30 yrs e-Cigarette/Vaping Use: Never Used Advance Directives: Yes Advance Directives on File: Yes Advance Directives Date on File: 12/02/19 service: Yes (retired) Current occupational status: retired Current occupational exposures/hazards: No Cognitive needs: No Hearing needs: No Vision needs: No Meds Allergies Allergy/AdvReac Type Severity Reaction Status Date / Time heparin (HEPARIN) Allergy Unknown ITCH Verified 10/28/24 14:37 Tetanus Vaccines and Toxoid Allergy Unknown SWELLING Verified 10/28/24 14:37 (TETANUS VACCINES AND TOXOID) SOB Active Medications: Current Medications Acetaminophen (Acetaminophen 325 Mg Tablet) 650 mg PO Q6H PRN PRN Reason: Pain, Mild 1-3,fever,headache Aspirin (Aspirin Enteric Coated 81 Mg Tablet.Dr) 81 mg PO DAILY [facility] Atorvastatin Calcium (Atorvastatin Calcium 80 Mg Tablet) 80 mg PO DAILY [facility] Calcium Carbonate (Calcium Carbonate 750 Mg Tab.Chew) 750 mg PO Q4H PRN PRN Reason: Heartburn Hydralazine HCl (Hydralazine Hcl 20 Mg/Ml Vial) 5 mg IVPUSH Q6H PRN; Protocol PRN Reason: SBP >180 Magnesium Hydroxide (Milk Of Magnesia 30 Ml Oral.Susp) 30 ml PO DAILY PRN PRN Reason: Constipation Melatonin (Melatonin 3 Mg Tablet) 6 mg PO BEDTIME PRN PRN Reason: Insomnia Sodium Chloride (0.9 % Sodium Chloride Flush 3 Ml Syringe) 3 ml IVFLUSH QSHIFT [facility] Home Medications ?Medication ?Instructions ?Recorded ?Confirmed ?Last Taken ?Type dupilumab 300 mg/2 mL subcutaneous 300 mg subcut Q8W 0 10/25/23 10/28/24 07/28/24 History pen injector (Dupixent) levothyroxine 125 mcg tablet 125 mcg PO DAILY@0600 12/1210/28/24 10/28/24 History (Levoxyl) sertraline 25 mg tablet 25 mg PO DAILY 10/28/2410/1910/28/24 History Physical Exam 2 Vital Signs and Narrative: Vital Signs: Last Vital Signs Temp 98.5 F 10/28/24 19:10 Pulse 60 10/28/24 19:10 Resp 14 10/28/24 19:10 BP 178/82 H 10/28/24 19:10 Pulse Ox 94 10/28/24 19:10 O2 Del Method Room Air 10/28/24 19:10 BMI result Body Mass Index 47.9 General: AOx3, no acute distress Resp: CTA bilaterally CVS: S1, S2, RRR GI: +BS, NT, no distention Skin: Warm, dry Neuro: Cranial nerves II-XII grossly intact bilaterally. Motor grossly intact bilaterally Extremities: No edema Psych: Appropriate affect Const: General: No confusion Orientation/consciousness: No confusion Neuro: General: No confusion Results Labs 10/28/24 15:00 10/28/24 15:00 Labs: Laboratory Results - last 24 hr 10/28/24 15:00 MCV 84.2 MCH 29.6 MCHC 35.1 H RDW 13.6 Plt Count 184 D MPV 9.1 L Immature Gran % (Auto) 0.4 Neut % (Auto) 64.1 Lymph % (Auto) 25.4 [place] % (Auto) 7.3 Eos % (Auto) 2.1 Baso % (Auto) 0.7 Lymph # (Auto) 1.4 [place] # (Auto) 0.4 Eos # (Auto) 0.1 Baso # (Auto) 0.0 Abs Immat Gran (auto) 0.02 Absolute Neuts (auto) 3.6 Absolute Nucleated RBC 0.000 Nucleated RBC % (auto) 0.0 Anion Gap 11 L Estim Creat Clear Calc 83.6 Estimated GFR > 60 Random Glucose 106 Calcium 8.6 D Magnesium 2.0 Total Bilirubin 1.4 H AST 33 H ALT 32 H Alkaline Phosphatase 86 Total Protein 6.6 Albumin 4.0 Assessment and Plan (1) Dizziness: Status: Acute (2) Numbness and tingling: Status: Acute (3) Morbid obesity due to excess calories: Status: Acute Plan Patient is a 74-year-old female with a past medical history significant for hypertension, hypothyroid, hyperlipidemia, depression, fatty liver and morbid obesity, who presented to the ED due to disease for the past 2 weeks with associated numbness and tingling on the right side of her face for the past few days. Dizziness/numbness and tingling, right face and right upper extremity - no leukocytosis, vitals stable, no sign of active infection - head CT negative - no focal neurological deficits on exam - EKG normal, troponin negative - ED provider spoke with Dr. Mercedes who suggested admission for blood pressure control an MRI tomorrow - MRI/MRA brain/head/neck ordered - monitor on tele - echo - recieved ASA 324mg, start 81mg daily - continue statin, increased to atorvastatin 80mg - orthostatics Qshift - neurology consult - neuro checks Q2H - UA ordered - check B12 and TSH HTN - BP elevated, allow permissive HTN - hydralazine 5mg IV PRN SBP >180 - resume atenolol and lisinopril tomorrow when appropriate hypothyroid - check TSH - continue levothyroxine HLD - continue statin, increased to atorvastatin 80mg depression - continue sertraline fatty liver disease - LFTs at baseline - continue outpt f/u morbid obesity - BMI 47.9 - weight loss encouraged full code VTE prophy: lovenox Patient with dizziness, numbness and tingling with concern for CVA, requiring admission for at least 2 midnights stay for further evaluation, monitoring and specialist consultation. Quality Stroke Does the patient have a stroke diagnosis?: No VTE Prior VTE?: No VTE Risk Level:: Medical - moderate - high VTE Device Contraindication: Treatment Not Indicated VTE Drug Contraindication: N/A - Med Ordered
[2024-10-29] VITALS (17 sets, daily range): BP systolic 147–185; BP diastolic 54–95; PULSE 54–87; RESP 12–17; TEMP 36.4–36.9; O2SAT 94–96
[2024-10-29 04:40] LABS: MANUAL DIFF FLAG NO
[2024-10-29 04:42] LABS: Hematocrit 41.7 % (37.0-47.0); Hemoglobin 13.7 g/dl (12.0-16.0); Imm Gran Abs Auto 0.02 X10*3/uL (0.00-0.03); Imm Gran Pct Auto 0.3 % (0.0-0.4); Lymphocytes Absolute Auto 2.6 X10*3/uL (1.2-4.9); Mean Corpuscular HGB Conc 32.9 g/dl (31.0-35.0); Mean Corpuscular Hemoglobin 28.9 pg (27.0-33.0); Mean Corpuscular Volume 88.0 fL (80.0-98.0); NRBC Abs Auto 0.000 X10*3/uL (0.0-0.012); NRBC Pct Auto 0.0 /100WBC (0.0-0.2); Platelet Count 177 X10*3/uL (160-400); Red Blood Count 4.74 X10*6/uL (4.20-5.50); White Blood Count 7.1 X10*3/uL (4.8-10.8)
[2024-10-29 05:12] LABS: Alanine Aminotransferase 30 U/L (0-31); Albumin Level 3.7 g/dL (3.5-5.0); Alkaline Phosphatase 75 U/L (39-117); Anion Gap 13 (12-20); Aspartate Amino Transferase 31 U/L (5-31); Blood Urea Nitrogen 14 mg/dL (9-16); Calcium 8.4 mg/dL (8.4-10.2); Carbon Dioxide 25 mmol/L (22-29); Chloride 109 mmol/L (96-108); Creatinine Clr Calc Pharmacy 77.1; Estimated Glomerular Filt Rate > 60; Potassium 3.5 mmol/L (3.3-5.1); Sodium 143 mmol/L (135-145); Total Protein 6.0 g/dL (6.5-8.0)
[2024-10-29 05:20] LABS: Cholesterol 151 mg/dL (<200); HDL Cholesterol 49 mg/dL (>40); Triglycerides 179 mg/dL (<150)
[2024-10-29 05:41] LABS: Folate 10.9 ng/mL (> or = 4.0); Vitamin B12 308 pg/mL (200-900)
[2024-10-29 07:07] LABS: Free T4 (Free Thyroxine) 0.93 ng/dL (0.71-1.85)
[2024-10-29] MEDS: Aspirin Enteric Coated 81 MG TABLET.DR PO (08:52)
--- NOTE | 2024-10-29 09:11 | P.CNNE_ITS ---
History of Present Illness Data of Consult Service Date: 10/29/24 Primary Care Provider: Max Mercedes MD [facility] Reason for consult: Headache and numbness 74 years old woman I was asked to see for numbness. She said that she never had headaches until 2-3 weeks ago but in 2019 she was seen in our office by Dr. Deal with headaches syndrome. She said that she was having a mild headache until yesterday when she developed numbness. Numbness probably appeared on face and in few minutes spread to right arm. It lasted until today. There was no recent fever or chills or injury. Review of Systems 2 Review of Systems: No recent cold or flu-like illness PMFSH Past Medical History Medical History (Updated 10/28/24 @ 21:05 by Gely Ortiz PA-C) Fatty liver Morbid obesity Other specified hypothyroidism Ex-smoker Small airways disease Hypertension, essential Nephropathy Family History Family History Father HTN (hypertension) Lung cancer Myocardial infarction Mother HTN (hypertension) Brother No problems noted. Surgical History Surgical History H/O oophorectomy Hx of cholecystectomy History of appendectomy History of hysterectomy Social History Social History Housing: House Patient Tobacco Use Status: Former Tobacco user Years Smoked: 30 yrs Smoked in Last 30 Days: No e-Cigarette/Vaping Use: Never Used Use of substances other than those prescribed or required for medical reasons: No Advance Directives: Yes Advance Directives on File: Yes Advance Directives Date on File: 12/02/19 service: Yes (retired) Current occupational status: retired Current occupational exposures/hazards: No Cognitive needs: No Hearing needs: No Vision needs: No Meds Allergies Allergy/AdvReac Type Severity Reaction Status Date / Time heparin (HEPARIN) Allergy Unknown ITCH Verified 10/28/24 14:37 Tetanus Vaccines and Toxoid Allergy Unknown SWELLING Verified 10/28/24 14:37 (TETANUS VACCINES AND TOXOID) SOB Active Medications: Current Medications Acetaminophen (Acetaminophen 325 Mg Tablet) 650 mg PO Q6H PRN PRN Reason: Pain, Mild 1-3,fever,headache Aspirin (Aspirin Enteric Coated 81 Mg Tablet.) 81 mg PO DAILY [facility] Last Admin: 10/29/24 08:52 Dose: 81 mg Atorvastatin Calcium (Atorvastatin Calcium 80 Mg Tablet) 80 mg PO DAILY [facility] Last Admin: 10/29/24 08:52 Dose: 80 mg Calcium Carbonate (Calcium Carbonate 750 Mg Tab.Chew) 750 mg PO Q4H PRN PRN Reason: Heartburn Hydralazine HCl (Hydralazine Hcl 20 Mg/Ml Vial) 5 mg IVPUSH Q6H PRN; Protocol PRN Reason: SBP >180 Magnesium Hydroxide (Milk Of Magnesia 30 Ml Oral.Susp) 30 ml PO DAILY PRN PRN Reason: Constipation Melatonin (Melatonin 3 Mg Tablet) 6 mg PO BEDTIME PRN PRN Reason: Insomnia Sodium Chloride (0.9 % Sodium Chloride Flush 3 Ml Syringe) 3 ml IVFLUSH QSHIFT [facility] Last Admin: 10/29/24 08:14 Dose: Not Given Home Medications ?Medication ?Instructions ?Recorded ?Confirmed ?Last Taken ?Type dupilumab 300 mg/2 mL subcutaneous 300 mg subcut Q8W 0 10/25/23 10/28/24 07/28/24 History pen injector (Dupixent) levothyroxine 125 mcg tablet 125 mcg PO DAILY@0600 12/1210/28/24 10/28/24 History (Levoxyl) sertraline 25 mg tablet 25 mg PO DAILY 10/28/2410/1910/28/24 History Physical Exam 2 Vital Signs: Vital Signs: Last Vital Signs Temp 97.5 F 10/29/24 08:53 Pulse 54 10/29/24 08:53 Resp 17 10/29/24 08:53 BP 170/90 H 10/29/24 08:53 Pulse Ox 96 10/29/24 08:53 O2 Del Method Room Air 10/29/24 08:53 BMI result Body Mass Index 47.9 Neuro: Other: She is alert and awake with normal spontaneity of speech fluency comprehension and affect. She did not seem to be in distress. Neck was supple. Extraocular muscles were intact. Visual peace are full. There was no focal weakness. Deep tendon reflexes were trace to absent with flexor plantars. Results Labs 10/29/24 04:09 10/29/24 04:09 Labs: Short CBC 10/28/24 10/29/24 Range/Units 15:00 04:09 WBC 5.6 7.1 (4.8-10.8) X10*3/uL Hgb 14.4 13.7 (12.0-16.0) g/dl Hct 41.0 41.7 (37.0-47.0) % Plt Count 184 D 177 (160-400) X10*3/uL BMP 10/28/24 10/29/24 15:00 04:09 Sodium 142 143 Potassium 3.5 D 3.5 Chloride 111 H 109 H Carbon Dioxide 24 25 BUN 13 14 Creatinine 0.83 0.90 Calcium 8.6 D 8.4 Liver Function 10/28/24 10/29/24 Range/Units 15:00 04:09 Total Bilirubin 1.4 H 1.3 H (0.0-1.0) mg/dL AST 33 H 31 (5-31) U/L ALT 32 H 30 (0-31) U/L Alkaline Phosphatase 86 75 (39-117) U/L Albumin 4.0 3.7 (3.5-5.0) g/dL Head CT did not reveal any significant abnormality. Mild atrophy was noted Assessment and Plan (1) Numbness and tingling: Status: Acute Probably migraine equivalent syndrome. She had a similar episode of mild headache lasting for days to weeks in 2019 when she was seen in our office. This time she had similar headache but also transient facial and arm numbness. But she stated that she did not have headaches or migraines. With that history, maybe these reasonable to obtain a noncontrast MRI of brain to rule out alternate possibilities. Procedures Date of Service Date of Service: 10/29/24
[2024-10-29 09:32] LABS: Appearance Urine Clear; Glucose Urine UA Negative (Negative); PH 5.5 (5.0-9.0); Specific Gravity - Urine 1.015 (1.005-1.025)
--- NOTE | 2024-10-29 09:59 | PC.NURSE ---
assumed care of pt at 0645. a&ox4. neuros intact. pt answering questions/following commands appropriately. pt denies any neurological sx - states [place], dizziness, right sided facial/RUE numbness/tingling has subsided at this time. vss and up to date aside from being hypertensive - prn not utilized d/t MAR parameters at this time. nsr on the electronic device monitor. pt ambulated to the restroom independently w/o any use of assistive devices - strong/steady gait noted. urine specimen obtained/sent to lab. MRI screening form filled out/faxed/placed in pt's chart. pt noted to not have IV access despite pending bed assignment. 20gIV placed in the right forearm - patent/intact. currently having echocardiogram completed. pt otherwise offers no complaints. slight headache - prn medication utilized. on RA w/o difficulty. no sob/wob noted. respirations even/unlabored. pending bed assignment. plan of care ongoing. call awan placed within reach.
--- NOTE | 2024-10-29 10:32 | PC.NURSE ---
PT/OT evaluation being completed at this time.
--- NOTE | 2024-10-29 11:25 | HO.PM.IMPN ---
Subjective Subjective Date of Service: 10/29/24 Interval History: f/u on dizzines, [place] Head CT and MRI negative, BP is high Physical Exam Vital Signs: Vital Signs: vitals reviewd Objective Data Active Medications Acetaminophen (Acetaminophen 325 Mg Tablet) 650 mg PO Q6H PRN PRN Reason: Pain, Mild 1-3,fever,headache Last Admin: 10/30/24 01:40 Dose: 650 mg Documented By: MONTEJENNIFER Acetaminophen/Butalbital/Caffeine (Butalb/Acetamin/Caff 50/325/40 Tablet) 1 tab PO Q4H PRN PRN Reason: Headache/Pain, Scale 1-10 Aspirin (Aspirin Enteric Coated 81 Mg Tablet.) 81 mg PO DAILY COUNTS INCLUDE 234 BEDS AT THE [facility] Last Admin: 10/30/24 07:55 Dose: 81 mg Documented By: ANJANA Atenolol (Atenolol 25 Mg Tablet) 25 mg PO DAILY COUNTS INCLUDE 234 BEDS AT THE [facility]; Protocol Last Admin: 10/30/24 08:12 Dose: Not Given Documented By: ANJANA Non-Admin Reason: Decreased Heart Rate Atorvastatin Calcium (Atorvastatin Calcium 80 Mg Tablet) 80 mg PO DAILY COUNTS INCLUDE 234 BEDS AT THE [facility] Last Admin: 10/30/24 07:55 Dose: 80 mg Documented By: ANJANA Calcium Carbonate (Calcium Carbonate 750 Mg Tab.Chew) 750 mg PO Q4H PRN PRN Reason: Heartburn Hydralazine HCl (Hydralazine Hcl 20 Mg/Ml Vial) 5 mg IVPUSH Q6H PRN; Protocol PRN Reason: SBP >180 Last Admin: 10/29/24 18:29 Dose: 5 mg Documented By: JOANIE Lisinopril (Lisinopril 40 Mg Tablet) 40 mg PO DAILY COUNTS INCLUDE 234 BEDS AT THE [facility]; Protocol Last Admin: 10/30/24 07:55 Dose: 40 mg Documented By: ANJANA Magnesium Hydroxide (Milk Of Magnesia 30 Ml Oral.Susp) 30 ml PO DAILY PRN PRN Reason: Constipation Melatonin (Melatonin 3 Mg Tablet) 6 mg PO BEDTIME PRN PRN Reason: Insomnia Last Admin: 10/29/24 22:56 Dose: 6 mg Documented By: JOANIE Sodium Chloride (0.9 % Sodium Chloride Flush 3 Ml Syringe) 3 ml IVFLUSH QSHIFT COUNTS INCLUDE 234 BEDS AT THE [facility] Last Admin: 10/30/24 08:09 Dose: 3 ml Documented By: ANJANA Labs 10/29/24 04:09 10/29/24 04:09 Assessment and Plan (1) Numbness and tingling: Status: Acute Plan Patient is a 74-year-old female with a past medical history significant for hypertension, hypothyroid, hyperlipidemia, depression, fatty liver and morbid obesity, who presented to the ED due to disease for the past 2 weeks with associated numbness and tingling on the right side of her face for the past few days. Dizziness/numbness and tingling, right face and right upper extremity Seen by Neuro CT and MRI unremarkable Neuro suspect type of Migraine. Treat symptomatically HTN--uncontrolled and could be part of [place] IV hydralazine PRN hypothyroid continue LT4 HLD - continue statin, increased to atorvastatin 80mg depression - continue sertraline fatty liver disease - LFTs at baseline - continue outpt f/u morbid obesity - BMI 47.9 - weight loss encouraged full code VTE prophy: lovenox Late entry note from 10/29 Quality Stroke Does the patient have a stroke diagnosis?: No VTE Prior VTE?: No VTE Risk Level:: Medical - moderate - high VTE Device Contraindication: Treatment Not Indicated VTE Drug Contraindication: N/A - Med Ordered
--- NOTE | 2024-10-29 11:39 | MHC.CM.PN ---
IMM and IMM 10/29/24, Patient lives alone, she does not use home health services, occassionally uses a cane. PCP is Max Mercedes, HCP form to be completed and added to chart. She will drive herself home, car is in lot. DCP: home, self care, CM to follow for DC needs.
--- NOTE | 2024-10-29 12:59 | PC.NURSE ---
Pt returned from MRI, placed back on monitor, NSR, no apparent distress.
--- NOTE | 2024-10-29 15:57 | MHC.SLORD ---
Speech Language Pathology Order Status: PATTERN ILLUSTRATOR received order for Speech/Language/Cognitive Assessment from Gely Ortiz in response to Stroke Protocol. On interview of patient today, Patient presents with no c/o or symptoms of speech, language, cognitive, or swallow issues related to current admit/ED stay. Full assessment not indicated at this time. MD/night coordinator notified. PATTERN ILLUSTRATOR will discontinue order.
[2024-10-29] MEDS: 0.9 % Sodium Chloride Flush 3 ML SYRINGE IVFLUSH (16:48)
--- NOTE | 2024-10-29 18:33 | PC.NURSE ---
Pt c/o h/a 05/28, pt requested tylenol as opposed to a stronger analgesics.
--- NOTE | 2024-10-29 18:43 | PC.NURSE ---
Pt states R facial tingling resolved, continues to c/o h/a 05/28; SBP 184, pt medicated w/ prn antihypertensive and apap. Dr. Dan aware via tiger text.
[2024-10-30] VITALS (19 sets, daily range): BP systolic 121–244; BP diastolic 73–105; PULSE 54–93; RESP 16–20; TEMP 36.3–36.9; O2SAT 93–96; BMI 47.5
[2024-10-30] MEDS: 0.9 % Sodium Chloride Flush 3 ML SYRINGE IVFLUSH ×4 (01:40→21:20)
[2024-10-30] MEDS: Aspirin Enteric Coated 81 MG TABLET.DR PO (07:55)
--- NOTE | 2024-10-30 09:17 | MHC.CM.PN ---
Pt. has been medically cleared to ID, she will go home via private transport, plan is self care.
[2024-10-30] MEDS: Butalb/Acetamin/Caff 50/325/40 TABLET 1 TAB PO ×2 (16:00→22:36)
[2024-10-31] VITALS (18 sets, daily range): BP systolic 118–225; BP diastolic 60–113; PULSE 59–95; RESP 16–20; TEMP 36.1–37.2; O2SAT 93–97
--- NOTE | 2024-10-31 06:36 | PC.NURSE ---
I went to check pt headache/ pain level and noticed pt BP is elevated as well, administered PRN med after consulting MD.
[2024-10-31] MEDS: Aspirin Enteric Coated 81 MG TABLET.DR PO (08:53)
[2024-10-31] MEDS: 0.9 % Sodium Chloride Flush 3 ML SYRINGE IVFLUSH ×2 (09:03→18:17)
[2024-10-31] MEDS: Butalb/Acetamin/Caff 50/325/40 TABLET 1 TAB PO (10:17)
--- NOTE | 2024-10-31 12:49 | P.PNIM_ITS ---
Subjective Subjective Date of Service: 10/31/24 Interval History: f/u on dizzines, [place] Head CT and MRI negative blood pressure is better she is now complaining of sob, although she says she has been having this shortness of breath for months and has had pulmonolary and cardiac work up Physical Exam 2 Vital Signs: Vital Signs: Last Vital Signs Temp 97.6 F 10/31/24 12:00 Pulse 59 10/31/24 12:00 Resp 18 10/31/24 12:00 BP 140/68 H 10/31/24 12:00 Pulse Ox 93 10/31/24 12:00 O2 Del Method Room Air 10/31/24 12:00 BMI result Body Mass Index 47.5 Objective Data Active Medications Acetaminophen (Acetaminophen 325 Mg Tablet) 650 mg PO Q6H PRN PRN Reason: Pain, Mild 1-3,fever,headache Last Admin: 10/31/24 06:33 Dose: 650 mg Documented By: REJI Acetaminophen/Butalbital/Caffeine (Butalb/Acetamin/Caff 50/325/40 Tablet) 1 tab PO Q4H PRN PRN Reason: Headache/Pain, Scale 1-10 Last Admin: 10/31/24 10:17 Dose: 1 tab Documented By: NURIS Aspirin (Aspirin Enteric Coated 81 Mg Tablet.) 81 mg PO DAILY [facility] Last Admin: 10/31/24 08:53 Dose: 81 mg Documented By: NURIS Atenolol (Atenolol 25 Mg Tablet) 25 mg PO DAILY [facility]; Protocol Last Admin: 10/31/24 08:54 Dose: 25 mg Documented By: NURIS Atorvastatin Calcium (Atorvastatin Calcium 80 Mg Tablet) 80 mg PO DAILY [facility] Last Admin: 10/31/24 08:54 Dose: 80 mg Documented By: NURIS Calcium Carbonate (Calcium Carbonate 750 Mg Tab.Chew) 750 mg PO Q4H PRN PRN Reason: Heartburn Hydralazine HCl (Hydralazine Hcl 20 Mg/Ml Vial) 5 mg IVPUSH Q6H PRN; Protocol PRN Reason: SBP >180 Last Admin: 10/31/24 06:28 Dose: 5 mg Documented By: REJI Hydralazine HCl (Hydralazine Hcl 10 Mg Tablet) 10 mg PO TID [facility]; Protocol Last Admin: 10/31/24 08:57 Dose: 10 mg Documented By: NURIS Levothyroxine Sodium (Levothyroxine Sodium 125 Mcg Tablet) 125 mcg PO DAILY@0600 [facility] Last Admin: 10/31/24 06:10 Dose: 125 mcg Documented By: REJI Lisinopril (Lisinopril 40 Mg Tablet) 40 mg PO DAILY [facility]; Protocol Last Admin: 10/31/24 08:53 Dose: 40 mg Documented By: NURIS Magnesium Hydroxide (Milk Of Magnesia 30 Ml Oral.Susp) 30 ml PO DAILY PRN PRN Reason: Constipation Melatonin (Melatonin 3 Mg Tablet) 6 mg PO BEDTIME PRN PRN Reason: Insomnia Last Admin: 10/29/24 22:56 Dose: 6 mg Documented By: JOANIE Sertraline HCl (Sertraline Hcl 25 Mg Tablet) 25 mg PO DAILY [facility] Last Admin: 10/31/24 08:56 Dose: 25 mg Documented By: NURIS Sertraline HCl (Sertraline Hcl 100 Mg Tablet) 100 mg PO DAILY [facility] Last Admin: 10/31/24 08:56 Dose: 100 mg Documented By: NURIS Sodium Chloride (0.9 % Sodium Chloride Flush 3 Ml Syringe) 3 ml IVFLUSH QSHIFT [facility] Last Admin: 10/31/24 09:03 Dose: 3 ml Documented By: NURIS Labs 10/29/24 04:09 10/29/24 04:09 Assessment and Plan (1) Numbness and tingling: Status: Acute Plan Patient is a 74-year-old female with a past medical history significant for hypertension, hypothyroid, hyperlipidemia, depression, fatty liver and morbid obesity, who presented to the ED due to disease for the past 2 weeks with associated numbness and tingling on the right side of her face for the past few days. Dizziness/numbness and tingling, right face and right upper extremity Seen by Neuro CT and MRI unremarkable Neuro suspect type of Migraine--symptoms are better Treat symptomatically with fiorocet HTN--uncontrolled and could be part of [place] IV hydralazine PRN, oral hydralazine. But she doesn't want to take this after reading some literature on the web can replace with hctz, and avoid normalizing Shortness of breath, apparently has been ongoing for months has had an echo last month been unremakable get chest xray, has nothing to suggested chf hypothyroid continue LT4 HLD - continue statin, increased to atorvastatin 80mg depression - continue sertraline fatty liver disease - LFTs at baseline - continue outpt f/u morbid obesity - BMI 47.9 - weight loss encouraged full code VTE prophy: lovenox Late entry note from 10/29 Quality Stroke Does the patient have a stroke diagnosis?: No VTE Prior VTE?: No VTE Risk Level:: Medical - moderate - high VTE Device Contraindication: Treatment Not Indicated VTE Drug Contraindication: N/A - Med Ordered
[2024-10-31 14:16] LABS: B Type Natriuretic Peptide 65 pg/mL (<100)
[2024-11-01] VITALS (7 sets, daily range): BP systolic 148–188; BP diastolic 74–89; PULSE 65–82; RESP 16–20; TEMP 36.3–36.7; O2SAT 94–98
[2024-11-01] MEDS: Aspirin Enteric Coated 81 MG TABLET.DR PO (08:18)
[2024-11-01] MEDS: 0.9 % Sodium Chloride Flush 3 ML SYRINGE IVFLUSH (08:21)
--- NOTE | 2024-11-01 12:34 | P.DS_ITS ---
DS: Providers Provider Date of Service: 11/01/24 Date of admission: 10/28/24 19:51 Date of discharge: 11/01/24 Primary care physician: Max Mercedes MD Consults: 10/28/24 19:52 Consult to Neurology Routine Consulting Provider: Cece Mercedes Reason for consultation: dizzy DS: Diagnosis Discharge Diagnosis (1) Numbness and tingling: Status: Acute DS: Summary Hospital Course Hospital Course: admission hpi Chief Complaint: dizziness Patient is a 74-year-old female with a past medical history significant for hypertension, hypothyroid, hyperlipidemia, depression, fatty liver and morbid obesity, who presented to the ED due to disease for the past 2 weeks with associated numbness and tingling on the right side of her face for the past few days. She denies any gait abnormalities or trauma. No difficulty with swallowing, aphasia or visual changes. She also reports some mild headache and numbness and tingling in her right upper extremity but no motor deficits. Hospital course: Patient had head CT and MRI showing no acute finding. Seen by Neurology with the following assessment Probably migraine equivalent syndrome. She had a similar episode of mild headache lasting for days to weeks in 2019 when she was seen in our office. This time she had similar headache but also transient facial and arm numbness. But she stated that she did not have headaches or migraines. With that history, maybe these reasonable to obtain a noncontrast MRI of brain to rule out alternate possibilities. Her headache has been controlled by Fiorocet. Additionally she has had uncontrolled blood pressure on Lisinopril 40 daily and atenolol 25 mg daily and has required intermittent doses of IV hydralazine for better BP control. Norvasc 5 mg daily has been added with good control. She will need urgent PCP follow up to further adjust her blood pressure medications, she can also. Time Attestation Discharge Coordination Time (in mins): 35 Quality: Safe Use of Opioids Does Pt have an Active Cancer Diagnosis on the Problem List?: No Quality: Stroke Does the patient have a stroke diagnosis?: No Physical Exam Exam: Exam: General: AO X 3, no acute distress Resp: CTA bilateral CVS: S1,S2,RRR GI: +BS, NT, no distention Skin: No rash Neuro: motor grossly intact Psych: appropriate affect Vital Signs: Vital Signs: Selected Entries 11/01/24 12:00 Temperature 97.9 F Pulse Rate 70 Respiratory Rate 20 Blood Pressure 148/78 H Pulse Oximetry 95 Oxygen Delivery Me thod Room Air DS: Data Data Completed and Pending Labs on day of discharge: Laboratory Results - last 24 hr 10/29/24 10/29/24 04:09 09:21 WBC 7.1 RBC 4.74 Hgb 13.7 Hct 41.7 MCV 88.0 MCH 28.9 MCHC 32.9 RDW 13.5 Plt Count 177 MPV 9.6 Immature Gran % (Auto) 0.3 Neut % (Auto) 50.7 Lymph % (Auto) 36.4 [place] % (Auto) 9.1 Eos % (Auto) 2.9 Baso % (Auto) 0.6 Lymph # (Auto) 2.6 [place] # (Auto) 0.7 Eos # (Auto) 0.2 Baso # (Auto) 0.0 Abs Immat Gran (auto) 0.02 Absolute Neuts (auto) 3.6 Absolute Nucleated RBC 0.000 Nucleated RBC % (auto) 0.0 Sodium 143 Potassium 3.5 Chloride 109 H Carbon Dioxide 25 Anion Gap 13 BUN 14 Creatinine 0.90 Estim Creat Clear Calc 77.1 Estimated GFR > 60 Random Glucose 91 Calcium 8.4 Total Bilirubin 1.3 H AST 31 ALT 30 Alkaline Phosphatase 75 Total Protein 6.0 L Albumin 3.7 Triglycerides 179 H Cholesterol 151 LDL Cholesterol, Calc 67 HDL Cholesterol 49 Vitamin B12 308 Folate 10.9 TSH 4.42 H Free T4 0.93 Urine Color Yellow Urine Appearance Clear Urine pH 5.5 Ur Specific [place] 1.015 Urine Protein Negative Urine Glucose (UA) Negative Urine Ketones Negative Urine Blood Negative Urine Nitrite Negative Ur Leukocyte Esterase Negative Discharge Plan Discharge Anticipated Discharge Date/Time: 10/31/24 12:04 Patient Disposition: Home, Self-Care Discharge Diagnosis: Suspected Migraine, uncontrolled blood pressure Referrals: Max Mercedes MD [Primary Care Provider, Internal Medicine] - 1 Week Cece Mercedes MD [Physician, Neurology] - 1 Week Discharge Medications: New hydralazine 10 mg Tablet 10 mg PO TID Qty: 270 0RF Protocol: Hold for SBP< HOLD for SBP < : 90 Continued (DME) Non-childproof prescription bottles See Rx Instructions .Route .MEDSUPPLY Qty: 1 0RF Rx Instructions: Please send all existing and future medications in bottles that are not childproof and without safety locking tops. rosuvastatin 5 mg tablet 5 mg PO BEDTIME Qty: 90 3RF sertraline 100 mg tablet 100 mg PO DAILY 90 Days Qty: 90 0RF Rx Instructions: Take with 25 mg tablet for a total dose =125 mg daily atenolol 25 mg tablet 25 mg PO DAILY Qty: 90 0RF lisinopril 40 mg tablet 40 mg PO DAILY Qty: 90 0RF sertraline 25 mg tablet 25 mg PO DAILY Rx Instructions: Take with 100 mg tablets for a total dose =125 mg daily levothyroxine [Levoxyl] 125 mcg tablet 125 mcg PO DAILY@0600 Dupixent Pen 300 mg/2 mL pen injector 300 mg subcut Q8W Discharge Orders: Discharge Order (Routine); Ordered 10/29/24 Ordered By: Nabil Dan Diet: Advance to usual diet Activity on Discharge: As tolerated Stand Alone Forms: Patient Portal Discharge page Print Language: Lithuanian Care Plan Goals: recovery from numness dizziness and likely migraine headache Health Concerns: migraine Plan of Treatment: May take tylenol as needed for headache. Follow up with your doctor in a week Assessment: seen above
== END 2024-11-01 14:15 | disposition home or self-care (01) | DRG 103 ==
LOC: HO.ED 18:59 → HO.EDOVER 20:16 → HO.IMC 10-30 01:24
PROVIDERS: Physician Assistant; Physician Assistant Medical; Admitting Provider Hospitalist; Emergency Provider Student in an Organized Health Care Education/Training Program; PCP Internal Medicine; Visit Provider Internal Medicine
DX: G43.109 Migraine with aura, not intractable, without status migrainosus (principal); Z68.42 Body mass index [BMI] 45.0-49.9, adult; R20.0 Anesthesia of skin; R42 Dizziness and giddiness; E66.01 Morbid (severe) obesity due to excess calories; I10 Essential (primary) hypertension; E04.9 Nontoxic goiter, unspecified; E78.5 Hyperlipidemia, unspecified; F32.A Depression, unspecified; K76.0 Fatty (change of) liver, not elsewhere classified; Z71.3 Dietary counseling and surveillance; Z87.891 Personal history of nicotine dependence; Z79.890 Hormone replacement therapy; Z79.899 Other long term (current) drug therapy
CPT/HCPCS: 36415; 70450; 70551; 71045; 80053; 80061; 81003; 82607; 82746; 83735; 83880; 84439; 84443; 84484; 85025; 93005; 93306; 97161; 97165; 99285; J0360; Q9957

== ENCOUNTER → 2024-10-28 14:37 | Outpatient (BNV) | payer MEDICARE, OTHER, SELFPAY | PROVIDERS: Emergency Provider Student in an Organized Health Care Education/Training Program; PCP Internal Medicine; Visit Provider Radiology Diagnostic Radiology | DX: R42 Dizziness and giddiness (principal) | CPT/HCPCS: 70450 ==

== ENCOUNTER → 2024-10-28 14:39 | Outpatient (BNV) | payer MEDICARE, OTHER, SELFPAY | PROVIDERS: Admitting Provider Hospitalist; Emergency Provider Student in an Organized Health Care Education/Training Program; PCP Internal Medicine; Visit Provider Internal Medicine Cardiovascular Disease | DX: I45.10 Unspecified right bundle-branch block (principal); R42 Dizziness and giddiness | CPT/HCPCS: 93010; 93306 ==

== ENCOUNTER 2024-10-28 19:51 | Outpatient (BNV) | payer MEDICARE, OTHER, SELFPAY | END 2024-10-29 11:57 | PROVIDERS: Admitting Provider Hospitalist; Emergency Provider Student in an Organized Health Care Education/Training Program; PCP Internal Medicine; Visit Provider Radiology Diagnostic Radiology | DX: R42 Dizziness and giddiness (principal) | CPT/HCPCS: 70551 ==

== ENCOUNTER 2024-10-28 19:51 | Outpatient (BNV) | payer MEDICARE, OTHER, SELFPAY | END 2024-10-31 12:38 | PROVIDERS: Admitting Provider Hospitalist; Emergency Provider Student in an Organized Health Care Education/Training Program; PCP Internal Medicine; Visit Provider Radiology Diagnostic Radiology | DX: R06.02 Shortness of breath (principal) | CPT/HCPCS: 71045 ==

== ENCOUNTER → 2024-10-28 19:51 | Outpatient (BNV) | payer MEDICARE, OTHER, SELFPAY | PROVIDERS: Admitting Provider Hospitalist; Emergency Provider Student in an Organized Health Care Education/Training Program; PCP Internal Medicine; Visit Provider Psychiatry & Neurology Neurology | DX: R20.0 Anesthesia of skin (principal); R20.2 Paresthesia of skin | CPT/HCPCS: 99222 ==

== ENCOUNTER → 2024-10-28 19:51 | Outpatient (BNV) | payer MEDICARE, OTHER, SELFPAY | PROVIDERS: Admitting Provider Hospitalist; Emergency Provider Student in an Organized Health Care Education/Training Program; PCP Internal Medicine; Visit Provider Internal Medicine | DX: R20.0 Anesthesia of skin (principal); R20.2 Paresthesia of skin | CPT/HCPCS: 99223; 99232; 99239 ==

== ENCOUNTER 2024-11-06 12:52 | Outpatient (AMB) | payer MEDICARE, OTHER, SELFPAY ==
--- NOTE | 2024-11-06 12:54 | A.OFFPC_ITS ---
Vital Signs 11/06/24 12:56 Height 5 ft 5 in Weight 289 lb BMI 48.1 BP 148/78 H Blood Pressure Location Lt brachial Position Sitting Pulse 73 Pulse Source Pulse Oximeter Pulse Oximetry (%) 97 Intake Visit Reasons: TCM Allergies heparin (HEPARIN) Allergy (Unknown, Verified 11/06/24 12:56) ITCH Tetanus Vaccines and Toxoid (TETANUS VACCINES AND TOXOID) Allergy (Unknown, Verified 11/06/24 12:56) SWELLING SOB Medication List - Last Reconciled 11/06/24 by Max Mercedes MD amlodipine 5 mg See Protocol PO DAILY atenolol 25 mg See Protocol PO DAILY dupilumab (Dupixent) 300 mg subcut Q8W levothyroxine (Levoxyl) 125 mcg PO DAILY@0600 lisinopril 40 mg PO DAILY [Non-childproof prescription bottles Please send all existing and future medications in bottles that are not childproof and without safety locking tops.] rosuvastatin 5 mg PO BEDTIME sertraline 25 mg PO DAILY sertraline 100 mg PO DAILY 90 days Tobacco use date assessed: 07/28/24 Fall risk assessment: No Falls in past year Last assessed Fall Risk: 11/06/24 Dental Screening Dental Screen Date: 07/28/24 HPI TCM HPI Details Patient is 74-year-old female came in today for hospital discharge follow-up from [facility] Date of admission 10/28/2024 date of discharge 11/01/2024 Patient has a history of hypertension, hypothyroid, hyperlipidemia, depression, fatty liver, morbid obesity She presented to emergency room due to numbness and tingling of right side of her face for the past few days. No difficulty with swallowing aphasia visual changes, patient did complain of mild headache and numbness tingling in her right upper extremity but no motor deficit. CT scan and MRI showed no acute finding Patient was evaluated by Neurology. Patient also have uncontrolled blood pressure on lisinopril 40 mg atenolol 25 mg she required intermittent doses of IV hydralazine in the hospital and Norvasc 5 mg was added After evaluation and imaging patient was discharged home with a diagnosis of suspected migraine and uncontrolled blood pressure Her new medication for blood pressure is Norvec 5 mg daily, which patient has not started yet, her Bp is still elevated . Her other medications are rosuvastatin 5 mg Sertraline 100 mg Atenolol 25 mg Lisinopril 40 mg Sertraline 25 mg with 100 mg Levothyroxine 125 mcg Dupixent She was discharged home There was some confusion on discharge instructions patient did not know whether to stop her atenolol and start new medication or not She was given script for amlodipine 5 mg as a new patient and she was supposed to continue atenolol and lisinopril. She has not been taking atenolol her blood pressure is elevated today at 148/78 At this point we will restart atenolol along with lisinopril 40 mg and patient is to hold amlodipine 5 mg We will book appointment with nurse navigator in 1 week to have her blood pressure rechecked and then we will proceed with further management per blood pressure readings [facility] Information Date of Discharge 11/01/24 Discharged From [facility] Interactive Contact Date (Reference documentation from this date) 11/02/24 HPI Comments History of Present Illness Details Date of admission/discharge: 10/28/2024 to 11/01/2024 Facility: 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 Better Any pain or discomfort? No Do you have any questions about your condition or discharge instructions? No Were you able to get her medications filled? Yes Do you have any questions about your medications? No Were you able to schedule your follow-up appointments? There is no follow-up appointment except for PCP and for that she is here If home health was ordered, have they contacted you? Done ordered Any outpatient services, if so, are you scheduled? None ordered Are there any additional resources like transportation you might need during your recovery? No Educational needs/resources: None needed What support system do you have? none and none needed as per patient [facility] Medical History Fatty liver Morbid obesity Other specified hypothyroidism Ex-smoker Small airways disease Hypertension, essential Nephropathy Surgical History H/O oophorectomy Hx of cholecystectomy History of appendectomy History of hysterectomy Family History Father HTN (hypertension) Lung cancer Myocardial infarction Mother HTN (hypertension) Brother No problems noted. Social History Household Members: None Housing: House Do you presently have visiting nurse or other home services: No Patient Tobacco Use Status: Former Tobacco user Years Smoked: 30 yrs e-Cigarette/Vaping Use: Never Used Advance Directives Date on File: 12/02/19 service: Yes Current occupational status: retired Current occupational exposures/hazards: No Cognitive needs: No Hearing needs: No Vision needs: No Questionnaire Thrive Questionnaire Date Thrive assessed: 03/10/24 I am a: Patient What is your living situation today?: I have a steady place to live Within the past 12 months, did the food you bought not last and you didn't have the money to get more?: Never true Within the past 12 months, did you worry whether your food would run out before you got money to buy more?: Never true Do you have trouble paying for medicines?: No Do you have trouble getting transportation to medical appointments?: No Do you have trouble paying your heating and electricity bill?: No Do you have trouble taking care of your child, family member or friend?: No Do you have trouble with day-to-day activities such as bathing, preparing meals, shopping, managing finances, etc.?: No Are you currently unemployed and looking for a job?: No Are you interested in more education?: No Please select the resources that you would like help with: None Currently or been in a relationship where the following occur: No concerns reported THRIVE Score: 0 TALON-7 AMB Questionnaire TALON-7 Date TALON - 7 assessed: 05/22/24 Source: Developed by Drs. Erik Jara, Kinjal Shimpan, Addy Rodgers and colleagues, with an educational elva from [employer]. Review of Systems Const Denies chills and Denies fever(s) ENT Denies epistaxis and Denies nasal discharge Card Denies chest pain Resp Denies chest congestion, Denies cough and Denies hemoptysis GI Denies diarrhea and Denies nausea Skin/Breast Denies rash Neuro Reports no additional complaints Psych Reports no additional complaints Endo Reports no additional complaints Physical exam (Primary Care) Vital Signs: Last Vital Signs Pulse 73 11/06/24 12:56 BP 148/78 H 11/06/24 12:56 Pulse Ox 97 11/06/24 12:56 BMI result Body Mass Index 48.1 Tobacco/Smoking Status: Tobacco use Status Tobacco use date assessed 07/28/24 11/06/24 12:54 Patient Tobacco Use Status Former Tobacco user 11/06/24 12:54 e-Cigarette/Vaping Use Never Used 11/06/24 12:54 Thrive Assessment: Date of Thrive Assessment Date Thrive assessed 03/10/24 11/06/24 12:54 Currently or been in a relationship where the following occur: No concerns reported Const General: cooperative, comfortable and no acute distress Orientation/consciousness: patient oriented x3 HENMT Head: Yes normocephalic Eyes General: appearance normal, both eyes and all related structures Neck Neck: Yes supple Resp Effort & Inspection: normal respiratory effort, no cough and no stridor Cardio Rhythm: regular rhythm Heart sounds: S1 normal heart sound present and S2 normal heart sound present Skin General skin exam: turgor normal Neuro General: patient oriented x3, tone normal and moves all extremities Extrem Right lower extremity: no edema Left lower extremity: no edema Coding Level of Care Code TCM Mod MDM <= 7 Days Diagnoses Hospital discharge follow-up Z09 Poorly controlled blood pressure I99.8 Assessment & Plan Assessment & Plan (1) Hospital discharge follow-up: Code(s): Z09 - Encounter for follow-up examination after completed treatment for conditions other than malignant neoplasm Category: Medical (2) Poorly controlled blood pressure: Code(s): I99.8 - Other disorder of circulatory system Category: Medical Plan Patient is 74-year-old female came in today for hospital discharge follow-up from [facility] Date of admission 10/28/2024 date of discharge 11/01/2024 Patient has a history of hypertension, hypothyroid, hyperlipidemia, depression, fatty liver, morbid obesity She presented to emergency room due to numbness and tingling of right side of her face for the past few days. No difficulty with swallowing aphasia visual changes, patient did complain of mild headache and numbness tingling in her right upper extremity but no motor deficit. CT scan and MRI showed no acute finding Patient was evaluated by Neurology. Patient also have uncontrolled blood pressure on lisinopril 40 mg atenolol 25 mg she required intermittent doses of IV hydralazine in the hospital and Norvasc 5 mg was added After evaluation and imaging patient was discharged home with a diagnosis of suspected migraine and uncontrolled blood pressure Her new medication for blood pressure is Norvec 5 mg daily, which patient has not started yet, her Bp is still elevated . Her other medications are rosuvastatin 5 mg Sertraline 100 mg Atenolol 25 mg Lisinopril 40 mg Sertraline 25 mg with 100 mg Levothyroxine 125 mcg Dupixent She was discharged home There was some confusion on discharge instructions patient did not know whether to stop her atenolol and start new medication or not She was given script for amlodipine 5 mg as a new patient and she was supposed to continue atenolol and lisinopril. She has not been taking atenolol her blood pressure is elevated today at 148/78 At this point we will restart atenolol along with lisinopril 40 mg and patient is to hold amlodipine 5 mg We will book appointment with nurse navigator in 1 week to have her blood pressure rechecked and then we will proceed with further management per blood pressure readings
[2024-11-06 12:56] VITALS: BP 148/78; PULSE 73; O2SAT 97; BMI 48.1
--- OUTSIDE RECORDS SUMMARY | 2024-11-06 12:56 | XMS_ITS | Clinical Summary ---
Author Organization [facility], Address [address] [place] [address] [place] [address] Phone Care Team Providers Care Bobcat Driver/Labor Name Role Phone Max Mercedes MD Primary Care Provider [phone] Allergies Active Allergy Reactions Criticality Noted Date [...] to complete this topic Insurance Medicare [facility] Care Teams Bobcat Driver/Labor Relationship Specialty Start Date End Date Max Mercedes MD [address] [place] [address] [id number] PCP - General Internal Medicine 12/23/19
--- OUTSIDE RECORDS SUMMARY | 2024-11-06 12:56 | XMS_ITS | Clinical Summary ---
Author Organization [facility] Address [address] [place] [address] Phone Care Team Providers Care Senior Master Scheduler Name Role Phone Max Mercedes MD Primary Care Provider [phone] Allergies Active Allergy Reactions Criticality Noted Date [...] not recall. Ankylosing spondylitis lumba r region ([facility] V24, [facility] V28) Family History Medical History [...] mmol/L LAB CHEMISTRY METHOD 02/17/2024 4:10 PM [facility] Potassium 4.5 3.5 - 5.1 mmol/L LAB CHEMISTRY METHOD 02/17/2024 4:10 PM [facility] Chloride 105 98 - 107 mmol/L LAB CHEMISTRY METHOD 02/17/2024 4:10 PM [facility] CO2 28 24 - 32 mmol/L LAB CHEMISTRY METHOD 02/17/2024 4:10 PM [facility] Anion Gap 11 5 - 14 LAB CHEMISTRY METHOD 02/17/2024 4:10 PM [facility] Glucose 102(H) 70 - 99 mg/dL LAB CHEMISTRY METHOD 02/17/2024 4:10 PM [facility] BUN 18(H) 7 - 17 mg/dL LAB CHEMISTRY METHOD 02/17/2024 4:10 PM [facility] Creatinine 1.00 0.50 - 1.00 mg/dL LAB CHEMISTRY METHOD 02/17/2024 4:10 PM [facility] eGFR 60 >=60 mL/min/1. 73m2 LAB CHEMISTRY METHOD 02/17/2024 4:10 PM [facility] Comment:Calculation based on the Chronic Kidney Disease Epidemiology Collaboration (CKD-EPI) equation refit without adjustment for race. BUN/Creatinine Ratio 18.0 12.0 - 20.0 LAB CHEMISTRY METHOD 02/17/2024 4:10 PM [facility] Calcium 8.7 8.4 - 10.2 mg/dL LAB CHEMISTRY METHOD 02/17/2024 4:10 PM [facility] AST (SGOT) 28 5 - 40 unit/L LAB CHEMISTRY METHOD 02/17/2024 4:10 PM [facility] ALT (SGPT) 23 7 - 52 unit/L LAB CHEMISTRY METHOD 02/17/2024 4:10 PM [facility] Alkaline Phosphatase 97 34 - 104 unit/L LAB CHEMISTRY METHOD 02/17/2024 4:10 PM EST [facility] Total Protein 6.4 6.4 - 8.5 g/dL LAB CHEMISTRY METHOD 02/17/2024 4:10 PM EST [facility] Albumin 4.3 3.5 - 5.0 g/dL LAB CHEMISTRY METHOD 02/17/2024 4:10 PM EST [facility] Total Bilirubin 1.2(H) 0.3 - 1.0 mg/dL LAB CHEMISTRY METHOD 02/17/2024 4:10 PM EST [facility] Blood Venous blood specimen / Unknown Venipuncture / Unknown 02/17/2024 10:51 AM EST 02/17/2024 3:41 PM EST [facility] LAB BLOOD ORDERABLES Final Result [facility] [address] [place] [address], from Last 3 Months or Most Recently Relevant to Health Maintenance Insurance [facility]ICARE [facility] Care Teams Senior Master Scheduler Relationship Specialty Start Date End Date Max Mercedes MD [address] [place] [address] PCP - General Internal Medicine 01/08/24
--- OUTSIDE RECORDS SUMMARY | 2024-11-06 12:56 | XMS_ITS | Encounter Summary ---
Author Organization [facility] Address [address] [place] [address] Phone Care Team Providers Care Drafter Construction Name Role Phone Max Mercedes MD Primary Care Provider [phone] Reason for Referral * MRI/CAT Scan - Closed Specialty Diagnoses / Procedures Referred By Han serna Referred To Contact Radiology Diagnoses Chest pain Procedures NC Myocardial Perfusion Stress Single NC Myocardial Perfusion Exercise Multiple Erika Duong MD Phone: tel: fax: mailto:[email or web address] Referral ID Status Reason Start Date Expiration Date Visits Re quested Visits Authorized [id number] Closed 03/20/2018 03/20/2019 1 1 Encounter Details Date Type Department Care Team (Late st Contact Info) Description 03/25/2018 Ancillary Orders [facility] [address] [place] [address] 3rd Floor, [address] [place] [address] Erika Duong MD [address] [place] [address] [email or web address] Chest pain Social History Tobacco Use Types [...] in SPECT format, reconstructed tomographically and compared [id number] in short axis, horizontal long axis and [...] pain documented in this encounter Care Teams Drafter Construction Relationship Specialty Start Date End Date Max Mercedes MD [facility] [place] [address] PCP - General Internal Medicine 03/20/18 documented as of this encounter Additional Source Comments The information contained in this document represents components of the legal health record. It is not the complete legal health record.[facility]
--- OUTSIDE RECORDS SUMMARY | 2024-11-06 12:56 | XMS_ITS | Clinical Summary ---
Author Organization [facility] Address [address] [address] Phone Care Team Providers Care Slot Floorperson Name Role Phone Max Mercedes MD Primary Care Provider [phone] Social History Tobacco Use Types Packs/Day Years [...] file Insurance MEDICARE PART A & B [facility] [employer] [facility] MEDICARE SUPPLEMENT [address] [place] [address] MEDICARE PART A & B [employer] MEDICARE SUPPLEMENT [facility] Address: [address] [address] [address] [place] [address] MEDICARE PART A & B [employer] MEDICARE SUPPLEMENT [address] [address] MEDICARE PART A & B [facility] [employer] [facility] MEDICARE SUPPLEMENT [facility] Address: [address] [address] [address] [place] [address] MEDICARE PART A & B Member Subscriber Plan / Payer (Ef fective 2017-Present) Name:Alessia Decker Member ID:[id number] Relation to Subscriber:Self Name:Alessia Decker Subscriber ID:[id number] Payer ID:[id number] Group ID:Not on file Type:Medicare Address: [employer] [address] [place] [phone] FOR LIFE MEDICARE SUPPLEMENT [address] [place] [address] MEDICARE PART A & B FOR LIFE MEDICARE SUPPLEMENT [facility] Address: [address] [address] [address] [place] [address] MEDICARE PART A & B [facility] FOR LIFE MEDICARE SUPPLEMENT [facility] Address: [address] [address] [address] [place] [address] MEDICARE PART A & B [employer] LIFE MEDICARE SUPPLEMENT [facility] Address: [address] [address] [address] [place] [address] MEDICARE PART A & B [facility] LIFE MEDICARE SUPPLEMENT [facility] Address: [facility] [address] [place] [address] Care Teams Slot Floorperson Relationship Specialty Start Date End Date Max Mercedes MD [facility] [place] [address] PCP - General Internal Medicine 03/20/18 Additional Source Comments The information contained in this document represents components of the legal health record. It is not the complete legal health record.[facility]
--- OUTSIDE RECORDS SUMMARY | 2024-11-06 12:56 | XMS_ITS | Clinical Summary ---
Author Organization [facility] Address [address] [place] [address] Care Team Providers Care Deckhand Tuna Boat Name Role Phone Max Mercedes MD Primary Care Provider [phone] Medications No known medications Active Problems No [...] es 65 and older) 2017 Influenza Vaccine 09/18/2024 COVID-19 Vaccine ( - 2023-2 5 season) 2024 RSV Vaccine 60 years and old er and Patients (1 - 1-dose 75+ series) 06/27/2027 Hepatitis B Vaccines Aged Out No long er eligible based on patient's age to complete this topic Insurance MEDICARE PART A & B [facility] Care Teams Deckhand Tuna Boat Relationship Specialty Start Date End Date Max Mercedes MD [address] [place] [address] PCP - General Internal Medicine 08/13/23
== END 2024-11-06 15:36 | disposition home or self-care (01) ==
LOC: HO.HMCC 12:53
PROVIDERS: PCP Internal Medicine; Visit Provider Internal Medicine
DX: I99.8 Other disorder of circulatory system (principal); Z09 Encounter for follow-up examination after completed treatment for conditions other than malignant neoplasm

== ENCOUNTER → 2024-11-06 12:52 | Outpatient (BNVA) | payer MEDICARE, OTHER, SELFPAY | PROVIDERS: PCP Internal Medicine; Visit Provider Internal Medicine | DX: I10 Essential (primary) hypertension (principal); E03.9 Hypothyroidism, unspecified; E78.5 Hyperlipidemia, unspecified; R20.2 Paresthesia of skin; F32.A Depression, unspecified; K76.0 Fatty (change of) liver, not elsewhere classified; E66.01 Morbid (severe) obesity due to excess calories; I99.8 Other disorder of circulatory system; Z09 Encounter for follow-up examination after completed treatment for conditions other than malignant neoplasm; Z68.42 Body mass index [BMI] 45.0-49.9, adult | CPT/HCPCS: 99495 ==

== ENCOUNTER 2024-12-23 09:21 | Outpatient (AMB) | payer MEDICARE, OTHER, SELFPAY ==
[2024-12-23 09:23] VITALS: BP 132/74; PULSE 77; O2SAT 97; BMI 49.4
--- NOTE | 2024-12-23 09:23 | A.OFFPC_ITS ---
Vital Signs 12/23/24 09:23 Height 5 ft 5 in Weight 297 lb BMI 49.4 BP 132/74 Blood Pressure Location Lt brachial Position Sitting Pulse 77 Pulse Source Pulse Oximeter Pulse Oximetry (%) 97 Intake Visit Reasons: weight loss and x-ray for her lower back Allergies heparin (HEPARIN) Allergy (Unknown, Verified 12/23/24 09:23) ITCH Tetanus Vaccines and Toxoid (TETANUS VACCINES AND TOXOID) Allergy (Unknown, Verified 12/23/24 09:23) SWELLING SOB Medication List - Last Reconciled 12/23/24 by Max Mercedes MD amlodipine 5 mg See Protocol PO DAILY atenolol 25 mg See Protocol PO DAILY dupilumab (Dupixent) 300 mg subcut Q8W levothyroxine (Levoxyl) 125 mcg PO DAILY@0600 lisinopril 40 mg PO DAILY [Non-childproof prescription bottles Please send all existing and future medications in bottles that are not childproof and without safety locking tops.] rosuvastatin 5 mg PO BEDTIME sertraline 25 mg PO DAILY sertraline 100 mg PO DAILY 90 days Tobacco use date assessed: 07/28/24 Fall risk assessment: No Falls in past year Last assessed Fall Risk: 12/23/24 Dental Screening Dental Screen Date: 07/28/24 HPI weight loss and x-ray for her lower back HPI Details History of Present Illness The patient is a 74-year-old female presenting for a follow-up visit for management of chronic conditions, specifically addressing concerns of shortness of breath and weight gain. Morbid Obesity: - The patient has morbid obesity with a weight of 297 pounds and a BMI of 49.4. - She reports gaining 8 pounds since Oct, when her weight was 289 pounds, and feels her weight gain is out of control. - The patient expressed interest in GLP- 1 agonist medications for weight management. - She states she has tried various weigh t loss methods multiple times without success. Dyspnea: - The patient reports experiencing short ness of breath with activity, such as walking from her car to the clinic. - Previous evaluations with pulmonology and cardiology were reportedly unremarkable, with a environmental engineer attributing the symptom to being out of shape. Hypertension: - The patient has a history of hypertens ion, managed with atenolol 25 mg and lisinopril 40 mg. Hypothyroidism: - The patient takes levothyroxine 125 mc g for hypothyroidism. - Lab work from October showed a sligh tly elevated TSH of 4.42. Dyslipidemia: - The patient has a history of a lipid d isorder treated with rosuvastatin 5 mg. - Labs from October showed an LDL of 6 7. Anxiety and Depression: - The patient takes sertraline 125 mg fo r anxiety and depression. Medical History: - Hypertension - Hypothyroidism - Dyslipidemia - Anxiety and Depression - Morbid Obesity - Hospitalization in October of this y ear. Medications: - Amlodipine 5 mg for hypertension (curr ently held) - Atenolol 25 mg for hypertension - Levothyroxine 125 mcg for hypothyroidi sm - Lisinopril 40 mg for hypertension - Rosuvastatin 5 mg for lipid disorder - Sertraline 125 mg for anxiety and depr ession Diagnostic Results: - Labs from October: - CBC was within normal limits with no a nemia. - CMP showed intact kidney function and improved liver enzymes. - Lipid panel showed LDL of 67. - TSH was slightly elevated at 4.42. Problem List - Hypertension - Hypothyroidism - Dyslipidemia - Anxiety and Depression - Morbid Obesity - Dyspnea on exertion Plan - A referral will be placed to the weigh t loss program at [facility]. - The patient has been counseled to spec nevaeh her interest in non-surgical weight loss when contacting the program. - Discussed that as weight loss occurs, her dyspnea on exertion is expected to improve. - Informed the patient that insurance co verage for GLP-1 agonists is unlikely without conditions such as diabetes, a heart condition, or sleep apnea, which she does not have. - The patient's upcoming appointment in January will be canceled. - The patient is to follow up in four mo nths. Review of Systems - General: No fever no chills - Ear nose throat: No sore throat no hearing difficulty no ear pain - Cardiovascular: No syncope, no chest pain, no palpitations - Gastrointestinal: No nausea vomiting or diarrhea Physical Exam General: No acute distress, HEENT: No acute findings Neck: Supple Respiratory system: Able to talk in full sentences, no audible wheeze Cardiovascular: S1-S2 regular in rate and rhythm, blood pressure is 132/74. Gastrointestinal: No pain Extremities: No new findings SUPERVISOR ABATTOIR: Alert awake oriented x3 motor intact Skin: Normal turgor [facility] Medical History Poorly controlled blood pressure Morbid obesity due to excess calories Fatty liver Morbid obesity Other specified hypothyroidism Ex-smoker Small airways disease Hypertension, essential Nephropathy Surgical History H/O oophorectomy Hx of cholecystectomy History of appendectomy History of hysterectomy Family History Father HTN (hypertension) Lung cancer Myocardial infarction Mother HTN (hypertension) Brother No problems noted. Social History Household Members: None Housing: House Do you presently have visiting nurse or other home services: No Patient Tobacco Use Status: Former Tobacco user Years Smoked: 30 yrs e-Cigarette/Vaping Use: Never Used Advance Directives Date on File: 12/02/19 service: Yes Current occupational status: retired Current occupational exposures/hazards: No Cognitive needs: No Hearing needs: No Vision needs: No Questionnaire Thrive Questionnaire Date Thrive assessed: 03/10/24 I am a: Patient What is your living situation today?: I have a steady place to live Within the past 12 months, did the food you bought not last and you didn't have the money to get more?: Never true Within the past 12 months, did you worry whether your food would run out before you got money to buy more?: Never true Do you have trouble paying for medicines?: No Do you have trouble getting transportation to medical appointments?: No Do you have trouble paying your heating and electricity bill?: No Do you have trouble taking care of your child, family member or friend?: No Do you have trouble with day-to-day activities such as bathing, preparing meals, shopping, managing finances, etc.?: No Are you currently unemployed and looking for a job?: No Are you interested in more education?: No Please select the resources that you would like help with: None Currently or been in a relationship where the following occur: No concerns reported THRIVE Score: 0 TALON-7 AMB Questionnaire TALON-7 Date TALON - 7 assessed: 05/22/24 Source: Developed by Drs. Erik Jara, Kinjal B.Addy Escalona and colleagues, with an educational elva from [employer]. Physical exam (Primary Care) Vital Signs: Last Vital Signs Pulse 77 12/23/24 09:23 BP 132/74 12/23/24 09:23 Pulse Ox 97 12/23/24 09:23 BMI result Body Mass Index 49.4 Tobacco/Smoking Status: Tobacco use Status Tobacco use date assessed 07/28/24 12/23/24 09:28 Patient Tobacco Use Status Former Tobacco user 12/23/24 09:28 e-Cigarette/Vaping Use Never Used 12/23/24 09:28 Thrive Assessment: Date of Thrive Assessment Date Thrive assessed 03/10/24 12/23/24 09:28 Currently or been in a relationship where the following occur: No concerns reported Coding Level of Care Code Est Pt Level 4 (11676) Complex EM visit Add On G2211 Diagnoses Morbid obesity E66.01 Worsening functional endurance R68.89 Hypertension, essential I10 Lipid disorder E78.9 Impaired fasting blood sugar R73.01 Other specified hypothyroidism E03.8 Gastroesophageal reflux disease without esophagitis K21.9 Esophagitis presence: without esophagitis Ex-smoker Z87.891 Assessment & Plan Assessment & Plan (1) Morbid obesity: Code(s): E66.01 - Morbid (severe) obesity due to excess calories Category: Medical (2) Worsening functional endurance: Code(s): R68.89 - Other general symptoms and signs Category: Medical (3) Hypertension, essential: Code(s): I10 - Essential (primary) hypertension Category: Medical (4) Lipid disorder: Code(s): E78.9 - Disorder of lipoprotein metabolism, unspecified Category: Medical (5) Impaired fasting blood sugar: Code(s): R73.01 - Impaired fasting glucose Category: Medical (6) Other specified hypothyroidism: Code(s): E03.8 - Other specified hypothyroidism Category: Medical (7) GERD (gastroesophageal reflux disease): Code(s): K21.9 - Gastro-esophageal reflux disease without esophagitis Category: Medical Qualifiers: Esophagitis presence: without esophagitis Qualified Code(s): K21.9 - Gastro-esophageal reflux disease without esophagitis (8) Ex-smoker: Code(s): Z87.891 - Personal history of nicotine dependence Category: Social Hx Plan Morbid Obesity: - The patient has morbid obesity with a weight of 297 pounds and a BMI of 49.4. - She reports gaining 8 pounds since October, when her weight was 289 pounds, and feels her weight gain is out of control. - The patient expressed interest in GLP-1 agonist medications for weight management. - She states she has tried various weight loss methods multiple times without success. Dyspnea: - The patient reports experiencing shortness of breath with activity, such as walking from her car to the clinic. - Previous evaluations with pulmonology and cardiology were reportedly unremarkable, with a environmental engineer attributing the symptom to being out of shape. Hypertension: - The patient has a history of hypertension, managed with atenolol 25 mg and lisinopril 40 mg. Hypothyroidism: - The patient takes levothyroxine 125 mcg for hypothyroidism. - Lab work from October showed a slightly elevated TSH of 4.42. Dyslipidemia: - The patient has a history of a lipid disorder treated with rosuvastatin 5 mg. - Labs from October showed an LDL of 67. Anxiety and Depression: - The patient takes sertraline 125 mg for anxiety and depression. Medical History: - Hypertension - Hypothyroidism - Dyslipidemia - Anxiety and Depression - Morbid Obesity - Hospitalization in October of this year. Medications: - Amlodipine 5 mg for hypertension (currently held) - Atenolol 25 mg for hypertension - Levothyroxine 125 mcg for hypothyroidism - Lisinopril 40 mg for hypertension - Rosuvastatin 5 mg for lipid disorder - Sertraline 125 mg for anxiety and depression Diagnostic Results: - Labs from October: - CBC was within normal limits with no anemia. - CMP showed intact kidney function and improved liver enzymes. - Lipid panel showed LDL of 67. - TSH was slightly elevated at 4.42. Problem List - Hypertension - Hypothyroidism - Dyslipidemia - Anxiety and Depression - Morbid Obesity - Dyspnea on exertion Plan - A referral will be placed to the weight loss program at [facility]. - The patient has been counseled to specify her interest in non-surgical weight loss when contacting the program. - Discussed that as weight loss occurs, her dyspnea on exertion is expected to improve. - Informed the patient that insurance coverage for GLP-1 agonists is unlikely without conditions such as diabetes, a heart condition, or sleep apnea, which she does not have. - The patient's upcoming appointment in January will be canceled. - The patient is to follow up in four months. Orders: Referrals Bariatric Surgery Referral E66.01 - Morbid (severe) obesity due to excess calories
--- OUTSIDE RECORDS SUMMARY | 2024-12-23 10:16 | XMS_ITS | Clinical Summary ---
Author Organization [facility] Address [address] [place] [address] Phone Care Team Providers Care Cognos Consultant Name Role Phone Max Mercedes MD Primary Care Provider [phone] Allergies Active Allergy Reactions Criticality Noted Date [...] not recall. Ankylosing spondylitis lumba r region ([facility] V24, [facility] V28) Family History Medical History Relation Name Comments Autoimmune disease Brother ANCA Arthritis Father Petty Decker CHF Cancer Father Petty Decker CHF Heart disease Father Petty Broussarda CHF Heart failure Father Petty Broussarda CHF Lung cancer Father Petty Broussarda CHF Rheum arthritis Father Petty Decker CHF Anesthesia problems Mother iNcky Decker Arthritis Mother Nicky Decker Cancer Mother [...] Last Done Comments Breast Cancer Screening 1950 Colorectal Cancer Screening: Colonoscopy 1950 COVID-19 Vaccine (#1) 1957 DTaP,Tdap,and Td Vaccines (1 - Tdap) 06/27/1971 Zoster Vaccines (1 of 2) 06/27/1971 Pneumococcal Vaccine: 50+ Years (1 of 1 - PCV) 2002 RSV Immunization Adult Patients (1 - Risk 50-74 years 1-dose series) 2002 Cholesterol Screening (Lipid Panel) 12/31/2023 Falls Risk Assessment 12/31/2023 Hepatitis C [...] METHOD 02/17/2024 4:10 PM [facility] Potassium 4.5 3.5 - 5.1 mmol/L LAB CHEMISTRY METHOD 02/17/2024 4:10 PM [facility] Chloride 105 98 - 107 mmol/L LAB CHEMISTRY METHOD 02/17/2024 4:10 PM [facility] CO2 28 24 - 32 mmol/L LAB CHEMISTRY METHOD 02/17/2024 4:10 PM [facility] Anion Gap 11 5 - 14 LAB CHEMISTRY METHOD 02/17/2024 4:10 PM [facility] Glucose 102(H) 70 - 99 mg/dL LAB CHEMISTRY METHOD 02/17/2024 4:10 PM [facility] BUN 18(H) 7 - 17 mg/dL LAB CHEMISTRY METHOD 02/17/2024 4:10 PM [facility] Creatinine 1.00 0.50 - 1.00 mg/dL LAB CHEMISTRY METHOD 02/17/2024 4:10 PM [facility] eGFR 60 >=60 mL/min/1. 73m2 LAB CHEMISTRY METHOD 02/17/2024 4:10 PM [facility] Comment:Calculation based on the Chronic Kidney Disease Epidemiology Collaboration (CKD-EPI) equation refit without adjustment for race. BUN/Creatinine Ratio 18.0 12.0 - 20.0 LAB CHEMISTRY METHOD 02/17/2024 4:10 PM [facility] Calcium 8.7 8.4 - 10.2 mg/dL LAB CHEMISTRY METHOD 02/17/2024 4:10 PM [facility] AST (SGOT) 28 5 - 40 unit/L LAB CHEMISTRY METHOD 02/17/2024 4:10 PM [facility] ALT (SGPT) 23 7 - 52 unit/L LAB CHEMISTRY METHOD 02/17/2024 4:10 PM [facility] Alkaline Phosphatase 97 34 - 104 unit/L LAB CHEMISTRY METHOD 02/17/2024 4:10 PM EST [facility] Total Protein 6.4 6.4 - 8.5 g/dL LAB CHEMISTRY METHOD 02/17/2024 4:10 PM EST [facility] Albumin 4.3 3.5 - 5.0 g/dL LAB CHEMISTRY METHOD 02/17/2024 4:10 PM EST [facility] Total Bilirubin 1.2(H) 0.3 - 1.0 mg/dL LAB CHEMISTRY METHOD 02/17/2024 4:10 PM EST [facility] Blood Venous blood specimen / Unknown Venipuncture / Unknown 02/17/2024 10:51 AM EST 02/17/2024 3:41 PM EST [facility] BLOOD ORDERABLES Final Result [facility] [address] [place] [address], from Last 3 Months or Most Recently Relevant to Health Maintenance Insurance MEDICARE [facility] Care Teams Cognos Consultant Relationship Specialty Start Date End Date Max Mercedes MD [address] [place] [address] PCP - General Internal Medicine 01/08/24
--- OUTSIDE RECORDS SUMMARY | 2024-12-23 10:16 | XMS_ITS | Encounter Summary ---
Author Organization [facility] Address [address] [facility] [address] [place] [address] Phone Care Team Providers Care Rotary Envelope Machine Operator Name Role Phone Max Mercedes MD Primary Care Provider [phone] Reason for Referral * MRI/CAT Scan - Closed Specialty Diagnoses / Procedures Referred By Han serna Referred To Contact Radiology Diagnoses Chest pain Procedures NC Myocardial Perfusion Stress Single NC Myocardial Perfusion Exercise Multiple Erika Duong MD Phone: tel: fax: mailto:[email or web address] Solutions Referral ID Status Reason Start Date Expiration Date Visits Re quested Visits Authorized [id number] Closed 03/20/2018 03/20/2019 1 1 Encounter Details Date Type Department Care Team (Late st Contact Info) Description 03/25/2018 Ancillary Orders [facility] [address] [place] [address] [address] Floor, [address] [place] [address] Erika Duong MD [address] [place] [address] [email or web address] Solutions Chest pain Social History Tobacco Use Types [...] in SPECT format, reconstructed tomographically and compared [id number] in short axis, horizontal long axis and [...] pain documented in this encounter Care Teams Rotary Envelope Machine Operator Relationship Specialty Start Date End Date Max Mercedes MD [facility] [place] [address] PCP - General Internal Medicine 03/20/18 documented as of this encounter Additional Source Comments The information contained in this document represents components of the legal health record. It is not the complete legal health record.[facility]
--- OUTSIDE RECORDS SUMMARY | 2024-12-23 10:16 | XMS_ITS | Clinical Summary ---
Author Organization [facility] Address [address] [address] Phone Care Team Providers Care Software Solutions Architect Name Role Phone Max Mercedes MD Primary Care Provider [phone] Social History Tobacco Use Types Packs/Day Years [...] file Insurance MEDICARE PART A & B [facility] [email or web address] [facility] MEDICARE SUPPLEMENT [address] [place] [address] MEDICARE PART A & B [employer] MEDICARE SUPPLEMENT [address] [place] [address] MEDICARE PART A & B [employer] MEDICARE SUPPLEMENT [address] [place] [address] MEDICARE PART A & B [facility] [email or web address] [facility] MEDICARE SUPPLEMENT [address] [place] [address] MEDICARE PART A & B Member Subscriber Plan / Payer (Ef fective 2017-Present) Name:Alessia Decker Member ID:[id number] Relation to Subscriber:Self Name:Alessia Decker Subscriber ID:[id number] Payer ID:[id number] Group ID:Not on file Type:Medicare Address: [employer] [address] [place] [id number] [employer] LIFE MEDICARE SUPPLEMENT [address] [place] [address] MEDICARE PART A & B [employer] MEDICARE SUPPLEMENT [address] [place] [address] MEDICARE PART A & B [facility] [employer] MEDICARE SUPPLEMENT [address] [place] [address] MEDICARE PART A & B [employer] MEDICARE SUPPLEMENT [address] [place] [address] MEDICARE PART A & B [facility] LIFE MEDICARE SUPPLEMENT Care Teams Software Solutions Architect Relationship Specialty Start Date End Date Max Mercedes MD [facility] [address] PCP - General Internal Medicine 03/20/18 Additional Source Comments The information contained in this document represents components of the legal health record. It is not the complete legal health record.[facility]
--- OUTSIDE RECORDS SUMMARY | 2024-12-23 10:16 | XMS_ITS | Clinical Summary ---
Author Organization Formerly [facility] Address [address] [place] [address] Care Team Providers Care Metal Casket Assembler Name Role Phone Max Mercedes MD Primary Care Provider [phone] Medications No known medications Active Problems No [...] - 2023-2 5 season) 2024 RSV Vaccine 50 years and old er and Patients (1 - 1-dose 75+ series) 06/27/2027 Hepatitis B Vaccines Aged Out No long er eligible based on patient's age to complete this topic Insurance MEDICARE PART A & B [facility] Care Teams Metal Casket Assembler Relationship Specialty Start Date End Date Max Mercedes MD [address] [place] [address] PCP - General Internal Medicine 08/13/23
--- OUTSIDE RECORDS SUMMARY | 2024-12-23 10:16 | XMS_ITS | Data Portability ---
Author Organization [facility]on[facility] [place] Address [address] [place] [address] Assessment Encounter Date Assessment Date Assessment LastModified by Organization Details LastModified Time 10/25/2023 10/25/2023 HPI : T maxwell you for the pleasure of requesting a [...] degrees. The knee is stable within that kuhun-so-rjzyjh to AP and ML stress. The alignment [...] with right total knee arthroplasty using the Ladi total knee replacement system. However, it is [...] replacement, robotic assisted, at [facility] [place]. Not available 10/25/2023 15:38:41 11/04/2023 11/04/2023 HPI [...] total knee arthropla sty (SURG) 2023 024 [email or web address] [facility] [place] [facility] [address] [place] [address] [place], [address], 5 15:56:31 Imaging XR, knee, 1 or 2 view 2023 024 [facility], [address], [place], [address], 4 15:44:57 Medication Orders None recorded. Patient [...] Time Osteoarthri tis of right knee joint [id number] 00 Active 2023 Aneesh Taylor MD [address], [place], [address], [place] [facility], P 4 15:35:53 Arthritis of knee 151037549 Active 2023 Aneesh Taylor MD [address], [place], [address], [place] [facility], [facility] 4 15:36:00 Degeneratio n of lumbar interverteb ral disc 02961223 Active 2023 AC WOO PA-C [address], [place], [address], [place] [facility], [facility] 4 15:36:32 Low back pain 916099561 Active 2023 AC WOO PA-C [address], [place], [address], [place] [facility], [facility] 4 15:36:43 Chronic low back pain 783524292 Active 2023 AC WOO PA-C [address], [place], [address], [place] [facility], [facility] 4 16:02:05 Lumbar spondylosis 476513112 Active 2023 AC WOO PA-C [address], [place], [address], [place] [facility], [facility] 4 16:02:11 Problem Notes None recorded. Procedures Surgical History Date Name Laterality Status Provider Name and Address Organization Details Recorded Time 02/18/19 03 cholecystectomy completed Rema Mack [facility] 10/25/2023 15:46:59 02/18/19 02 hysterectomy completed Rema Mack [facility], P 10/25/2023 15:47:13 02/18/18 57 Appendectomy completed Rema Mack [facility], P 10/25/2023 15:46:42 Imaging Results None recorded. Procedure Notes None recorded. Medical Equipment None Reported. Allergies Allergen ID Allergen Name Allergen Category Reaction Reaction Severity Criticality Documentation Date Start Date Code Code System Note Provider Name and Address Organization Details Recorded Time 69680 heparin medicatio n Not available Not available Not available 10/25/2023 5224 RxNorm Rema Mack null, [place] [facility], P 4 15:48:10 24660 Vaccine product containin g only Clostridi um tetani antigen (medicina l product) medicatio n Not available Not available Not available 10/25/2023 20616 [address] [facility], P 15:48:30 Medications Name Sig Start Date [...] Address Organization Details Last Updated DateTime 10/25/[address] [facility] 10/25/2023 15:06:54 Date Recorded Body mass index (BMI) Body height Provider Name and Address Organization Details Last Updated DateTime 11/04/2023 43.6 kg/m2 167.64 cm AC WOO PA-C [address], [place], [address], [place] [facility] 11/04/2023 16:04:58 Date Recorded Body weight Provider Name an d Address Organization Details Last Updated DateTime 11/04/[address] [place] [facility] 11/04/2023 15:26:00 Social History Question Answer Notes LastModified by Organizat ion Details LastModified Time Tobacco Smoking Status Former Smoker Rema Mack null, [place] [facility] 10/25/2023 15:56:25 When Did You Quit Smoking? 18+yearssin celastcigar ette 25 Yrs Ago [email or web address] Information not available 10/25/2023 How Much Tobacco Do You Smoke? 1 PPD [email or web address] Information not available 10/25/2023 How Many Years Have You Smoked Tobacco? 30 [email or web address] Information not available 10/25/2023 Sex: Unknown Functional Status Question Answer Note LastModified by Organization D etails LastModified Time Do you or have you ever used any other forms of tobacco or nicotine? No [email or web address] Information not available 10/25/2023 What is your level of alcohol consumption? None [email or web address] Information not available 10/25/2023 Mental Status None recorded. Family History Nothing Reported. Medical History Condition Response Hypertension Y Hypothyroidism Y Gynecological HistoryNo gynecological history recorded. Obstetrics History GPAL:G 0 P 0 0 0 0 Past Encounters Encounter ID Performer Location Encounter Start Date Encounter Closed Date Diagnosis/Indication Diagnosis SNOMED-CT Code Diagnosis ICD10 Code Diagnosis IMO Codes Diagnosis Note [id number] MD ARABELLA Baltazar [facility] [address] [facility] [address] [place] [address] 10/25/2023 14:53:34 10/25/2023 15:44:57 Pain of right knee region 9224686847 16998 M25.561 34617481 Osteoarthr itis of right knee joint 0542968572 85801 M17.11 5039540 Arthritis of knee 201485 002 M13.869 [id number] CAROLE GAYLE [place] [address] [place] [address] 11/04/2023 14:54:10 11/04/2023 16:36:24 Low back pain 382382971 M54.50 Chronic low back pain 27 7578861 M54.50 G89.29 32772492 Lumbar spondylosis 05157 0009 M47.816 95692 Body mass index 40+ - severely obese 517024661 Z68.41 412835 Health Concerns Section Related Observation LastModified by Organization Detai ls LastModified Time None Recorded Concern Status LastModified by Organization Details LastModified Time None Recorded Advance Directives Directive None Recorded Payers Insurance Date Sequence Insurance Name Policy Number Policy Villarreal Covered Member ID Villarreal Member ID Guarantor Name 02/03/2024 2 FOR LIFE ( - MEDICARE SUPPLEMENT) Alessia Decker [id number] Alessia Decker 02/03/2024 1 MEDICARE B-CT: NGS Alessia Decker [id number] Alessia Decker OBGyn Episode No OBEpisode recorded.
== END 2024-12-23 09:43 | disposition home or self-care (01) ==
LOC: HO.HMCC 09:21
PROVIDERS: PCP Internal Medicine; Visit Provider Internal Medicine
DX: I10 Essential (primary) hypertension (principal); E66.01 Morbid (severe) obesity due to excess calories; Z68.42 Body mass index [BMI] 45.0-49.9, adult; R68.89 Other general symptoms and signs; E78.9 Disorder of lipoprotein metabolism, unspecified; R73.01 Impaired fasting glucose; E03.8 Other specified hypothyroidism; K21.9 Gastro-esophageal reflux disease without esophagitis; Z87.891 Personal history of nicotine dependence

== ENCOUNTER → 2024-12-23 09:21 | Outpatient (BNVA) | payer MEDICARE, OTHER, SELFPAY | PROVIDERS: PCP Internal Medicine; Visit Provider Internal Medicine | DX: E66.01 Morbid (severe) obesity due to excess calories (principal); Z68.42 Body mass index [BMI] 45.0-49.9, adult; R68.89 Other general symptoms and signs; E78.9 Disorder of lipoprotein metabolism, unspecified; I10 Essential (primary) hypertension; R73.01 Impaired fasting glucose; E03.8 Other specified hypothyroidism; K21.9 Gastro-esophageal reflux disease without esophagitis; Z87.891 Personal history of nicotine dependence; Z71.3 Dietary counseling and surveillance | CPT/HCPCS: 99212 ==

== ENCOUNTER 2025-01-13 11:25 | Outpatient (AMB) | payer MEDICARE, OTHER, SELFPAY ==
[2025-01-13 11:30] VITALS: BP 128/80; PULSE 81; O2SAT 98; BMI 49.8
--- NOTE | 2025-01-13 11:30 | A.OFFPC_ITS ---
Vital Signs 01/13/25 11:30 Height 5 ft 5 in Weight 299 lb BMI 49.8 BP 128/80 Blood Pressure Location Rt brachial Position Sitting Pulse 81 Pulse Source Pulse Oximeter Pulse Oximetry (%) 98 Intake Visit Reasons: Follow up Allergies heparin (HEPARIN) Allergy (Unknown, Verified 01/13/25 11:31) ITCH Tetanus Vaccines and Toxoid (TETANUS VACCINES AND TOXOID) Allergy (Unknown, Verified 01/13/25 11:31) SWELLING SOB Medication List - Last Reconciled 01/13/25 by Max Mercedes MD amlodipine 5 mg See Protocol PO DAILY atenolol 25 mg See Protocol PO DAILY levothyroxine (Levoxyl) 125 mcg PO DAILY@0600 lisinopril 40 mg PO DAILY multivitamin 1 tab PO DAILY [Non-childproof prescription bottles Please send all existing and future medications in bottles that are not childproof and without safety locking tops.] rosuvastatin 5 mg PO BEDTIME sertraline 25 mg PO DAILY sertraline 100 mg PO DAILY Tobacco use date assessed: 07/28/24 Fall risk assessment: No Falls in past year Last assessed Fall Risk: 01/13/25 Dental Screening Dental Screen Date: 07/28/24 HPI HPI Comments History of Present Illness Details History of Present Illness The patient is a 74 year old individual presenting to discuss referrals for prev entative screenings and for health maintenance. Colon cancer screening: - The patient requests a referral for a colonoscopy, stating it was due two years ago. - The last colonoscopy was performed 12 years ago when the patient was 62 years old. - A small polyp was found during the las t procedure, though its nature is unknown. - The patient denies any known family hi story of colon cancer. Lung cancer screening: - The patient inquired about lung cancer screening due to a smoking history equivalent to one pack per day for 30 years. - It was clarified that previous CT scan s of the lungs the patient has undergone are sufficient, and a separate low-resolution screening test is not needed. Bone density screening: - The patient has not had a bone density scan in many years. - A previous scan was normal. Cervical cancer screening: - The patient has not had a Pap smear in a while and still has a cervix. - The patient denies high-risk factors s uch as being HPV positive, having multip le sexual partners, or experiencing spotting or bleeding. - The patient agreed to defer this scree josephine. Essential hypertension: - The patient notes that blood pressure has been high for some time, with readings around 140 systolic. - No medication changes were made at the last visit. - Current medications include amlodipine 5 mg, atenolol 25 mg, and lisinopril 40 mg. Immunizations: - The patient has previously received th e Pneumonia 13 vaccine but is due for the Pneumonia 20 vaccine. - The patient plans to get a flu shot af ter the visit. - The patient reports an allergy to the tetanus vaccine, describing a severe reaction with massive arm swelling, sweating, and alternating sensations of being hot and freezing after receiving one shot in the past. Weight management: - The patient has enrolled in a weight m anagement program in [place] and is awaiting a call to schedule an appointment. - The patient is interested in GLP-1 ago nist therapy for weight loss and expressed a preference for an oral formulation over injections. - The patient declined surgical options for weight loss. Medical History: - Essential hypertension, managed with m edication. - History of colonic polyp, found on col onoscopy 12 years ago. - Prior bone density scan was normal. 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 Surgical History: - History of hysterectomy with cervix re tained. Medications: - Amlodipine 5 mg for hypertension. - Atenolol 25 mg for hypertension. - Lisinopril 40 mg for hypertension. Social History: - Smoking history: Reports having smoked one pack per day for 30 years. - Weight management: Enrolled in a weigh t management program and is considering GLP-1 agonist therapy. Family History: - The patient reports no known family hi story of colon cancer. Diagnostic Results: - Mammogram: Last performed in July his year. - Colonoscopy: Last performed 12 years a go; a small polyp was found. - Bone Density Scan: Previous scan was n ormal. - CT Lung Scan: Patient has a history of prior lung scans. [facility] Medical History Poorly controlled blood pressure Morbid obesity due to excess calories Fatty liver Morbid obesity Other specified hypothyroidism Ex-smoker Small airways disease Hypertension, essential Nephropathy Surgical History Hx of wisdom tooth extraction Hx of colonoscopy H/O oophorectomy Hx of cholecystectomy History of appendectomy History of hysterectomy Family History Father HTN (hypertension) Lung cancer Myocardial infarction Mother HTN (hypertension) Brother No problems noted. Social History Household Members: None Housing: House Do you presently have visiting nurse or other home services: No Alcohol intake: current Alcohol intake frequency: holidays/special occasions only Comment: maybe 1-2 drinks a year Patient Tobacco Use Status: Former Tobacco user Years Smoked: 30 yrs e-Cigarette/Vaping Use: Never Used Advance Directives Date on File: 12/02/19 service: Yes Current occupational status: retired Current occupational exposures/hazards: No Cognitive needs: No Hearing needs: No Vision needs: No Questionnaire Thrive Questionnaire Date Thrive assessed: 03/10/24 I am a: Patient What is your living situation today?: I have a steady place to live Within the past 12 months, did the food you bought not last and you didn't have the money to get more?: Never true Within the past 12 months, did you worry whether your food would run out before you got money to buy more?: Never true Do you have trouble paying for medicines?: No Do you have trouble getting transportation to medical appointments?: No Do you have trouble paying your heating and electricity bill?: No Do you have trouble taking care of your child, family member or friend?: No Do you have trouble with day-to-day activities such as bathing, preparing meals, shopping, managing finances, etc.?: No Are you currently unemployed and looking for a job?: No Are you interested in more education?: No Please select the resources that you would like help with: None Currently or been in a relationship where the following occur: No concerns reported THRIVE Score: 0 TALON-7 AMB Questionnaire TALON-7 Date TALON - 7 assessed: 05/22/24 Source: Developed by Drs. Erik Jara, Kinjal Shipman, Addy Rodgers and colleagues, with an educational elva from [employer] (formerly [employer]). Review of Systems Narrative Review of Systems - General: No fever no chills - Neurological: No headaches no dizziness - Ear nose throat: No sore throat no hearing difficulty no ear pain - Cardiovascular: No syncope, no chest pain, no palpitations - Gastrointestinal: No nausea vomiting or diarrhea Physical exam (Primary Care) Vital Signs: Last Vital Signs Pulse 81 01/13/25 11:30 BP 128/80 01/13/25 11:30 Pulse Ox 98 01/13/25 11:30 BMI result Body Mass Index 49.8 Tobacco/Smoking Status: Tobacco use Status Tobacco use date assessed 07/28/24 01/13/25 11:31 Patient Tobacco Use Status Former Tobacco user 01/13/25 11:31 e-Cigarette/Vaping Use Never Used 01/13/25 11:31 Thrive Assessment: Date of Thrive Assessment Date Thrive assessed 03/10/24 01/13/25 11:31 Currently or been in a relationship where the following occur: No concerns reported Narrative Physical Exam General: No acute distress HEENT: No acute findings Neck: Supple Respiratory system: Able to talk in full sentences, no audible wheeze Cardiovascular: S1-S2 regular in rate and rhythm, blood pressure 128/80 Gastrointestinal: No pain Extremities: No new findings WILDLIFE PROTECTOR: Alert awake oriented x3 motor intact Skin: Normal turgor Coding Level of Care Code Est Pt Level 4 (83051) Diagnoses Colon cancer screening Z12.11 Menopausal state N95.1 Morbid obesity E66.01 Hypertension, essential I10 Ex-smoker Z87.891 Immunization deficiency Z28.39 Assessment & Plan Assessment & Plan (1) Colon cancer screening: Code(s): Z12.11 - Encounter for screening for malignant neoplasm of colon Category: Medical (2) Menopausal state: Code(s): N95.1 - Menopausal and female climacteric states Category: Medical (3) Morbid obesity: Code(s): E66.01 - Morbid (severe) obesity due to excess calories Category: Medical (4) Hypertension, essential: Code(s): I10 - Essential (primary) hypertension Category: Medical (5) Ex-smoker: Code(s): Z87.891 - Personal history of nicotine dependence Category: Social Hx (6) Immunization deficiency: Code(s): Z28.39 - Other underimmunization status Category: Medical Plan Problem List - Essential hypertension - History of smoking - History of colonic polyp - 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 - An order for [facility] density [facility]. - No new referral for lung cancer screening is needed, as prior CT scans are sufficient. - Defer Pap smear screening as patient is considered low risk. - Recommended the patient receive the Pneumonia 20 (Prevnar) vaccine, which can be administered concurrently with the flu vaccine. - Continue current antihypertensive medications, including amlodipine, atenolol, and lisinopril, as blood pressure is well-controlled. - The patient will follow up with the weight management program; discussed GLP-1 agonist therapy, including potential side effects like nausea, bloating, and constipation. - Avoid tetanus vaccine due to a history of a severe allergic reaction. - Schedule follow-up appointment in April. Orders: Orders XR DEXA axial skeleton Today N95.1 - Menopausal and female climacteric states Referrals Gastroenterology Referral Z12.11 - Encounter for screening for malignant neoplasm of colon
--- OUTSIDE RECORDS SUMMARY | 2025-01-13 14:21 | XMS_ITS | Encounter Summary ---
Author Organization [facility] Address [address] [place] [address] Phone Care Team Providers Care Maintenance Truck Driver Name Role Phone Max Mercedes MD Primary Care Provider [phone] Reason for Referral * MRI/CAT Scan - Closed Specialty Diagnoses / Procedures Referred By Han serna Referred To Contact Radiology Diagnoses Chest pain Procedures NC Myocardial Perfusion Stress Single NC Myocardial Perfusion Exercise Multiple Erika Duong MD Phone: tel: fax: mailto:[email or web address] Referral ID Status Reason Start Date Expiration Date Visits Re quested Visits Authorized [id number] Closed 03/20/2018 03/20/2019 1 1 Encounter Details Date Type Department Care Team (Late st Contact Info) Description 03/25/2018 Ancillary Orders [facility] [address] [place] [address] [address]rd Floor, [address] [place] [address] Erika Duong MD [address] [place] [address] [email or web address] Chest pain Social History Tobacco Use Types [...] in SPECT format, reconstructed tomographically and compared [id number] in short axis, horizontal long axis and [...] pain documented in this encounter Care Teams Maintenance Truck Driver Relationship Specialty Start Date End Date Max Mercedes MD [facility] [place] [address] PCP - General Internal Medicine 03/20/18 documented as of this encounter Additional Source Comments The information contained in this document represents components of the legal health record. It is not the complete legal health record.[facility]
--- OUTSIDE RECORDS SUMMARY | 2025-01-13 14:21 | XMS_ITS | Clinical Summary ---
Author Organization Former[facility] Address [address] [place] [address] Care Team Providers Care Radio Time Buyer Name Role Phone Max Mercedes MD Primary Care Provider [phone] Medications No known medications Active Problems No [...] topic Insurance MEDICARE PART A & B [facility] Care Teams Radio Time Buyer Relationship Specialty Start Date End Date Max Mercedes MD [address] [place] [address] PCP - General Internal Medicine 08/13/23
--- OUTSIDE RECORDS SUMMARY | 2025-01-13 14:21 | XMS_ITS | Clinical Summary ---
Author Organization [facility] Address [address] [place] [address] Phone Care Team Providers Care Ticket Maker Name Role Phone Max Mercedes MD Primary Care Provider [phone] Allergies Active Allergy Reactions Criticality Noted Date [...] not recall. Ankylosing spondylitis lumba r region ([facility] V24, [facility] V28) Family History Medical History [...] CHEMISTRY METHOD 02/17/2024 4:10 PM [facility] Potassium 4.5 3.5 - 5.1 mmol/L LAB CHEMISTRY METHOD 02/17/2024 4:10 PM [facility] Chloride 105 98 - 107 mmol/L LAB CHEMISTRY METHOD 02/17/2024 4:10 PM [facility] CO2 28 24 - 32 mmol/L LAB CHEMISTRY METHOD 02/17/2024 4:10 PM [facility] Anion Gap 11 5 - 14 LAB CHEMISTRY METHOD 02/17/2024 4:10 PM [facility] Glucose 102(H) 70 - 99 mg/dL LAB CHEMISTRY METHOD 02/17/2024 4:10 PM [facility] BUN 18(H) 7 - 17 mg/dL LAB CHEMISTRY METHOD 02/17/2024 4:10 PM [facility] Creatinine 1.00 0.50 - 1.00 mg/dL LAB CHEMISTRY METHOD 02/17/2024 4:10 PM [facility] eGFR 60 >=60 mL/min/1. 73m2 LAB CHEMISTRY METHOD 02/17/2024 4:10 PM [facility] Comment:Calculation based on the Chronic Kidney Disease Epidemiology Collaboration (CKD-EPI) equation refit without adjustment for race. BUN/Creatinine Ratio 18.0 12.0 - 20.0 LAB CHEMISTRY METHOD 02/17/2024 4:10 PM [facility] Calcium 8.7 8.4 - 10.2 mg/dL LAB CHEMISTRY METHOD 02/17/2024 4:10 PM [facility] AST (SGOT) 28 5 - 40 unit/L LAB CHEMISTRY METHOD 02/17/2024 4:10 PM [facility] ALT (SGPT) 23 7 - 52 unit/L LAB CHEMISTRY METHOD 02/17/2024 4:10 PM [facility] Alkaline Phosphatase 97 34 - 104 unit/L LAB CHEMISTRY METHOD 02/17/2024 4:10 PM EST [facility] Total Protein 6.4 6.4 - 8.5 g/dL LAB CHEMISTRY METHOD 02/17/2024 4:10 PM EST [facility] Albumin 4.3 3.5 - 5.0 g/dL LAB CHEMISTRY METHOD 02/17/2024 4:10 PM EST [facility] Total Bilirubin 1.2(H) 0.3 - 1.0 mg/dL LAB CHEMISTRY METHOD 02/17/2024 4:10 PM EST [facility] Blood Venous blood specimen / Unknown Venipuncture / Unknown 02/17/2024 10:51 AM EST 02/17/2024 3:41 PM EST [facility] BLOOD ORDERABLES Final Result [facility] [address] [place] [address], from Last 3 Months or Most Recently Relevant to Health Maintenance Insurance MEDICARE [facility] Care Teams Ticket Maker Relationship Specialty Start Date End Date Max Mercedes MD [address] [place] [address] PCP - General Internal Medicine 01/08/24
--- OUTSIDE RECORDS SUMMARY | 2025-01-13 14:21 | XMS_ITS | Clinical Summary ---
Author Organization [facility] Address [address] [address] Phone Care Team Providers Care Key Ringer Name Role Phone Max Mercedes MD Primary Care Provider [phone] Social History Tobacco Use Types Packs/Day Years [...] VACCINES (50+ years) (2 of 2 - PCV20 or PCV21) 01/19/2021 01/20/2020 INFLUENZA VACCINE (#1) 2024 0, [...] file Insurance MEDICARE PART A & B [facility] [employer] [facility] MEDICARE SUPPLEMENT [address] [place] [address] MEDICARE PART A & B [employer] MEDICARE SUPPLEMENT [address] [place] [address] MEDICARE PART A & B [employer] MEDICARE SUPPLEMENT [address] [place] [id number] MEDICARE PART A & B [facility] [employer] MEDICARE SUPPLEMENT [address] [place] [address] MEDICARE PART A & B [employer] MEDICARE SUPPLEMENT [address] [place] [address] MEDICARE PART A & B [employer] MEDICARE SUPPLEMENT [address] [place] [address] MEDICARE PART A & B [facility] FOR LIFE MEDICARE SUPPLEMENT Member Subscriber Plan / Payer ( fective 2018-Present) Name:Alessia Decker Relation to Subscriber:Self Name:Alessia Decker Payer ID:[id number] (NAIC) Group ID:Not on file Type:[facility] Address: [place] [phone] [address] [place] [address] MEDICARE PART A & B [facility] FOR LIFE MEDICARE SUPPLEMENT Member Subscriber Plan / Payer ( fective 2018-Present) Name:Alessia Decker Relation to Subscriber:Self Name:Alessia Decker Payer ID:[id number] (NAIC) Group ID:Not on file Type:[facility] Address: [place] [phone] [address] [address] MEDICARE PART A & B [facility] LIFE MEDICARE SUPPLEMENT Care Teams Key Ringer Relationship Specialty Start Date End Date Max Mercedes MD [address] [place] [address] PCP - General Internal Medicine 03/20/18 Additional Source Comments The information contained in this document represents components of the legal health record. It is not the complete legal health record.[facility]
--- OUTSIDE RECORDS SUMMARY | 2025-01-13 14:21 | XMS_ITS | Clinical Summary ---
Author Organization [facility], Address [address] [place] [address] [place] [address] Phone Care Team Providers Care Business Services Officer Name Role Phone Max Mercedes MD Primary Care Provider [phone] Allergies Active Allergy Reactions Criticality Noted Date Comments Heparin 01/08/2020 Tetanus Toxoid-Containing Vaccines 1 03/09/2019 Medications rosuvastatin (CRESTOR) 10 MG tablet 12/10/2019 [...] age to complete this topic Insurance Medicare [facility] Care Teams Business Services Officer Relationship Specialty Start Date End Date Max Mercedes MD [address] [place] [address] PCP - General Internal Medicine 12/23/19
== END 2025-01-13 12:21 | disposition home or self-care (01) ==
LOC: HO.HMCC 11:25
PROVIDERS: PCP Internal Medicine; Visit Provider Internal Medicine
DX: N95.1 Menopausal and female climacteric states (principal); E66.01 Morbid (severe) obesity due to excess calories; Z68.42 Body mass index [BMI] 45.0-49.9, adult; Z12.11 Encounter for screening for malignant neoplasm of colon; I10 Essential (primary) hypertension; Z87.891 Personal history of nicotine dependence; Z28.39 Other underimmunization status

== ENCOUNTER → 2025-01-13 11:25 | Outpatient (BNVA) | payer MEDICARE, OTHER, SELFPAY | PROVIDERS: PCP Internal Medicine; Visit Provider Internal Medicine | DX: N95.1 Menopausal and female climacteric states (principal); I10 Essential (primary) hypertension; E66.01 Morbid (severe) obesity due to excess calories; Z68.42 Body mass index [BMI] 45.0-49.9, adult; Z87.891 Personal history of nicotine dependence; Z28.39 Other underimmunization status; Z71.3 Dietary counseling and surveillance | CPT/HCPCS: 99212 ==

== ENCOUNTER 2025-02-03 14:00 | Outpatient (REF) | payer MEDICARE, OTHER, SELFPAY ==
[2025-02-03 16:02] LABS: Alanine Aminotransferase 39 U/L (0-31); Albumin Level 4.1 g/dL (3.5-5.0); Alkaline Phosphatase 102 U/L (39-117); Anion Gap 14 (12-20); Aspartate Amino Transferase 42 U/L (5-31); Blood Urea Nitrogen 16 mg/dL (9-16); Calcium 9.1 mg/dL (8.4-10.2); Carbon Dioxide 23 mmol/L (22-29); Chloride 108 mmol/L (96-108); Estimated Glomerular Filt Rate > 60; Potassium 4.0 mmol/L (3.3-5.1); Sodium 141 mmol/L (135-145); Total Protein 6.8 g/dL (6.5-8.0); Uric Acid 6.7 mg/dL (2.4-5.7)
[2025-02-03 16:22] LABS: Vitamin B12 303 pg/mL (200-900)
--- OUTSIDE RECORDS SUMMARY | 2025-02-03 19:47 | XMS_ITS | Clinical Summary ---
Author Organization [facility], Address [address] [place] [address] [place] [address] Phone Care Team Providers Care Farm General Manager Name Role Phone Max Mercedes MD Primary Care Provider [phone] Allergies Active Allergy Reactions Criticality Noted Date [...] complete this topic Insurance Medicare [facility] Care Teams Farm General Manager Relationship Specialty Start Date End Date Max Mercedes MD [address] [place] [address] PCP - General Internal Medicine 12/23/19
== END 2025-02-03 14:01 | disposition home or self-care (01) ==
LOC: HO.LAB 14:00
PROVIDERS: PCP Internal Medicine; Visit Provider Internal Medicine Pulmonary Disease
DX: R06.09 Other forms of dyspnea (principal); I10 Essential (primary) hypertension; E78.9 Disorder of lipoprotein metabolism, unspecified; E87.0 Hyperosmolality and hypernatremia; E79.0 Hyperuricemia without signs of inflammatory arthritis and tophaceous disease; R73.01 Impaired fasting glucose
CPT/HCPCS: 36415; 80053; 82607; 83721; 84550; 99212

== ENCOUNTER 2025-02-03 14:00 | Outpatient (AMB) | payer MEDICARE, OTHER, SELFPAY ==
--- NOTE | 2025-02-03 14:02 | MHC.OFFVIS ---
Vital Signs 02/03/25 14:03 Height 5 ft 5 in Weight 302 lb BMI 50.2 BP 160/92 H Blood Pressure Location Rt brachial Position Sitting Pulse 94 Pulse Source Pulse Oximeter Pulse Oximetry (%) 96 Oxygen Delivery Method Room Air Intake Visit Reasons: Dyspnea with exertion Allergies heparin (HEPARIN) Allergy (Unknown, Verified 01/13/25 11:31) ITCH Tetanus Vaccines and Toxoid (TETANUS VACCINES AND TOXOID) Allergy (Unknown, Verified 01/13/25 11:31) SWELLING SOB HPI HPI Dyspnea with exertion: Details: 74-year-old lady, former 30 pack-year smoker, quit over 20 years prior, previously followed for cough/GERD, CORTEZ, and mild asymptomatic emphysema.? Patient presents today for sick visit complaining over subacute onset of profound dyspnea, now dyspneic after walking 5-10 yd. No complaints of chest pain, cough, sputum production, lower extremity swelling or wheezing. No orthopnea. PFSH Medical History Poorly controlled blood pressure Morbid obesity due to excess calories Fatty liver Morbid obesity Other specified hypothyroidism Ex-smoker Small airways disease Hypertension, essential Nephropathy Surgical History Hx of wisdom tooth extraction Hx of colonoscopy H/O oophorectomy Hx of cholecystectomy History of appendectomy History of hysterectomy Family History Father HTN (hypertension) Lung cancer Myocardial infarction Mother HTN (hypertension) Brother No problems noted. Social History Household Members: None Housing: House Do you presently have visiting nurse or other home services: No Alcohol intake: current Alcohol intake frequency: holidays/special occasions only Comment: maybe 1-2 drinks a year Patient Tobacco Use Status: Former Tobacco user Years Smoked: 30 yrs e-Cigarette/Vaping Use: Never Used Advance Directives Date on File: 12/02/19 service: Yes Current occupational status: retired Current occupational exposures/hazards: No Cognitive needs: No Hearing needs: No Vision needs: No Review of Systems Const Denies daytime sleepiness, Denies excessive sweating, Denies fatigue, Denies fever(s), Denies lethargy, Denies malaise, Denies night sweats, Denies snoring and Denies weight loss Eyes Denies blurry vision and Denies itchy eyes ENT Denies nasal congestion, Denies post nasal drip, Denies sinus pain, Denies sinus pressure and Denies other ( Thrush) Card Denies chest pain, Denies pedal edema, Denies dyspnea, Reports dyspnea on exertion, Denies orthopnea and Denies paroxysmal nocturnal dyspnea Resp Denies cough, Denies hemoptysis, Denies excessive phlegm production, Denies dyspnea, Reports dyspnea on exertion, Denies snoring and Denies wheezing GI Denies abdominal pain and Denies heartburn Musc Denies myalgias, Denies arthralgias and Denies joint swelling Skin/Breast Denies rash Neuro Denies memory loss and Denies seizure-like activity Psych Denies abnormal sleep pattern, Denies anxiety and Denies memory loss Endo Denies excessive sweating, Denies fatigue and Denies heat intolerance Anatoly/Lymph Denies easy bruising Aller/Immun Denies itchy eyes, Denies seasonal rhinorrhea and Denies wheezing Physical Exam Vital Signs: Last Vital Signs Pulse 94 02/03/25 14:03 BP 160/92 H 02/03/25 14:03 Pulse Ox 96 02/03/25 14:03 Oxygen Delivery Method Room Air 02/03/25 14:03 BMI result Body Mass Index 50.2 Const General: no acute distress and alert Nutritional Appearance: obese Orientation/consciousness: Other orientation findings ( oriented) HEENT Head: Yes atraumatic Eyes General: appearance normal, both eyes and all related structures Sclerae: sclerae normal EOM: EOMs intact bilaterally Neck Neck: Yes supple Lymphatic: no lymphadenopathy noted Resp Effort & Inspection: normal respiratory effort and no use of accessory muscles Auscultation: clear to auscultation bilaterally Cardio Rate: regular rate Rhythm: regular rhythm Heart sounds: no gallops, no murmurs and no rubs Skin General skin exam: other ( warm) Extrem General: No clubbing, No cyanosis and No edema Assessment & Plan Assessment & Plan (1) Dyspnea on exertion: Code(s): R06.00 - Dyspnea, unspecified Category: Medical Plan: Profound subacute dyspnea with no clear etiology. Will obtain stat CT angio chest to rule out pulmonary emboli and evaluate pulmonary component, if negative, will likely require additional cardiac workup. Patient has been advised if her symptoms worsen to be evaluated at the emergency room. Orders: Orders Basic Metabolic Panel Today R06.00 - Dyspnea, unspecified CT angio chest aorta Today R06.00 - Dyspnea, unspecified Coding Level of Care Code Est Pt Level 3 (00765) Diagnoses Dyspnea on exertion R06.00
[2025-02-03 14:03] VITALS: BP 160/92; PULSE 94; O2SAT 96; BMI 50.2
--- OUTSIDE RECORDS SUMMARY | 2025-02-03 18:38 | XMS_ITS | Data Portability ---
Author Organization [place] [facility] [place] Address [address] [place] [address] Assessment Encounter Date Assessment Date Assessment LastModified [...] degrees. The knee is stable within that [id number] to AP and ML stress. The alignment [...] with right total knee arthroplasty using the [place] total knee replacement system. However, it is [...] right total knee replacement, robotic assisted, at [facility]. Not available 10/25/2023 15:38:41 11/04/2023 11/04/2023 HPI [...] total knee arthropla sty (SURG) 2023 024 [id number] [facility] [address] [place] [address] [place], [address], 5 15:56:31 Imaging XR, knee, 1 or 2 view 2023 024 [id number] [facility], [address], [place], [address], 4 15:44:57 Medication Orders None recorded. Patient [...] Time Osteoarthri tis of right knee joint 1126612250139 00 Active 2023 Aneesh Taylor MD [address], [place], [address], [place] [facility], P 4 15:35:53 Arthritis of knee 539026313 Active 2023 Aneesh Taylor MD [address], [place], [address], [place] [facility], P 4 15:36:00 Degeneratio n of lumbar interverteb ral disc 47588170 Active 2023 AC WOO PA-C [address], [place], [address], [place] [facility], P 4 15:36:32 Low back pain 906372084 Active 2023 AC WOO PA-C [address], [place], [address], [place] [facility], P 4 15:36:43 Chronic low back pain 244779867 Active 2023 AC WOO PA-C [address], [place], [address], [place] [facility], P 4 16:02:05 Lumbar spondylosis 010301141 Active 2023 AC WOO PA-C [address], [place], [address], [place] [facility], P 4 16:02:11 Problem Notes None recorded. Procedures Surgical History Date Name Laterality Status Provider Name and Address Organization Details Recorded Time 02/18/19 03 cholecystectomy completed Rema Mack [facility] 10/25/2023 15:46:59 02/18/19 02 hysterectomy completed Rema Mack [facility] - [facility], P 10/25/2023 15:47:13 02/18/18 57 Appendectomy completed Rema Mack [facility] - [facility], P 10/25/2023 15:46:42 Imaging Results None recorded. Procedure Notes None recorded. Medical Equipment None Reported. Allergies Allergen ID Allergen Name Allergen Category Reaction Reaction Severity Criticality Documentation Date Start Date Code Code System Note Provider Name and Address Organization Details Recorded Time 75782 heparin medicatio n Not available Not available Not available 10/25/2023 5224 RxNorm Rema Mack null, [place] [facility], P 4 15:48:10 19514 Vaccine product containin g only Clostridi um tetani antigen (medicina l product) medicatio n Not available Not available Not available 10/25/2023 50854 [address] [facility], P 15:48:30 Medications Name Sig Start Date [...] Address Organization Details Last Updated DateTime 10/25/[address] [facility], P 10/25/2023 15:06:54 Date Recorded Body mass index (BMI) Body height Provider Name and Address Organization Details Last Updated DateTime 11/04/2023 43.6 kg/m2 167.64 cm AC WOO PA-C [address], [place], [address], [place] [facility], P 11/04/2023 16:04:58 Date Recorded Body weight Provider Name an d Address Organization Details Last Updated DateTime 11/04/[address] [facility], P 11/04/2023 15:26:00 Social History Question Answer Notes LastModified by Organizat ion Details LastModified Time Tobacco Smoking Status Former Smoker Rema Mack null, [place] [facility], [facility] 10/25/2023 15:56:25 When Did You Quit Smoking? 18+yearssin celastcigar ette 25 Yrs Ago [email or web address] Information not available 10/25/2023 How Much Tobacco Do You Smoke? 1 PPD [email or web address] Information not available 10/25/2023 How Many Years Have You Smoked Tobacco? 30 [email or web address] Information not available 10/25/2023 Sex: Unknown Functional Status Question Answer Note LastModified by Organization D etails LastModified Time Do you or have you ever used any other forms of tobacco or nicotine? No [email or web address] Information not available 10/25/2023 What is your level of alcohol consumption? None Information not available 10/25/2023 Mental Status None recorded. Family History Nothing Reported. Medical History Condition Response Hypertension Y Hypothyroidism Y Gynecological HistoryNo gynecological history recorded. Obstetrics History GPAL:G 0 P 0 0 0 0 Past Encounters Encounter ID Performer Location Encounter Start Date Encounter Closed Date Diagnosis/Indication Diagnosis SNOMED-CT Code Diagnosis ICD10 Code Diagnosis IMO Codes Diagnosis Note [id number] MD ARABELLA Baltazar [facility] [address] [facility] [facility] [address] [place] [address] 10/25/2023 14:53:34 10/25/2023 15:44:57 Pain of right knee region 5827005705 42761 M25.561 38581420 Osteoarthr itis of right knee joint 5102827941 30479 M17.11 6892952 Arthritis of knee 736916 002 M13.869 [id number] CAROLE GAYLE [place] [address] [facility] [address] [place] [address] 11/04/2023 14:54:10 11/04/2023 16:36:24 Low back pain 207178563 M54.50 Chronic low back pain 27 8806148 M54.50 G89.29 94712326 Lumbar spondylosis 84245 0009 M47.816 88289 Body mass index 40+ - severely obese 597029762 Z68.41 091239 Health Concerns Section Related Observation LastModified by Organization Detai ls LastModified Time None Recorded Concern Status LastModified by Organization Details LastModified Time None Recorded Advance Directives Directive None Recorded Payers Insurance Date Sequence Insurance Name Policy Number Policy Villarreal Covered Member ID Villarreal Member ID Guarantor Name 02/03/2024 2 FOR LIFE ( - MEDICARE SUPPLEMENT) Alessia Decker [id number] Alessia Decker 02/03/2024 1 MEDICARE B-CT: NGS Alessia Decker [id number] Alessia Decker OBGyn Episode No OBEpisode recorded.
--- OUTSIDE RECORDS SUMMARY | 2025-02-03 18:38 | XMS_ITS | Encounter Summary ---
Author Organization [facility] Address [address] [place] [address] Phone Care Team Providers Care Machine Edge Bander Name Role Phone Max Mercedes MD Primary Care Provider [phone] Reason for Referral * MRI/CAT Scan - Closed Specialty Diagnoses / Procedures Referred By Han serna Referred To Contact Radiology Diagnoses Chest pain Procedures NC Myocardial Perfusion Stress Single NC Myocardial Perfusion Exercise Multiple Erika Duong MD Phone: tel: fax: mailto[facility][email or web address] Referral ID Status Reason Start Date Expiration Date Visits Re quested Visits Authorized [id number] Closed 03/20/2018 03/20/2019 1 1 Encounter Details Date Type Department Care Team (Late st Contact Info) Description 03/25/2018 Ancillary Orders [facility] [address] [facility], [address] [place] [address] Erika Duong MD [address] [place] [address] [email or web address] Chest pain Social History Tobacco Use Types [...] in SPECT format, reconstructed tomographically and compared ajwd-[id number]-cqis in short axis, horizontal long axis and [...] stress report for full details. Manuel Aguirre, TURNAROUND ENGINEER . Stress Function Comments Post-stress ejection fraction [...] pain documented in this encounter Care Teams Machine Edge Bander Relationship Specialty Start Date End Date Max Mercedes MD [facility] [place] [address] PCP - General Internal Medicine 03/20/18 documented as of this encounter Additional Source Comments The information contained in this document represents components of the legal health record. It is not the complete legal health record.[facility]
--- OUTSIDE RECORDS SUMMARY | 2025-02-03 18:38 | XMS_ITS | Clinical Summary ---
Author Organization [facility] Address [address] [place] [address] Care Team Providers Care Medical Assistant Instructor Name Role Phone Max Mercedes MD Primary Care Provider [phone] Medications No known medications Active Problems No [...] Influenza Vaccine 09/18/2024 COVID-19 Vaccine ( - 2024-2 6 season) 2024 RSV Vaccine 50 years and old er and Patients (1 - 1-dose 75+ series) 06/27/2027 Hepatitis B Vaccines Aged Out No long er eligible based on patient's age to complete this topic Insurance MEDICARE PART A & B [facility] Care Teams Medical Assistant Instructor Relationship Specialty Start Date End Date Max Mercedes MD [address] [place] [address] PCP - General Internal Medicine 08/13/23
--- OUTSIDE RECORDS SUMMARY | 2025-02-03 18:38 | XMS_ITS | Clinical Summary ---
Author Organization [facility] Address [address] [place] [address] Phone Care Team Providers Care Candy Catcher Name Role Phone Max Mercedes MD Primary Care Provider [phone] Allergies Active Allergy Reactions Criticality Noted Date [...] not recall. Ankylosing spondylitis lumba r region ([facility] V24, [facility] V28) Family History Medical History Relation Name Comments Autoimmune disease Brother ANCA Arthritis Father Petty Decker CHF Cancer Father Petty Decker CHF Heart disease Father Petty Decker CHF Heart failure Father Petty Broussarda CHF [...] CHEMISTRY METHOD 02/17/2024 4:10 PM EST [facility] Total Protein 6.4 6.4 - 8.5 g/dL LAB CHEMISTRY METHOD 02/17/2024 4:10 PM EST [facility] Albumin 4.3 3.5 - 5.0 g/dL LAB CHEMISTRY METHOD 02/17/2024 4:10 PM EST [facility] Total Bilirubin 1.2(H) 0.3 - 1.0 mg/dL LAB CHEMISTRY METHOD 02/17/2024 4:10 PM EST [facility] Blood Venous blood specimen / Unknown Venipuncture / Unknown 02/17/2024 10:51 AM EST 02/17/2024 3:41 PM EST [facility] BLOOD ORDERABLES Final Result [facility] [address] [place] [address], from Last 3 Months or Most Recently Relevant to Health Maintenance Insurance MEDICARE [facility] Care Teams Candy Catcher Relationship Specialty Start Date End Date Max Mercedes MD [address] [place] [address] PCP - General Internal Medicine 01/08/24
--- OUTSIDE RECORDS SUMMARY | 2025-02-03 18:39 | XMS_ITS | Clinical Summary ---
Author Organization [facility] Address [address] [address] Phone Care Team Providers Care Cloud Solutions Architect Name Role Phone Max Mercedes MD Primary Care Provider [phone] Social History Tobacco Use Types Packs/Day Years [...] file Insurance MEDICARE PART A & B [facility] [employer] [facility] MEDICARE SUPPLEMENT [address] [address] MEDICARE PART A & B [place] MEDICARE SUPPLEMENT [address] [place] [address] MEDICARE PART A & B [place] MEDICARE SUPPLEMENT [address] [place] [address] MEDICARE PART A & B [facility] EM[facility] [employer] MEDICARE SUPPLEMENT [address] [place] [address] MEDICARE PART A & B [employer] MEDICARE SUPPLEMENT [address] [place] [address] MEDICARE PART A & B [employer] MEDICARE SUPPLEMENT [address] [place] [address] MEDICARE PART A & B [facility] FOR LIFE MEDICARE SUPPLEMENT Member Subscriber Plan / Payer ( fective 2018-Present) Name:Alessia Decker Relation to Subscriber:Self Name:Alessia Decker Payer ID:[id number] (NAIC) Group ID:Not on file Type:[facility] Address: [place] [phone] [address] [place] [address] MEDICARE PART A & B [facility] FOR LIFE MEDICARE SUPPLEMENT Member Subscriber Plan / Payer ( fective 2018-Present) Name:Alessia Decker Relation to Subscriber:Self Name:Alessia Decker Payer ID:[id number] (NAIC) Group ID:Not on file Type:[facility] Address: [place] [phone] [address] [place] [address] MEDICARE PART A & B [facility] LIFE MEDICARE SUPPLEMENT Care Teams Cloud Solutions Architect Relationship Specialty Start Date End Date Max Mercedes MD [address] [facility] [place] [address] PCP - General Internal Medicine 03/20/18 Additional Source Comments The information contained in this document represents components of the legal health record. It is not the complete legal health record.[facility]
== END 2025-02-03 14:32 | disposition home or self-care (01) ==
LOC: HO.HPS 14:01
PROVIDERS: PCP Internal Medicine; Visit Provider Internal Medicine Pulmonary Disease
DX: R06.00 Dyspnea, unspecified (principal)
CPT/HCPCS: 99213

== ENCOUNTER 2025-02-09 | Outpatient (REF) | payer MEDICARE, OTHER, SELFPAY ==
--- NOTE | ~2025-02-09 | CT_ITS ---
EXAMINATION: CT ANGIOGRAM CHEST CLINICAL INFORMATION: R06.00 - Dyspnea, unspecified CT 11 x 21] x-ray 10/31/2024 COMPARISON: None available. TECHNIQUE: Multiple axial images were obtained through the chest after the administration of 85 mL of Omnipaque 350 intravenous contrast. Extensive vascular post-processing including two-dimensional and three-dimensional reformatted images were created and reviewed on an independent workstation. This CT examination was performed using dose optimization techniques as appropriate, variously including the following: *Automated exposure control *Adjustment of mA and/or kV according to patient size (this includes techniques or standardized protocols for targeted exams where dose is matched to indication/reason for exam; i.e. extremities or head) *Use of iterative reconstruction technique FINDINGS: THORACIC AORTA: Minimal atherosclerotic calcifications are present in the arch. There is no aneurysm. There is no dissection. There is no wall hematoma or mural thrombus. The root of the aorta is obscured by motion artifact but grossly within normal limits. LUNGS AND PLEURA: Lungs are clear. There is no pleural thickening or pleural effusion. MEDIASTINUM: There is no pulmonary artery embolus. There is no adenopathy. CORONARY ARTERY CALCIFICATION: Nonvisualized CHEST WALL/AXILLA: No axillary or internal mammary lymphadenopathy. UPPER ABDOMEN: Diffuse low attenuation is noted throughout the liver. There are clips from cholecystectomy. BONES: Moderate to severe degenerative changes are present throughout the thoracic spine with disc space narrowing, endplate sclerosis, bridging anterior osteophytes, and facet arthropathy. CT/CT angio chest aorta IMPRESSION: Unremarkable thoracic aorta. Moderate to severe degenerative changes are present in the thoracic spine. Hepatic steatosis. Cholecystectomy. Fleischner guidelines were followed. Electronically signed by: Babak Collins MD 02/09/2025 11:55 AM EST
[2025-02-09] MEDS: iohexoL 350 MG/ML 100 ML INFUS..BTL IV (11:41)
--- OUTSIDE RECORDS SUMMARY | 2025-03-11 13:54 | XMS_ITS | Clinical Summary ---
Author Organization [facility] Address [address] [place] [address] Phone Care Team Providers Care [employer] Advisor Name Role Phone Max Mercedes MD Primary Care Provider [phone] Allergies Active Allergy Reactions Criticality Noted Date [...] not recall. Ankylosing spondylitis lumba r region ([facility] V24, [facility] V28) Family History Medical History [...] 12/31/2023 Social Influencers of Health Screening 12/31/2023 Influenza Vaccine (#1) 2024 Hypertension/CHF/CAD Annual BMP Blood Test 02/16/2025 02/17/2024, 01/13/2024 Depression Screening 02/18/2025 HIB Vaccines Aged Out No longer eligi [...] mmol/L LAB CHEMISTRY METHOD 02/17/2024 4:10 PM [facility] Potassium 4.5 3.5 - 5.1 mmol/L LAB CHEMISTRY METHOD 02/17/2024 4:10 PM [facility] Chloride 105 98 - 107 mmol/L LAB CHEMISTRY METHOD 02/17/2024 4:10 PM [facility] CO2 28 24 - 32 mmol/L LAB CHEMISTRY METHOD 02/17/2024 4:10 PM [facility] Anion Gap 11 5 - 14 LAB CHEMISTRY METHOD 02/17/2024 4:10 PM [facility] Glucose 102(H) 70 - 99 mg/dL LAB CHEMISTRY METHOD 02/17/2024 4:10 PM [facility] BUN 18(H) 7 - 17 mg/dL LAB CHEMISTRY METHOD 02/17/2024 4:10 PM [facility] Creatinine 1.00 0.50 - 1.00 mg/dL LAB CHEMISTRY METHOD 02/17/2024 4:10 PM [facility] eGFR 60 >=60 mL/min/1. 73m2 LAB CHEMISTRY METHOD 02/17/2024 4:10 PM [facility] Comment:Calculation based on the Chronic Kidney Disease Epidemiology Collaboration (CKD-EPI) equation refit without adjustment for race. BUN/Creatinine Ratio 18.0 12.0 - 20.0 LAB CHEMISTRY METHOD 02/17/2024 4:10 PM [facility] Calcium 8.7 8.4 - 10.2 mg/dL LAB CHEMISTRY METHOD 02/17/2024 4:10 PM [facility] AST (SGOT) 28 5 - 40 unit/L LAB CHEMISTRY METHOD 02/17/2024 4:10 PM [facility] ALT (SGPT) 23 7 - 52 unit/L LAB CHEMISTRY METHOD 02/17/2024 4:10 PM [facility] Alkaline Phosphatase 97 34 - 104 unit/L LAB CHEMISTRY METHOD 02/17/2024 4:10 PM EST [facility] Total Protein 6.4 6.4 - 8.5 g/dL LAB CHEMISTRY METHOD 02/17/2024 4:10 PM EST [facility] Albumin 4.3 3.5 - 5.0 g/dL LAB CHEMISTRY METHOD 02/17/2024 4:10 PM EST [facility] Total Bilirubin 1.2(H) 0.3 - 1.0 mg/dL LAB CHEMISTRY METHOD 02/17/2024 4:10 PM EST [facility] Blood Venous blood specimen / Unknown Venipuncture / Unknown 02/17/2024 10:51 AM EST 02/17/2024 3:41 PM EST [facility] LAB BLOOD ORDERABLES Final Result [facility] [address] [place] [address], from Last 3 Months or Most Recently Relevant to Health Maintenance Insurance MEDICARE [facility] Care Teams [employer] Advisor Relationship Specialty Start Date End Date Max Mercedes MD [address] [place] [address] PCP - General Internal Medicine 01/08/24
--- OUTSIDE RECORDS SUMMARY | 2025-03-11 13:54 | XMS_ITS | Clinical Summary ---
Author Organization [facility] Address [address] [place] [id number] Care Team Providers Care Photographer Motion Picture Name Role Phone Max Mercedes MD Primary Care Provider [phone] Medications No known medications Active Problems No [...] older) 2017 Influenza Vaccine 09/18/2024 COVID-19 Vaccine (1 - 2024-2 6 season) 2024 RSV Vaccine 50 years and old er and Patients (1 - 1-dose 75+ series) 06/27/2027 Hepatitis B Vaccines Aged Out No long er eligible based on patient's age to complete this topic Insurance MEDICARE PART A & B [facility] Care Teams Photographer Motion Picture Relationship Specialty Start Date End Date Max Mercedes MD [address] [place] [id number] PCP - General Internal Medicine 08/13/23
--- OUTSIDE RECORDS SUMMARY | 2025-03-11 13:54 | XMS_ITS | Encounter Summary ---
Author Organization [facility] Address [address] [place] [address] Phone Care Team Providers Care Shank Burnisher Name Role Phone Max Mercedes MD Primary Care Provider [phone] Reason for Referral * MRI/CAT Scan - Closed Specialty Diagnoses / Procedures Referred By Han serna Referred To Contact Radiology Diagnoses Chest pain Procedures NC Myocardial Perfusion Stress Single NC Myocardial Perfusion Exercise Multiple Erika Duong MD Phone: tel: fax: mailto:[email or web address] Referral ID Status Reason Start Date Expiration Date Visits Re quested Visits Authorized [id number] Closed 03/20/2018 03/20/2019 1 1 Encounter Details Date Type Department Care Team (Late st Contact Info) Description 03/25/2018 Ancillary Orders [facility] [address], [address] [place] [address] Erika Duong MD [address] [place] [address] [email or web address] Chest pain Social History Tobacco Use [...] in SPECT format, reconstructed tomographically and compared [id number] in short axis, horizontal long axis and [...] stress report for full details. Manuel Aguirre, EXTERMINATOR HELPER TERMITE . Stress Function Comments Post-stress ejection fraction [...] pain documented in this encounter Care Teams Shank Burnisher Relationship Specialty Start Date End Date Max Mercedes MD [facility] [address] PCP - General Internal Medicine 03/20/18 documented as of this encounter Additional Source Comments The information contained in this document represents components of the legal health record. It is not the complete legal health record.[facility]
--- OUTSIDE RECORDS SUMMARY | 2025-03-11 13:54 | XMS_ITS | Clinical Summary ---
Author Organization [facility], Address [address] [place] [address] [place] [address] Phone Care Team Providers Care Blackjack Dealer Name Role Phone Max Mercedes MD Primary Care Provider [phone] Allergies Active Allergy Reactions Criticality Noted Date [...] age to complete this topic Insurance Medicare [facility] Care Teams Blackjack Dealer Relationship Specialty Start Date End Date Max Mercedes MD [address] [place] [address] PCP - General Internal Medicine 12/23/19
--- OUTSIDE RECORDS SUMMARY | 2025-03-11 13:54 | XMS_ITS | Clinical Summary ---
Author Organization [facility] Address [address] [address] Phone Care Team Providers Care Architect Internship Name Role Phone Max Mercedes MD Primary Care Provider [phone] Social History Tobacco Use Types Packs/Day Years [...] Insurance MEDICARE PART A & B [facility] [employer] [facility] MEDICARE SUPPLEMENT [address] [place] [id number] MEDICARE PART A & B Lang-8 MEDICARE SUPPLEMENT [facility] Address: [address] [address] [address] [place] [address] MEDICARE PART A & B Lang-[employer] MEDICARE SUPPLEMENT [address] [place] [id number] MEDICARE PART A & B [facility] [employer] MEDICARE SUPPLEMENT [facility] Address: [address] [address] [address] [place] [id number] MEDICARE PART A & B [employer] MEDICARE SUPPLEMENT [address] [place] [address] MEDICARE PART A & B [employer] MEDICARE SUPPLEMENT [facility] Address: [address] [phone] [address] [place] [id number] MEDICARE PART A & B [facility] FOR LIFE MEDICARE SUPPLEMENT [facility] Address[place] [phone] [address] [place] [id number] MEDICARE PART A & B [facility] FOR [facility] MEDICARE SUPPLEMENT [facility] Address: [place] [phone] [address] [place] [id number] MEDICARE PART A & B [facility] MEDICARE SUPPLEMENT [facility] Address: [facility] [address] [place] [address] Care Teams Architect Internship Relationship Specialty Start Date End Date Max Mercedes MD [address] [place] [address] PCP - General Internal Medicine 03/20/18 Additional Source Comments The information contained in this document represents components of the legal health record. It is not the complete legal health record.[facility]
== END 2025-02-09 00:01 ==
LOC: HO.CT
PROVIDERS: PCP Internal Medicine; Visit Provider Internal Medicine Pulmonary Disease
DX: R06.09 Other forms of dyspnea (principal)
CPT/HCPCS: 71275; Q9967

== ENCOUNTER → 2025-02-09 10:41 | Outpatient (BNV) | payer MEDICARE, OTHER, SELFPAY | PROVIDERS: PCP Internal Medicine; Visit Provider Radiology Diagnostic Radiology | DX: M51.34 Other intervertebral disc degeneration, thoracic region (principal); K76.0 Fatty (change of) liver, not elsewhere classified; Z90.49 Acquired absence of other specified parts of digestive tract | CPT/HCPCS: 71275 ==